=== PATIENT | male | born 1955 | race Caucasian/White ===

== ENCOUNTER → 2017-05-04 09:52 | Outpatient (CLI) | payer MEDICARE, SELFPAY ==
[2017-05-04 10:02] LABS: Microscopic, Urine URINE MICROSCOPIC (MICROSCOPIC)
[2017-05-04 10:20] LABS: Appearance,Urine Clear (Clear); Bilirubin,Urine Negative (Negative); Blood, Urine Negative (Negative); Color,Urine Yellow (Yellow); Glucose,Urine (UA) Negative (Negative); Ketones,Urine Negative (Negative); Leukocyte Esterase,Urine Negative (Negative); Nitrate,Urine Negative (Negative); Protein,Urine Negative (Negative); Specific Gravity, Urine 1.025 (1.005-1.030); Urobilinogen,Urine 0.2 EU/dl (0.2)
[2017-05-04 10:25] LABS: Bacteria,Urine Trace /lpf; Basophils # 0.1 K/mm3 (0-0.2); Basophils % 0.8 % (0.1-2.0); Eosinophils # 0.1 K/mm3 (0.0-0.4); Eosinophils % 2.3 % (0.1-12.0); Hemoglobin 14.8 g/dL (14.1-18.0); Lymphocytes # 2.1 K/mm3 (0.7-4.5); Mean Corpuscular HGB Conc 32.9 g/dL (31.8-35.4); Mean Corpuscular Hemoglobin 30.2 pg (27.0-31.2); Mean Corpuscular Volume 91.7 fl (80-94); Mean Platelet Volume 7.3 fl (7.4-10.4); Monocytes # 0.3 K/mm3 (0.1-1.0); Monocytes % 5.6 % (1.7-9.3); Neutrophils # 2.9 K/mm3 (1.8-7.8); Neutrophils % 53.2 % (37.0-80.0); Platelet Count 223 K/mm3 (142-424); Red Cell Distribution Width 13.1 % (11.5-17.5); White Blood Count 5.5 K/mm3 (4.8-10.8)
[2017-05-04 10:54] LABS: Creatinine,Urine Random 148 mg/dL (20-320)
[2017-05-04 11:17] LABS: Albumin Level 3.8 gm/dL (3.4-5.0); Anion Gap 11.5 mEq/L (5-15); Blood Urea Nitrogen 21 mg/dL (7-18); Calcium 9.3 mg/dL (8.5-10.1); Carbon Dioxide 29 mmol/L (21.0-32.0); Chloride 102 mmol/L (98-107); Creatinine,Serum 1.18 mg/dL (0.70-1.30); Estimated Glomerular Filt Rate 63 ml/min (>60); GFR (African American) 76 ML/MIN (>60); Glucose 250 mg/dL (74-106); Potassium 4.5 mmoL/L (3.5-5.1); Sodium 138 mmol/L (136-145)
[2017-05-05 11:32] LABS: Vitamin D 25 Hydroxy 31.2 ng/mL (30.0-100.0)
[2017-05-05 14:16] LABS: Total Protein,Urine Random 12.8 mg/dL (0.0-11.9)
[2017-05-06 06:59] LABS: Parathyroid Hormone Intact 27 pg/mL (15-65)
== END ==
PROVIDERS: PCP Nurse Practitioner Family; Visit Provider Internal Medicine Nephrology
DX: N18.3 Chronic kidney disease, stage 3 (moderate) (principal)
CPT/HCPCS: 36415; 80069; 81001; 82570; 82652; 83970; 84155; 85025

== ENCOUNTER → 2017-05-11 14:28 | Outpatient (POV) | payer MEDICARE, SELFPAY | PROVIDERS: Family Provider Nurse Practitioner Family; PCP Nurse Practitioner Family; Visit Provider Internal Medicine Nephrology | DX: Z00.00 Encounter for general adult medical examination without abnormal findings (principal) ==

== ENCOUNTER 2017-06-02 18:03 | Emergency (ER) | payer MEDICARE, SELFPAY ==
--- NOTE | 2017-06-02 20:19 | XR_ITS ---
XR foot LT min 3V HISTORY: ITS.REASON: PAIN AND SWELLING ORDERING PHYSICIAN: Lizzy Medina PATIENT AGE: 62 years COMPARISON: None FINDINGS: No fracture or dislocation. No lytic or blastic change. There is normal mineralization.. The joint spaces are well-preserved. No significant degenerative/arthritic changes. No erosive changes evident. Incidental note made of a small calcaneal spur are and enthesophyte at the Achilles insertion IMPRESSION: Negative, no acute finding
[2017-06-02 20:29] VITALS: BP 137/80; PULSE 74; RESP 20; TEMP 36.9; O2SAT 97; BMI 38.4
[2017-06-02 20:50] LABS: Basophils # 0.1 K/mm3 (0-0.2); Basophils % 0.9 % (0.1-2.0); Eosinophils # 0.3 K/mm3 (0.0-0.4); Eosinophils % 3.9 % (0.1-12.0); Hematocrit 42.8 % (42.0-52.0); Hemoglobin 14.7 g/dL (14.1-18.0); Lymphocytes # 3.4 K/mm3 (0.7-4.5); Lymphocytes % 50.6 K/mm3 (10-50); Mean Corpuscular HGB Conc 34.4 g/dL (31.8-35.4); Mean Corpuscular Hemoglobin 31.1 pg (27.0-31.2); Mean Corpuscular Volume 90.5 fl (80-94); Mean Platelet Volume 7.3 fl (7.4-10.4); Monocytes # 0.6 K/mm3 (0.1-1.0); Monocytes % 9.1 % (1.7-9.3); Neutrophils # 2.4 K/mm3 (1.8-7.8); Neutrophils % 35.5 % (37.0-80.0); Platelet Count 204 K/mm3 (142-424); Red Blood Count 4.73 M/mm3 (4.60-6.20); Red Cell Distribution Width 13.6 % (11.5-17.5); White Blood Count 6.8 K/mm3 (4.8-10.8)
[2017-06-02 20:53] LABS: MANUAL DIFFERENTIAL MANUAL DIFFERENTIAL (MANUAL DIFF)
[2017-06-02 20:54] LABS: Anion Gap 11.5 mEq/L (5-15); Blood Urea Nitrogen 27 mg/dL (7-18); Carbon Dioxide 28 mmol/L (21.0-32.0); Chloride 102 mmol/L (98-107); Creatinine Clearance Estimated 107 mL/min (0-300); Creatinine,Serum 1.18 mg/dL (0.70-1.30); Estimated Glomerular Filt Rate 62 ml/min (>60); GFR (African American) 75 ML/MIN (>60); Glucose 203 mg/dL (74-106); Potassium 3.5 mmoL/L (3.5-5.1); Sodium 138 mmol/L (136-145)
--- NOTE | 2017-06-02 21:23 | HMH.EDUTC ---
[facility] [place] Disposition Clinical Impression: Gout attack Qualifiers: Gout site: foot Gout etiology: unspecified cause Laterality: left Qualified Code(s): M10.9 - Gout, unspecified Disposition: Home, Self-Care Condition on Discharge: Good Instructions: DI for Gout Additional Instructions: Follow up with Dr. Samuel in the morning. You can be there at 9am. If you can't make it at that time, be sure to call and let them know you were here, I spoke to him and he plans to work you in. Referrals: Fan Samuel MD [Staff Physician] - (tomorrow morning) Time of Disposition: 21:43 Medical Decision Making Vital Signs: 06/02/17 20:29 Temperature 98.4 F Temperature Source Temporal Artery Scan Pulse Rate [Right Brachial] 74 Respiratory Rate 20 Blood Pressure [Right Arm] 137/80 Blood Pressure Mean [Right Arm] 99 Blood Pressure Source [Right Arm] Automatic Cuff Blood Pressure Position [Right Arm] Sitting 02 Sat by Pulse Oximetry 97 Oxygen Delivery Method Room Air - Lab Data Lab results reviewed: Yes: I reviewed the patient's lab results. Lab Results 06/02/17 20:25: WBC 6.8, RBC 4.73, Hgb 14.7, Hct 42.8, MCV 90.5, MCH 31.1, MCHC 34.4, RDW 13.6, Plt Count 204, MPV 7.3 L, Neut % (Auto) 35.5 L, Lymph % (Auto) 50.6 H, Sevier % (Auto) 9.1, Eos % (Auto) 3.9, Baso % (Auto) 0.9, Neut # (Auto) 2.4, Lymph # (Auto) 3.4, Sevier # (Auto) 0.6, Eos # (Auto) 0.3, Baso # (Auto) 0.1 06/02/17 20:25: Sodium 138, Potassium 3.5, Chloride 102, Carbon Dioxide 28, Anion Gap 11.5, BUN 27 H, Creatinine 1.18, Estimated Creat Clear 107, Estimated GFR 62, Est GFR ( Amer) 75, Glucose 203 H 06/02/17 20:25: Uric Acid 5.0 Result diagrams: 06/02/17 20:25 06/02/17 20:25 Orders (Tests/Meds): ED MEDICATIONS Discontinued Medications Generic Name Dose Route Start Last Admin Trade Name Cleve PRN Reason Stop Dose Admin Dexamethasone Sodium Phosphate 4 mg 06/02/17 21:34 Decadron 4mg/Ml 1ml Vial IM 06/02/17 21:35 ONCE ONE ORDERS Category Date Time Status Foot XR left minimum 3 views [XR foot LT min 3V] Stat Exams 06/02/17 20:19 Taken CBC w/Auto Diff [Complete Blood Count Auto Diff] Stat Lab 06/02/17 20:25 Results - Radiology Data #1 Image(s): Foot/Toes Image Reviewed: Yes I have reviewed radiologist's interpretation Preliminary Findings: Normal/NAD vrad - Physician Consults Physician Consulted: Dr. Samuel, PCP Time: 21:30 Reason -: Pt condition Comment/Response: Discussed HPI, PMHx, current labs, xray, and exam. Suggest decadron injection and followup in office at 9am. - Raghav Inquiry Pt receiving controlled substance: No - Reevaluation(s) Time: 21:35 Reevaluation #1: Discussed labs, xray and Dr. Samuel's suggestion with patient. Pt refuses decadron because him and shots don't get along, he doesn't want to increase bood sugar with steroid and any type of injection at all lowers blood sugar. He rather not get treatment tonight and just see him in the office. Educated about decadron, how it works and why it was chosen but still declines. Content knowing about his labs and xray. [facility] [place] HPI - General Stated complaint: Possible Gout Left Foot Pain/Burning Time Seen by Provider: 06/02/17 21:23 Mode of Arrival: Family Vehicle Source of Information: Patient Limitations: No Limitations Description of Symptoms (Recalled from Triage Doc. by RN): PT C/O LEFT FOOT SWELLING AND BURNING PAIN FROM GREAT TOE. HX GOUT. HEENT Symptoms (Recalled from RN notes): No Resp Symptoms (Recalled from RN notes): No Skin Symptoms (Recalled from RN notes): No MS Symptoms (Recalled from RN notes): Yes (LEFT FOOT PAIN AND SWELLING) Functional Status (Recalled from RN notes): NA - History of Present Illness Provider Complaint: c/o pain at base of left great toe. Started 2-3 days ago. [place] like gout then. No known injury. Hx of gout. Already taking allopurinal daily. When pain started, added colchicine 4x/day and ibuprofen 200mg ev
--- NOTE | 2017-06-02 21:34 | ED_ITS ---
[facility] [place] Disposition Clinical Impression: Gout attack Qualifiers: Gout site: foot Gout etiology: unspecified cause Laterality: left Qualified Code(s): M10.9 - Gout, unspecified Disposition: Home, Self-Care Condition on Discharge: Good Instructions: DI for Gout Additional Instructions: Follow up with Dr. Samuel in the morning. You can be there at 9am. If you can't make it at that time, be sure to call and let them know you were here, I spoke to him and he plans to work you in. Referrals: Fan Samuel MD [Staff Physician] - (tomorrow morning) Time of Disposition: 21:43 Medical Decision Making Vital Signs: 06/02/17 20:29 Temperature 98.4 F Temperature Source Temporal Artery Scan Pulse Rate [Right Brachial] 74 Respiratory Rate 20 Blood Pressure [Right Arm] 137/80 Blood Pressure Mean [Right Arm] 99 Blood Pressure Source [Right Arm] Automatic Cuff Blood Pressure Position [Right Arm] Sitting 02 Sat by Pulse Oximetry 97 Oxygen Delivery Method Room Air - Lab Data Lab results reviewed: Yes: I reviewed the patient's lab results. Lab Results 06/02/17 20:25: WBC 6.8, RBC 4.73, Hgb 14.7, Hct 42.8, MCV 90.5, MCH 31.1, MCHC 34.4, RDW 13.6, Plt Count 204, MPV 7.3 L, Neut % (Auto) 35.5 L, Lymph % (Auto) 50.6 H, Foster % (Auto) 9.1, Eos % (Auto) 3.9, Baso % (Auto) 0.9, Neut # (Auto) 2.4, Lymph # (Auto) 3.4, Foster # (Auto) 0.6, Eos # (Auto) 0.3, Baso # (Auto) 0.1 06/02/17 20:25: Sodium 138, Potassium 3.5, Chloride 102, Carbon Dioxide 28, Anion Gap 11.5, BUN 27 H, Creatinine 1.18, Estimated Creat Clear 107, Estimated GFR 62, Est GFR ( Amer) 75, Glucose 203 H 06/02/17 20:25: Uric Acid 5.0 Result diagrams: 06/02/17 20:25 06/02/17 20:25 Orders (Tests/Meds): ED MEDICATIONS Discontinued Medications Generic Name Dose Route Start Last Admin Trade Name Cleve PRN Reason Stop Dose Admin Dexamethasone Sodium Phosphate 4 mg 06/02/17 21:34 Decadron 4mg/Ml 1ml Vial IM 06/02/17 21:35 ONCE ONE ORDERS Category Date Time Status Foot XR left minimum 3 views [XR foot LT min 3V] Stat Exams 06/02/17 20:19 Taken CBC w/Auto Diff [Complete Blood Count Auto Diff] Stat Lab 06/02/17 20:25 Results - Radiology Data #1 Image(s): Foot/Toes Image Reviewed: Yes I have reviewed radiologist's interpretation Preliminary Findings: Normal/NAD vrad - Physician Consults Physician Consulted: Dr. Samuel, PCP Time: 21:30 Reason -: Pt condition Comment/Response: Discussed HPI, PMHx, current labs, xray, and exam. Suggest decadron injection and followup in office at 9am. - Raghav Inquiry Pt receiving controlled substance: No - Reevaluation(s) Time: 21:35 Reevaluation #1: Discussed labs, xray and Dr. Samuel's suggestion with patient. Pt refuses decadron because him and shots don't get along, he doesn't want to increase bood sugar with steroid and any type of injection at all lowers blood sugar. He rather not get treatment tonight and just see him in the office. Educated about decadron, how it works and why it was chosen but still declines. Content knowing about his labs and xray. [facility] [place] HPI - General Stated complaint: Possible Gout Left Foot Pain/Burning Time Seen by Provider: 06/02/17 21:23 Mode of Arrival: Family Vehicle Source of Information: Patient Limitations: No Limitations D
[2017-06-02 21:49] VITALS: BP 145/88; PULSE 89; RESP 20; TEMP 36.7; O2SAT 99
[2017-06-02 21:55] LABS: Eosinophils % 2 % (0-3); Lymphocytes % 51 % (10-50); Monocytes % 5 % (2-9); Neutrophils % 41 % (42-76); Total Cells Counted 100
[2017-06-02 21:56] LABS: Platelet Estimate Normal; RBC Morphology Normal
== END 2017-06-02 21:50 | disposition home or self-care (01) ==
PROVIDERS: Emergency Provider Nurse Practitioner Family; Family Provider Nurse Practitioner Family; PCP Nurse Practitioner Family
DX: M10.072 Idiopathic gout, left ankle and foot (principal); E11.9 Type 2 diabetes mellitus without complications; Z95.0 Presence of cardiac pacemaker; Z88.8 Allergy status to other drugs, medicaments and biological substances; F17.210 Nicotine dependence, cigarettes, uncomplicated; I10 Essential (primary) hypertension; E78.5 Hyperlipidemia, unspecified
CPT/HCPCS: G0463; 73630; 80048; 84550; 85007; 85025; 99202

== ENCOUNTER → 2017-06-22 12:37 | Outpatient (POV) | payer MEDICARE, SELFPAY ==
[2017-06-22 13:00] VITALS: BP 134/81; PULSE 63; RESP 20; O2SAT 95; BMI 35.2
--- NOTE | 2017-06-22 13:44 | HMH.PAINSOAP ---
[facility] Pain Management SOAP Note Subjective:: Patient is a pleasant 62-year-old white male who presents today for medication refills. Patient is being medically managed for chronic low back pain secondary to degenerative disc disease of lumbar spine, lumbar postlaminectomy syndrome. 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 Patient is taking tramadol 50 mg 1 p.o. 3 times daily. He is also on gabapentin 300 mg 1 p.o. 3 times daily. Patient states his pain is achy and dull. Patient has been having muscle cramps lately. Patient states he is well-hydrated. Patient denies any side effects to his medication and states that his gabapentin used to work well for him however it has not been as effective recently. he is not on any muscle relaxers. ROS General: no recent weight change, no fever, no sleep disturbances Respiratory: no cough, no shortness of air, no recurring pulmonary infections Cardiovascular/Peripheral Vascular: No chest pain, No palpitations, no edema, no shortness of breath. Gastrointestinal: no incontinence, normal bowel movements reported Genitourinary: no incontinence Musculoskeletal: Back pain, bilateral leg pain Psychiatric: normal mood/ affect Neurological: [denies weakness in extremities], [denies balance issues] Objective:: Physical Exam General: Alert and oriented x3, no acute distress, pleasant and cooperative, [on room air] Lungs: Resps E/U, Symmetrical chest expansion, Eyes: PERRL Musculoskeletal: Flexion and extension of lumbar spine somewhat guarded secondary to pain, deep tendon reflexes normal, strength in upper and lower extremities [5/5], slightly antalgic gait noted Neurological: speech clear, 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 daily. We will increase his gabapentin to 600 mg 1 p.o. 3 times daily. We will also start him on Zanaflex 4 mg 1 p.o. twice daily as needed. Patient has been instructed to take this order at time where he would not be driving. We will follow-up with this patient in 2 months and see if these medication changes are helping him. Dr. Choudhury reviewed the chart and agrees with this plan of care. Patients [facility] #[id number] reviewed and appropriate. Patient has been prescribed a controlled substance after being counseled on the medication, medication safety, and possible side effects. ALMA report has been obtained and reviewed prior to prescription and found to be appropriate. Opioid contract was reviewed and signed by the patient, and that they have agreed to all of the terms set forth by our compliance program. This note was dictated using voice recognition software may contain errors or omissions
--- NOTE | 2017-06-22 13:48 | P.CONS_ITS ---
[facility] Pain Management SOAP Note Subjective:: Patient is a pleasant 62-year-old white male who presents today for medication refills. Patient is being medically managed for chronic low back pain secondary to degenerative disc disease of lumbar spine, lumbar postlaminectomy syndrome. 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 Patient is taking tramadol 50 mg 1 p.o. 3 times daily. He is also on gabapentin 300 mg 1 p.o. 3 times daily. Patient states his pain is achy and dull. Patient has been having muscle cramps lately. Patient states he is well-hydrated. Patient denies any side effects to his medication and states that his gabapentin used to work well for him however it has not been as effective recently. he is not on any muscle relaxers. ROS General: no recent weight change, no fever, no sleep disturbances Respiratory: no cough, no shortness of air, no recurring pulmonary infections Cardiovascular/Peripheral Vascular: No chest pain, No palpitations, no edema, no shortness of breath. Gastrointestinal: no incontinence, normal bowel movements reported Genitourinary: no incontinence Musculoskeletal: Back pain, bilateral leg pain Psychiatric: normal mood/ affect Neurological: [denies weakness in extremities], [denies balance issues] Objective:: Physical Exam General: Alert and oriented x3, no acute distress, pleasant and cooperative, [ on room air] Lungs: Resps E/U, Symmetrical chest expansion, Eyes: PERRL Musculoskeletal: Flexion and extension of lumbar spine somewhat guarded secondary to pain, deep tendon reflexes normal, strength in upper and lower extremities [5/5], slightly antalgic gait noted Neurological: speech clear, 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 daily. We will increase his gabapentin to 600 mg 1 p.o. 3 times daily. We will also start him on Zanaflex 4 mg 1 p.o. twice daily as needed. Patient has been instructed to take this order at time where he would not be driving. We will follow-up with this patient in 2 months and see if these medication changes are helping him. Dr. Choudhury reviewed the chart and agrees with this plan of care. Patients [facility] # [id number] reviewed and appropriate. Patient has been prescribed a controlled substance after being counseled on the medication, medication safety, and possible side effects. ALMA report has been obtained and reviewed prior to prescription and found to be appropriate. Opioid contract was reviewed and signed by the patient, and that they have agreed to all of the terms set forth by our compliance program. This note was dictated using voice recognition software may contain errors or omissions
--- NOTE | 2017-06-22 16:53 | PC.PHONENOTE ---
called in RX for Gabapentin TID with 2 refills, Zanaflex 4mg BID with 2 refills and Tramadol 50mg QID with 2 refills to pt selected pharmacy
== END ==
PROVIDERS: Family Provider Nurse Practitioner Family; PCP Physician Assistant; Visit Provider Clinical Nurse Specialist Family Health
DX: M51.36 Other intervertebral disc degeneration, lumbar region (principal)
CPT/HCPCS: 99212

== ENCOUNTER 2017-07-19 13:55 | Emergency (ER) | payer MEDICARE, SELFPAY ==
[2017-07-19 14:15] VITALS: BP 149/86; PULSE 68; RESP 20; TEMP 37; O2SAT 97; BMI 23.0
--- NOTE | 2017-07-19 14:26 | XR_ITS ---
XR foot RT min 3V COMPARISON: Right the soft tissues are normal. Foot 11/26/2016 HISTORY: Heel pain TECHNIQUE: AP lateral and oblique views FINDINGS: The tarsal bones metatarsals and phalanges appear intact with no evidence of recent or old fracture and there is no significant arthritic change. There are spurs of the calcaneus at insertion of plantar tendon and Achilles tendon. IMPRESSION: Stable calcaneal spurs, no other significant abnormality noted.
--- NOTE | 2017-07-19 14:28 | HMH.EDUTC ---
[facility] [place] Disposition Clinical Impression: Foot pain, right Disposition: Home, Self-Care Condition on Discharge: Good Instructions: DI for Chronic Pain -- Adult Additional Instructions: Rest foot, keep foot elevated when at rest Rotate shoes and use a heel pad in shoes to ease pressure on heel Follow with family doctor in 24-48 hours if no improvement or worsening of symptoms Follow up with Dr Turk, call tomorrow for appointment Straight to ER if you began to have fever, rash, redness or streaks or any signs of infection Return if needed Referrals: Susanna Kohli PA [Primary Care Provider] - (Follow up in 24-48 hours if no improvement or worsening of symptoms) Daphnie Turk DPM [Physician] - Time of Disposition: 15:06 Medical Decision Making - Medical Records Medical records reviewed: Yes: I reviewed the patient's medical records. - Raghav Inquiry Pt receiving controlled substance: No Raghav was queried for this patient: No Vital Signs: 07/19/17 14:15 Temperature 98.6 F Temperature Source Oral Pulse Rate [Right Radial] 68 Respiratory Rate 20 Blood Pressure [Right Arm] 149/86 Blood Pressure Mean [Right Arm] 107 02 Sat by Pulse Oximetry 97 Oxygen Delivery Method Room Air - Lab Data Lab results reviewed: Yes: I reviewed the patient's lab results. Orders (Tests/Meds): ORDERS Category Date Time Status Foot XR right minimum 3 views [XR foot RT min 3V] Stat Exams 07/19/17 14:26 Taken Foot XR weight bearing right 2 views [XR foot wt Exams 07/19/17 14:22 Stop Req bearing RT 2V] Stat - Radiology Data #1 Image(s): Foot/Toes Image Reviewed: Yes I reviewed the patient's radiology image w/the ED provider Preliminary Findings: No Fracture Seen Discussed with Dr Vaughn, no acute small calcaneal spur noted - Reevaluation(s) Time: 14:59 Reevaluation #1: Discussed with Dr Vaughn Er physican and agreed Patient able to move foot back and forth with no pain, No signs of infection Normal Achilles tendon reflex, Describes pain on bottom of foot that has got worse over the last week with walking. Advised patient to stay off foot, monitor for signs of infection, and follow up with Dr Rosalee SMILEY [facility] [place] HPI - General Stated complaint: right heel pain Time Seen by Provider: 04/01/18 14:25 Mode of Arrival: Family Vehicle Source of Information: Patient Limitations: No Limitations Description of Symptoms (Recalled from Triage Doc. by RN): PT C/O RIGHT HEEL PAIN FOR ONE WEEK THAT IS CONTINUALLY GETTING WORSE. PT HAS HISTORY OF GOUT. PT DENIES INJURY. HEENT Symptoms (Recalled from RN notes): No Resp Symptoms (Recalled from RN notes): No Skin Symptoms (Recalled from RN notes): No MS Symptoms (Recalled from RN notes): Yes (RIGHT HEEL PAIN) Functional Status (Recalled from RN notes): NA - History of Present Illness Provider Complaint: Patient state that he began to have pain in the bottom of his foot and heel about a week ago State that when he bears weight on the bottom of his foot he feels pain and like somthing is poking him. State that he does not recall doing anything to hurt the foot and describes pain as sharp and achy like feeling. State that he is able to move foot back and forth without pain but pain occurs when he bears weight - Related Data Home Medications Medication Instructions Recorded Confirmed colchicine 0.6 mg capsule 0.6 mg PO DAILY cap 06/04/17 Previous Rx's Medication Instructions Recorded allopurinol 300 mg tablet 300 mg PO DAILY 90 Days #90 tab 06/04/17 aspirin 81 mg tablet,delayed 81 mg PO DAILY 90 Days #90 tab 06/04/17 release atorvastatin 10 mg tablet 10 mg PO DAILY 90 Days #90 tab 06/04/17 carvedilol 25 mg tablet 25 mg PO BID 90 Days #180 tab 06/04/17 glipizide 5 mg tablet 5 mg PO DAILY 90 Days #90 tab 06/04/17 hydralazine 100 mg tablet 100 mg PO BID 90 Days #180 tab 06/04/17 hydrochlorothiazide 25 mg tablet 25 mg PO QAM 90 Days #90 tab 06/04/17 lisinopril 4
--- NOTE | 2017-07-19 14:40 | ED_ITS ---
[facility] [place] Disposition Clinical Impression: Foot pain, right Disposition: Home, Self-Care Condition on Discharge: Good Instructions: DI for Chronic Pain -- Adult Additional Instructions: Rest foot, keep foot elevated when at rest Rotate shoes and use a heel pad in shoes to ease pressure on heel Follow with family doctor in 24-48 hours if no improvement or worsening of symptoms Follow up with Dr Turk, call tomorrow for appointment Straight to ER if you began to have fever, rash, redness or streaks or any signs of infection Return if needed Referrals: Susanna Kohli PA [Primary Care Provider] - (Follow up in 24-48 hours if no improvement or worsening of symptoms) Daphnie Turk DPM [Physician] - Time of Disposition: 15:06 Medical Decision Making - Medical Records Medical records reviewed: Yes: I reviewed the patient's medical records. - Raghav Inquiry Pt receiving controlled substance: No Raghav was queried for this patient: No Vital Signs: 07/19/17 14:15 Temperature 98.6 F Temperature Source Oral Pulse Rate [Right Radial] 68 Respiratory Rate 20 Blood Pressure [Right Arm] 149/86 Blood Pressure Mean [Right Arm] 107 02 Sat by Pulse Oximetry 97 Oxygen Delivery Method Room Air - Lab Data Lab results reviewed: Yes: I reviewed the patient's lab results. Orders (Tests/Meds): ORDERS Category Date Time Status Foot XR right minimum 3 views [XR foot RT min 3V] Stat Exams 07/19/17 14:26 Taken Foot XR weight bearing right 2 views [XR foot wt Exams 07/19/17 14:22 Stop Req bearing RT 2V] Stat - Radiology Data #1 Image(s): Foot/Toes Image Reviewed: Yes I reviewed the patient's radiology image w/the ED provider Preliminary Findings: No Fracture Seen Discussed with Dr Vaughn, no acute small calcaneal spur noted - Reevaluation(s) Time: 14:59 Reevaluation #1: Discussed with Dr Vaughn Er physican and agreed Patient able to move foot back and forth with no pain, No signs of infection Normal Achilles tendon reflex, Describes pain on bottom of foot that has got worse over the last week with walking. Advised patient to stay off foot, monitor for signs of infection, and follow up with Dr Rosalee SMILEY [facility] [place] HPI - General Stated complaint: right heel pain Time Seen by Provider: 04/01/18 14:25 Mode of Arrival: Family Vehicle Source of Information: Patient Limitations: No Limitations Description of Symptoms (Recalled from Triage Doc. by RN): PT C/O RIGHT HEEL PAIN FOR ONE WEEK THAT IS CONTINUALLY GETTING WORSE. PT HAS HISTORY OF GOUT. PT DENIES INJURY. HEENT Symptoms (Recalled from RN notes): No Resp Symptoms (Recalled from RN notes): No Skin Symptoms (Recalled from RN notes): No MS Symptoms (Recalled from RN notes): Yes (RIGHT HEEL PAIN) Functional Status (Recalled from RN notes): NA - History of Present Illness Provider Complaint: Patient state that he began to have pain in the bottom of his foot and heel about a week ago State that when he bears weight on the bottom of his foot he feels pain and like somthing is poking him. State that he does not recall doing anything to hurt the foot and describes pain as sharp and achy like feeling. State that he is able to move foot back and forth without pain but pain occurs when he bears weight - Related Data Home Medications Medication Instructions Recorded Confirmed colchicine 0.6 mg capsule 0.6 mg PO DAILY cap
[2017-07-19 15:05] VITALS: BP 140/82; PULSE 72; RESP 18; TEMP 36.9; O2SAT 98
== END 2017-07-19 15:17 | disposition home or self-care (01) ==
PROVIDERS: Emergency Provider Nurse Practitioner; Family Provider Nurse Practitioner Family; PCP Physician Assistant
DX: M79.671 Pain in right foot (principal); E11.9 Type 2 diabetes mellitus without complications; I10 Essential (primary) hypertension; Z95.0 Presence of cardiac pacemaker; F17.210 Nicotine dependence, cigarettes, uncomplicated; E78.5 Hyperlipidemia, unspecified
CPT/HCPCS: G0463; 73630; 99201

== ENCOUNTER → 2017-08-03 10:27 | Outpatient (POV) | payer MEDICARE, SELFPAY ==
[2017-08-03 10:45] VITALS: BP 135/74; PULSE 78; RESP 18; O2SAT 98; BMI 36.3
--- NOTE | 2017-08-03 11:39 | HMH.PAINSOAP ---
[facility] Pain Management SOAP Note Subjective:: Patient is a very pleasant 62-year-old white male who presents today for discussion of his pain medication. Patient has been currently medically managed with tramadol 50 mg 1 p.o. 3 times daily and gabapentin 300 milligrams 1 p.o. 3 times daily. We are treating him for chronic low back pain secondary to degenerative disc disease of the lumbar spine, lumbar postlaminectomy syndrome. 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 Patient states that his pain is achy and dull. Patient would like to be taken off the tramadol. Patient is wanting to be on no narcotics in order continue driving his truck. Patient's last fill of tramadol was back in May. Patient is not on tramadol at this time. Longer receive tramadol prescriptions from our office. ROS General: no recent weight change, no fever, no sleep disturbances Respiratory: no cough, no shortness of air, no recurring pulmonary infections Cardiovascular/Peripheral Vascular: No chest pain, No palpitations, no edema, no shortness of breath. Gastrointestinal: no incontinence, normal bowel movements reported Genitourinary: no incontinence Musculoskeletal: Back pain Psychiatric: normal mood/ affect, [denies depression], [denies anxiety] Neurological: [denies weakness in extremities], [denies balance issues] Objective:: Physical Exam General: Alert and oriented x3, no acute distress, pleasant and cooperative, [on room air] Lungs: Resps E/U, Symmetrical chest expansion, Eyes: PERRL Musculoskeletal: Flexion and extension of lumbar spine somewhat guarded secondary to pain, deep tendon reflexes normal, strength in upper and lower extremities [5/5], [abnormal gait noted] Neurological: speech clear, 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 We will continue him on his current 300 mg 1 p.o. 3 times daily. Patient denies any side effects to this medication. Will follow up with this patient in 3 months. This note was dictated using voice recognition software and may contain errors or omissions
--- NOTE | 2017-08-03 11:43 | P.CONS_ITS ---
[facility] Pain Management SOAP Note Subjective:: Patient is a very pleasant 62-year-old white male who presents today for discussion of his pain medication. Patient has been currently medically managed with tramadol 50 mg 1 p.o. 3 times daily and gabapentin 300 milligrams 1 p.o. 3 times daily. We are treating him for chronic low back pain secondary to degenerative disc disease of the lumbar spine, lumbar postlaminectomy syndrome. 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 Patient states that his pain is achy and dull. Patient would like to be taken off the tramadol. Patient is wanting to be on no narcotics in order continue driving his truck. Patient's last fill of tramadol was back in May. Patient is not on tramadol at this time. Longer receive tramadol prescriptions from our office. ROS General: no recent weight change, no fever, no sleep disturbances Respiratory: no cough, no shortness of air, no recurring pulmonary infections Cardiovascular/Peripheral Vascular: No chest pain, No palpitations, no edema, no shortness of breath. Gastrointestinal: no incontinence, normal bowel movements reported Genitourinary: no incontinence Musculoskeletal: Back pain Psychiatric: normal mood/ affect, [denies depression], [denies anxiety] Neurological: [denies weakness in extremities], [denies balance issues] Objective:: Physical Exam General: Alert and oriented x3, no acute distress, pleasant and cooperative, [ on room air] Lungs: Resps E/U, Symmetrical chest expansion, Eyes: PERRL Musculoskeletal: Flexion and extension of lumbar spine somewhat guarded secondary to pain, deep tendon reflexes normal, strength in upper and lower extremities [5/5], [abnormal gait noted] Neurological: speech clear, reference assistant equal, no gross sensory deficits Assessment:: Degenerative disc disease of the lumbar spine, lumbar radiculopathy, postlaminectomy syndrome of the lumbar spine Plan:: This office will no longer medications to this patient. 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 We will continue him on his current 300 mg 1 p.o. 3 times daily. Patient denies any side effects to this medication. Will follow up with this patient in 3 months. This note was dictated using voice recognition software and may contain errors or omissions
== END ==
PROVIDERS: Family Provider Nurse Practitioner Family; PCP Physician Assistant; Visit Provider Clinical Nurse Specialist Family Health
DX: M96.1 Postlaminectomy syndrome, not elsewhere classified (principal)
CPT/HCPCS: 99212

== ENCOUNTER → 2017-08-03 15:59 | Outpatient (REF) | payer MEDICARE, SELFPAY ==
[2017-08-03 18:59] LABS: Hemoglobin A1C 8.9 % (0.0-7.0)
== END ==
LOC: LAB 15:59
PROVIDERS: Visit Provider Physician Assistant
DX: E11.9 Type 2 diabetes mellitus without complications (principal)
CPT/HCPCS: 83036; 99212

== ENCOUNTER → 2017-08-24 14:51 | Outpatient (POV) | payer MEDICARE, SELFPAY ==
[2017-08-24 15:12] VITALS: BP 122/73; PULSE 87; RESP 18; TEMP 36.6; O2SAT 99; BMI 35.2
--- NOTE | 2017-08-24 15:15 | HMH.PAINSOAP ---
[facility] Pain Management SOAP Note Subjective:: Patient is a pleasant 62-year-old white male who presents today for medication follow-up. 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 So patient is currently on gabapentin 300 mg 1 p.o. 3 times daily. We are treating him for chronic low back pain secondary to degenerative disc disease of the lumbar spine, lumbar postlaminectomy syndrome. Patient states that he has no side effects to his gabapentin. Patient rates his pain a 6 out of 10 today. ROS General: no recent weight change, no fever, no sleep disturbances Respiratory: no cough, no shortness of air, no recurring pulmonary infections Cardiovascular/Peripheral Vascular: No chest pain, No palpitations, no edema, no shortness of breath. Gastrointestinal: no incontinence, normal bowel movements reported Genitourinary: no incontinence Musculoskeletal: Back pain, bilateral leg pain Psychiatric: normal mood/ affect, [denies depression], [denies anxiety] Neurological: [denies weakness in extremities], [denies balance issues] Objective:: Physical Exam General: Alert and oriented x3, no acute distress, pleasant and cooperative, [on room air] Lungs: Resps E/U, Symmetrical chest expansion, Eyes: PERRL Musculoskeletal: Flexion and extension of lumbar spine somewhat guarded secondary to pain, deep tendon reflexes normal, strength in upper and lower extremities [5/5], [abnormal gait noted] Neurological: speech clear, produce associate equal, no gross sensory deficits Assessment:: Degenerative disc disease of the lumbar spine, lumbar radiculopathy, postlaminectomy syndrome of the lumbar spine Plan:: We will increase the patient's gabapentin to 800 mg p.o. 3 times daily. I will see this patient back in 3 months. Patient and I did discuss neuro stimulation. Patient is good to take information home and review it. This note was dictated using voice recognition software and may contain errors or omissions
--- NOTE | 2017-08-24 15:19 | P.CONS_ITS ---
[facility] Pain Management SOAP Note Subjective:: Patient is a pleasant 62-year-old white male who presents today for medication follow-up. 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 So patient is currently on gabapentin 300 mg 1 p.o. 3 times daily. We are treating him for chronic low back pain secondary to degenerative disc disease of the lumbar spine, lumbar postlaminectomy syndrome. Patient states that he has no side effects to his gabapentin. Patient rates his pain a 6 out of 10 today. ROS General: no recent weight change, no fever, no sleep disturbances Respiratory: no cough, no shortness of air, no recurring pulmonary infections Cardiovascular/Peripheral Vascular: No chest pain, No palpitations, no edema, no shortness of breath. Gastrointestinal: no incontinence, normal bowel movements reported Genitourinary: no incontinence Musculoskeletal: Back pain, bilateral leg pain Psychiatric: normal mood/ affect, [denies depression], [denies anxiety] Neurological: [denies weakness in extremities], [denies balance issues] Objective:: Physical Exam General: Alert and oriented x3, no acute distress, pleasant and cooperative, [ on room air] Lungs: Resps E/U, Symmetrical chest expansion, Eyes: PERRL Musculoskeletal: Flexion and extension of lumbar spine somewhat guarded secondary to pain, deep tendon reflexes normal, strength in upper and lower extremities [5/5], [abnormal gait noted] Neurological: speech clear, salesperson handbags equal, no gross sensory deficits Assessment:: Degenerative disc disease of the lumbar spine, lumbar radiculopathy, postlaminectomy syndrome of the lumbar spine Plan:: We will increase the patient's gabapentin to 800 mg p.o. 3 times daily. I will see this patient back in 3 months. Patient and I did discuss neuro stimulation. Patient is good to take information home and review it. This note was dictated using voice recognition software and may contain errors or omissions
--- NOTE | 2017-08-24 16:16 | PC.PHONENOTE ---
called in Rx for Gabapentin 800mg TID with 2 refills
== END ==
PROVIDERS: Family Provider Nurse Practitioner Family; PCP Physician Assistant; Visit Provider Clinical Nurse Specialist Family Health
DX: M54.16 Radiculopathy, lumbar region (principal)
CPT/HCPCS: 99212

== ENCOUNTER 2017-09-23 20:23 | Observation (INO) ==
[2017-09-23 21:04] LABS: Basophils # 0.1 K/mm3 (0-0.2); Basophils % 0.6 % (0.1-2.0); Eosinophils # 0.2 K/mm3 (0.0-0.4); Eosinophils % 2.3 % (0.1-12.0); Hematocrit 46.3 % (42.0-52.0); Hemoglobin 14.9 g/dL (14.1-18.0); Lymphocytes # 2.7 K/mm3 (0.7-4.5); Lymphocytes % 32.2 K/mm3 (10-50); Mean Corpuscular HGB Conc 32.2 g/dL (31.8-35.4); Mean Corpuscular Hemoglobin 31.4 pg (27.0-31.2); Mean Corpuscular Volume 97.3 fl (80-94); Mean Platelet Volume 7.4 fl (7.4-10.4); Monocytes # 0.6 K/mm3 (0.1-1.0); Monocytes % 6.9 % (1.7-9.3); Neutrophils # 4.8 K/mm3 (1.8-7.8); Platelet Count 235 K/mm3 (142-424); Red Blood Count 4.75 M/mm3 (4.60-6.20); Red Cell Distribution Width 13.9 % (11.5-17.5); White Blood Count 8.3 K/mm3 (4.8-10.8)
[2017-09-23 21:18] LABS: Anion Gap 13.8 mEq/L (5-15); Blood Urea Nitrogen 23 mg/dL (7-18); Calcium 9.5 mg/dL (8.5-10.1); Carbon Dioxide 28 mmol/L (21.0-32.0); Chloride 105 mmol/L (98-107); Glucose 110 mg/dL (74-106); Potassium 3.8 mmoL/L (3.5-5.1); Sodium 143 mmol/L (136-145)
--- NOTE | 2017-09-23 22:48 | Emergency Department Note ---
ED Disposition Clinical Impression: Unstable angina pectoris, Renal insufficiency Diabetes Qualifiers: Diabetes mellitus type: type 2 Diabetes mellitus nursing home insulin use: unspecified nursing home insulin use status Diabetes mellitus complication status: with unspecified complications Qualified Code(s): E11.8 - Type 2 diabetes mellitus with unspecified complications Disposition: Admitted as Observation Condition on Discharge: Good Referrals: Susanna Kohli PA [Primary Care Provider] - - Critical Care Critical Care Time: No Attestation: On 09/23/17, the high probability of a clinically significant, sudden or life threatening deterioration of the following system(s) required my full and direct attention, intervention and personal management. The time I documented below is in addition to time spent performing reported procedures but includes the following listed in this critical care notation. Medical Decision Making - Medical Records Medical records reviewed: Yes: I reviewed the patient's medical records. - Raghav Inquiry Pt receiving controlled substance: No Vital Signs: 09/23/17 20:24 09/23/17 20:31 09/23/17 21:47 Temperature 98.9 F Temperature Source Oral Pulse Rate [Right Radial] 76 76 76 Respiratory Rate 18 18 16 Blood Pressure [Right Arm] 150/87 180/99 154/84 Blood Pressure Mean [Right Arm] 108 126 107 Blood Pressure Source [Right Arm] Automatic Cuff Automatic Cuff Automatic Cuff Blood Pressure Position [Right Arm] Sitting Sitting Sitting 02 Sat by Pulse Oximetry 96 96 95 Oxygen Delivery Method Room Air Room Air Room Air 09/23/17 22:30 Temperature Temperature Source Pulse Rate [Right Radial] 75 Respiratory Rate 18 Blood Pressure [Right Arm] 162/85 Blood Pressure Mean [Right Arm] 110 Blood Pressure Source [Right Arm] Automatic Cuff Blood Pressure Position [Right Arm] Sitting 02 Sat by Pulse Oximetry 95 Oxygen Delivery Method Room Air - Lab Data Lab results reviewed: Yes: I reviewed the patient's lab results. Lab Results 09/23/17 20:42: WBC 8.3, RBC 4.75, Hgb 14.9, Hct 46.3, MCV 97.3 H, MCH 31.4 H, MCHC 32.2, RDW 13.9, Plt Count 235, MPV 7.4, Neut % (Auto) 58.0, Lymph % (Auto) 32.2, Burt % (Auto) 6.9, Eos % (Auto) 2.3, Baso % (Auto) 0.6, Neut # (Auto) 4.8 , Lymph # (Auto) 2.7, Burt # (Auto) 0.6, Eos # (Auto) 0.2, Baso # (Auto) 0.1 09/23/17 20:42: Sodium 143, Potassium 3.8, Chloride 105, Carbon Dioxide 28, Anion Gap 13.8, BUN 23 H, Creatinine 1.20, Estimated Creat Clear 109, Estimated GFR 61, Est GFR ( Amer) 74, Glucose 110 H, Calcium 9.5, Troponin I < 0.02 Result diagrams: 09/23/17 20:42 09/23/17 20:42 Orders (Tests/Meds): ED MEDICATIONS Generic Name Dose Route Start Last Admin Trade Name Freq PRN Reason Stop Dose Admin Nitroglycerin 0.4 mg 09/23/17 20:51 09/23/17 21:25 Nitrostat 0.4mg Sl Tablet SL 10/23/17 20:50 0.4 mg Q5MINP PRN Administration Chest Pain Discontinued Medications Generic Name Dose Route Start Last Admin Trade Name Freq PRN Reason Stop Dose Admin Aspirin 243 mg 09/23/17 20:39 09/23/17 20:41 Aspirin 81mg Chewable Tablet PO 09/23/17 20:40 243 mg ONCE ONE Administration Methylprednisolone Sodium Succinate 125 mg 09/23/17 20:51 09/23/17 21:00 Solu-Medrol 125mg/2ml Vial IV 09/23/17 20:52 125 mg ONCE ONE Administration Nitroglycerin 1 gm 09/23/17 22:43 Nitroglycerin 1 Inch Oint Udp TD 09/23/17 22:44 ONCE ONE ORDERS Category Date Time Status Chest XR -- portable [XR chest portable] Stat Exams 09/23/17 20:41 Taken XR chest 2V Stat Exams 09/23/17 20:51 Taken ECG Request by /Fabio Stat Y 09/23/17 20:39 Ordered - Radiology Data #1 Image(s): Chest Image Reviewed: Yes I reviewed the patient's radiology image Preliminary Findings: Normal/NAD (cm) - ECG Data Tracing #1 I reviewed this ECG and interpreted as documented below: Normal Sinus Rhythm: Yes Ischemic changes: non-specific ST-T wave changes Chest Pain HPI - General Chief Complaint: Chest Pain Stated Complaint: pain in lungs Time Seen by Provider: 09/23/17 22:45 Mode of Arrival: Ambulatory Source of Information: Patient, Medical Record Limitations: No Limitations Description of Symptoms (Recalled from ER Triage Doc. by RN): pain with breathing and shortness of breath since last night - History of Present Illness HPI narrative: pt with intermittent ant chest pain since last pm with described as heavy with assoc sob - has pacemaker and last cath about 3 yrs ago - no stents - MD complaint: chest pain indicative of cardiac Onset (ago): day(s) Duration: intermittent, now resolved Activity at onset: during rest Pain location: left chest Severity: moderate Quality: heaviness Pain radiation: none Associated symptoms: dyspnea Risk Factors for CAD: Hypertension, Hypercholesterolemia, Family Hx of CAD, Diabetes, Smoking Treatments prior to or on arrival for Cardiac Chest Pain: none - MICHELLE Score Non-Stemi Age of patient: Less than 65 yrs Number of risk factors for CAD: Presence of 3 or more Prior coronary artery stenosis(seen in coronary angiography): Less than 50% ST-Segment deviation on ECG (more than 1 min): Absent Prior aspirin intake: ASA intake in the last 7 days Severe anginal chest pain: Two or more episodes in last 24 hours Elevated cardiac markers(CK-MB or troponin): Absent Non-Stemi Risk Score: 3 - Related Data Prior Cardiac Testing/Procedures: Cardiac Angiogram Home Medications Medication Instructions Recorded Confirmed colchicine 0.6 mg capsule 0.6 mg PO DAILY cap 06/04/17 09/23/17 Aspirin [Low Dose Aspirin EC] 81 mg PO DAILY 08/03/17 09/23/17 Atorvastatin Calcium [Atorvastatin 10 mg PO DAILY 08/03/17 09/23/17 10mg Tab] Carvedilol [Carvedilol 25mg Tab] 25 mg PO BID 08/03/17 09/23/17 Hydralazine HCl 100 mg PO BID 08/03/17 09/23/17 Lisinopril [Lisinopril 40mg Tablet] 40 mg PO DAILY 08/03/17 09/23/17 hydroCHLOROthiazide [HCTZ 25mg 25 mg PO QAM 08/03/17 09/23/17 tab] Metformin HCl [Glucophage] 1,000 mg PO BID 09/23/17 09/23/17 Pioglitazone HCl 30 mg PO DAILY 09/23/17 09/23/17 glipiZIDE [Glipizide ER] 10 mg PO DAILY 09/23/17 09/23/17 Previous Rx's Medication Instructions Recorded diclofenac 1 % topical gel 4 g TOPICAL QID #30 g 08/13/17 Allergies Allergy/AdvReac Type Severity Reaction Status Date / Time desvenlafaxine [From PRISTIQ] Allergy Mild Verified 08/13/17 14:41 [facility] History I have reviewed the patient's past medical history: Yes Medical History: Reports:: Diabetes Mellitus Type 2, Hypertension, Internal Pacemaker Denies:: Cancer, Diabetes Mellitus Type 1, MRSA Other Medical History: Reports: Other Comment: GOUT Other Surgeries: Yes: Appendectomy, Cardiac Catheterization, Pacemaker, Other Amputation: No Fractures: No Comment: heart cath, spinal arthrodesis, hemorrhoidectomy - Social History Smoking Status: Current every day smoker Tobacco Type: cigarettes # Packs/Day (cigarettes): 1 Alcohol Intake: never Alcohol Intake Frequency:: other Substance Use Type: denies use Occupational Status: employed Housing: house Household Members: none - Psychiatric History Expresses thoughts of harming self/others: None Suicide Plan Description: No Plan Family Hx:: Heart Attack Comment: PSOROSIS ROS Obtained: Yes All systems reviewed & no additional complaints - Constitutional Constitutional: Denies fever(s) - Eyes Eyes: Denies change in vision - ENT Ears, Nose, Mouth, and Throat: Denies sore throat - Cardiovascular Cardiovascular: Reports chest pain, Reports chest pain at rest, Reports dyspnea - Respiratory Respiratory: No cough - Gastrointestinal Gastrointestingal: Denies: abdominal pain - Genitourinary Male Genitourinary: Denies hematuria - Musculoskeletal Musculoskeletal: Denies joint pain, Denies joint swelling - Integumentary/Breasts Skin/Breast: Denies rash - Neurologic Neurologic: Denies seizure-like activity Physical Exam - General General appearance: in no apparent distress - Head Head exam: normocephalic - Eye Eye exam: Present: PERRL, EOMI - ENT ENT exam: Present: mucous membranes moist - Neck Neck exam: Present: trachea midline - Respiratory Respiratory exam: Present: normal lung sounds bilaterally. Absent: respiratory distress - Cardiovascular Cardiovascular exam: Present: regular rate, systolic murmur - Abdominal Exam Abdominal exam: Present: soft - Extremities Exam Extremities exam: Present: pedal edema. Absent: tenderness - Neurological Exam Neurological exam: Present: alert, oriented X3, CN II-XII intact - Psychiatric Psychiatric exam: Present: normal affect - Skin Skin exam: Absent: rash
[2017-09-24 05:52] LABS: Basophils % 0.2 % (0.1-2.0); Eosinophils % 0.3 % (0.1-12.0); Lymphocytes # 1.2 K/mm3 (0.7-4.5); Mean Corpuscular HGB Conc 30.8 g/dL (31.8-35.4); Mean Corpuscular Hemoglobin 30.4 pg (27.0-31.2); Mean Corpuscular Volume 98.8 fl (80-94); Mean Platelet Volume 7.6 fl (7.4-10.4); Monocytes # 0.1 K/mm3 (0.1-1.0); Monocytes % 1.1 % (1.7-9.3); Neutrophils # 4.4 K/mm3 (1.8-7.8); Neutrophils % 77.5 % (37.0-80.0); Platelet Count 207 K/mm3 (142-424); Red Blood Count 4.35 M/mm3 (4.60-6.20); Red Cell Distribution Width 13.8 % (11.5-17.5); White Blood Count 5.6 K/mm3 (4.8-10.8)
[2017-09-24 05:58] LABS: Hemoglobin 13.4 g/dL (14.1-18.0)
[2017-09-24 06:17] LABS: Anion Gap 14.6 mEq/L (5-15); Calcium 9.6 mg/dL (8.5-10.1); Chol/HDL Ratio 3.5 (1-3.5); Potassium 4.6 mmoL/L (3.5-5.1)
--- NOTE | 2017-09-24 07:29 | Pharmacy Consult Notes ---
[facility] Pharmacy VTE Monitoring - Patient Demographics Admission date: 09/24/17 Report Date: 09/24/17 Time: 07:28 Allergies/Adverse Reactions: Patient Allergies desvenlafaxine [From PRISTIQ] Allergy (Mild, Verified 08/13/17 14:41) Height: 1.83 m Weight: 117.934 kg Patient Problems: Current Active Problems Unstable angina pectoris (Acute) Renal insufficiency (Acute) Diabetes (Chronic) - VTE Risk Labs: VTE Related Lab Results Hgb 13.4 g/dL (14.1-18.0) L D 09/24/17 05:12 Hct 43.0 % (42.0-52.0) 09/24/17 05:12 Plt Count 207 K/mm3 (142-424) 09/24/17 05:12 BUN 28 mg/dL (7-18) H 09/24/17 05:12 Creatinine 1.33 mg/dL (0.70-1.30) H 09/24/17 05:12 Estimated Creat Clear 95 mL/min (0-300) 09/24/17 05:12 Was VTE Risk Assessment Performed: Yes VTE Score: 5 VTE Risk Level: Low Risk Clinical Trial Participant: No - Prophylaxis VTE Prophylaxis Ordered?: Yes Types of VTE Prophylaxis: TEDS Knee High Location of Applied Device: Not Applicable
--- NOTE | 2017-09-24 07:39 | Consult Report ---
History of Present Illness Consult date: 09/24/17 Requesting physician: Fan Samuel Consult reason: chest pain Chief complaint: chest pain, SOA Additional Medical History:: 1. Diabetes mellitus, treated for greater than 10 years 2. Hypertension 3. Hyperlipidemia 4. Coronary artery disease A. History of cardiac catheterization by Dr. Hall several years ago with results of [id number] coronary artery disease for which no intervention required at that time. Performed at [facility] per patient. 5. Strong family history of coronary artery disease in his father and younger brother. 6. Tobacco use of one half to one pack per week 7. History of pacemaker insertion for syncope History of present illness: 62-year-old white male with diabetes, hypertension, hyperlipidemia and tobacco use presented to the emergency department for 1 day history of recurrent chest pain and shortness of breath. Patient describes the discomfort as substernal without radiation but with associated shortness of breath. Symptoms would worsen with deep breathing but also with activity. He denies any recent exertional symptoms prior to the day before admission. In the emergency department the patient was given aspirin and 3 sublingual nitroglycerin with improvement in symptoms with each 1. Has had no further chest discomfort overnight. His troponins have returned normal. Cardiology consulted for evaluation recommendations. EKG shows sinus rhythm without evidence of acute ST segment changes. Patient relates having a cardiac catheterization several years ago with one artery with blockage that did not require intervention. He has not had any stress test since then. [facility] History Medical History: Reports:: Congestive Heart Failure, Diabetes Mellitus Type 2, Hypertension, Internal Pacemaker Denies:: Cancer, Diabetes Mellitus Type 1, MRSA Other Medical History: Reports: Arthritis, Glaucoma, Sinus Problems, Other Other Surgeries: Yes: Appendectomy, Cardiac Catheterization, Pacemaker, Other Amputation: No Fractures: No - *Social History Educational Level: Completed High School Smoking Status: Current every day smoker Tobacco Type: cigarettes # Packs/Day (cigarettes): 1 #Yrs smoked (if former smoker): 45 Alcohol Intake: never Alcohol Intake Frequency:: other Substance Use Type: denies use Occupational Status: employed Housing: house Household Members: significant other - Psychiatric History Expresses thoughts of harming self/others: None Suicide Plan Description: No Plan *Family Hx:: Heart Attack Meds Home Medications Medication Instructions Recorded Confirmed Type Aspirin [Low Dose Aspirin EC] 81 mg PO DAILY 08/03/17 09/24/17 History Atorvastatin Calcium [Atorvastatin 10 mg PO HS 08/03/17 09/24/17 History 10mg Tab] Carvedilol [Carvedilol 25mg Tab] 25 mg PO BID 08/03/17 09/24/17 History Hydralazine HCl 100 mg PO BID 08/03/17 09/24/17 History Lisinopril [Lisinopril 40mg Tablet] 40 mg PO DAILY 08/03/17 09/24/17 History hydroCHLOROthiazide [HCTZ 25mg 25 mg PO QAM 08/03/17 09/24/17 History tab] Metformin HCl [Glucophage] 1,000 mg PO BID 09/23/17 09/23/17 History Pioglitazone HCl 30 mg PO DAILY 09/23/17 09/23/17 History glipiZIDE [Glipizide ER] 10 mg PO DAILY 09/23/17 09/24/17 History Allopurinol [Allopurinol 300mg 300 mg PO DAILY 09/24/17 09/24/17 History tablet] Colchicine [Colcrys 0.6mg tablet] 0.6 mg PO QID 09/24/17 09/24/17 History Cyclobenzaprine HCl [Flexeril 10mg 10 mg PO TID 09/24/17 09/24/17 History tablet] Gabapentin [Gabapentin 800mg Tab] 800 mg PO TID 09/24/17 09/24/17 History Tizanidine HCl [Zanaflex 4mg 4 mg PO BID 09/24/17 09/24/17 History tablet] Allergies Allergy/AdvReac Type Severity Reaction Status Date / Time desvenlafaxine [From PRISTIQ] Allergy Mild Verified 08/13/17 14:41 Review of Systems - *Cardiovascular Reports chest pain, Reports shortness of breath with activity - *Respiratory Reports shortness of breath with activity - *Gastrointestinal Denies abdominal pain - *Genitourinary Denies difficulty urinating - *Musculoskeletal Comments: Right heel spur for which she sees Dr. Turk. - *Neurologic Denies seizure-like activity Exam Vital signs and Labs for Last 24 Hours: Temp Pulse Resp BP Pulse Ox 97.5 F L 56 L 16 143/58 92 L 09/24/17 04:00 09/24/17 04:00 09/24/17 04:00 09/24/17 04:00 09/24/17 04:00 Laboratory Results - last 24 hr 09/23/17 20:42: WBC 8.3, RBC 4.75, Hgb 14.9, Hct 46.3, MCV 97.3 H, MCH 31.4 H, MCHC 32.2, RDW 13.9, Plt Count 235, MPV 7.4, Neut % (Auto) 58.0, Lymph % (Auto) 32.2, [place] % (Auto) 6.9, Eos % (Auto) 2.3, Baso % (Auto) 0.6, Neut # (Auto) 4.8 , Lymph # (Auto) 2.7, [place] # (Auto) 0.6, Eos # (Auto) 0.2, Baso # (Auto) 0.1 09/23/17 20:42: Sodium 143, Potassium 3.8, Chloride 105, Carbon Dioxide 28, Anion Gap 13.8, BUN 23 H, Creatinine 1.20, Estimated Creat Clear 109, Estimated GFR 61, Est GFR ( Amer) 74, Glucose 110 H, Calcium 9.5, Troponin I < 0.02 09/23/17 23:20: Troponin I < 0.02 09/24/17 02:00: Troponin I < 0.02 09/24/17 05:12: Troponin I < 0.02 09/24/17 05:12: WBC 5.6 D, RBC 4.35 L, Hgb 13.4 L D, Hct 43.0, MCV 98.8 H, MCH 30.4, MCHC 30.8 L, RDW 13.8, Plt Count 207, MPV 7.6, Neut % (Auto) 77.5, Lymph % (Auto) 21.0, [place] % (Auto) 1.1 L, Eos % (Auto) 0.3, Baso % (Auto) 0.2, Neut # (Auto) 4.4, Lymph # (Auto) 1.2, [place] # (Auto) 0.1, Eos # (Auto) 0.0, Baso # ( Auto) 0.0 09/24/17 05:12: Sodium 141, Potassium 4.6 D, Chloride 106, Carbon Dioxide 25, Anion Gap 14.6, BUN 28 H, Creatinine 1.33 H, Estimated Creat Clear 95, Estimated GFR 54 L, Est GFR ( Amer) 66, Glucose 235 H D, Calcium 9.6, Magnesium 1.7, Triglycerides 43, Cholesterol 162, LDL Cholesterol 107, VLDL Cholesterol 9, HDL Cholesterol 46, Cholesterol/HDL Ratio 3.5 09/24/17 06:11: POC Glucose 212 H I & O for Last 24 hours: Intake & Output 09/21/17 09/22/17 09/23/17 09/24/17 11:59 11:59 11:59 11:59 Output Total 325 / 325 Balance -325 / -325 Weight 260 lb - *Routine Neck Exam Absent: JVD, carotid bruit - *Routine Respiratory Exam Present: CTA bilaterally. Absent: rhonchi, wheezes - *Routine Cardiovascular Exam Present: RRR, murmur. Absent: gallop, rubs - *Routine Abdominal Exam Absent: tenderness - *Routine Extremities Exam Absent: edema - *Routine Neurological Exam Present: alert, oriented X3, moving all extremities Assessment and Plan (1) Unstable angina pectoris Current visit: Yes Status: Acute Category: Medical Code(s): I20.0 - Unstable angina (2) Tobacco use Current visit: Yes Status: Acute Category: Social Hx Code(s): Z72.0 - Tobacco use (3) Renal insufficiency Current visit: Yes Status: Acute Category: Medical Code(s): N28.9 - Disorder of kidney and ureter, unspecified (4) Diabetes Current visit: Yes Status: Chronic Qualifiers: Diabetes mellitus type: type 2 Diabetes mellitus retirement insulin use: unspecified retirement insulin use status Diabetes mellitus complication status : with unspecified complications Qualified Code(s): E11.8 - Type 2 diabetes mellitus with unspecified complications Category: Medical Code(s): E11.9 - Type 2 diabetes mellitus without complications (5) Hyperlipidemia Current visit: No Status: Chronic Qualifiers: Hyperlipidemia type: unspecified Qualified Code(s): E78.5 - Hyperlipidemia , unspecified Category: Medical Code(s): E78.5 - Hyperlipidemia, unspecified (6) Hypertension Current visit: No Status: Chronic Qualifiers: Hypertension type: essential hypertension Qualified Code(s): I10 - Essential (primary) hypertension Category: Medical Code(s): I10 - Essential (primary) hypertension - Assessment and plan all Dx Assessment and Plan for all problems:: 1. New onset chest pain with resolution after nitroglycerin, consistent with unstable angina pectoris. Patient with multiple cardiac risk factors, therefore recommend cardiac catheterization today. MICHELLE score of 4 (ASA use, recurrent chest pain, risk factors, known CAD). Risks, benefits and procedure explained to the patient and he agrees to proceed. 2. Echocardiogram has been performed with preliminary near normal LV function.
--- NOTE | 2017-09-24 14:37 | Cardiology Report ---
PROCEDURE: 2-D M-mode and color Doppler study INDICATIONS FOR THE TEST: Chest pain X COPD Heart Murmur Tobacco SmokingX Palpitations Fatigue Syncope Edema HypertensionXDiabetes MellitusX Rheumatic Fever SOB REDDING ObesityXHyperlipidemiaX Family History HD Additional History PACEMAKER TDS OBESITY PATIENT INFORMATION HEIGHT: 72 WEIGHT:270 GENDER: Male B/P:154/84 2-D/M-MODE INTERPRETATION: 2-D MEASUREMENTS OBSERVED VALUES IN CMS Right Ventricular Dimension (RVDd) 3.4 Interventricular Septum (Thickness)(IVsd) 1.0 Left Ventricular Internal Dimensions(LVIDd) 4.8 Left Ventricular Posterior Wall (Thickness)(LVPWd) 1.0 Aortic Root 3.6 Aortic Cusp Separation 2.1 Left Atrial Dimensions (LAD) 3.3 2D 1. Left atrium is normal size, left ventricle is normal size, there is mild qualitative concentric left ventricular hypertrophy, visually estimated ejection fraction 55% with no obvious regional wall motion abnormality. 2. The right atrium and right ventricle are mildly enlarged with normal contractility, there is a pacemaker lead seen in the right atrium and right ventricle. 3. The aortic valve is minimally thickened and fibrosed. 4. The mitral and tricuspid valve are grossly normal. 5. The pulmonic valve is poorly visualized 6. No significant pericardial effusion noted. DOPPLER INTERROGATION: Doppler interrogation of the aortic, mitral and tricuspid valvular presence of mild mitral and tricuspid regurgitation, calculated right ventricular systolic pressure is 50 mmHg consistent with moderate pulmonary hypertension, diastolic parameters are inconclusive. CONCLUSION: 1. Normal left ventricular size, mild concentric left ventricular hypertrophy, visually estimated ejection fraction 55% with no obvious regional wall motion abnormality, diastolic parameters are inconclusive. 2. Mildly enlarged right atrium and right ventricle, contractility of the right ventricle is normal, there is a pacemaker lead seen in the right ventricle. 3. Mild mitral and tricuspid regurgitation, calculated right ventricular systolic pressure is 50 mmHg consistent with moderate pulmonary hypertension. 4. No significant pericardial effusion noted.
--- NOTE | 2017-09-24 17:07 | History & Physical Report ---
*Admission Date: 09/24/17 *Chief complaint: chest pain *History of present illness: 62-year-old white male with diabetes, hypertension, hyperlipidemia and tobacco use presented to the emergency department for 1 day history of recurrent chest pain and shortness of breath. Patient describes the discomfort as substernal without radiation but with associated shortness of breath. Symptoms would worsen with deep breathing but also with activity. He denies any recent exertional symptoms prior to the day before admission. In the emergency department the patient was given aspirin and 3 sublingual nitroglycerin with improvement in symptoms with each 1. Has had no further chest discomfort overnight. His troponins have returned normal. Cardiology consulted for evaluation recommendations. EKG shows sinus rhythm without evidence of acute ST segment changes. Patient relates having a cardiac catheterization several years ago with one artery with blockage that did not require intervention. He has not had any stress test since then. [facility] History I have reviewed the patient's past medical history: Yes Medical History: Reports:: Congestive Heart Failure, Diabetes Mellitus Type 2, Hypertension, Internal Pacemaker Denies:: Cancer, Diabetes Mellitus Type 1, MRSA Other Medical History: Reports: Arthritis, Glaucoma, Sinus Problems, Other Other Surgeries: Yes: Appendectomy, Cardiac Catheterization, Pacemaker, Other Amputation: No Fractures: No - *Social History Educational Level: Completed High School Smoking Status: Current every day smoker Tobacco Type: cigarettes # Packs/Day (cigarettes): 1 #Yrs smoked (if former smoker): 45 Alcohol Intake: never Alcohol Intake Frequency:: other Substance Use Type: denies use Occupational Status: employed Housing: house Household Members: significant other - Psychiatric History Expresses thoughts of harming self/others: None Suicide Plan Description: No Plan *Family Hx:: Heart Attack Review of Systems - Review of Systems Review of systems:: unable to obtain - Constitutional Denies body ache(s), Denies chills - Eyes Denies change in vision - ENT Denies change in voice - *Cardiovascular Reports chest pain, Reports chest pain at rest, Reports chest pain with activity - *Respiratory Denies chest congestion - *Gastrointestinal Denies bloating - *Genitourinary Denies urinary urgency - *Musculoskeletal Denies body aches - Integumentary/Breasts Denies change in hair - *Neurologic Denies restless legs, Denies seizure-like activity - Psychiatric Denies anxiety - Endocrine Denies flushing - Hematologic/Lymphatic Denies enlarged lymph nodes - Allergic/Immunologic Denies lip swelling Meds Home Medications Medication Instructions Recorded Confirmed Type Aspirin [Low Dose Aspirin EC] 81 mg PO DAILY 08/03/17 09/24/17 History Atorvastatin Calcium [Atorvastatin 10 mg PO HS 08/03/17 09/24/17 History 10mg Tab] Carvedilol [Carvedilol 25mg Tab] 25 mg PO BID 08/03/17 09/24/17 History Hydralazine HCl 100 mg PO BID 08/03/17 09/24/17 History Lisinopril [Lisinopril 40mg Tablet] 40 mg PO DAILY 08/03/17 09/24/17 History hydroCHLOROthiazide [HCTZ 25mg 25 mg PO QAM 08/03/17 09/24/17 History tab] Metformin HCl [Glucophage] 1,000 mg PO BID 09/23/17 09/23/17 History Pioglitazone HCl 30 mg PO DAILY 09/23/17 09/23/17 History glipiZIDE [Glipizide ER] 10 mg PO DAILY 09/23/17 09/24/17 History Allopurinol [Allopurinol 300mg 300 mg PO DAILY 09/24/17 09/24/17 History tablet] Colchicine [Colcrys 0.6mg tablet] 0.6 mg PO QID 09/24/17 09/24/17 History Cyclobenzaprine HCl [Flexeril 10mg 10 mg PO TID 09/24/17 09/24/17 History tablet] Gabapentin [Gabapentin 800mg Tab] 800 mg PO TID 09/24/17 09/24/17 History Tizanidine HCl [Zanaflex 4mg 4 mg PO BID 09/24/17 09/24/17 History tablet] Allergies Allergy/AdvReac Type Severity Reaction Status Date / Time desvenlafaxine [From PRISTIQ] Allergy Mild Verified 08/13/17 14:41 Exam Vital signs and Labs for Last 24 Hours: Temp Pulse Resp BP Pulse Ox 97.9 F 83 20 132/77 95 09/24/17 15:10 09/24/17 16:00 09/24/17 15:10 09/24/17 15:10 09/24/17 15:10 Laboratory Results - last 24 hr 09/23/17 20:42: WBC 8.3, RBC 4.75, Hgb 14.9, Hct 46.3, MCV 97.3 H, MCH 31.4 H, MCHC 32.2, RDW 13.9, Plt Count 235, MPV 7.4, Neut % (Auto) 58.0, Lymph % (Auto) 32.2, [place] % (Auto) 6.9, Eos % (Auto) 2.3, Baso % (Auto) 0.6, Neut # (Auto) 4.8 , Lymph # (Auto) 2.7, [place] # (Auto) 0.6, Eos # (Auto) 0.2, Baso # (Auto) 0.1 09/23/17 20:42: Sodium 143, Potassium 3.8, Chloride 105, Carbon Dioxide 28, Anion Gap 13.8, BUN 23 H, Creatinine 1.20, Estimated Creat Clear 109, Estimated GFR 61, Est GFR ( Amer) 74, Glucose 110 H, Calcium 9.5, Troponin I < 0.02 09/23/17 23:20: Troponin I < 0.02 09/24/17 02:00: Troponin I < 0.02 09/24/17 05:12: Troponin I < 0.02 09/24/17 05:12: WBC 5.6 D, RBC 4.35 L, Hgb 13.4 L D, Hct 43.0, MCV 98.8 H, MCH 30.4, MCHC 30.8 L, RDW 13.8, Plt Count 207, MPV 7.6, Neut % (Auto) 77.5, Lymph % (Auto) 21.0, [place] % (Auto) 1.1 L, Eos % (Auto) 0.3, Baso % (Auto) 0.2, Neut # (Auto) 4.4, Lymph # (Auto) 1.2, [place] # (Auto) 0.1, Eos # (Auto) 0.0, Baso # ( Auto) 0.0 09/24/17 05:12: Sodium 141, Potassium 4.6 D, Chloride 106, Carbon Dioxide 25, Anion Gap 14.6, BUN 28 H, Creatinine 1.33 H, Estimated Creat Clear 95, Estimated GFR 54 L, Est GFR ( Amer) 66, Glucose 235 H D, Calcium 9.6, Magnesium 1.7, Triglycerides 43, Cholesterol 162, LDL Cholesterol 107, VLDL Cholesterol 9, HDL Cholesterol 46, Cholesterol/HDL Ratio 3.5 09/24/17 06:11: POC Glucose 212 H 09/24/17 11:45: Activated Clotting Time 217 H* 09/24/17 16:17: POC Glucose 220 H I & O for Last 24 hours: Intake & Output 09/22/17 09/23/17 09/24/17 09/25/17 11:59 11:59 11:59 11:59 Output Total 325 / 325 Balance -325 / -325 Weight 260 lb - Constitutional no acute distress - *Routine HEENT Exam Head: Present: normocephalic Eye: Present: PERRL ENT: Present: mucous membranes moist - *Routine Neck Exam Present: full ROM - *Routine Respiratory Exam Present: CTA bilaterally - *Routine Cardiovascular Exam Present: RRR - *Routine Abdominal Exam Present: soft, normoactive bowel sounds - *Routine Extremities Exam Present: full ROM - *Routine Skin Exam Present: intact - *Routine Neurological Exam Present: alert, oriented X3, CN II-XII intact - Routine Psychiatric Exam Present: normal affect, normal thought process H&P: Result - Labs Labs: Short CBC 09/23/17 09/24/17 Range/Units 20:42 05:12 WBC 8.3 5.6 D (4.8-10.8) K/mm3 Hgb 14.9 13.4 L D (14.1-18.0) g/dL Hct 46.3 43.0 (42.0-52.0) % Plt Count 235 207 (142-424) K/mm3 [facility] 09/23/17 09/24/17 20:42 05:12 Sodium 143 141 Potassium 3.8 4.6 D Chloride 105 106 Carbon Dioxide 28 25 BUN 23 H 28 H Creatinine 1.20 1.33 H Glucose 110 H 235 H D Calcium 9.5 9.6 Cardiac Enzymes 09/23/17 09/23/17 09/24/17 Range/Units 20:42 23:20 02:00 Troponin I < 0.02 < 0.02 < 0.02 (0.00-0.06) ng/ml 09/24/17 Range/Units 05:12 Troponin I < 0.02 (0.00-0.06) ng/ml Assessment and Plan (1) Unstable angina pectoris Current visit: Yes Status: Acute Category: Medical Code(s): I20.0 - Unstable angina (2) Tobacco use Current visit: Yes Status: Acute Category: Social Hx Code(s): Z72.0 - Tobacco use (3) Renal insufficiency Current visit: Yes Status: Acute Category: Medical Code(s): N28.9 - Disorder of kidney and ureter, unspecified (4) Diabetes Current visit: Yes Status: Chronic Qualifiers: Diabetes mellitus type: type 2 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: unspecified senior living insulin use status Diabetes mellitus complication status : with unspecified complications Qualified Code(s): E11.8 - Type 2 diabetes mellitus with unspecified complications Category: Medical Code(s): E11.9 - Type 2 diabetes mellitus without complications (5) Hyperlipidemia Current visit: No Status: Chronic Qualifiers: Hyperlipidemia type: unspecified Qualified Code(s): E78.5 - Hyperlipidemia , unspecified Category: Medical Code(s): E78.5 - Hyperlipidemia, unspecified (6) Hypertension Current visit: No Status: Chronic Qualifiers: Hypertension type: essential hypertension Qualified Code(s): I10 - Essential (primary) hypertension Category: Medical Code(s): I10 - Essential (primary) hypertension - Assessment and plan all Dx Assessment and Plan for all problems:: rounded with gail all orders per gail
[2017-09-25 07:03] LABS: Anion Gap 14.7 mEq/L (5-15); Calcium 9.2 mg/dL (8.5-10.1); Potassium 3.7 mmoL/L (3.5-5.1)
--- NOTE | 2017-09-25 08:03 | Progress Note ---
Subjective Date: 09/25/17 Time: 08:00 Principal diagnosis: Angina Interval history: 62-year-old white male in bed in no acute distress. No chest pain overnight. He is ready to go home. Exam Vital signs and Labs for Last 24 Hours: Temp Pulse Resp BP Pulse Ox 97.6 F 60 16 138/78 94 L 09/25/17 04:00 09/25/17 06:00 09/25/17 06:00 09/25/17 06:00 09/25/17 06:00 Laboratory Results - last 24 hr 09/24/17 11:45: Activated Clotting Time 217 H* 09/24/17 16:17: POC Glucose 220 H 09/24/17 20:33: POC Glucose 290 H 09/25/17 06:13: POC Glucose 206 H 09/25/17 06:40: Sodium 144, Potassium 3.7, Chloride 106, Carbon Dioxide 27, Anion Gap 14.7, BUN 24 H, Creatinine 1.18, Estimated Creat Clear 109, Estimated GFR 62, Est GFR ( Amer) 75, Glucose 189 H, Calcium 9.2 I & O for Last 24 hours: Intake & Output 09/22/17 09/23/17 09/24/17 09/25/17 11:59 11:59 11:59 11:59 Intake Total 1720 / 1720 Output Total 325 / 325 2900 / 2900 Balance -325 / -325 -1180 / -1180 Weight 260 lb 265 lb - *Routine Respiratory Exam Present: CTA bilaterally - *Routine Cardiovascular Exam Present: RRR. Absent: murmur, gallop - *Routine Extremities Exam Comments: right wrist looks good with dressing dry and intact Progress Note: A&P (1) Unstable angina pectoris Status: Acute Current Visit: Yes (2) Tobacco use Status: Acute Current Visit: Yes (3) Renal insufficiency Status: Acute Current Visit: Yes (4) Diabetes Status: Chronic Current Visit: Yes (5) Hyperlipidemia Status: Chronic Current Visit: No (6) Hypertension Status: Chronic Current Visit: No Assessment and Plan for All Diagnoses:: Okay for discharge home from cardiology standpoint. Continue home medications with the addition of Brilinta 90 mg twice daily and Lasix 40 mg daily. Follow- up in our office in 1 week with a BMP the a.m. of the visit.
--- NOTE | 2017-09-25 09:15 | Discharge Summary ---
General - General Admission date:: 09/23/17 Discharge date: 09/25/17 HPI HPI: 62-year-old white male with diabetes, hypertension, hyperlipidemia and tobacco use presented to the emergency department for 1 day history of recurrent chest pain and shortness of breath. Patient describes the discomfort as substernal without radiation but with associated shortness of breath. Symptoms would worsen with deep breathing but also with activity. He denies any recent exertional symptoms prior to the day before admission. In the emergency department the patient was given aspirin and 3 sublingual nitroglycerin with improvement in symptoms with each 1. Has had no further chest discomfort overnight. His troponins have returned normal. Cardiology consulted for evaluation recommendations. EKG shows sinus rhythm without evidence of acute ST segment changes. Patient relates having a cardiac catheterization several years ago with one artery with blockage that did not require intervention. He has not had any stress test since then. Hospital Course Hospital Course: heart cath: ANGIOGRAPHIC RESULTS: 1. The left main artery has an ostial 10-20% stenosis 2. The left anterior descending artery has proximal 30% followed by a 70-80% stenosis at the junction of the first diagonal artery and septal nurse navigator. 30-40% stenoses occurs slightly distal to this stenosis. The mid LAD then has 40 and 50% stenoses along a tortuous bend 3. The circumflex artery is a large dominant vessel and has a mid vessel 30-40% concentric stenosis 4. The right coronary artery small nondominant normal 5. The LIND ventriculogram reveals normal 65% 6. The left ventricular end-diastolic pressure 35 mmHg IMPRESSION: 1. Severe proximal LAD disease 2. Successful stenting of the proximal LAD severe disease reduced to 0% with 1 drug-eluting stent persistent moderate disease in the mid LAD 3. Persistent moderate disease in the mid dominant circumflex artery 4. Normal ejection fraction 5. Severely elevated LVEDP PLAN: 1. Brilinta and aspirin 2. LDL less than 55 3. Cardiac rehabilitation 4. Patient would benefit from significant diuresis. I would recommend Loop diuretics combined with Aldactone 5. Avoidance of tobacco products follow up in 1 week with carmen and beatrice in am. chest x ray:wnl echo:ef 55% Objective Vital signs: Temp Pulse Resp BP Pulse Ox 97.6 F 60 16 138/78 94 L 09/25/17 04:00 09/25/17 06:00 09/25/17 06:00 09/25/17 06:00 09/25/17 06:00 no acute distress - *Routine HEENT Exam Head: Present: normocephalic Eye: Present: PERRL ENT: Present: mucous membranes moist - *Routine Neck Exam Present: supple, full ROM - *Routine Respiratory Exam Present: CTA bilaterally - *Routine Cardiovascular Exam Present: RRR - *Routine Abdominal Exam Present: soft, normoactive bowel sounds - *Routine Extremities Exam Present: full ROM Comments: dressing to rt wrist - *Routine Neurological Exam Present: alert, oriented X3 - Routine Psychiatric Exam Present: normal affect, normal thought process Results Labs on day of discharge: Labs from last 24 hours 09/25/17 09/25/17 09/24/17 06:40 06:13 20:33 Activated Clotting Time Sodium 144 Potassium 3.7 Chloride 106 Carbon Dioxide 27 Anion Gap 14.7 BUN 24 H Creatinine 1.18 Estimated Creat Clear 109 Estimated GFR 62 Est GFR ( Amer) 75 Glucose 189 H POC Glucose 206 H 290 H Calcium 9.2 09/24/17 09/24/17 16:17 11:45 Activated Clotting Time 217 H* Sodium Potassium Chloride Carbon Dioxide Anion Gap BUN Creatinine Estimated Creat Clear Estimated GFR Est GFR ( Amer) Glucose POC Glucose 220 H Calcium - Additional Comments rounded with gail all orders per gail DS: Diagnosis - Discharge Diagnosis (1) Unstable angina pectoris Status: Acute (2) Tobacco use Status: Acute (3) Renal insufficiency Status: Acute (4) Diabetes Status: Chronic (5) Hyperlipidemia Status: Chronic (6) Hypertension Status: Chronic Discharge Plan - Patient Discharge Instructions ACTIVITY: Continue current activity DIET: continue same diet - Follow up Plan Follow up with: Susanna Kohli PA [Primary Care Provider] - 10/01/17 Zaire Cox MD [Staff Physician] - 1 week Disposition: Home, Self-Longterm Medications: Home Medications Medication Instructions Recorded Confirmed Type Aspirin [Low Dose Aspirin EC] 81 mg PO DAILY 08/03/17 09/24/17 History Atorvastatin Calcium [Atorvastatin 10 mg PO HS 08/03/17 09/24/17 History 10mg Tab] Carvedilol [Carvedilol 25mg Tab] 25 mg PO BID 08/03/17 09/24/17 History Hydralazine HCl 100 mg PO BID 08/03/17 09/24/17 History Lisinopril [Lisinopril 40mg Tablet] 40 mg PO DAILY 08/03/17 09/24/17 History hydroCHLOROthiazide [HCTZ 25mg 25 mg PO QAM 08/03/17 09/24/17 History tab] Metformin HCl [Glucophage] 1,000 mg PO BID 09/23/17 09/23/17 History Pioglitazone HCl 30 mg PO DAILY 09/23/17 09/23/17 History glipiZIDE [Glipizide ER] 10 mg PO DAILY 09/23/17 09/24/17 History Allopurinol [Allopurinol 300mg 300 mg PO DAILY 09/24/17 09/24/17 History tablet] Colchicine [Colcrys 0.6mg tablet] 0.6 mg PO QID 09/24/17 09/24/17 History Cyclobenzaprine HCl [Flexeril 10mg 10 mg PO TID 09/24/17 09/24/17 History tablet] Gabapentin [Gabapentin 800mg Tab] 800 mg PO TID 09/24/17 09/24/17 History Tizanidine HCl [Zanaflex 4mg 4 mg PO BID 09/24/17 09/24/17 History tablet] Prescriptions/Medication Reconciliation: New Gabapentin [Neurontin 400mg cap] 800 mg PO TID capsule hydroCHLOROthiazide [HCTZ 25mg tab] 25 mg PO DAILY tablet Insulin Lispro [HumaLOG 100 units/mL 3mL vial (SSI)] 0 unit SQ ACHS ml Ticagrelor [Brilinta 90mg Tablet] 90 mg PO BID 30 Days #60 tab Allopurinol [Allopurinol 300mg tablet] 300 mg PO DAILY tablet Furosemide [Lasix 40mg tablet] 40 mg PO DAILY 30 Days #30 tab Continue diclofenac 1 % topical gel 4 g TOPICAL QID #30 g Aspirin [Low Dose Aspirin EC] 81 mg PO DAILY Lisinopril [Lisinopril 40mg Tablet] 40 mg PO DAILY hydroCHLOROthiazide [HCTZ 25mg tab] 25 mg PO QAM Hydralazine HCl 100 mg PO BID Atorvastatin Calcium [Atorvastatin 10mg Tab] 10 mg PO HS Metformin HCl [Glucophage] 1,000 mg PO BID glipiZIDE [Glipizide ER] 10 mg PO DAILY Tizanidine HCl [Zanaflex 4mg tablet] 4 mg PO BID Gabapentin [Gabapentin 800mg Tab] 800 mg PO TID Carvedilol [Carvedilol 25mg Tab] 25 mg PO BID Pioglitazone HCl 30 mg PO DAILY Cyclobenzaprine HCl [Flexeril 10mg tablet] 10 mg PO TID Allopurinol [Allopurinol 300mg tablet] 300 mg PO DAILY Colchicine [Colcrys 0.6mg tablet] 0.6 mg PO QID
== END 2017-09-25 10:13 | disposition home or self-care (01) ==
LOC: 2ND 20:23 → ER 20:23 → 2ND 23:09
PROVIDERS: ADMIT Emergency Medicine; ATTEND Emergency Medicine

== ENCOUNTER 2017-09-27 15:24 | Observation (INO) ==
--- NOTE | 2017-09-27 15:26 | Emergency Department Note ---
ED Disposition Clinical Impression: Chest pain Disposition: Admitted as Observation Condition on Discharge: Good - Critical Care Critical Care Time: No Attestation: On , the high probability of a clinically significant, sudden or life threatening deterioration of the following system(s) required my full and direct attention, intervention and personal management. The time I documented below is in addition to time spent performing reported procedures but includes the following listed in this critical care notation. Medical Decision Making - Raghav Inquiry Pt receiving controlled substance: No Vital Signs: 09/27/17 15:28 09/27/17 16:07 09/27/17 17:11 Temperature 98.3 F Temperature Source Oral Pulse Rate [Left Radial] 80 80 75 Respiratory Rate 14 16 18 Blood Pressure [Right Arm] 122/67 125/82 119/77 Blood Pressure Mean [Right Arm] 85 96 91 Blood Pressure Source [Right Arm] Automatic Cuff Automatic Cuff Blood Pressure Position [Right Arm] Sitting Sitting 02 Sat by Pulse Oximetry 99 98 98 Oxygen Delivery Method Room Air Room Air Room Air 09/27/17 18:00 Temperature Temperature Source Pulse Rate [Left Radial] Respiratory Rate Blood Pressure [Right Arm] Blood Pressure Mean [Right Arm] Blood Pressure Source [Right Arm] Blood Pressure Position [Right Arm] 02 Sat by Pulse Oximetry Oxygen Delivery Method Room Air - Lab Data Lab Results 09/27/17 15:25: WBC 8.5, RBC 5.23, Hgb 15.9, Hct 50.5, MCV 96.4 H, MCH 30.4, MCHC 31.5 L, RDW 13.6, Plt Count 247, MPV 7.5, Neut % (Auto) 57.3, Lymph % (Auto ) 33.5, Elbert % (Auto) 6.7, Eos % (Auto) 1.9, Baso % (Auto) 0.5, Neut # (Auto) 4.9, Lymph # (Auto) 2.9, Elbert # (Auto) 0.6, Eos # (Auto) 0.2, Baso # (Auto) 0.0 09/27/17 15:25: Sodium 141, Potassium 3.5, Chloride 101, Carbon Dioxide 32, Anion Gap 11.5, BUN 42 H D, Creatinine 1.64 H D, Estimated Creat Clear 83, Estimated GFR 43 L, Est GFR ( Amer) 52 L D, Glucose 206 H, Calcium 10.3 H D, Troponin I < 0.02 09/27/17 15:25: D-Dimer 253 Result diagrams: 09/27/17 15:25 09/27/17 15:25 Orders (Tests/Meds): ED MEDICATIONS Generic Name Dose Route Start Last Admin Trade Name Cleve PRN Reason Stop Dose Admin Allopurinol 300 mg 09/28/17 09:00 Allopurinol 300mg Tablet PO 10/28/17 08:59 DAILY [facility] Aspirin 81 mg 09/28/17 09:00 Aspirin 81mg Enteric Coated Tablet PO 10/28/17 08:59 DAILY [facility]1983 Atorvastatin Calcium 10 mg 09/27/17 21:00 Lipitor 10mg Tablet PO 10/27/17 20:59 HS [facility], [facility]1983 Carvedilol 25 mg 09/27/17 21:00 Coreg 25mg Tablet PO 10/27/17 20:59 BID [facility]1983 Colchicine 0.6 mg 09/27/17 21:00 Colcrys 0.6mg Tablet PO 10/27/17 20:59 QID [facility] Cyclobenzaprine HCl 10 mg 09/27/17 21:00 Flexeril 10mg Tablet PO 10/27/17 20:59 TID [facility]1983 Furosemide 40 mg 09/28/17 09:00 Lasix 40mg Tablet PO 10/28/17 08:59 DAILY [facility] Gabapentin 800 mg 09/27/17 21:00 Neurontin 400mg Capsule PO 10/27/17 20:59 TID [facility]1983 Hydrochlorothiazide 25 mg 09/27/17 18:02 Hctz 25mg Tablet PO 10/27/17 18:01 QAM [facility]1983 Insulin Human Lispro 0 unit 09/27/17 21:00 Humalog 100 Units/Ml 3ml Vial (Ssi) SQ 10/27/17 20:59 ACHS [facility]1983 Protocol Morphine Sulfate 2 mg 09/27/17 18:02 Morphine 2mg/Ml Syringe IV 10/27/17 18:01 Q2HP PRN Severe Pain Non-Formulary Medication 4 g 09/27/17 21:00 Diclofenac Sodium [Voltaren 100gm Topical Gel] TOPICAL 10/27/17 20:59 QID [facility] Non-Formulary Medication 100 mg 09/27/17 21:00 Hydralazine Hcl [Hydralazine Hcl] PO 10/27/17 20:59 BID [facility] Non-Formulary Medication 40 mg 09/28/17 09:00 Lisinopril [Lisinopril 40mg Tablet] PO 10/28/17 08:59 DAILY [facility] Ticagrelor 90 mg 09/27/17 21:00 Brilinta 90mg Tablet PO 10/27/17 20:59 BID JUAN CARLOS Tizanidine HCl 4 mg 09/27/17 21:00 Zanaflex 4mg Tablet PO 10/27/17 20:59 BID JUAN CARLOS Discontinued Medications Generic Name Dose Route Start Last Admin Trade Name Freq PRN Reason Stop Dose Admin Aspirin 243 mg 09/27/17 16:01 09/27/17 16:06 Aspirin 81mg Chewable Tablet PO 09/27/17 16:02 243 mg ONCE ONE Administration - ECG Data Tracing #1 EKG interpreted by Kurt Gleason MD: Rhythm: sinus Rate: 77 Hastings: normal Ectopy: none Conduction: Incomplete right bundle branch block ST Segment Changes: none T Wave Changes: none Q Waves: none No evidence of acute ischemia or injury - Physician Consults Physician Consulted: Brooke Time: 16:30 Reason -: Pt condition Comment/Response: Requested patient be admitted for cardiac catheterization tomorrow. No change in medications. Additional Consult: Elsi Samuel Time: 16:35 Reason -: Admission Comment/Response: Agrees to admit the patient to the hospital. We discussed the patient's clinical information, including history, exam, laboratory and radiology results and ED course. Per hospital procedure, I will write temporary bridge inpatient orders on the patient. Specific orders requested by the admitting physician: Serial cardiac enzymes, cardiology consult General Adult HPI - General Chief complaint: Chest Pain Stated complaint: chest pain Time Seen by Provider: 09/27/17 15:45 - History of Present Illness HPI narrative: Complains of intermittent chest pain. Had cardiac cath on 09/24/17 with a drug- eluting stent in his proximal LAD. Persistent moderate disease in his circumflex and mid LAD. States he has been having the same kind of chest discomfort that he had before his cardiac cath. It has never gone away, even after his cardiac cath. However, today it seems to be worse. He says it last a couple of minutes at a time and describes a diffuse anterior chest pain, pain in both shoulders, mild shortness of breath. Denies nausea or diaphoresis. He also has some pain behind his left knee. No swelling of the legs. Slight cough , but no hemoptysis. Mild pain with breathing. Access for his angiogram was in his right wrist. - Related Data Home Medications Medication Instructions Recorded Confirmed Aspirin [Low Dose Aspirin EC] 81 mg PO DAILY 08/03/17 09/27/17 Atorvastatin Calcium [Atorvastatin 10 mg PO HS 08/03/17 09/27/17 10mg Tab] Carvedilol [Carvedilol 25mg Tab] 25 mg PO BID 08/03/17 09/27/17 Hydralazine HCl 100 mg PO BID 08/03/17 09/27/17 Lisinopril [Lisinopril 40mg Tablet] 40 mg PO DAILY 08/03/17 09/27/17 hydroCHLOROthiazide [HCTZ 25mg 25 mg PO QAM 08/03/17 09/27/17 tab] Metformin HCl [Glucophage] 1,000 mg PO BID 09/23/17 09/27/17 Pioglitazone HCl 30 mg PO DAILY 09/23/17 09/27/17 glipiZIDE [Glipizide ER] 10 mg PO DAILY 09/23/17 09/27/17 Allopurinol [Allopurinol 300mg 300 mg PO DAILY 09/24/17 09/27/17 tablet] Colchicine [Colcrys 0.6mg tablet] 0.6 mg PO QID 09/24/17 09/27/17 Cyclobenzaprine HCl [Flexeril 10mg 10 mg PO TID 09/24/17 09/27/17 tablet] Gabapentin [Gabapentin 800mg Tab] 800 mg PO TID 09/24/17 09/27/17 Tizanidine HCl [Zanaflex 4mg 4 mg PO BID 09/24/17 09/27/17 tablet] Allopurinol [Allopurinol 300mg 300 mg PO DAILY 09/27/17 09/27/17 tablet] Furosemide [Lasix 40mg tablet] 40 mg PO DAILY 09/27/17 09/27/17 Gabapentin [Neurontin 400mg 800 mg PO TID 09/27/17 09/27/17 cap] Insulin Lispro [HumaLOG 100 0 unit SQ ACHS 09/27/17 09/27/17 units/mL 3mL vial (SSI)] Ticagrelor [Brilinta 90mg Tablet] 90 mg PO BID 09/27/17 09/27/17 hydroCHLOROthiazide [HCTZ 25mg 25 mg PO DAILY 09/27/17 09/27/17 tab] Previous Rx's Medication Instructions Recorded diclofenac 1 % topical gel 4 g TOPICAL QID #30 g 08/13/17 Allergies Allergy/AdvReac Type Severity Reaction Status Date / Time desvenlafaxine [From PRISTIQ] Allergy Mild Verified 08/13/17 14:41 [facility] History I have reviewed the patient's past medical history: Yes Medical History: Reports:: Congestive Heart Failure, Diabetes Mellitus Type 2, Hypertension, Internal Pacemaker Denies:: Cancer, Diabetes Mellitus Type 1, MRSA Other Medical History: Reports: Arthritis, Glaucoma, Sinus Problems, Other Comment: GOUT Other Surgeries: Yes: Appendectomy, Cardiac Catheterization, Pacemaker, Other Amputation: No Fractures: No Comment: heart cath, spinal arthrodesis, hemorrhoidectomy - Social History Smoking Status: Current every day smoker Tobacco Type: cigarettes # Packs/Day (cigarettes): 1 #Yrs smoked (if former smoker): 45 Alcohol Intake: never Alcohol Intake Frequency:: other Substance Use Type: denies use Occupational Status: employed Housing: house Household Members: significant other Family Hx:: Heart Attack Comment: PSOROSIS ROS Obtained: Yes All systems reviewed & no additional complaints - Constitutional Constitutional: Denies fever(s) - Cardiovascular Cardiovascular: Reports chest pain, Denies edema - Respiratory Respiratory: Yes cough, Yes non-productive cough, Yes dyspnea - Gastrointestinal Gastrointestingal: Denies: abdominal pain, nausea, vomiting - Musculoskeletal Musculoskeletal: Reports as per HPI Physical Exam - General General appearance: alert, in no apparent distress - Head Head exam: atraumatic, normocephalic, normal inspection - Eye Eye exam: Present: normal appearance, PERRL, EOMI - ENT ENT exam: Present: normal exam, normal oropharynx, mucous membranes moist, TM's normal bilaterally, normal external ear exam - Neck Neck exam: Present: normal inspection, full ROM, trachea midline. Absent: meningismus, lymphadenopathy - Chest Chest inspection: Present: normal inspection, symmetric chest wall rise. Absent : tenderness - Respiratory Respiratory exam: Present: normal lung sounds bilaterally. Absent: respiratory distress - Cardiovascular Cardiovascular exam: Present: regular rate, normal rhythm. Absent: JVD - Abdominal Exam Abdominal exam: Present: soft, normal bowel sounds. Absent: distention, tenderness, guarding - Extremities Exam Extremities exam: Present: normal inspection, full ROM, normal capillary refill. Absent: calf tenderness - Expanded Lower Extremity Exam Left Comment: Tender popliteal area. No palpable cord. Minimal calf tenderness. No edema. Neurovascular status intact distally. - Back Exam Back exam: Present: normal inspection. Absent: tenderness - Neurological Exam Neurological exam: Present: alert, oriented X3 - Psychiatric Psychiatric exam: Present: normal affect, normal mood - Skin Skin exam: Present: warm, dry, intact, normal color - Lymphatic Lymphatic Findings: no adenopathy
[2017-09-27 15:42] LABS: Basophils % 0.5 % (0.1-2.0); Eosinophils # 0.2 K/mm3 (0.0-0.4); Eosinophils % 1.9 % (0.1-12.0); Hematocrit 50.5 % (42.0-52.0); Hemoglobin 15.9 g/dL (14.1-18.0); Lymphocytes # 2.9 K/mm3 (0.7-4.5); Lymphocytes % 33.5 K/mm3 (10-50); Mean Corpuscular HGB Conc 31.5 g/dL (31.8-35.4); Mean Corpuscular Hemoglobin 30.4 pg (27.0-31.2); Mean Corpuscular Volume 96.4 fl (80-94); Mean Platelet Volume 7.5 fl (7.4-10.4); Monocytes # 0.6 K/mm3 (0.1-1.0); Monocytes % 6.7 % (1.7-9.3); Neutrophils # 4.9 K/mm3 (1.8-7.8); Neutrophils % 57.3 % (37.0-80.0); Platelet Count 247 K/mm3 (142-424); Red Blood Count 5.23 M/mm3 (4.60-6.20); Red Cell Distribution Width 13.6 % (11.5-17.5); White Blood Count 8.5 K/mm3 (4.8-10.8)
[2017-09-27 15:53] LABS: Anion Gap 11.5 mEq/L (5-15); Blood Urea Nitrogen 42 mg/dL (7-18); Carbon Dioxide 32 mmol/L (21.0-32.0); Chloride 101 mmol/L (98-107); Glucose 206 mg/dL (74-106); Potassium 3.5 mmoL/L (3.5-5.1); Sodium 141 mmol/L (136-145)
[2017-09-27 16:05] LABS: Calcium 10.3 mg/dL (8.5-10.1)
--- NOTE | 2017-09-28 07:26 | Pharmacy Consult Notes ---
[facility] Pharmacy VTE Monitoring - Patient Demographics Admission date: 09/27/17 Report Date: 09/28/17 Time: 07:26 Allergies/Adverse Reactions: Patient Allergies desvenlafaxine [From PRISTIQ] Allergy (Mild, Verified 08/13/17 14:41) Height: 1.83 m Weight: 119.918 kg Patient Problems: Current Active Problems Chest pain (Acute) - VTE Risk Labs: VTE Related Lab Results Hgb 15.9 g/dL (14.1-18.0) 09/27/17 15:25 Hct 50.5 % (42.0-52.0) 09/27/17 15:25 Plt Count 247 K/mm3 (142-424) 09/27/17 15:25 BUN 42 mg/dL (7-18) H D 09/27/17 15:25 Creatinine 1.64 mg/dL (0.70-1.30) H D 09/27/17 15:25 Estimated Creat Clear 83 mL/min (0-300) 09/27/17 15:25 VTE Score: 4 VTE Risk Level: Low Risk - Prophylaxis VTE Prophylaxis Ordered?: Yes Types of VTE Prophylaxis: TEDS Knee High, Pharmacological Location of Applied Device: Bilateral Lower Extremeties Pharmacologic Type: Other (BRILINTA ORDERED)
--- NOTE | 2017-09-28 07:47 | Consult Report ---
History of Present Illness Consult date: 09/28/17 Requesting physician: Fan Samuel Consult reason: chest pain Chief complaint: chest pain Additional Medical History:: 1. Diabetes mellitus, treated for greater than 10 years 2. Hypertension A. Echo, 09/2017, 1. Normal left ventricular size, mild concentric left ventricular hypertrophy, visually estimated ejection fraction 55% with no obvious regional wall motion abnormality, diastolic parameters are inconclusive. 2. Mildly enlarged right atrium and right ventricle, contractility of the right ventricle is normal, there is a pacemaker lead seen in the right ventricle. 3. Mild mitral and tricuspid regurgitation, calculated right ventricular systolic pressure is 50 mmHg consistent with moderate pulmonary hypertension. 4. No significant pericardial effusion noted. 3. Hyperlipidemia 4. Strong family history of coronary artery disease in his father and younger brother. 5. Tobacco use of one half to one pack per week 6. History of pacemaker insertion for syncope 7. Coronary artery disease A. History of cardiac catheterization by Dr. Hall several years ago with results of [id number] coronary artery disease for which no intervention required at that time. Performed at [facility] per patient. B. Cardiac cath, 09/25/2017, ANGIOGRAPHIC RESULTS: 1. The left main artery has an ostial 10-20% stenosis 2. 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 30-40% stenoses occurs slightly distal to this stenosis. The mid LAD then has 40 and 50% stenoses along a tortuous bend 3. The circumflex artery is a large dominant vessel and has a mid vessel 30-40% concentric stenosis 4. The right coronary artery small nondominant normal 5. The LIND ventriculogram reveals normal 65% 6. The left ventricular end-diastolic pressure 35 mmHg IMPRESSION: 1. Severe proximal LAD disease 2. Successful stenting of the proximal LAD severe disease reduced to 0% with 1 drug-eluting stent persistent moderate disease in the mid LAD 3. Persistent moderate disease in the mid dominant circumflex artery 4. Normal ejection fraction 5. Severely elevated LVEDP PLAN: 1. Brilinta and aspirin 2. LDL less than 55 3. Cardiac rehabilitation 4. Patient would benefit from significant diuresis. I would recommend Loop diuretics combined with Aldactone 5. Avoidance of tobacco products History of present illness: Complains of intermittent chest pain. Had cardiac cath on 09/24/17 with a drug- eluting stent in his proximal LAD. Persistent moderate disease in his circumflex and mid LAD. States he has been having the same kind of chest discomfort that he had before his cardiac cath. It has never gone away, even after his cardiac cath. However, today it seems to be worse. He says it last a couple of minutes at a time and describes a diffuse anterior chest pain, pain in both shoulders, mild shortness of breath. Denies nausea or diaphoresis. He also has some pain behind his left knee. No swelling of the legs. Slight cough , but no hemoptysis. Mild pain with breathing. Access for his angiogram was in his right wrist. The above per Dr. Gleason [facility] History Medical History: Reports:: Congestive Heart Failure, Diabetes Mellitus Type 2, Hypertension, Internal Pacemaker Denies:: Cancer, Diabetes Mellitus Type 1, MRSA Other Medical History: Reports: Arthritis, Glaucoma, Sinus Problems, Other Other Surgeries: Yes: Appendectomy, Cardiac Catheterization, Pacemaker, Other Amputation: No Fractures: No - *Social History Smoking Status: Current every day smoker Tobacco Type: cigarettes # Packs/Day (cigarettes): 1 #Yrs smoked (if former smoker): 45 Alcohol Intake: never Alcohol Intake Frequency:: other Substance Use Type: denies use Occupational Status: employed Housing: house Household Members: significant other - Psychiatric History Expresses thoughts of harming self/others: None Suicide Plan Description: No Plan *Family Hx:: Heart Attack Meds Home Medications Medication Instructions Recorded Confirmed Type Aspirin [Low Dose Aspirin EC] 81 mg PO DAILY 08/03/17 09/27/17 History Atorvastatin Calcium [Atorvastatin 10 mg PO HS 08/03/17 09/27/17 History 10mg Tab] Carvedilol [Carvedilol 25mg Tab] 25 mg PO BID 08/03/17 09/27/17 History Hydralazine HCl 100 mg PO BID 08/03/17 09/27/17 History Lisinopril [Lisinopril 40mg Tablet] 40 mg PO DAILY 08/03/17 09/27/17 History Metformin HCl [Glucophage] 1,000 mg PO BID 09/23/17 09/27/17 History glipiZIDE [Glipizide ER] 10 mg PO DAILY 09/23/17 09/27/17 History Colchicine [Colcrys 0.6mg tablet] 0.6 mg PO QID 09/24/17 09/27/17 History Cyclobenzaprine HCl [Flexeril 10mg 10 mg PO TID 09/24/17 09/27/17 History tablet] Gabapentin [Gabapentin 800mg Tab] 800 mg PO TID 09/24/17 09/27/17 History Tizanidine HCl [Zanaflex 4mg 4 mg PO BID 09/24/17 09/27/17 History tablet] Allopurinol [Allopurinol 300mg 300 mg PO DAILY 09/27/17 09/27/17 History tablet] Furosemide [Lasix 40mg tablet] 40 mg PO DAILY 09/27/17 09/27/17 History Insulin Lispro [HumaLOG 100 0 unit SQ ACHS 09/27/17 09/27/17 History units/mL 3mL vial (SSI)] Ticagrelor [Brilinta 90mg Tablet] 90 mg PO BID 09/27/17 09/27/17 History hydroCHLOROthiazide [HCTZ 25mg 25 mg PO DAILY 09/27/17 09/27/17 History tab] Pioglitazone HCl 30 mg PO DAILY 09/28/17 09/28/17 History Allergies Allergy/AdvReac Type Severity Reaction Status Date / Time desvenlafaxine [From [employer]] Allergy Mild Verified 08/13/17 14:41 Review of Systems - *Cardiovascular Reports chest pain, Reports shortness of breath with activity - *Respiratory Reports shortness of breath with activity - *Gastrointestinal Denies abdominal pain - *Genitourinary Denies difficulty urinating - *Musculoskeletal Reports joint pain, Denies abnormal walking Exam Vital signs and Labs for Last 24 Hours: Temp Pulse Resp BP Pulse Ox 98.0 F 68 20 93/55 93 L 09/28/17 04:02 09/28/17 04:02 09/28/17 04:02 09/28/17 04:02 09/28/17 04:02 Laboratory Results - last 24 hr 09/27/17 15:25: WBC 8.5, RBC 5.23, Hgb 15.9, Hct 50.5, MCV 96.4 H, MCH 30.4, MCHC 31.5 L, RDW 13.6, Plt Count 247, MPV 7.5, Neut % (Auto) 57.3, Lymph % (Auto ) 33.5, [place] % (Auto) 6.7, Eos % (Auto) 1.9, Baso % (Auto) 0.5, Neut # (Auto) 4.9, Lymph # (Auto) 2.9, [place] # (Auto) 0.6, Eos # (Auto) 0.2, Baso # (Auto) 0.0 09/27/17 15:25: Sodium 141, Potassium 3.5, Chloride 101, Carbon Dioxide 32, Anion Gap 11.5, BUN 42 H D, Creatinine 1.64 H D, Estimated Creat Clear 83, Estimated GFR 43 L, Est GFR ( Amer) 52 L D, Glucose 206 H, Calcium 10.3 H D, Troponin I < 0.02 09/27/17 15:25: D-Dimer 253 09/27/17 18:40: Troponin I < 0.02 09/27/17 20:55: Troponin I < 0.02 09/27/17 21:20: POC Glucose 121 H 09/28/17 00:10: Troponin I < 0.02 09/28/17 06:09: POC Glucose 219 H I & O for Last 24 hours: Intake & Output 09/25/17 09/26/17 09/27/17 09/28/17 11:59 11:59 11:59 11:59 Intake Total 240 / 240 Balance 240 / 240 Weight 264 lb 6 oz - *Routine Neck Exam Absent: JVD, carotid bruit - *Routine Respiratory Exam Present: decreased breath sounds, CTA bilaterally - *Routine Cardiovascular Exam Present: RRR. Absent: murmur, gallop, rubs - *Routine Abdominal Exam Present: soft. Absent: tenderness - *Routine Extremities Exam Absent: edema - *Routine Neurological Exam Present: alert, oriented X3, moving all extremities Assessment and Plan (1) Chest pain Current visit: Yes Status: Acute Category: Medical Code(s): R07.9 - Chest pain, unspecified (2) CAD (coronary artery disease), [place] coronary artery Current visit: Yes Status: Acute Category: Medical Code(s): I25.10 - Atherosclerotic heart disease of [place] coronary artery without angina pectoris (3) Stented coronary artery Current visit: Yes Status: Acute Category: Surgical Code(s): Z95.5 - Presence of coronary angioplasty implant and graft (4) Tobacco use Current visit: No Status: Acute Category: Social Hx Code(s): Z72.0 - Tobacco use (5) Diabetes Current visit: No Status: Chronic Qualifiers: Category: Medical Code(s): E11.9 - Type 2 diabetes mellitus without complications (6) Hyperlipidemia Current visit: No Status: Chronic Qualifiers: Category: Medical Code(s): E78.5 - Hyperlipidemia, unspecified (7) Hypertension Current visit: No Status: Chronic Qualifiers: Category: Medical Code(s): I10 - Essential (primary) hypertension - Assessment and plan all Dx Assessment and Plan for all problems:: 1. Recurrent chest pain, concern for recurrent angina pectoris versus arteritis. Cardiac troponins normal 4. EKG is sinus without acute changes. Telemetry shows intermittent paced rhythm. Due to recent coronary stenting recommend repeat left heart catheterization to rule out acute stenosis of stented coronary artery versus progression of remaining coronary disease despite patient confirming compliance with dual antiplatelet therapy. Risk, benefits and procedure explained to the patient he agrees to proceed. 2. Further recommendations to follow.
--- NOTE | 2017-09-28 08:19 | History & Physical Report ---
*Admission Date: 09/27/17 *Chief complaint: chest pain *History of present illness: this wm who has diabetes and recent card stentds presented to ed with chest pain mplains of intermittent chest pain. Had cardiac cath on 09/24/17 with a drug -eluting stent in his proximal LAD. Persistent moderate disease in his circumflex and mid LAD. States he has been having the same kind of chest discomfort that he had before his cardiac cath. It has never gone away, even after his cardiac cath. However, today it seems to be worse. He says it last a couple of minutes at a time and describes a diffuse anterior chest pain, pain in both shoulders, mild shortness of breath. Denies nausea or diaphoresis. He also has some pain behind his left knee. No swelling of the legs. Slight cough , but no hemoptysis. Mild pain with breathing. 1. Diabetes mellitus, treated for greater than 10 years 2. Hypertension A. Echo, 09/2017, 1. Normal left ventricular size, mild concentric left ventricular hypertrophy, visually estimated ejection fraction 55% with no obvious regional wall motion abnormality, diastolic parameters are inconclusive. 2. Mildly enlarged right atrium and right ventricle, contractility of the right ventricle is normal, there is a pacemaker lead seen in the right ventricle. 3. Mild mitral and tricuspid regurgitation, calculated right ventricular systolic pressure is 50 mmHg consistent with moderate pulmonary hypertension. 4. No significant pericardial effusion noted. 3. Hyperlipidemia 4. Strong family history of coronary artery disease in his father and younger brother. 5. Tobacco use of one half to one pack per week 6. History of pacemaker insertion for syncope 7. Coronary artery disease A. History of cardiac catheterization by Dr. Hall several years ago with results of [id number] coronary artery disease for which no intervention required at that time. Performed at [facility] per patient. B. Cardiac cath, 09/25/2017, ANGIOGRAPHIC RESULTS: 1. The left main artery has an ostial 10-20% stenosis 2. The left anterior descending artery has proximal 30% followed by a 70-80% stenosis at the junction of the first diagonal artery and septal lens molder. 30-40% stenoses occurs slightly distal to this stenosis. The mid LAD then has 40 and 50% stenoses along a tortuous bend 3. The circumflex artery is a large dominant vessel and has a mid vessel 30-40% concentric stenosis 4. The right coronary artery small nondominant normal 5. The LIND ventriculogram reveals normal 65% 6. The left ventricular end-diastolic pressure 35 mmHg IMPRESSION:current chest pain, concern for recurrent angina pectoris versus arteritis. Cardiac troponins normal 4. EKG is sinus without acute changes. Telemetry shows intermittent paced rhythm. Due to recent coronary stenting recommend repeat left heart catheterization to rule out acute stenosis of stented coronary artery versus progression of remaining coronary disease despite patient confirming compliance with dual antiplatelet therapy. Risk, benefits and procedure explained to the patient he agrees to proceed. 1. Severe proximal LAD disease 2. Successful stenting of the proximal LAD severe disease reduced to 0% with 1 drug-eluting stent persistent moderate disease in the mid LAD 3. Persistent moderate disease in the mid dominant circumflex artery 4. Normal ejection fraction 5. Severely elevated LVEDP [facility] History I have reviewed the patient's past medical history: Yes Medical History: Reports:: Congestive Heart Failure, Diabetes Mellitus Type 2, Hypertension, Internal Pacemaker Denies:: Cancer, Diabetes Mellitus Type 1, MRSA Other Medical History: Reports: Arthritis, Glaucoma, Sinus Problems, Other Other Surgeries: Yes: Appendectomy, Cardiac Catheterization, Pacemaker, Other Amputation: No Fractures: No - *Social History Smoking Status: Current every day smoker Tobacco Type: cigarettes # Packs/Day (cigarettes): 1 #Yrs smoked (if former smoker): 45 Alcohol Intake: never Alcohol Intake Frequency:: other Substance Use Type: denies use Occupational Status: employed Housing: house Household Members: significant other - Psychiatric History Expresses thoughts of harming self/others: None Suicide Plan Description: No Plan *Family Hx:: Heart Attack Review of Systems - Review of Systems Review of systems:: pertinent systems reviewed and negative unless documented below - Constitutional Denies fever(s) - Eyes Denies change in vision - ENT Denies sore throat - *Cardiovascular Reports chest pain, Reports chest pain at rest, Denies fast heart rate - *Respiratory Denies cough - *Gastrointestinal Denies abdominal pain - *Genitourinary Denies blood in urine - *Musculoskeletal Denies joint pain - Integumentary/Breasts Denies rash - *Neurologic Denies abnormal walking, Denies confusion, Denies seizure-like activity - Psychiatric Denies anxiety Meds Home Medications Medication Instructions Recorded Confirmed Type Aspirin [Low Dose Aspirin EC] 81 mg PO DAILY 08/03/17 09/27/17 History Atorvastatin Calcium [Atorvastatin 10 mg PO HS 08/03/17 09/27/17 History 10mg Tab] Carvedilol [Carvedilol 25mg Tab] 25 mg PO BID 08/03/17 09/27/17 History Hydralazine HCl 100 mg PO BID 08/03/17 09/27/17 History Lisinopril [Lisinopril 40mg Tablet] 40 mg PO DAILY 08/03/17 09/27/17 History Metformin HCl [Glucophage] 1,000 mg PO BID 09/23/17 09/27/17 History glipiZIDE [Glipizide ER] 10 mg PO DAILY 09/23/17 09/27/17 History Colchicine [Colcrys 0.6mg tablet] 0.6 mg PO QID 09/24/17 09/27/17 History Cyclobenzaprine HCl [Flexeril 10mg 10 mg PO TID 09/24/17 09/27/17 History tablet] Gabapentin [Gabapentin 800mg Tab] 800 mg PO TID 09/24/17 09/27/17 History Tizanidine HCl [Zanaflex 4mg 4 mg PO BID 09/24/17 09/27/17 History tablet] Allopurinol [Allopurinol 300mg 300 mg PO DAILY 09/27/17 09/27/17 History tablet] Furosemide [Lasix 40mg tablet] 40 mg PO DAILY 09/27/17 09/27/17 History Insulin Lispro [HumaLOG 100 0 unit SQ ACHS 09/27/17 09/27/17 History units/mL 3mL vial (SSI)] Ticagrelor [Brilinta 90mg Tablet] 90 mg PO BID 09/27/17 09/27/17 History hydroCHLOROthiazide [HCTZ 25mg 25 mg PO DAILY 09/27/17 09/27/17 History tab] Pioglitazone HCl 30 mg PO DAILY 09/28/17 09/28/17 History Allergies Allergy/AdvReac Type Severity Reaction Status Date / Time desvenlafaxine [From [employer]] Allergy Mild Verified 08/13/17 14:41 Exam Vital signs and Labs for Last 24 Hours: Temp Pulse Resp BP Pulse Ox 98.1 F 64 18 110/56 94 L 09/28/17 07:56 09/28/17 07:56 09/28/17 07:56 09/28/17 07:56 09/28/17 08:00 Laboratory Results - last 24 hr 09/27/17 15:25: WBC 8.5, RBC 5.23, Hgb 15.9, Hct 50.5, MCV 96.4 H, MCH 30.4, MCHC 31.5 L, RDW 13.6, Plt Count 247, MPV 7.5, Neut % (Auto) 57.3, Lymph % (Auto ) 33.5, [place] % (Auto) 6.7, Eos % (Auto) 1.9, Baso % (Auto) 0.5, Neut # (Auto) 4.9, Lymph # (Auto) 2.9, [place] # (Auto) 0.6, Eos # (Auto) 0.2, Baso # (Auto) 0.0 09/27/17 15:25: Sodium 141, Potassium 3.5, Chloride 101, Carbon Dioxide 32, Anion Gap 11.5, BUN 42 H D, Creatinine 1.64 H D, Estimated Creat Clear 83, Estimated GFR 43 L, Est GFR ( Amer) 52 L D, Glucose 206 H, Calcium 10.3 H D, Troponin I < 0.02 09/27/17 15:25: D-Dimer 253 09/27/17 18:40: Troponin I < 0.02 09/27/17 20:55: Troponin I < 0.02 09/27/17 21:20: POC Glucose 121 H 09/28/17 00:10: Troponin I < 0.02 09/28/17 06:09: POC Glucose 219 H I & O for Last 24 hours: Intake & Output 09/25/17 09/26/17 09/27/17 09/28/17 11:59 11:59 11:59 11:59 Intake Total 240 / 240 Balance 240 / 240 Weight 264 lb 6 oz - Constitutional no acute distress - *Routine HEENT Exam Head: Present: normocephalic Eye: Present: EOMI, PERRL ENT: Present: mucous membranes dry - *Routine Neck Exam Present: supple - *Routine Respiratory Exam Present: CTA bilaterally - *Routine Cardiovascular Exam Present: RRR, murmur - *Routine Abdominal Exam Present: soft - *Routine Extremities Exam Present: full ROM - *Routine Skin Exam Present: intact - *Routine Neurological Exam Present: alert, oriented X3, CN II-XII intact - Routine Psychiatric Exam Present: normal affect H&P: Result - Labs Labs: Short CBC 09/27/17 Range/Units 15:25 WBC 8.5 (4.8-10.8) K/mm3 Hgb 15.9 (14.1-18.0) g/dL Hct 50.5 (42.0-52.0) % Plt Count 247 (142-424) K/mm3 BMP 09/27/17 15:25 Sodium 141 Potassium 3.5 Chloride 101 Carbon Dioxide 32 BUN 42 H D Creatinine 1.64 H D Glucose 206 H Calcium 10.3 H D Cardiac Enzymes 09/27/17 09/27/17 09/27/17 Range/Units 15:25 18:40 20:55 Troponin I < 0.02 < 0.02 < 0.02 (0.00-0.06) ng/ml 09/28/17 Range/Units 00:10 Troponin I < 0.02 (0.00-0.06) ng/ml Assessment and Plan (1) Chest pain Current visit: Yes Status: Acute Category: Medical Code(s): R07.9 - Chest pain, unspecified (2) CAD (coronary artery disease), [place] coronary artery Current visit: Yes Status: Acute Category: Medical Code(s): I25.10 - Atherosclerotic heart disease of [place] coronary artery without angina pectoris (3) Stented coronary artery Current visit: Yes Status: Acute Category: Surgical Code(s): Z95.5 - Presence of coronary angioplasty implant and graft (4) Tobacco use Current visit: No Status: Acute Category: Social Hx Code(s): Z72.0 - Tobacco use (5) Diabetes Current visit: No Status: Chronic Qualifiers: Category: Medical Code(s): E11.9 - Type 2 diabetes mellitus without complications (6) Hyperlipidemia Current visit: No Status: Chronic Qualifiers: Category: Medical Code(s): E78.5 - Hyperlipidemia, unspecified (7) Hypertension Current visit: No Status: Chronic Qualifiers: Category: Medical Code(s): I10 - Essential (primary) hypertension
[2017-09-28 08:47] LABS: Basophils % 0.5 % (0.1-2.0); Eosinophils # 0.2 K/mm3 (0.0-0.4); Eosinophils % 3.6 % (0.1-12.0); Hematocrit 48.4 % (42.0-52.0); Hemoglobin 15.1 g/dL (14.1-18.0); Lymphocytes # 2.6 K/mm3 (0.7-4.5); Lymphocytes % 38.4 K/mm3 (10-50); Mean Corpuscular HGB Conc 31.3 g/dL (31.8-35.4); Mean Corpuscular Hemoglobin 30.5 pg (27.0-31.2); Mean Corpuscular Volume 97.6 fl (80-94); Mean Platelet Volume 8.2 fl (7.4-10.4); Monocytes # 0.5 K/mm3 (0.1-1.0); Monocytes % 7.3 % (1.7-9.3); Neutrophils # 3.4 K/mm3 (1.8-7.8); Neutrophils % 50.3 % (37.0-80.0); Platelet Count 222 K/mm3 (142-424); Red Blood Count 4.96 M/mm3 (4.60-6.20); Red Cell Distribution Width 13.7 % (11.5-17.5); White Blood Count 6.8 K/mm3 (4.8-10.8)
[2017-09-28 08:51] LABS: Anion Gap 9.1 mEq/L (5-15); Calcium 10.4 mg/dL (8.5-10.1); Potassium 4.1 mmoL/L (3.5-5.1)
[2017-09-29 07:12] LABS: Calcium 9.6 mg/dL (8.5-10.1)
--- NOTE | 2017-09-29 08:29 | Progress Note ---
Subjective Date: 09/29/17 Time: 08:26 Principal diagnosis: CAD Interval history: 62-year-old white male in bed in no acute distress. No chest pain overnight. Patient states he is ready to go home. Exam Vital signs and Labs for Last 24 Hours: Temp Pulse Resp BP Pulse Ox 98.2 F 79 18 116/76 97 09/29/17 04:00 09/29/17 08:15 09/29/17 08:15 09/29/17 08:15 09/29/17 08:15 Laboratory Results - last 24 hr 09/28/17 08:35: WBC 6.8, RBC 4.96, Hgb 15.1, Hct 48.4, MCV 97.6 H, MCH 30.5, MCHC 31.3 L, RDW 13.7, Plt Count 222, MPV 8.2, Neut % (Auto) 50.3, Lymph % (Auto ) 38.4, [place] % (Auto) 7.3, Eos % (Auto) 3.6, Baso % (Auto) 0.5, Neut # (Auto) 3.4, Lymph # (Auto) 2.6, [place] # (Auto) 0.5, Eos # (Auto) 0.2, Baso # (Auto) 0.0 09/28/17 08:35: Sodium 138, Potassium 4.1, Chloride 101, Carbon Dioxide 32, Anion Gap 9.1, BUN 55 H D, Creatinine 1.98 H D, Estimated Creat Clear 65, Estimated GFR 34 L, Est GFR ( Amer) 42 L, Glucose 209 H, Calcium 10.4 H 09/28/17 10:52: Activated Clotting Time > 400 H* 09/28/17 11:55: POC Glucose 160 H 09/28/17 16:45: POC Glucose 171 H 09/28/17 20:27: POC Glucose 146 H 09/29/17 05:45: POC Glucose 178 H 09/29/17 06:12: Sodium 140, Potassium 4.0, Chloride 103, Carbon Dioxide 29, Anion Gap 12.0, BUN 49 H, Creatinine 1.67 H, Estimated Creat Clear 77, Estimated GFR 42 L, Est GFR ( Amer) 51 L D, Glucose 185 H, Calcium 9.6 I & O for Last 24 hours: Intake & Output 06/0909/27/17 09/28/17 09/29/17 11:59 11:59 11:59 11:59 Intake Total 240 / 240 1910 / 1910 Output Total 3425 / 3425 Balance 240 / 240 -1515 / -1515 Weight 264 lb 6 oz - *Routine Respiratory Exam Present: CTA bilaterally - *Routine Cardiovascular Exam Present: RRR - *Routine Extremities Exam Comments: Right wrist with good pulse with gauze and Tegaderm dressing intact. Progress Note: A&P (1) Chest pain Status: Acute Current Visit: Yes (2) CAD (coronary artery disease), [place] coronary artery Status: Acute Current Visit: Yes (3) Stented coronary artery Status: Acute Current Visit: Yes (4) Tobacco use Status: Acute Current Visit: No (5) Diabetes Status: Chronic Current Visit: No (6) Hyperlipidemia Status: Chronic Current Visit: No (7) Hypertension Status: Chronic Current Visit: No Assessment and Plan for All Diagnoses:: Okay for discharge home from cardiology standpoint. Patient is to continue his home medications including aspirin, Brilinta, Coreg, lisinopril, Lasix and hydrochlorothiazide. He will follow-up in our office in 1 week.
--- NOTE | 2017-09-29 08:49 | Discharge Summary ---
General - General Admission date:: 09/27/17 Discharge date: 09/29/17 HPI HPI: this wm who has diabetes and recent card stentds presented to ed with chest pain mplains of intermittent chest pain. Had cardiac cath on 09/24/17 with a drug -eluting stent in his proximal LAD. Persistent moderate disease in his circumflex and mid LAD. States he has been having the same kind of chest discomfort that he had before his cardiac cath. It has never gone away, even after his cardiac cath. However, today it seems to be worse. He says it last a couple of minutes at a time and describes a diffuse anterior chest pain, pain in both shoulders, mild shortness of breath. Denies nausea or diaphoresis. He also has some pain behind his left knee. No swelling of the legs. Slight cough , but no hemoptysis. Mild pain with breathing. 1. Diabetes mellitus, treated for greater than 10 years 2. Hypertension A. Echo, 09/2017, 1. Normal left ventricular size, mild concentric left ventricular hypertrophy, visually estimated ejection fraction 55% with no obvious regional wall motion abnormality, diastolic parameters are inconclusive. 2. Mildly enlarged right atrium and right ventricle, contractility of the right ventricle is normal, there is a pacemaker lead seen in the right ventricle. 3. Mild mitral and tricuspid regurgitation, calculated right ventricular systolic pressure is 50 mmHg consistent with moderate pulmonary hypertension. 4. No significant pericardial effusion noted. 3. Hyperlipidemia 4. Strong family history of coronary artery disease in his father and younger brother. 5. Tobacco use of one half to one pack per week 6. History of pacemaker insertion for syncope 7. Coronary artery disease A. History of cardiac catheterization by Dr. Hall several years ago with results of [id number] coronary artery disease for which no intervention required at that time. Performed at [facility] per patient. B. Cardiac cath, 09/25/2017, ANGIOGRAPHIC RESULTS: 1. The left main artery has an ostial 10-20% stenosis 2. The left anterior descending artery has proximal 30% followed by a 70-80% stenosis at the junction of the first diagonal artery and septal on site wastewater systems technician. 30-40% stenoses occurs slightly distal to this stenosis. The mid LAD then has 40 and 50% stenoses along a tortuous bend 3. The circumflex artery is a large dominant vessel and has a mid vessel 30-40% concentric stenosis 4. The right coronary artery small nondominant normal 5. The LIND ventriculogram reveals normal 65% 6. The left ventricular end-diastolic pressure 35 mmHg IMPRESSION:current chest pain, concern for recurrent angina pectoris versus arteritis. Cardiac troponins normal 4. EKG is sinus without acute changes. Telemetry shows intermittent paced rhythm. Due to recent coronary stenting recommend repeat left heart catheterization to rule out acute stenosis of stented coronary artery versus progression of remaining coronary disease despite patient confirming compliance with dual antiplatelet therapy. Risk, benefits and procedure explained to the patient he agrees to proceed. 1. Severe proximal LAD disease 2. Successful stenting of the proximal LAD severe disease reduced to 0% with 1 drug-eluting stent persistent moderate disease in the mid LAD 3. Persistent moderate disease in the mid dominant circumflex artery 4. Normal ejection fraction 5. Severely elevated LVEDP Hospital Course Hospital Course: pt with card cath NGIOGRAPHIC RESULTS: Severe stenosis in the second diagonal artery along with severe stenosis in the mid LAD widely patent stent in the proximal LAD IMPRESSION: 1. Successful stenting of the second diagonal artery 90% stenosis reduced to 0% with 1 drug-eluting stent 2. Successful stenting of the mid LAD severe disease reduced to 0% with 1 drug-eluting stent PLAN: 1. Continue dual antiplatelet therapy 2. Antianginal medications 3. Avoidance of tobacco products 4. Risk factor modification 5. Cardiac rehabilitation pt doing better w/o c/o this am Objective Vital signs: Temp Pulse Resp BP Pulse Ox 98.2 F 79 18 116/76 97 09/29/17 04:00 09/29/17 08:15 09/29/17 08:15 09/29/17 08:15 09/29/17 08:15 no acute distress - *Routine HEENT Exam Head: Present: normocephalic Eye: Present: EOMI, PERRL ENT: Present: mucous membranes dry - *Routine Neck Exam Present: supple - *Routine Respiratory Exam Absent: CTA bilaterally - *Routine Cardiovascular Exam Present: RRR - *Routine Abdominal Exam Present: soft - *Routine Extremities Exam Present: full ROM - *Routine Skin Exam Present: intact - *Routine Neurological Exam Present: alert, oriented X3, CN II-XII intact - Routine Psychiatric Exam Present: normal affect Results Labs on day of discharge: Labs from last 24 hours 09/29/17 09/29/17 09/28/17 06:12 05:45 20:27 WBC RBC Hgb Hct MCV MCH MCHC RDW Plt Count MPV Neut % (Auto) Lymph % (Auto) [place] % (Auto) Eos % (Auto) Baso % (Auto) Neut # (Auto) Lymph # (Auto) [place] # (Auto) Eos # (Auto) Baso # (Auto) Activated Clotting Time Sodium 140 Potassium 4.0 Chloride 103 Carbon Dioxide 29 Anion Gap 12.0 BUN 49 H Creatinine 1.67 H Estimated Creat Clear 77 Estimated GFR 42 L Est GFR ( Amer) 51 L D Glucose 185 H POC Glucose 178 H 146 H Calcium 9.6 09/28/17 09/28/17 09/28/17 16:45 11:55 10:52 WBC RBC Hgb Hct MCV MCH MCHC RDW Plt Count MPV Neut % (Auto) Lymph % (Auto) [place] % (Auto) Eos % (Auto) Baso % (Auto) Neut # (Auto) Lymph # (Auto) [place] # (Auto) Eos # (Auto) Baso # (Auto) Activated Clotting Time > 400 H* Sodium Potassium Chloride Carbon Dioxide Anion Gap BUN Creatinine Estimated Creat Clear Estimated GFR Est GFR ( Amer) Glucose POC Glucose 171 H 160 H Calcium 09/28/17 09/28/17 08:35 08:35 WBC 6.8 RBC 4.96 Hgb 15.1 Hct 48.4 MCV 97.6 H MCH 30.5 MCHC 31.3 L RDW 13.7 Plt Count 222 MPV 8.2 Neut % (Auto) 50.3 Lymph % (Auto) 38.4 [place] % (Auto) 7.3 Eos % (Auto) 3.6 Baso % (Auto) 0.5 Neut # (Auto) 3.4 Lymph # (Auto) 2.6 Tate # (Auto) 0.5 Eos # (Auto) 0.2 Baso # (Auto) 0.0 Activated Clotting Time Sodium 138 Potassium 4.1 Chloride 101 Carbon Dioxide 32 Anion Gap 9.1 BUN 55 H D Creatinine 1.98 H D Estimated Creat Clear 65 Estimated GFR 34 L Est GFR ( Amer) 42 L Glucose 209 H POC Glucose Calcium 10.4 H DS: Diagnosis - Discharge Diagnosis (1) Chest pain Status: Acute (2) CAD (coronary artery disease), [place] coronary artery Status: Acute (3) Stented coronary artery Status: Acute (4) Tobacco use Status: Acute (5) Diabetes Status: Chronic (6) Hyperlipidemia Status: Chronic (7) Hypertension Status: Chronic Discharge Plan - Patient Discharge Instructions ACTIVITY: Continue current activity DIET: continue same diet - Follow up Plan Disposition: Home, Self-Senior Living Medications: Home Medications Medication Instructions Recorded Confirmed Type Aspirin [Low Dose Aspirin EC] 81 mg PO DAILY 08/03/17 09/27/17 History Atorvastatin Calcium [Atorvastatin 10 mg PO HS 08/03/17 09/27/17 History 10mg Tab] Carvedilol [Carvedilol 25mg Tab] 25 mg PO BID 08/03/17 09/27/17 History Hydralazine HCl 100 mg PO BID 08/03/17 09/27/17 History Lisinopril [Lisinopril 40mg Tablet] 40 mg PO DAILY 08/03/17 09/27/17 History Metformin HCl [Glucophage] 1,000 mg PO BID 09/23/17 09/27/17 History glipiZIDE [Glipizide ER] 10 mg PO DAILY 09/23/17 09/27/17 History Colchicine [Colcrys 0.6mg tablet] 0.6 mg PO QID 09/24/17 09/27/17 History Cyclobenzaprine HCl [Flexeril 10mg 10 mg PO TID 09/24/17 09/27/17 History tablet] Gabapentin [Gabapentin 800mg Tab] 800 mg PO TID 09/24/17 09/27/17 History Tizanidine HCl [Zanaflex 4mg 4 mg PO BID 09/24/17 09/27/17 History tablet] Allopurinol [Allopurinol 300mg 300 mg PO DAILY 09/27/17 09/27/17 History tablet] Furosemide [Lasix 40mg tablet] 40 mg PO DAILY 09/27/17 09/27/17 History Insulin Lispro [HumaLOG 100 0 unit SQ ACHS 09/27/17 09/27/17 History units/mL 3mL vial (SSI)] Ticagrelor [Brilinta 90mg Tablet] 90 mg PO BID 09/27/17 09/27/17 History hydroCHLOROthiazide [HCTZ 25mg 25 mg PO DAILY 09/27/17 09/27/17 History tab] Pioglitazone HCl 30 mg PO DAILY 06/11/18 06/11/18 History Prescriptions/Medication Reconciliation: New Allopurinol [Allopurinol 300mg tablet] 300 mg PO DAILY tablet Gabapentin [Neurontin 400mg cap] 800 mg PO TID capsule hydroCHLOROthiazide [HCTZ 25mg tab] 25 mg PO DAILY tablet hydroCHLOROthiazide [HCTZ 25mg tab] 25 mg PO DAILY tablet Continue diclofenac 1 % topical gel 4 g TOPICAL QID #30 g Aspirin [Low Dose Aspirin EC] 81 mg PO DAILY Lisinopril [Lisinopril 40mg Tablet] 40 mg PO DAILY Hydralazine HCl 100 mg PO BID Atorvastatin Calcium [Atorvastatin 10mg Tab] 10 mg PO HS Metformin HCl [Glucophage] 1,000 mg PO BID glipiZIDE [Glipizide ER] 10 mg PO DAILY Tizanidine HCl [Zanaflex 4mg tablet] 4 mg PO BID Gabapentin [Gabapentin 800mg Tab] 800 mg PO TID Ticagrelor [Brilinta 90mg Tablet] 90 mg PO BID Insulin Lispro [HumaLOG 100 units/mL 3mL vial (SSI)] 0 unit SQ ACHS Furosemide [Lasix 40mg tablet] 40 mg PO DAILY Allopurinol [Allopurinol 300mg tablet] 300 mg PO DAILY Pioglitazone HCl 30 mg PO DAILY Carvedilol [Carvedilol 25mg Tab] 25 mg PO BID Cyclobenzaprine HCl [Flexeril 10mg tablet] 10 mg PO TID Colchicine [Colcrys 0.6mg tablet] 0.6 mg PO QID hydroCHLOROthiazide [HCTZ 25mg tab] 25 mg PO DAILY
== END 2017-09-29 10:02 | disposition home or self-care (01) ==
LOC: 2ND 15:24 → ER 15:24 → 2ND 18:13
PROVIDERS: ADMIT Emergency Medicine; ATTEND Emergency Medicine

== ENCOUNTER 2017-10-08 01:16 | Observation (INO) ==
--- NOTE | 2017-10-08 01:38 | Emergency Department Note ---
ED Disposition Clinical Impression: Dehydration Syncope Qualifiers: Syncope type: unspecified Qualified Code(s): R55 - Syncope and collapse Hypotension Qualifiers: Hypotension type: hypotension due to hypovolemia Qualified Code(s): I95.89 - Other hypotension; E86.1 - Hypovolemia Disposition: Admitted as Observation Condition on Discharge: Fair Referrals: Fan Samuel MD [Primary Care Provider] - - Critical Care Critical Care Time: Yes (Hypotension) Attestation: On 10/08/17, the high probability of a clinically significant, sudden or life threatening deterioration of the following system(s) required my full and direct attention, intervention and personal management. The time I documented below is in addition to time spent performing reported procedures but includes the following listed in this critical care notation. Total Critical Care Time: 45 Vital system(s) involved:: Circulatory Failure, Renal Failure, Shock (Hemorrhage ) My critical care processes included: Assessment & monitoring of V/S, Initial and Re-exams, Data Review/Interpretation, Coordinating Care, Medication Orders and management, Documentation Medical Decision Making - Medical Records Medical records reviewed: Yes: I reviewed the patient's medical records. - Raghav Inquiry Pt receiving controlled substance: No (Not indicated) Raghav was queried for this patient: No Vital Signs: 10/08/17 01:17 10/08/17 01:54 Temperature 97.9 F Temperature Source Oral Pulse Rate [Right Radial] 79 78 Respiratory Rate 18 18 Blood Pressure [Right Arm] 88/57 90/42 Blood Pressure Mean [Right Arm] 67 58 Blood Pressure Source [Right Arm] Automatic Cuff Automatic Cuff Blood Pressure Position [Right Arm] Sitting Sitting 02 Sat by Pulse Oximetry 91 L 93 L Oxygen Delivery Method Room Air Room Air - Lab Data Lab Results 10/08/17 01:05: WBC 8.2, RBC 4.39 L, Hgb 13.4 L, Hct 41.8 L, MCV 95.3 H, MCH 30.6, MCHC 32.1, RDW 13.3, Plt Count 215, MPV 8.1, Neut % (Auto) 55.2, Lymph % ( Auto) 36.6, [place] % (Auto) 5.8, Eos % (Auto) 1.9, Baso % (Auto) 0.5, Neut # (Auto ) 4.5, Lymph # (Auto) 3.0, [place] # (Auto) 0.5, Eos # (Auto) 0.2, Baso # (Auto) 0.0 10/08/17 01:05: Sodium 135 L, Potassium 3.5, Chloride 99, Carbon Dioxide 26, Anion Gap 13.5, BUN 78 H, Creatinine 2.60 H, Estimated Creat Clear 49, Estimated GFR 25 L, Est GFR ( Amer) 30 L, Glucose 277 H, Calcium 8.6, Total Creatine Kinase 198, CK-MB (CK-2) 2.3, CK-MB (CK-2) Rel Index 1.2, Troponin I < 0.02 10/08/17 01:05: Total Bilirubin 0.2, Direct Bilirubin 0.1, Indirect Bilirubin 0.1, AST 15, ALT 28, Alkaline Phosphatase 85, Total Protein 7.1, Albumin 3.4 Result diagrams: 10/08/17 01:05 10/08/17 01:05 Orders (Tests/Meds): ED MEDICATIONS Generic Name Dose Route Start Last Admin Trade Name Freq PRN Reason Stop Dose Admin Sodium Chloride 1,000 mls @ 999 mls/hr 10/08/17 01:45 10/08/17 01:37 Sod Chlor 0.9% 1000ml Bag IV 10/08/17 02:45 999 mls/hr .[id number] JUAN CARLOS Administration Discontinued Medications Generic Name Dose Route Start Last Admin Trade Name Freq PRN Reason Stop Dose Admin Ketorolac Tromethamine 30 mg 10/08/17 01:56 10/08/17 01:57 Toradol 30mg/Ml Vial IV 10/08/17 01:57 30 mg ONCE ONE Administration ORDERS Category Date Time Status XR chest portable Stat Exams 10/08/17 01:35 Taken ECG Request by /Nse Stat Y 10/08/17 01:35 Ordered General Adult HPI - General Chief complaint: Dizziness Stated complaint: syncope Time Seen by Provider: 10/08/17 01:25 Mode of Arrival: EMS Limitations: No Limitations Description of Symptoms (Recalled from ER Triage Doc. by RN): Pt reports he was feeling dizzy and passed out. BP per ems was initially 70/40 and BG 268. - History of Present Illness HPI narrative: As given above. He had been feeling lightheaded lately before tonight. Onset (ago): hour(s) (1) Severity: severe Consistency: now resolved Relieving factors: other (recumbent position,i.V fluids) Exacerbating factors: none Associated symptoms: syncope, other (dizzy). negative: chest pain, diaphoresis , headaches, weakness Treatments prior to arrival: other (IV fluid) - Related Data Home Medications Medication Instructions Recorded Confirmed Aspirin [Low Dose Aspirin EC] 81 mg PO DAILY 08/03/17 10/08/17 Atorvastatin Calcium [Atorvastatin 10 mg PO HS 08/03/17 10/08/17 10mg Tab] Carvedilol [Carvedilol 25mg Tab] 25 mg PO BID 08/03/17 10/08/17 Hydralazine HCl 100 mg PO BID 08/03/17 10/08/17 Lisinopril [Lisinopril 40mg Tablet] 40 mg PO DAILY 08/03/17 10/08/17 glipiZIDE [Glipizide ER] 10 mg PO DAILY 09/23/17 10/08/17 Colchicine [Colcrys 0.6mg tablet] 0.6 mg PO QID 09/24/17 10/08/17 Gabapentin [Gabapentin 800mg Tab] 800 mg PO TID 09/24/17 10/08/17 Tizanidine HCl [Zanaflex 4mg 4 mg PO BID 09/24/17 10/08/17 tablet] Furosemide [Lasix 40mg tablet] 40 mg PO DAILY 09/27/17 10/08/17 ticagrelor 90 mg tablet 90 mg PO BID 10/01/17 10/08/17 Allopurinol [Allopurinol 300mg 300 mg PO DAILY 10/08/17 10/08/17 tablet] hydroCHLOROthiazide [HCTZ 25mg 25 mg PO DAILY 10/08/17 10/08/17 tab] Allergies Allergy/AdvReac Type Severity Reaction Status Date / Time desvenlafaxine [From PRISTIQ] Allergy Mild Verified 10/08/17 01:26 [facility] History I have reviewed the patient's past medical history: Yes Medical History: Reports:: Congestive Heart Failure, Diabetes Mellitus Type 2, Hypertension, Internal Pacemaker Denies:: Cancer, Diabetes Mellitus Type 1, MRSA Other Medical History: Reports: Arthritis, Glaucoma, Sinus Problems, Other Comment: GOUT Other Surgeries: Yes: Appendectomy, Cardiac Catheterization, Pacemaker, Other Amputation: No Fractures: No Comment: heart cath, spinal arthrodesis, hemorrhoidectomy, cardiac stent x4 - Social History Smoking Status: Former smoker Tobacco Type: cigarettes # Packs/Day (cigarettes): 1 #Yrs smoked (if former smoker): 45 Smoking End Date: Alcohol Intake: never Alcohol Intake Frequency:: other Substance Use Type: denies use Occupational Status: employed Housing: house Household Members: significant other - Psychiatric History Expresses thoughts of harming self/others: None Suicide Plan Description: No Plan Family Hx:: Heart Attack Comment: PSOROSIS ROS Obtained: Yes All systems reviewed & no additional complaints - Constitutional Constitutional: Reports system reviewed and no additional complaints, except as docu - Eyes Eyes: Reports as per HPI - ENT Ears, Nose, Mouth, and Throat: Reports as per HPI - Cardiovascular Cardiovascular: Denies chest pain, Denies diaphoresis, Denies dyspnea, Denies edema, Denies irregular heart rhythm, Reports lightheadedness, Denies palpitations, Denies pedal edema - Respiratory Respiratory: No cough, No dyspnea - Gastrointestinal Gastrointestingal: Denies: diarrhea, loose stools, nausea, vomiting - Genitourinary Male Genitourinary: Denies difficulty urinating - Neurologic Neurologic: Denies abnormal gait, Denies abnormal movements, Denies abnormal speech, Reports dizziness, Denies focal weakness, Denies numbness, Reports syncope Physical Exam - General General appearance: alert, in no apparent distress - Head Head exam: atraumatic, normocephalic, normal inspection - Eye Eye exam: Present: normal appearance, PERRL, EOMI - ENT ENT exam: Present: normal exam, normal oropharynx, mucous membranes moist, normal external ear exam - Neck Neck exam: Present: normal inspection, full ROM, trachea midline. Absent: meningismus, lymphadenopathy - Chest Chest inspection: Present: normal inspection, symmetric chest wall rise. Absent : tenderness - Respiratory Respiratory exam: Present: normal lung sounds bilaterally - Cardiovascular Cardiovascular exam: Present: regular rate, normal rhythm. Absent: JVD - Abdominal Exam Abdominal exam: Present: soft - Extremities Exam Extremities exam: Present: normal inspection, full ROM, normal capillary refill. Absent: calf tenderness - Back Exam Back exam: Present: normal inspection. Absent: tenderness - Neurological Exam Neurological exam: Present: alert, oriented X3 - Psychiatric Psychiatric exam: Present: normal affect - Skin Skin exam: Present: warm, dry, intact, normal color
[2017-10-08 01:52] LABS: Basophils % 0.5 % (0.1-2.0); Eosinophils # 0.2 K/mm3 (0.0-0.4); Eosinophils % 1.9 % (0.1-12.0); Hematocrit 41.8 % (42.0-52.0); Hemoglobin 13.4 g/dL (14.1-18.0); Lymphocytes % 36.6 K/mm3 (10-50); Mean Corpuscular HGB Conc 32.1 g/dL (31.8-35.4); Mean Corpuscular Hemoglobin 30.6 pg (27.0-31.2); Mean Corpuscular Volume 95.3 fl (80-94); Mean Platelet Volume 8.1 fl (7.4-10.4); Monocytes # 0.5 K/mm3 (0.1-1.0); Monocytes % 5.8 % (1.7-9.3); Neutrophils # 4.5 K/mm3 (1.8-7.8); Neutrophils % 55.2 % (37.0-80.0); Platelet Count 215 K/mm3 (142-424); Red Blood Count 4.39 M/mm3 (4.60-6.20); Red Cell Distribution Width 13.3 % (11.5-17.5); White Blood Count 8.2 K/mm3 (4.8-10.8)
[2017-10-08 02:12] LABS: Anion Gap 13.5 mEq/L (5-15); Blood Urea Nitrogen 78 mg/dL (7-18); Calcium 8.6 mg/dL (8.5-10.1); Carbon Dioxide 26 mmol/L (21.0-32.0); Chloride 99 mmol/L (98-107); Creatine Kinase 198 U/L (39-308); Glucose 277 mg/dL (74-106); Potassium 3.5 mmoL/L (3.5-5.1); Sodium 135 mmol/L (136-145)
[2017-10-08 02:13] LABS: Albumin Level 3.4 gm/dL (3.4-5.0); Bilirubin,Direct 0.1 mg/dL (0.0-0.2); Bilirubin,Indirect 0.1 mg/dL (0.0-0.9); Bilirubin,Total 0.2 mg/dL (0.2-1.0); Total Protein,Serum 7.1 gm/dL (6.4-8.2)
--- NOTE | 2017-10-08 07:26 | Pharmacy Consult Notes ---
[facility] Pharmacy VTE Monitoring - Patient Demographics Admission date: 10/08/17 Report Date: 10/08/17 Time: 07:26 Allergies/Adverse Reactions: Patient Allergies desvenlafaxine [From PRISTIQ] Allergy (Mild, Verified 10/08/17 01:26) Height: 1.85 m Weight: 120.4 kg Patient Problems: Current Active Problems Syncope (Acute) Hypotension (Acute) Dehydration (Acute) - VTE Risk Labs: VTE Related Lab Results Hgb 13.4 g/dL (14.1-18.0) L 10/08/17 01:05 Hct 41.8 % (42.0-52.0) L 10/08/17 01:05 Plt Count 215 K/mm3 (142-424) 10/08/17 01:05 BUN 78 mg/dL (7-18) H 10/08/17 01:05 Creatinine 2.60 mg/dL (0.70-1.30) H 10/08/17 01:05 Estimated Creat Clear 49 mL/min (0-300) 10/08/17 01:05 Was VTE Risk Assessment Performed: Yes VTE Score: 7 VTE Risk Level: Moderate Risk - Prophylaxis VTE Prophylaxis Ordered?: Yes Types of VTE Prophylaxis: TEDS Knee High Location of Applied Device: Bilateral Lower Extremeties - VTE Diagnosis Confirmed Treatment or plan recommended: Continue Current Treatment
[2017-10-08 07:29] VITALS: BP 134/87
--- NOTE | 2017-10-08 09:42 | Consult Report ---
History of Present Illness Consult date: 10/08/17 Requesting physician: Bradley Chung Consult reason: hypotension Chief complaint: Passed out Additional Medical History:: 1. Diabetes mellitus, treated for greater than 10 years 2. Hypertension A. Echo, 09/2017, 1. Normal left ventricular size, mild concentric left ventricular hypertrophy, visually estimated ejection fraction 55% with no obvious regional wall motion abnormality, diastolic parameters are inconclusive. 2. Mildly enlarged right atrium and right ventricle, contractility of the right ventricle is normal, there is a pacemaker lead seen in the right ventricle. 3. Mild mitral and tricuspid regurgitation, calculated right ventricular systolic pressure is 50 mmHg consistent with moderate pulmonary hypertension. 4. No significant pericardial effusion noted. 3. Hyperlipidemia 4. Strong family history of coronary artery disease in his father and younger brother. 5. Tobacco use of one half to one pack per week 6. History of pacemaker insertion for syncope 7. Coronary artery disease A. History of cardiac catheterization by Dr. Hall several years ago with results of [id number] coronary artery disease for which no intervention required at that time. Performed at [facility] per patient. B. Cardiac cath, 09/25/2017, LAD EVIE with one EVIE. Persistent moderate mid dominant Circumflex disease. Normal LVEF with LVEDP of 35 mm Hg. C. Repeat Cardiac cath, 09/28/2017, due to recurrent chest pains. EVIE placed to mid LAD and to diagonal arteries. Continue DAPT. History of present illness: 62 yo WM with recent coronary artery stenting to the LAD and diagonal arteries had been feeling well. Patient relates some recent lightheadedness and dizziness after taking evening medications. Last evening he woke up to go to the bathroom when he suddenly passed out. His called paramedics and patient was transported to the emergency department for evaluation. Patient's blood pressure was noted to be 70/40 mmHg. This has responded well to IV fluids. Labs revealed an elevated BUN and creatinine. Patient denies any chest pain. Troponins have returned normal. EKG is sinus without acute changes. Cardiology consulted for evaluation recommendations. [facility] History Medical History: Reports:: Arrhythmia, Congestive Heart Failure, Coronary Artery Disease, Diabetes Mellitus Type 2, Hyperlipidemia, Hypertension, Internal Pacemaker Denies:: Cancer, Diabetes Mellitus Type 1, MRSA Other Medical History: Reports: Arthritis, Glaucoma, Sinus Problems, Other Other Surgeries: Yes: Appendectomy, Cardiac Catheterization, Colonoscopy, Pacemaker, Other Amputation: No Fractures: No - *Social History Educational Level: Attended High School Smoking Status: Former smoker Tobacco Type: cigarettes # Packs/Day (cigarettes): 1 #Yrs smoked (if former smoker): 45 Smoking End Date: Alcohol Intake: never Alcohol Intake Frequency:: other Substance Use Type: denies use Occupational Status: employed Housing: house Household Members: significant other - Psychiatric History Expresses thoughts of harming self/others: None Suicide Plan Description: No Plan *Family Hx:: Asthma, Cancer, Coronary Artery Disease, Diabetes, Heart Attack, Hyperlipidemia, Hypertension, Kidney Disease, Thyroid Disorder, Tuberculosis Meds Home Medications Medication Instructions Recorded Confirmed Type Aspirin [Low Dose Aspirin EC] 81 mg PO DAILY 08/03/17 10/08/17 History Atorvastatin Calcium [Atorvastatin 10 mg PO HS 08/03/17 10/08/17 History 10mg Tab] Carvedilol [Carvedilol 25mg Tab] 25 mg PO BID 08/03/17 10/08/17 History Hydralazine HCl 100 mg PO BID 08/03/17 10/08/17 History Lisinopril [Lisinopril 40mg Tablet] 40 mg PO DAILY 08/03/17 10/08/17 History glipiZIDE [Glipizide ER] 10 mg PO DAILY 09/23/17 10/08/17 History Colchicine [Colcrys 0.6mg tablet] 0.6 mg PO QID PRN 09/24/17 10/08/17 History Gabapentin [Gabapentin 800mg Tab] 800 mg PO TID 09/24/17 10/08/17 History Tizanidine HCl [Zanaflex 4mg 4 mg PO BID 09/24/17 10/08/17 History tablet] Furosemide [Lasix 40mg tablet] 40 mg PO DAILY 09/27/17 10/08/17 History ticagrelor 90 mg tablet 90 mg PO BID 10/01/17 10/08/17 History Allopurinol [Allopurinol 300mg 300 mg PO DAILY 10/08/17 10/08/17 History tablet] hydroCHLOROthiazide [HCTZ 25mg 25 mg PO DAILY 10/08/17 10/08/17 History tab] prednisoLONE acetate [Pred Forte 1 drop EYE-RIGHT TID 10/08/17 10/08/17 History 1% opth solution 5mL] Allergies Allergy/AdvReac Type Severity Reaction Status Date / Time desvenlafaxine [From PRISTGigoptix] Allergy Mild Verified 10/08/17 01:26 Review of Systems - *Cardiovascular Denies chest pain - *Respiratory Denies shortness of breath - *Gastrointestinal Denies abdominal pain - *Genitourinary Denies difficulty urinating - *Musculoskeletal Reports joint pain, Reports back pain - *Neurologic Reports dizziness, Reports fainting, Denies abnormal walking, Denies abnormal movements, Denies abnormal speech, Denies localized weakness, Denies numbness Exam Vital signs and Labs for Last 24 Hours: Temp Pulse Resp BP Pulse Ox 98.0 F 92 H 18 134/87 96 10/08/17 07:28 10/08/17 07:28 10/08/17 07:28 10/08/17 07:28 10/08/17 07:28 Laboratory Results - last 24 hr 10/08/17 01:05: WBC 8.2, RBC 4.39 L, Hgb 13.4 L, Hct 41.8 L, MCV 95.3 H, MCH 30.6, MCHC 32.1, RDW 13.3, Plt Count 215, MPV 8.1, Neut % (Auto) 55.2, Lymph % ( Auto) 36.6, [place] % (Auto) 5.8, Eos % (Auto) 1.9, Baso % (Auto) 0.5, Neut # (Auto ) 4.5, Lymph # (Auto) 3.0, [place] # (Auto) 0.5, Eos # (Auto) 0.2, Baso # (Auto) 0.0 10/08/17 01:05: Sodium 135 L, Potassium 3.5, Chloride 99, Carbon Dioxide 26, Anion Gap 13.5, BUN 78 H, Creatinine 2.60 H, Estimated Creat Clear 49, Estimated GFR 25 L, Est GFR ( Amer) 30 L, Glucose 277 H, Calcium 8.6, Total Creatine Kinase 198, CK-MB (CK-2) 2.3, CK-MB (CK-2) Rel Index 1.2, Troponin I < 0.02 10/08/17 01:05: Total Bilirubin 0.2, Direct Bilirubin 0.1, Indirect Bilirubin 0.1, AST 15, ALT 28, Alkaline Phosphatase 85, Total Protein 7.1, Albumin 3.4 10/08/17 03:30: Troponin I < 0.02 10/08/17 03:37: POC Glucose 278 H I & O for Last 24 hours: Intake & Output 10/05/17 10/06/17 10/07/17 10/08/17 11:59 11:59 11:59 11:59 Weight 265 lb 7 oz - *Routine Neck Exam Absent: JVD, carotid bruit - *Routine Respiratory Exam Present: CTA bilaterally - *Routine Cardiovascular Exam Present: RRR, murmur. Absent: gallop, rubs - *Routine Extremities Exam Absent: edema - *Routine Neurological Exam Present: alert, oriented X3, moving all extremities Assessment and Plan (1) Dehydration Current visit: Yes Status: Acute Category: Medical Code(s): E86.0 - Dehydration (2) Hypotension Current visit: Yes Status: Acute Qualifiers: Hypotension type: hypotension due to hypovolemia Qualified Code(s): I95.89 - Other hypotension; E86.1 - Hypovolemia Category: Medical Code(s): I95.9 - Hypotension, unspecified (3) Syncope Current visit: Yes Status: Acute Qualifiers: Syncope type: unspecified Qualified Code(s): R55 - Syncope and collapse Category: Medical Code(s): R55 - Syncope and collapse (4) Renal insufficiency Current visit: No Status: Acute Category: Medical Code(s): N28.9 - Disorder of kidney and ureter, unspecified (5) CAD (coronary artery disease), [place] coronary artery Current visit: No Status: Chronic Qualifiers: [place] vs. transplanted heart: [place] heart Associated angina: without angina Qualified Code(s): I25.10 - Atherosclerotic heart disease of [place] coronary artery without angina pectoris Category: Medical Code(s): I25.10 - Atherosclerotic heart disease of [place] coronary artery without angina pectoris (6) Diabetes Current visit: No Status: Chronic Qualifiers: Category: Medical Code(s): E11.9 - Type 2 diabetes mellitus without complications (7) Hyperlipidemia Current visit: No Status: Chronic Qualifiers: Hyperlipidemia type: mixed hyperlipidemia Qualified Code(s): E78.2 - Mixed hyperlipidemia Category: Medical Code(s): E78.5 - Hyperlipidemia, unspecified (8) Stented coronary artery Current visit: No Status: Chronic Category: Surgical Code(s): Z95.5 - Presence of coronary angioplasty implant and graft - Assessment and plan all Dx Assessment and Plan for all problems:: Syncope felt secondary to dehydration, hypotension and renal insufficiency. In reviewing the patient's medications we will continue all of his home medications with the exception of holding his lisinopril, furosemide and hydrochlorothiazide. I have asked him to monitor his blood pressure at home and to get a BMP early next week. Will follow up with his primary care physician next week. He states he cannot afford the co-pay for our office. Decision regarding reinstituting diuretics and lisinopril will be made after the blood test next week. Patient is very anxious to leave to deal with personal financial issues. Okay for discharge from cardiology standpoint.
--- NOTE | 2017-10-08 10:14 | H&P/Discharge Summary ---
General - General Admission date:: 10/08/17 Discharge date: 10/08/17 *Admission Date: 10/08/17 *Chief complaint: syncope *History of present illness: 62 yo WM with recent coronary artery stenting to the LAD and diagonal arteries had been feeling well. Patient relates some recent lightheadedness and dizziness after taking evening medications. Last evening he woke up to go to the bathroom when he suddenly passed out. His called paramedics and patient was transported to the emergency department for evaluation. Patient's blood pressure was noted to be 70/40 mmHg. This has responded well to IV fluids. Labs revealed an elevated BUN and creatinine. Patient denies any chest pain. Troponins have returned normal. EKG is sinus without acute changes. Cardiology consulted for evaluation recommendations. [facility] History I have reviewed the patient's past medical history: Yes Medical History: Reports:: Arrhythmia, Congestive Heart Failure, Coronary Artery Disease, Diabetes Mellitus Type 2, Hyperlipidemia, Hypertension, Internal Pacemaker Denies:: Cancer, Diabetes Mellitus Type 1, MRSA Other Medical History: Reports: Arthritis, Glaucoma, Sinus Problems, Other Other Surgeries: Yes: Appendectomy, Cardiac Catheterization, Colonoscopy, Pacemaker, Other Amputation: No Fractures: No - *Social History Educational Level: Attended High School Smoking Status: Former smoker Tobacco Type: cigarettes # Packs/Day (cigarettes): 1 #Yrs smoked (if former smoker): 45 Smoking End Date: Alcohol Intake: never Alcohol Intake Frequency:: other Substance Use Type: denies use Occupational Status: employed Housing: house Household Members: significant other - Psychiatric History Expresses thoughts of harming self/others: None Suicide Plan Description: No Plan *Family Hx:: Asthma, Cancer, Coronary Artery Disease, Diabetes, Heart Attack, Hyperlipidemia, Hypertension, Kidney Disease, Thyroid Disorder, Tuberculosis Review of Systems - Review of Systems Review of systems:: pertinent systems reviewed and negative unless documented below - Constitutional Reports fatigue - Eyes Denies change in vision - ENT Denies sinus pain, Denies throat swelling - *Cardiovascular Reports excessive sweating, Reports fainting, Denies chest pain at rest - *Respiratory Denies chest congestion - *Genitourinary Denies urinary urgency - *Musculoskeletal Denies body aches, Denies numbness - Integumentary/Breasts Denies dry skin - *Neurologic Reports dizziness, Reports fainting, Denies abnormal walking, Denies abnormal movements, Denies abnormal speech, Denies localized weakness, Denies numbness - Psychiatric Denies anxiety, Denies depression - Endocrine Denies flushing - Hematologic/Lymphatic Denies enlarged lymph nodes - Allergic/Immunologic Denies lip swelling Exam Vital signs and Labs for Last 24 Hours: Temp Pulse Resp BP Pulse Ox 98.0 F 92 H 18 134/87 96 10/08/17 07:28 10/08/17 07:28 10/08/17 07:28 10/08/17 07:28 10/08/17 07:28 Laboratory Results - last 24 hr 10/08/17 01:05: WBC 8.2, RBC 4.39 L, Hgb 13.4 L, Hct 41.8 L, MCV 95.3 H, MCH 30.6, MCHC 32.1, RDW 13.3, Plt Count 215, MPV 8.1, Neut % (Auto) 55.2, Lymph % ( Auto) 36.6, [place] % (Auto) 5.8, Eos % (Auto) 1.9, Baso % (Auto) 0.5, Neut # (Auto ) 4.5, Lymph # (Auto) 3.0, [place] # (Auto) 0.5, Eos # (Auto) 0.2, Baso # (Auto) 0.0 10/08/17 01:05: Sodium 135 L, Potassium 3.5, Chloride 99, Carbon Dioxide 26, Anion Gap 13.5, BUN 78 H, Creatinine 2.60 H, Estimated Creat Clear 49, Estimated GFR 25 L, Est GFR ( Amer) 30 L, Glucose 277 H, Calcium 8.6, Total Creatine Kinase 198, CK-MB (CK-2) 2.3, CK-MB (CK-2) Rel Index 1.2, Troponin I < 0.02 10/08/17 01:05: Total Bilirubin 0.2, Direct Bilirubin 0.1, Indirect Bilirubin 0.1, AST 15, ALT 28, Alkaline Phosphatase 85, Total Protein 7.1, Albumin 3.4 10/08/17 03:30: Troponin I < 0.02 10/08/17 03:37: POC Glucose 278 H I & O for Last 24 hours: Intake & Output 10/05/17 10/06/17 10/07/17 10/08/17 11:59 11:59 11:59 11:59 Weight 265 lb 7 oz - Constitutional no acute distress - *Routine HEENT Exam Head: Present: normocephalic Eye: Present: PERRL ENT: Present: mucous membranes moist - *Routine Neck Exam Present: full ROM - *Routine Respiratory Exam Present: CTA bilaterally - *Routine Cardiovascular Exam Present: RRR Hospital Course Hospital Course: Syncope felt secondary to dehydration, hypotension and renal insufficiency. In reviewing the patient's medications we will continue all of his home medications with the exception of holding his lisinopril, furosemide and hydrochlorothiazide. I have asked him to monitor his blood pressure at home and to get a BMP early next week. Will follow up with his primary care physician next week. He states he cannot afford the co-pay for our office. Decision regarding reinstituting diuretics and lisinopril will be made after the blood test next week. Patient is very anxious to leave to deal with personal financial issues. Okay for discharge from cardiology standpoint. Results Labs on day of discharge: Labs from last 24 hours 10/08/17 10/08/17 10/08/17 03:37 03:30 01:05 WBC RBC Hgb Hct MCV MCH MCHC RDW Plt Count MPV Neut % (Auto) Lymph % (Auto) [place] % (Auto) Eos % (Auto) Baso % (Auto) Neut # (Auto) Lymph # (Auto) [place] # (Auto) Eos # (Auto) Baso # (Auto) Sodium Potassium Chloride Carbon Dioxide Anion Gap BUN Creatinine Estimated Creat Clear Estimated GFR Est GFR ( Amer) Glucose POC Glucose 278 H Calcium Total Bilirubin 0.2 Direct Bilirubin 0.1 Indirect Bilirubin 0.1 AST 15 ALT 28 Alkaline Phosphatase 85 Total Creatine Kinase CK-MB (CK-2) CK-MB (CK-2) Rel Index Troponin I < 0.02 Total Protein 7.1 Albumin 3.4 10/08/17 10/08/17 01:05 01:05 WBC 8.2 RBC 4.39 L Hgb 13.4 L Hct 41.8 L MCV 95.3 H MCH 30.6 MCHC 32.1 RDW 13.3 Plt Count 215 MPV 8.1 Neut % (Auto) 55.2 Lymph % (Auto) 36.6 [place] % (Auto) 5.8 Eos % (Auto) 1.9 Baso % (Auto) 0.5 Neut # (Auto) 4.5 Lymph # (Auto) 3.0 [place] # (Auto) 0.5 Eos # (Auto) 0.2 Baso # (Auto) 0.0 Sodium 135 L Potassium 3.5 Chloride 99 Carbon Dioxide 26 Anion Gap 13.5 BUN 78 H Creatinine 2.60 H Estimated Creat Clear 49 Estimated GFR 25 L Est GFR ( Amer) 30 L Glucose 277 H POC Glucose Calcium 8.6 Total Bilirubin Direct Bilirubin Indirect Bilirubin AST ALT Alkaline Phosphatase Total Creatine Kinase 198 CK-MB (CK-2) 2.3 CK-MB (CK-2) Rel Index 1.2 Troponin I < 0.02 Total Protein Albumin DS: Diagnosis - Discharge Diagnosis (1) Dehydration Status: Acute (2) Hypotension Status: Acute (3) Syncope Status: Acute (4) Renal insufficiency Status: Acute (5) CAD (coronary artery disease), [place] coronary artery Status: Chronic (6) Diabetes Status: Chronic (7) Hyperlipidemia Status: Chronic (8) Stented coronary artery Status: Chronic Discharge Medications Discharge Medications: Home Medications Medication Instructions Recorded Confirmed Type Aspirin [Low Dose Aspirin EC] 81 mg PO DAILY 08/03/17 10/08/17 History Atorvastatin Calcium [Atorvastatin 10 mg PO HS 08/03/17 10/08/17 History 10mg Tab] Carvedilol [Carvedilol 25mg Tab] 25 mg PO BID 08/03/17 10/08/17 History Hydralazine HCl 100 mg PO BID 08/03/17 10/08/17 History Lisinopril [Lisinopril 40mg Tablet] 40 mg PO DAILY 08/03/17 10/08/17 History glipiZIDE [Glipizide ER] 10 mg PO DAILY 09/23/17 10/08/17 History Colchicine [Colcrys 0.6mg tablet] 0.6 mg PO QID PRN 09/24/17 10/08/17 History Gabapentin [Gabapentin 800mg Tab] 800 mg PO TID 09/24/17 10/08/17 History Tizanidine HCl [Zanaflex 4mg 4 mg PO BID 09/24/17 10/08/17 History tablet] Furosemide [Lasix 40mg tablet] 40 mg PO DAILY 09/27/17 10/08/17 History ticagrelor 90 mg tablet 90 mg PO BID 10/01/17 10/08/17 History Allopurinol [Allopurinol 300mg 300 mg PO DAILY 10/08/17 10/08/17 History tablet] hydroCHLOROthiazide [HCTZ 25mg 25 mg PO DAILY 10/08/17 10/08/17 History tab] prednisoLONE acetate [Pred Forte 1 drop EYE-RIGHT TID 10/08/17 10/08/17 History 1% opth solution 5mL]
== END 2017-10-08 10:45 | disposition home or self-care (01) ==
LOC: ER 01:16 → 2ND 01:16
PROVIDERS: ADMIT Internal Medicine Adolescent Medicine; ATTEND Emergency Medicine
CPT/HCPCS: 36415; 71010; 71045; 80048; 80076; 82550; 82553; 82962; 84484; 85025; 93005; 96365; 96366; 96375; 99284; G0378

== ENCOUNTER → 2017-10-22 11:49 | Outpatient (CLI) | payer MEDICARE, SELFPAY ==
[2017-10-22 12:57] LABS: Alanine Aminotransferase 28 U/L (12-78); Albumin Level 3.7 gm/dL (3.4-5.0); Albumin/Globulin Ratio 1.1 (1.1-1.8); Alkaline Phosphatase 92 U/L (46-116); Anion Gap 12.3 mEq/L (5-15); Aspartate Amino Transferase 26 U/L (15-37); Bilirubin,Total 0.3 mg/dL (0.2-1.0); Blood Urea Nitrogen 25 mg/dL (7-18); Calcium 8.7 mg/dL (8.5-10.1); Carbon Dioxide 26 mmol/L (21.0-32.0); Chloride 107 mmol/L (98-107); Creatinine,Serum 1.19 mg/dL (0.70-1.30); Estimated Glomerular Filt Rate 62 ml/min (>60); GFR (African American) 75 ML/MIN (>60); Globulin 3.4 gm/dl (1.3-3.2); Glucose 114 mg/dL (74-106); Potassium 4.3 mmoL/L (3.5-5.1); Sodium 141 mmol/L (136-145); Total Protein,Serum 7.1 gm/dL (6.4-8.2)
== END ==
PROVIDERS: Visit Provider Nurse Practitioner Family
DX: R55 Syncope and collapse (principal); I95.9 Hypotension, unspecified
CPT/HCPCS: 36415; 80053

== ENCOUNTER → 2017-10-26 14:17 | Outpatient (POV) | payer MEDICARE, SELFPAY ==
[2017-10-26 14:37] VITALS: BP 184/94; PULSE 81; RESP 18; O2SAT 99; BMI 34.5
--- NOTE | 2017-10-27 09:21 | HMH.PAINSOAP ---
[facility] Pain Management SOAP Note Subjective:: Patient is a pleasant 62-year-old white male who presents today for medication follow-up. 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 We are treating him for chronic low back pain secondary to degenerative disc disease of the lumbar spine, postlaminectomy syndrome. Patient states he is having no side effects to his medication. Patient rates his pain a 7 out of 10 today. Patient also had 4 heart stents placed recently. He is currently on a blood thinner. ROS General: no recent weight change, no fever, no sleep disturbances Respiratory: no cough, no shortness of air, no recurring pulmonary infections Cardiovascular/Peripheral Vascular: No chest pain, No palpitations, no edema, no shortness of breath. Gastrointestinal: no incontinence, normal bowel movements reported Genitourinary: no incontinence Musculoskeletal: Back pain, bilateral leg pain Psychiatric: normal mood/ affect Neurological: [denies weakness in extremities], [denies balance issues] Objective:: Physical Exam General: Alert and oriented x3, no acute distress, pleasant and cooperative, [on room air] Lungs: Resps E/U, Symmetrical chest expansion, Eyes: PERRL Musculoskeletal: Flexion and extension of lumbar spine somewhat guarded secondary to pain, deep tendon reflexes normal, strength in upper and lower extremities [5/5], antalgic gait noted Neurological: speech clear, substance addiction coordinator equal, no gross sensory deficits Assessment:: Degenerative disc disease of the lumbar spine, lumbar radiculopathy, post laminectomy syndrome of the lumbar spine Plan:: We will decrease the patient's gabapentin to 300 mg 1 3 times daily we will take him off of the tizanidine. I believe the patient will be able to function without deficit on this medication. I will follow-up with the patient in 3 months and we will reassess him at that time. If the patient has any issues prior to this he has been instructed to call the office. This note was dictated using voice recognition software and may contain errors or omissions
--- NOTE | 2017-10-27 09:25 | P.CONS_ITS ---
[facility] Pain Management SOAP Note Subjective:: Patient is a pleasant 62-year-old white male who presents today for medication follow-up. 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 We are treating him for chronic low back pain secondary to degenerative disc disease of the lumbar spine, postlaminectomy syndrome. Patient states he is having no side effects to his medication. Patient rates his pain a 7 out of 10 today. Patient also had 4 heart stents placed recently. He is currently on a blood thinner. ROS General: no recent weight change, no fever, no sleep disturbances Respiratory: no cough, no shortness of air, no recurring pulmonary infections Cardiovascular/Peripheral Vascular: No chest pain, No palpitations, no edema, no shortness of breath. Gastrointestinal: no incontinence, normal bowel movements reported Genitourinary: no incontinence Musculoskeletal: Back pain, bilateral leg pain Psychiatric: normal mood/ affect Neurological: [denies weakness in extremities], [denies balance issues] Objective:: Physical Exam General: Alert and oriented x3, no acute distress, pleasant and cooperative, [ on room air] Lungs: Resps E/U, Symmetrical chest expansion, Eyes: PERRL Musculoskeletal: Flexion and extension of lumbar spine somewhat guarded secondary to pain, deep tendon reflexes normal, strength in upper and lower extremities [5/5], antalgic gait noted Neurological: speech clear, manager of quality equal, no gross sensory deficits Assessment:: Degenerative disc disease of the lumbar spine, lumbar radiculopathy, post laminectomy syndrome of the lumbar spine Plan:: We will decrease the patient's gabapentin to 300 mg 1 3 times daily we will take him off of the tizanidine. I believe the patient will be able to function without deficit on this medication. I will follow-up with the patient in 3 months and we will reassess him at that time. If the patient has any issues prior to this he has been instructed to call the office. This note was dictated using voice recognition software and may contain errors or omissions
== END ==
PROVIDERS: Family Provider Nurse Practitioner Family; PCP Emergency Medicine; Visit Provider Clinical Nurse Specialist Family Health
DX: M54.16 Radiculopathy, lumbar region (principal)
CPT/HCPCS: 99212

== ENCOUNTER 2018-04-14 16:48 | Observation (INO) ==
--- NOTE | 2018-04-14 16:59 | Emergency Department Note ---
ED Disposition Clinical Impression: TIA (transient ischemic attack), Uncontrolled hypertension Headache Qualifiers: Headache type: unspecified Headache chronicity pattern: acute headache Intractability: intractable Qualified Code(s): R51 - Headache Disposition: Still a Patient Condition on Discharge: Good - Critical Care Critical Care Time: No Attestation: On 04/14/18, the high probability of a clinically significant, sudden or life threatening deterioration of the following system(s) required my full and direct attention, intervention and personal management. The time I documented below is in addition to time spent performing reported procedures but includes the following listed in this critical care notation. Medical Decision Making - Raghav Inquiry Pt receiving controlled substance: No Vital Signs: 04/14/18 16:59 04/14/18 17:55 Temperature 98.0 F Temperature Source Oral Pulse Rate [Right Brachial] 99 H 89 Respiratory Rate 18 15 Blood Pressure [Right Arm] 213/110 H 197/110 H Blood Pressure Mean [Right Arm] 144 139 Blood Pressure Source [Right Arm] Automatic Cuff Automatic Cuff Blood Pressure Position [Right Arm] Sitting Sitting 02 Sat by Pulse Oximetry 98 Oxygen Delivery Method Room Air - Lab Data Lab Results 04/14/18 17:05: WBC 8.7, RBC 5.08, Hgb 15.7, Hct 47.0, MCV 92.5, MCH 30.8, MCHC 33.3, RDW 14.0, Plt Count 215, MPV 7.2 L, Neut % (Auto) 57.8, Lymph % (Auto) 33.6, [place] % (Auto) 5.4, Eos % (Auto) 2.5, Baso % (Auto) 0.7, Neut # (Auto) 5.0, Lymph # (Auto) 2.9, [place] # (Auto) 0.5, Eos # (Auto) 0.2, Baso # (Auto) 0.1 04/14/18 17:05: PT 9.9, INR 0.96, APTT 28.3 04/14/18 17:05: Sodium 139, Potassium 3.8, Chloride 103, Carbon Dioxide 27, Anion Gap 12.8, BUN 22 H, Creatinine 1.59 H, Estimated Creat Clear 82, Estimated GFR 44 L, Est GFR ( Amer) 53 L, Glucose 158 H, Calcium 8.8, Total Bilirubin 0.4, AST 28, ALT 37, Alkaline Phosphatase 99, Troponin I < 0.02, Total Protein 7.3, Albumin 3.8, Globulin 3.5 H, Albumin/Globulin Ratio 1.1 Result diagrams: 04/14/18 17:05 04/14/18 17:05 Orders (Tests/Meds): ED MEDICATIONS Generic Name Dose Route Start Last Admin Trade Name Freq PRN Reason Stop Dose Admin Acetaminophen 650 mg 04/14/18 18:03 Acetaminophen 325mg Tab PO 05/14/18 18:02 Q4HP PRN As Needed for Fever or Pain Allopurinol 300 mg 04/15/18 09:00 Allopurinol 300mg Tablet PO 05/15/18 08:59 DAILY [facility] Aspirin 81 mg 04/15/18 09:00 Aspirin 81mg Enteric Coated Tablet PO 05/15/18 08:59 DAILY [facility] Atorvastatin Calcium 10 mg 04/14/18 21:00 Lipitor 10mg Tablet PO 05/14/18 20:59 HS [facility] Carvedilol 25 mg 04/14/18 21:00 Coreg 25mg Tablet PO 05/14/18 20:59 BID [facility] Clopidogrel Bisulfate 75 mg 04/15/18 09:00 Plavix 75mg Tablet PO 05/15/18 08:59 DAILY [facility] Insulin Human Lispro 0 unit 04/14/18 21:00 Humalog 100 Units/Ml 3ml Vial (Ssi) SQ 05/14/18 20:59 ACHS [facility] Protocol Non-Formulary Medication 800 mg 04/14/18 21:00 Gabapentin [Gabapentin 800mg Tab] PO 05/14/18 20:59 TID JUAN CARLOS Non-Formulary Medication 100 mg 04/14/18 21:00 Hydralazine Hcl [Hydralazine Hcl] PO 05/14/18 20:59 BID [facility] Non-Formulary Medication 150 mg 04/14/18 21:00 Ranitidine Hcl [Zantac] PO 05/14/18 20:59 BID [facility] Prednisolone Acetate 0.05 ml 04/14/18 21:00 Pred Forte 1% Opth Solution 5ml OP 05/14/18 20:59 TID [facility] Sodium Chloride 10 ml 04/14/18 18:03 Saline Flush 10ml Syringe IV 05/14/18 17:04 NEEDED PRN Maintain IV Site Tizanidine HCl 4 mg 04/14/18 21:00 Zanaflex 4mg Tablet PO 05/14/18 20:59 BID JUAN CARLOS Discontinued Medications Generic Name Dose Route Start Last Admin Trade Name Cleve PRN Reason Stop Dose Admin Sodium Chloride 10 ml 04/14/18 17:05 Saline Flush 10ml Syringe IV 05/14/18 17:04 NEEDED PRN Maintain IV Site ORDERS Category Date Time Status CT head/brain wo con Stat Cat Scan 04/14/18 16:55 Taken XR chest AP Stat Exams 04/14/18 17:05 Taken - CT Data CT Scan: Head Time Received: 17:[address] Reviewed: Yes: I have viewed the radiologist's interpretation Findings Narrative: CT scan interpreted by [facility] radiologist. Faxed report received and reviewed: No acute intracranial abnormality - ECG Data Tracing #1 EKG interpreted by Kurt Gleason MD: Rhythm: sinus Rate: 83 [place]: normal Ectopy: none Conduction: Incomplete right bundle branch block ST Segment Changes: none T Wave Changes: none Q Waves: none Poor R wave progression - Physician Consults Physician Consulted: Jimmie Time: 17:37 Reason -: Admission Comment/Response: Agrees to admit the patient to the hospital. We discussed the patient's clinical information, including history, exam, laboratory and radiology results and ED course. Per hospital procedure, I will write temporary bridge inpatient orders on the patient. Specific orders requested by the admitting physician: Restart blood pressure medications General Adult HPI - General Stated complaint: Right side of face Numb,GILL Time Seen by Provider: 04/14/18 16:58 - History of Present Illness HPI narrative: States the right side of his face went numb today at about 5:45 AM and lasted for 15 minutes. Headache came on at the same time and is persisted ever since. Denies visual disturbance. No numbness or weakness of the extremities. No speech difficulty. Has not had these symptoms in the past. No history of CVA or TIA. He does have coronary artery disease with stent placement. Has a car diac pacemaker. Has diabetes and hypertension and ran out of his blood pressure and sugar medication on Thursday 4 days ago. Also out of Plavix. He did take aspirin today. States he has aching of his arms and legs for the past several days. - Related Data Home Medications Medication Instructions Recorded Confirmed Aspirin [Low Dose Aspirin EC] 81 mg PO DAILY 08/03/17 04/14/18 Atorvastatin Calcium [Atorvastatin 10 mg PO HS 08/03/17 04/14/18 10mg Tab] Colchicine [Colcrys 0.6mg tablet] 0.6 mg PO QID PRN 09/24/17 04/14/18 Gabapentin [Gabapentin 800mg Tab] 800 mg PO TID 09/24/17 04/14/18 Tizanidine HCl [Zanaflex 4mg 4 mg PO BID 09/24/17 04/14/18 tablet] prednisoLONE acetate [Pred Forte 1 drop EYE-RIGHT TID 10/08/17 04/14/18 1% opth solution 5mL] Clopidogrel Bisulfate [Plavix 75mg 75 mg PO DAILY 01/31/18 04/14/18 Tab] raNITIdine HCl [Zantac] 150 mg PO BID 04/14/18 04/14/18 Previous Rx's Medication Instructions Recorded carvedilol 25 mg tablet 25 mg PO BID #180 tab 10/11/17 hydralazine 100 mg tablet 100 mg PO BID #180 tab 10/11/17 allopurinol 300 mg tablet 300 mg PO DAILY #90 tab 11/13/17 glipizide ER 10 mg tablet, 10 mg PO DAILY #90 tab 11/16/17 extended release 24 hr Benzonatate [Benzonatate 200mg Cap] 200 mg PO HS PRN #14 cap 12/26/17 Allergies Allergy/AdvReac Type Severity Reaction Status Date / Time desvenlafaxine [From PRISTIQ] Allergy Mild Verified 10/14/17 08:30 [facility] History - Hepatitis A Screen Attestation statement:: This patient has been screened for Hepatitis A risk factors. I have reviewed the patient's past medical history: Yes Medical History: Reports:: Arrhythmia, Congestive Heart Failure, Coronary Artery Disease, Diabetes Mellitus Type 2, Hyperlipidemia, Hypertension, Internal Pacemaker Denies:: Cancer, Diabetes Mellitus Type 1, MRSA Other Medical History: Reports: Arthritis, Glaucoma, Sinus Problems, Other Comment: GOUT Other Surgeries: Yes: Appendectomy, Cardiac Catheterization, Colonoscopy, Pacemaker, Other Amputation: No Fractures: No Comment: heart cath, spinal arthrodesis, hemorrhoidectomy, cardiac stent x4 - Social History Smoking Status: Never smoker Tobacco Type: smokeless tobacco # Packs/Day (cigarettes): 1 #Yrs smoked (if former smoker): 45 Alcohol Intake: never Alcohol Intake Frequency:: other Substance Use Type: denies use Occupational Status: employed Housing: house Household Members: significant other Family Hx:: Asthma, Cancer, Coronary Artery Disease, Diabetes, Heart Attack, Hyperlipidemia, Hypertension, Kidney Disease, Thyroid Disorder, Tuberculosis Comment: PSOROSIS ROS Obtained: Yes All systems reviewed & no additional complaints - Constitutional Constitutional: Denies fever(s) - Eyes Eyes: Denies blind spots, Denies change in vision, Denies diplopia - Cardiovascular Cardiovascular: Denies chest pain - Respiratory Respiratory: No dyspnea - Gastrointestinal Gastrointestingal: Denies: abdominal pain, nausea, vomiting - Musculoskeletal Musculoskeletal: Reports as per HPI, Reports muscle aches - Neurologic Neurologic: Reports headache(s), Reports numbness, Denies weakness Physical Exam - General General appearance: alert, in no apparent distress - Head Head exam: atraumatic, normocephalic - Eye Eye exam: Present: PERRL, EOMI - ENT ENT exam: Present: mucous membranes moist - Neck Neck exam: Present: normal inspection, trachea midline. Absent: meningismus - Chest Chest inspection: Present: normal inspection, symmetric chest wall rise - Respiratory Respiratory exam: Present: normal lung sounds bilaterally. Absent: respiratory distress - Cardiovascular Cardiovascular exam: Present: regular rate, normal rhythm, normal heart sounds - Abdominal Exam Abdominal exam: Present: soft. Absent: distention, tenderness - Extremities Exam Extremities exam: Present: normal inspection, full ROM. Absent: tenderness - Neurological Exam Neurological exam: Present: alert, oriented X3, CN II-XII intact, other (Finger to nose normal). Absent: motor sensory deficit - Psychiatric Psychiatric exam: Present: normal affect, normal mood - Skin Skin exam: Present: warm, dry, intact Stroke Alert/NIH Score - LOC Stroke Alert: No Level of Consciousness: Alert LOC Questions: Answers both correctly LOC Commands: Obeys both correctly - Facial/Visual Best Gaze: Normal Visual: No visual loss Facial Palsy: Normal - Motor Motor Response, Left Arm: No drift/Amputation/Fused Motor Response, Right Arm: No drift/Amputation/Fused Motor Response, Left Leg: No drift/Amputation/Fused Motor Response, Right Leg: No drift/Amputation/Fused - Sensory/Language Limb Ataxia: Absent Sensory: Normal Best Language: No aphasia Dysarthria: Normal speech, Intubated or Barrier present - NIH Score Stroke Risk Score: 0
[2018-04-14 17:16] LABS: Basophils # 0.1 K/mm3 (0-0.2); Basophils % 0.7 % (0.1-2.0); Eosinophils # 0.2 K/mm3 (0.0-0.4); Eosinophils % 2.5 % (0.1-12.0); Hemoglobin 15.7 g/dL (14.1-18.0); Lymphocytes # 2.9 K/mm3 (0.7-4.5); Lymphocytes % 33.6 % (10-50); Mean Corpuscular HGB Conc 33.3 g/dL (31.8-35.4); Mean Corpuscular Hemoglobin 30.8 pg (27.0-31.2); Mean Corpuscular Volume 92.5 fl (80-94); Mean Platelet Volume 7.2 fl (7.4-10.4); Monocytes # 0.5 K/mm3 (0.1-1.0); Monocytes % 5.4 % (1.7-9.3); Neutrophils % 57.8 % (37.0-80.0); Platelet Count 215 K/mm3 (142-424); Red Blood Count 5.08 M/mm3 (4.60-6.20); White Blood Count 8.7 K/mm3 (4.8-10.8)
[2018-04-14 17:24] LABS: Activated Partial Thrombo Time 28.3 seconds (23.6-34.0); INR 0.96 (0.9-1.1); Prothrombin Time 9.9 seconds (9.4-11.8)
[2018-04-14 17:31] LABS: Alanine Aminotransferase 37 U/L (12-78); Albumin Level 3.8 gm/dL (3.4-5.0); Albumin/Globulin Ratio 1.1 (1.1-1.8); Alkaline Phosphatase 99 U/L (46-116); Anion Gap 12.8 mEq/L (5-15); Aspartate Amino Transferase 28 U/L (15-37); Bilirubin,Total 0.4 mg/dL (0.2-1.0); Blood Urea Nitrogen 22 mg/dL (7-18); Calcium 8.8 mg/dL (8.5-10.1); Carbon Dioxide 27 mmol/L (21.0-32.0); Chloride 103 mmol/L (98-107); Globulin 3.5 gm/dl (1.3-3.2); Glucose 158 mg/dL (74-106); Potassium 3.8 mmoL/L (3.5-5.1); Sodium 139 mmol/L (136-145); Total Protein,Serum 7.3 gm/dL (6.4-8.2)
--- NOTE | 2018-04-14 19:46 | History & Physical Report ---
*Admission Date: 04/14/18 *Chief complaint: numbness and headache *History of present illness: 62-year-old male presented to the ER with complaints of the right side of his face went numb today at about 5:45 AM and lasted for 15 minutes. Headache came on at the same time and is persisted ever since. Pt states no numbness or weakness of the extremities or no speech difficulty. Pt states no history of CVA or TIA. Pt states history of coronary artery disease with stent placement two months ago. Has a cardiac pacemaker. Pt states history of diabetes and hypertension and ran out of his blood pressure,plavix and sugar medication on Thursday 4 days ago. He did take aspirin today. Patient admitted for hy pertension. Patient denies any chest pain pressure and states his base is no longer numb. [facility] History I have reviewed the patient's past medical history: Yes Medical History: Reports:: Arrhythmia, Congestive Heart Failure, Coronary Artery Disease, Diabetes Mellitus Type 2, Hyperlipidemia, Hypertension, Internal Pacemaker Denies:: Cancer, Diabetes Mellitus Type 1, MRSA Other Medical History: Reports: Arthritis, Glaucoma, Sinus Problems, Other Other Surgeries: Yes: Appendectomy, Cardiac Catheterization, Colonoscopy, Pacemaker, Other Amputation: No Fractures: No - *Social History Educational Level: Completed High School Smoking Status: Never smoker Tobacco Type: smokeless tobacco # Packs/Day (cigarettes): 1 #Yrs smoked (if former smoker): 45 Alcohol Intake: never Alcohol Intake Frequency:: other Substance Use Type: denies use Occupational Status: employed Housing: house Household Members: significant other - Psychiatric History Expresses thoughts of harming self/others: None Suicide Plan Description: No Plan *Family Hx:: Asthma, Cancer, Coronary Artery Disease, Diabetes, Heart Attack, Hyperlipidemia, Hypertension, Kidney Disease, Thyroid Disorder, Tuberculosis Review of Systems - Review of Systems Review of systems:: pertinent systems reviewed and negative unless documented below - Constitutional Reports headache(s), Reports weakness - ENT Denies dizziness - *Cardiovascular Denies chest pain, Denies chest pain with activity, Denies leg pain with activity, Denies shortness of breath - *Respiratory Denies change in phlegm color, Denies chest congestion, Denies cough - *Gastrointestinal Denies nausea, Denies vomiting - *Genitourinary Denies urinary frequency - *Musculoskeletal Denies back pain, Denies stiffness - Integumentary/Breasts Denies rash - *Neurologic Reports headache(s), Reports numbness, Reports tingling/numbness/burning sensations, Denies abnormal movements, Denies dizziness, Denies localized weakness, Denies weakness - Psychiatric Denies anxiety - Endocrine Denies flushing - Hematologic/Lymphatic Denies enlarged lymph nodes - Allergic/Immunologic Denies lip swelling Meds Home Medications Medication Instructions Recorded Confirmed Type Aspirin [Low Dose Aspirin EC] 81 mg PO DAILY 08/03/17 04/14/18 History Atorvastatin Calcium [Atorvastatin 10 mg PO HS 08/03/17 04/14/18 History 10mg Tab] Colchicine [Colcrys 0.6mg tablet] 0.6 mg PO QID PRN 09/24/17 04/14/18 History Gabapentin [Gabapentin 800mg Tab] 800 mg PO TID 09/24/17 04/14/18 History Tizanidine HCl [Zanaflex 4mg 4 mg PO BID 09/24/17 04/14/18 History tablet] prednisoLONE acetate [Pred Forte 1 drop EYE-RIGHT TID 10/08/17 04/14/18 History 1% opth solution 5mL] carvedilol 25 mg tablet 25 mg PO BID #180 tab 10/11/17 04/14/18 Rx hydralazine 100 mg tablet 100 mg PO BID #180 tab 10/11/17 04/14/18 Rx allopurinol 300 mg tablet 300 mg PO DAILY #90 tab 11/13/17 04/14/18 Rx glipizide ER 10 mg tablet, 10 mg PO DAILY #90 tab 11/16/17 04/14/18 Rx extended release 24 hr Benzonatate [Benzonatate 200mg Cap] 200 mg PO HS PRN #14 cap 12/26/17 04/14/18 Rx Clopidogrel Bisulfate [Plavix 75mg 75 mg PO DAILY 01/31/18 04/14/18 History Tab] raNITIdine HCl [Zantac] 150 mg PO BID 04/14/18 04/14/18 History Allergies Allergy/AdvReac Type Severity Reaction Status Date / Time desvenlafaxine [From PRISTIQ] Allergy Mild Verified 10/14/17 08:30 Exam Vital signs and Labs for Last 24 Hours: Temp Pulse Resp BP Pulse Ox 98.6 F 84 18 195/100 H 97 04/14/18 19:00 04/14/18 19:00 04/14/18 19:00 04/14/18 19:00 04/14/18 19:00 Laboratory Results - last 24 hr 04/14/18 17:05: WBC 8.7, RBC 5.08, Hgb 15.7, Hct 47.0, MCV 92.5, MCH 30.8, MCHC 33.3, RDW 14.0, Plt Count 215, MPV 7.2 L, Neut % (Auto) 57.8, Lymph % (Auto) 33.6, [place] % (Auto) 5.4, Eos % (Auto) 2.5, Baso % (Auto) 0.7, Neut # (Auto) 5.0, Lymph # (Auto) 2.9, [place] # (Auto) 0.5, Eos # (Auto) 0.2, Baso # (Auto) 0.1 04/14/18 17:05: PT 9.9, INR 0.96, APTT 28.3 04/14/18 17:05: Sodium 139, Potassium 3.8, Chloride 103, Carbon Dioxide 27, Anion Gap 12.8, BUN 22 H, Creatinine 1.59 H, Estimated Creat Clear 82, Estimated GFR 44 L, Est GFR ( Amer) 53 L, Glucose 158 H, Calcium 8.8, Total Bilirubin 0.4, AST 28, ALT 37, Alkaline Phosphatase 99, Troponin I < 0.02, Total Protein 7.3, Albumin 3.8, Globulin 3.5 H, Albumin/Globulin Ratio 1.1 04/14/18 17:55: POC Glucose 129 H I & O for Last 24 hours: Intake & Output 04/12/18 04/13/18 04/14/18 04/15/18 11:59 11:59 11:59 11:59 Weight 272 lb 8 oz - *Routine HEENT Exam Head: Present: normocephalic Eye: Present: PERRL ENT: Present: mucous membranes moist - *Routine Neck Exam Present: supple. Absent: lymphadenopathy - *Routine Respiratory Exam Present: CTA bilaterally - *Routine Cardiovascular Exam Present: RRR - *Routine Abdominal Exam Present: soft, normoactive bowel sounds. Absent: tenderness - *Routine Extremities Exam Absent: cyanosis, clubbing, edema - *Routine Skin Exam Present: warm. Absent: rash - *Routine Neurological Exam Present: alert, oriented X3, CN II-XII intact, moving all extremities, normal speech - Routine Psychiatric Exam Present: normal affect
[2018-04-14 21:18] LABS: Creatine Kinase 228 U/L (39-308)
[2018-04-15 07:06] LABS: Basophils # 0.1 K/mm3 (0-0.2); Eosinophils # 0.2 K/mm3 (0.0-0.4); Eosinophils % 3.6 % (0.1-12.0); Hemoglobin 15.4 g/dL (14.1-18.0); Lymphocytes # 2.3 K/mm3 (0.7-4.5); Lymphocytes % 42.6 % (10-50); Mean Corpuscular HGB Conc 32.7 g/dL (31.8-35.4); Mean Corpuscular Hemoglobin 30.4 pg (27.0-31.2); Mean Corpuscular Volume 93.2 fl (80-94); Mean Platelet Volume 7.4 fl (7.4-10.4); Monocytes # 0.4 K/mm3 (0.1-1.0); Monocytes % 7.8 % (1.7-9.3); Neutrophils # 2.5 K/mm3 (1.8-7.8); Neutrophils % 45.1 % (37.0-80.0); Platelet Count 192 K/mm3 (142-424); Red Blood Count 5.05 M/mm3 (4.60-6.20); White Blood Count 5.5 K/mm3 (4.8-10.8)
[2018-04-15 07:18] LABS: Albumin Level 3.2 gm/dL (3.4-5.0); Albumin/Globulin Ratio 0.9 (1.1-1.8); Bilirubin,Total 0.4 mg/dL (0.2-1.0); Calcium 8.7 mg/dL (8.5-10.1); Globulin 3.5 gm/dl (1.3-3.2); Total Protein,Serum 6.7 gm/dL (6.4-8.2)
--- NOTE | 2018-04-15 08:08 | Pharmacy Consult Notes ---
[facility] Pharmacy VTE Monitoring - Patient Demographics Admission date: 04/14/18 Report Date: 04/15/18 Time: 08:08 Allergies/Adverse Reactions: Patient Allergies desvenlafaxine [From PRISTIQ] Allergy (Mild, Verified 10/14/17 08:30) Height: 1.83 m Weight: 123.604 kg Patient Problems: Current Active Problems TIA (transient ischemic attack) (Acute) Uncontrolled hypertension (Acute) Headache (Acute) - VTE Risk Labs: VTE Related Lab Results Hgb 15.4 g/dL (14.1-18.0) 04/15/18 06:36 Hct 47.0 % (42.0-52.0) 04/15/18 06:36 Plt Count 192 K/mm3 (142-424) 04/15/18 06:36 PT 9.9 seconds (9.4-11.8) 04/14/18 17:05 INR 0.96 (0.9-1.1) 04/14/18 17:05 APTT 28.3 seconds (23.6-34.0) 04/14/18 17:05 BUN 25 mg/dL (7-18) H 04/15/18 06:36 Creatinine 1.27 mg/dL (0.70-1.30) D 04/15/18 06:36 Estimated Creat Clear 104 mL/min (50-200) 04/15/18 06:36 Was VTE Risk Assessment Performed: Yes VTE Score: 6 VTE Risk Level: Moderate Risk - Prophylaxis VTE Prophylaxis Ordered?: Yes Types of VTE Prophylaxis: TEDS Knee High Location of Applied Device: Bilateral Lower Extremeties - VTE Diagnosis Confirmed Treatment or plan recommended: Continue Current Treatment
--- NOTE | 2018-04-15 08:45 | Consult Report ---
History of Present Illness Consult date: 04/15/18 Requesting physician: Fan Samuel Consult reason: hypertension Chief complaint: HTN, TIA, CAD Additional Medical History:: 1. Diabetes mellitus, treated for greater than 10 years 2. Hypertension A. Echo, 09/2017, 1. Normal left ventricular size, mild concentric left ventricular hypertrophy, visually estimated ejection fraction 55% with no obvious regional wall motion abnormality, diastolic parameters are inconclusive. 2. Mildly enlarged right atrium and right ventricle, contractility of the right ventricle is normal, there is a pacemaker lead seen in the right ventricle. 3. Mild mitral and tricuspid regurgitation, calculated right ventricular systolic pressure is 50 mmHg consistent with moderate pulmonary hypertension. 4. No significant pericardial effusion noted. 3. Hyperlipidemia 4. Strong family history of coronary artery disease in his father and younger brother. 5. Tobacco use of one half to one pack per week 6. History of pacemaker insertion for syncope 7. Coronary artery disease A. History of cardiac catheterization by Dr. Hall several years ago, [id number] coronary artery disease for which no intervention needed. [facility] in [place], [place]. B. Cardiac cath, 09/25/2017, EVIE to LAD. Persistent moderate mid dominant Circumflex, mid LAD and diagonal disease. Normal LVEF, LVEDP 35 mm Hg. C. Repeat Cardiac cath, 09/28/2017, due to recurrent chest pains. EVIE placed to mid LAD and to 2nd diagonal artery. Continue DAPT. 8. TIA with right facial symptoms, 03/[address] of head 9. Medication and follow up non-compliance due to financial issues History of present illness: 62-year-old male presented to the ER with complaints of the right side of his face went numb today at about 5:45 AM and lasted for 15 minutes. Headache came on at the same time and is persisted ever since. Pt states no numbness or weakness of the extremities or no speech difficulty. Pt states no history of CVA or TIA. Pt states history of coronary artery disease with stent placement two months ago. Has a cardiac pacemaker. Pt states history of diabetes and hypertension and ran out of his blood pressure,plavix and sugar medication on Thursday 4 days ago. He did take aspirin today. Patient admitted for hypertension. Patient denies any chest pain pressure and states his base is no longer numb The above per Dr. Samuel Pt denies any chest pain, pressure or tightness. Cardiac troponins normal X 2. EKG is sinus with incomplete RBBB and LAD without acute changes. Pt relates unable to afford medications. [facility] History Medical History: Reports:: Arrhythmia, Congestive Heart Failure, Coronary Artery Disease, Diabetes Mellitus Type 2, Hyperlipidemia, Hypertension, Internal Pacemaker Denies:: Cancer, Diabetes Mellitus Type 1, MRSA Other Medical History: Reports: Arthritis, Glaucoma, Sinus Problems, Other Other Surgeries: Yes: Appendectomy, Cardiac Catheterization, Colonoscopy, Coronary Stent, Pacemaker, Other Amputation: No Fractures: No - *Social History Educational Level: Completed High School Smoking Status: Never smoker Tobacco Type: smokeless tobacco # Packs/Day (cigarettes): 1 #Yrs smoked (if former smoker): 45 Alcohol Intake: never Alcohol Intake Frequency:: other Substance Use Type: denies use Occupational Status: employed Housing: house Household Members: significant other - Psychiatric History Expresses thoughts of harming self/others: None Suicide Plan Description: No Plan *Family Hx:: Asthma, Cancer, Coronary Artery Disease, Diabetes, Heart Attack, Hyperlipidemia, Hypertension, Kidney Disease, Thyroid Disorder, Tuberculosis Meds Home Medications Medication Instructions Recorded Confirmed Type Aspirin [Low Dose Aspirin EC] 81 mg PO DAILY 08/03/17 04/14/18 History Atorvastatin Calcium [Atorvastatin 10 mg PO HS 08/03/17 04/14/18 History 10mg Tab] Colchicine [Colcrys 0.6mg tablet] 0.6 mg PO QID PRN 09/24/17 04/14/18 History Tizanidine HCl [Zanaflex 4mg 4 mg PO BID 09/24/17 04/14/18 History tablet] prednisoLONE acetate [Pred Forte 1 drop EYE-RIGHT TID 10/08/17 04/14/18 History 1% opth solution 5mL] carvedilol 25 mg tablet 25 mg PO BID #180 tab 10/11/17 04/14/18 Rx hydralazine 100 mg tablet 100 mg PO BID #180 tab 10/11/17 04/14/18 Rx allopurinol 300 mg tablet 300 mg PO DAILY #90 tab 11/13/17 04/14/18 Rx Clopidogrel Bisulfate [Plavix 75mg 75 mg PO DAILY 01/31/18 04/14/18 History Tab] raNITIdine HCl [Zantac] 150 mg PO BID 04/14/18 04/14/18 History Gabapentin [Neurontin 800mg Tab] 800 mg PO TID 04/15/18 04/15/18 History glipiZIDE [Glipizide ER] 10 mg PO DAILY 04/15/18 04/15/18 History Allergies Allergy/AdvReac Type Severity Reaction Status Date / Time desvenlafaxine [From PRISTIQ] Allergy Mild Verified 10/14/17 08:30 Review of Systems - *Cardiovascular Denies chest pain, Denies shortness of breath - *Respiratory Denies cough, Denies shortness of breath - *Gastrointestinal Denies abdominal pain, Denies heartburn - *Genitourinary Denies difficulty urinating, Denies blood in urine - *Musculoskeletal Reports back pain - *Neurologic Reports headache(s), Reports numbness, Reports tingling/numbness/burning sensations, Denies abnormal movements, Denies dizziness, Denies localized weakness, Denies weakness Exam Vital signs and Labs for Last 24 Hours: Temp Pulse Resp BP Pulse Ox 97.9 F 72 18 175/100 H 99 04/15/18 08:00 04/15/18 08:00 04/15/18 08:00 04/15/18 08:00 04/15/18 08:00 Laboratory Results - last 24 hr 04/14/18 17:05: WBC 8.7, RBC 5.08, Hgb 15.7, Hct 47.0, MCV 92.5, MCH 30.8, MCHC 33.3, RDW 14.0, Plt Count 215, MPV 7.2 L, Neut % (Auto) 57.8, Lymph % (Auto) 33.6, Park % (Auto) 5.4, Eos % (Auto) 2.5, Baso % (Auto) 0.7, Neut # (Auto) 5.0, Lymph # (Auto) 2.9, Park # (Auto) 0.5, Eos # (Auto) 0.2, Baso # (Auto) 0.1 04/14/18 17:05: PT 9.9, INR 0.96, APTT 28.3 04/14/18 17:05: Sodium 139, Potassium 3.8, Chloride 103, Carbon Dioxide 27, Anion Gap 12.8, BUN 22 H, Creatinine 1.59 H, Estimated Creat Clear 82, Estimated GFR 44 L, Est GFR ( Amer) 53 L, Glucose 158 H, Calcium 8.8, Total Bilirubin 0.4, AST 28, ALT 37, Alkaline Phosphatase 99, Troponin I < 0.02, Total Protein 7.3, Albumin 3.8, Globulin 3.5 H, Albumin/Globulin Ratio 1.1 04/14/18 17:55: POC Glucose 129 H 04/14/18 20:14: Total Creatine Kinase 228, CK-MB (CK-2) 3.8 H, CK-MB (CK-2) Rel Index 1.7, Troponin I < 0.02 04/15/18 06:24: POC Glucose 130 H 04/15/18 06:36: WBC 5.5 D, RBC 5.05, Hgb 15.4, Hct 47.0, MCV 93.2, MCH 30.4, MCHC 32.7, RDW 14.0, Plt Count 192, MPV 7.4, Neut % (Auto) 45.1, Lymph % (Auto) 42.6, Park % (Auto) 7.8, Eos % (Auto) 3.6, Baso % (Auto) 1.0, Neut # (Auto) 2.5, Lymph # (Auto) 2.3, Park # (Auto) 0.4, Eos # (Auto) 0.2, Baso # (Auto) 0.1 04/15/18 06:36: Sodium 141, Potassium 4.0, Chloride 106, Carbon Dioxide 25, Anion Gap 14.0, BUN 25 H, Creatinine 1.27 D, Estimated Creat Clear 104, Estimated GFR 57 L, Est GFR ( Amer) 69 D, Glucose 142 H, Calcium 8.7, Total Bilirubin 0.4, AST 25, ALT 36, Alkaline Phosphatase 90, Total Protein 6.7, Albumin 3.2 L D, Globulin 3.5 H, Albumin/Globulin Ratio 0.9 L I & O for Last 24 hours: Intake & Output 04/12/18 04/13/18 04/14/18 04/15/18 11:59 11:59 11:59 11:59 Intake Total 480 / 480 Output Total 30 / 30 Balance 450 / 450 Weight 272 lb 8 oz - *Routine Neck Exam Present: supple. Absent: JVD, carotid bruit - *Routine Respiratory Exam Present: CTA bilaterally. Absent: accessory muscle use, rales, rhonchi, wheezes - *Routine Cardiovascular Exam Present: RRR. Absent: murmur, gallop, rubs - *Routine Abdominal Exam Present: soft. Absent: tenderness, distended, guarding - *Routine Extremities Exam Absent: edema, calf tenderness Assessment and Plan (1) Headache Current visit: Yes Status: Acute Qualifiers: Headache type: unspecified Headache chronicity pattern: acute headache Intractability: intractable Qualified Code(s): R51 - Headache Category: Medical Code(s): R51 - Headache (2) TIA (transient ischemic attack) Current visit: Yes Status: Acute Category: Medical Code(s): G45.9 - Transient cerebral ischemic attack, unspecified (3) Uncontrolled hypertension Current visit: Yes Status: Acute Category: Medical Code(s): I10 - Essential (primary) hypertension (4) CAD (coronary artery disease) Current visit: No Status: Acute Category: Medical Code(s): I25.10 - Atherosclerotic heart disease of tangirnaq coronary artery without angina pectoris (5) Tobacco use Current visit: No Status: Acute Category: Medical Code(s): Z72.0 - Tobacco use (6) Diabetes Current visit: No Status: Chronic Qualifiers: Category: Medical Code(s): E11.9 - Type 2 diabetes mellitus without complications (7) Hyperlipidemia Current visit: No Status: Chronic Qualifiers: Hyperlipidemia type: mixed hyperlipidemia Qualified Code(s): E78.2 - Mixed hyperlipidemia Category: Medical Code(s): E78.5 - Hyperlipidemia, unspecified (8) Stented coronary artery Current visit: No Status: Chronic Category: Surgical Code(s): Z95.5 - Presence of coronary angioplasty implant and graft - Assessment and plan all Dx Assessment and Plan for all problems:: 1. Home medications have been restarted with some improvement in BP. History of acute renal insufficiency on diuretics and TWYLA inhibitor in 09/2017 so will hold on adding TWYLA or ARB at this time. If additional BP control needed then consider isordil or norvasc. 2. Recommend renal duplex to assess for renal artery stenosis and possible renal cell carcinoma. 3. Due to TIA symptoms, likely secondary to hypertensive emergency, would recommend BP goal of 160/90 mm Hg.
--- NOTE | 2018-04-15 13:03 | Discharge Summary ---
General - General Admission date:: 04/14/18 Discharge date: 04/15/18 HPI HPI: 62-year-old male presented to the ER with complaints of the right side of his face went numb today at about 5:45 AM and lasted for 15 minutes. Headache came on at the same time and is persisted ever since. Pt states no numbness or weakness of the extremities or no speech difficulty. Pt states no history of CVA or TIA. Pt states history of coronary artery disease with stent placement two months ago. Has a cardiac pacemaker. Pt states history of diabetes and hypertension and ran out of his blood pressure,plavix and sugar medication on Thursday 4 days ago. He did take aspirin today. Patient admitted for hypertension. Patient denies any chest pain pressure and states his base is no longer numb. Hospital Course Hospital Course: meds adjusted cardiology consult - see note cardiology ok to dc and close follow up. Objective Vital signs: Temp Pulse Resp BP Pulse Ox 97.7 F 71 16 172/95 H 97 04/15/18 11:24 04/15/18 11:24 04/15/18 11:24 04/15/18 11:24 04/15/18 11:24 no acute distress - *Routine HEENT Exam Head: Present: normocephalic Eye: Present: PERRL ENT: Present: mucous membranes moist - *Routine Neck Exam Present: full ROM - *Routine Respiratory Exam Present: CTA bilaterally - *Routine Cardiovascular Exam Present: RRR - *Routine Abdominal Exam Present: soft, normoactive bowel sounds - *Routine Extremities Exam Present: full ROM, normal capillary refill - *Routine Skin Exam Present: intact - *Routine Neurological Exam Present: oriented X3, CN II-XII intact - Routine Psychiatric Exam Present: normal affect Results Labs on day of discharge: Labs from last 24 hours 04/15/18 04/15/18 04/15/18 11:38 06:36 06:36 WBC 5.5 D RBC 5.05 Hgb 15.4 Hct 47.0 MCV 93.2 MCH 30.4 MCHC 32.7 RDW 14.0 Plt Count 192 MPV 7.4 Neut % (Auto) 45.1 Lymph % (Auto) 42.6 Door % (Auto) 7.8 Eos % (Auto) 3.6 Baso % (Auto) 1.0 Neut # (Auto) 2.5 Lymph # (Auto) 2.3 Door # (Auto) 0.4 Eos # (Auto) 0.2 Baso # (Auto) 0.1 PT INR APTT Sodium 141 Potassium 4.0 Chloride 106 Carbon Dioxide 25 Anion Gap 14.0 BUN 25 H Creatinine 1.27 D Estimated Creat Clear 104 Estimated GFR 57 L Est GFR ( Amer) 69 D Glucose 142 H POC Glucose 166 H Calcium 8.7 Total Bilirubin 0.4 AST 25 ALT 36 Alkaline Phosphatase 90 Total Creatine Kinase CK-MB (CK-2) CK-MB (CK-2) Rel Index Troponin I Total Protein 6.7 Albumin 3.2 L D Globulin 3.5 H Albumin/Globulin Ratio 0.9 L 04/15/18 04/14/18 04/14/18 06:24 20:14 17:55 WBC RBC Hgb Hct MCV MCH MCHC RDW Plt Count MPV Neut % (Auto) Lymph % (Auto) Door % (Auto) Eos % (Auto) Baso % (Auto) Neut # (Auto) Lymph # (Auto) Door # (Auto) Eos # (Auto) Baso # (Auto) PT INR APTT Sodium Potassium Chloride Carbon Dioxide Anion Gap BUN Creatinine Estimated Creat Clear Estimated GFR Est GFR ( Amer) Glucose POC Glucose 130 H 129 H Calcium Total Bilirubin AST ALT Alkaline Phosphatase Total Creatine Kinase 228 CK-MB (CK-2) 3.8 H CK-MB (CK-2) Rel Index 1.7 Troponin I < 0.02 Total Protein Albumin Globulin Albumin/Globulin Ratio 04/14/18 04/14/18 04/14/18 17:05 17:05 17:05 WBC 8.7 RBC 5.08 Hgb 15.7 Hct 47.0 MCV 92.5 MCH 30.8 MCHC 33.3 RDW 14.0 Plt Count 215 MPV 7.2 L Neut % (Auto) 57.8 Lymph % (Auto) 33.6 Door % (Auto) 5.4 Eos % (Auto) 2.5 Baso % (Auto) 0.7 Neut # (Auto) 5.0 Lymph # (Auto) 2.9 Door # (Auto) 0.5 Eos # (Auto) 0.2 Baso # (Auto) 0.1 PT 9.9 INR 0.96 APTT 28.3 Sodium 139 Potassium 3.8 Chloride 103 Carbon Dioxide 27 Anion Gap 12.8 BUN 22 H Creatinine 1.59 H Estimated Creat Clear 82 Estimated GFR 44 L Est GFR ( Amer) 53 L Glucose 158 H POC Glucose Calcium 8.8 Total Bilirubin 0.4 AST 28 ALT 37 Alkaline Phosphatase 99 Total Creatine Kinase CK-MB (CK-2) CK-MB (CK-2) Rel Index Troponin I < 0.02 Total Protein 7.3 Albumin 3.8 Globulin 3.5 H Albumin/Globulin Ratio 1.1 - Additional Comments rounded with gail, all orders per gail DS: Diagnosis - Discharge Diagnosis (1) Headache Status: Acute (2) TIA (transient ischemic attack) Status: Acute (3) Uncontrolled hypertension Status: Acute (4) CAD (coronary artery disease) Status: Acute (5) Tobacco use Status: Acute (6) Diabetes Status: Chronic (7) Hyperlipidemia Status: Chronic (8) Stented coronary artery Status: Chronic Discharge Plan - Patient Discharge Instructions ACTIVITY: Continue current activity DIET: continue same diet - Follow up Plan Follow up with: Zaire Cox MD [Staff Physician] - 1 week Fan Samuel MD [Staff Physician] - 04/21/18 Disposition: Home, Self-Half-Way Medications: Home Medications Medication Instructions Recorded Confirmed Type Aspirin [Low Dose Aspirin EC] 81 mg PO DAILY 08/03/17 04/14/18 History Atorvastatin Calcium [Atorvastatin 10 mg PO HS 08/03/17 04/14/18 History 10mg Tab] Colchicine [Colcrys 0.6mg tablet] 0.6 mg PO QID PRN 09/24/17 04/14/18 History Tizanidine HCl [Zanaflex 4mg 4 mg PO BID 09/24/17 04/14/18 History tablet] prednisoLONE acetate [Pred Forte 1 drop EYE-RIGHT TID 10/08/17 04/14/18 History 1% opth solution 5mL] carvedilol 25 mg tablet 25 mg PO BID #180 tab 10/11/17 04/14/18 Rx hydralazine 100 mg tablet 100 mg PO BID #180 tab 10/11/17 04/14/18 Rx allopurinol 300 mg tablet 300 mg PO DAILY #90 tab 11/13/17 04/14/18 Rx Clopidogrel Bisulfate [Plavix 75mg 75 mg PO DAILY 01/31/18 04/14/18 History Tab] raNITIdine HCl [Zantac] 150 mg PO BID 04/14/18 04/14/18 History Amlodipine Besylate [Norvasc 5mg 5 mg PO DAILY 30 Days #30 tablet 04/15/18 Rx tablet] Gabapentin [Neurontin 800mg Tab] 800 mg PO TID 04/15/18 04/15/18 History glipiZIDE [Glipizide ER] 10 mg PO DAILY 04/15/18 04/15/18 History Prescriptions/Medication Reconciliation: New Gabapentin [Neurontin 400mg cap] 800 mg PO TID capsule Amlodipine Besylate [Norvasc 5mg tablet] 5 mg PO DAILY 30 Days #30 tablet Continue hydralazine 100 mg tablet 100 mg PO BID #180 tab carvedilol 25 mg tablet 25 mg PO BID #180 tab allopurinol 300 mg tablet 300 mg PO DAILY #90 tab Aspirin [Low Dose Aspirin EC] 81 mg PO DAILY Atorvastatin Calcium [Atorvastatin 10mg Tab] 10 mg PO HS Tizanidine HCl [Zanaflex 4mg tablet] 4 mg PO BID prednisoLONE acetate [Pred Forte 1% opth solution 5mL] 1 drop EYE-RIGHT TID glipiZIDE [Glipizide ER] 10 mg PO DAILY Gabapentin [Neurontin 800mg Tab] 800 mg PO TID Colchicine [Colcrys 0.6mg tablet] 0.6 mg PO QID PRN PRN Reason: GOUT FLARES Clopidogrel Bisulfate [Plavix 75mg Tab] 75 mg PO DAILY raNITIdine HCl [Zantac] 150 mg PO BID
== END 2018-04-15 13:53 | disposition home or self-care (01) ==
LOC: ER 16:48 → 2ND 16:48
PROVIDERS: ADMIT Emergency Medicine; ATTEND Emergency Medicine
CPT/HCPCS: 36415; 70450; 71010; 71045; 80053; 82550; 82553; 82962; 84484; 85025; 85610; 85730; 93005; 99284; G0378

== ENCOUNTER → 2018-07-15 11:43 | Outpatient (CLI) | payer OTHER, SELFPAY ==
--- NOTE | 2018-07-15 11:49 | XR_ITS ---
XR chest 2V HISTORY: ITS.REASON: Dyspnea after rib fractures ORDERING PHYSICIAN: ALEXIS Lange PATIENT AGE: 63 years COMPARISON: 06/14/2018 FINDINGS: There is a bipolar pacemaker present from left subclavian approach. There is a displaced fracture of the midshaft of the left clavicle with 14 mm inferior displacement and 0% apposition of the bony fragments with mild overlap of the bony fragments. There is no evidence of pneumothorax. There are mild fibrotic changes in the left lung base. The patient gives a history of having left-sided rib fractures and scapular fracture which is below limits of resolution on this study. Chest CT may be of further value for those findings if clinically desired. IMPRESSION: Displaced left clavicular fracture.
--- NOTE | 2018-07-15 11:49 | XR_ITS ---
XR scapula LT CLINICAL INDICATION: ITS.REASON: Left scapula pain ORDERING PHYSICIAN: ALEXIS Lange PATIENT AGE: 63 years Comparison: None FINDINGS: There is a displaced comminuted mid shaft clavicular fracture. The distal fracture fragment is displaced inferiorly x 14 mm with mild overlap of the fracture fragments. No obvious scapular fracture however, scapular fractures are difficult to visualize on plain film and there nondisplaced. CT of the chest may be of further value if clinically desired. IMPRESSION: Displaced comminuted left clavicular fracture
== END ==
PROVIDERS: PCP Physician Assistant; Visit Provider Physician Assistant
DX: R06.00 Dyspnea, unspecified (principal); M89.8X1 Other specified disorders of bone, shoulder
CPT/HCPCS: 71046; 73010

== ENCOUNTER → 2018-10-25 13:35 | Outpatient (CLI) | payer OTHER, SELFPAY ==
[2018-10-25 14:22] LABS: Basophils # 0.1 K/mm3 (0-0.2); Basophils % 1.1 % (0.1-2.0); Eosinophils # 0.1 K/mm3 (0.0-0.4); Eosinophils % 2.4 % (0.1-12.0); Hemoglobin 15.6 g/dL (14.1-18.0); Lymphocytes % 35.8 % (10-50); Mean Corpuscular HGB Conc 31.3 g/dL (31.8-35.4); Mean Corpuscular Hemoglobin 29.3 pg (27.0-31.2); Mean Corpuscular Volume 93.8 fl (80-94); Mean Platelet Volume 8.4 fl (7.4-10.4); Monocytes # 0.3 K/mm3 (0.1-1.0); Monocytes % 5.4 % (1.7-9.3); Neutrophils # 3.1 K/mm3 (1.8-7.8); Neutrophils % 55.4 % (37.0-80.0); Platelet Count 223 K/mm3 (142-424); Red Blood Count 5.33 M/mm3 (4.60-6.20); Red Cell Distribution Width 13.7 % (11.5-17.5); White Blood Count 5.6 K/mm3 (4.8-10.8)
[2018-10-25 14:43] LABS: Alanine Aminotransferase 48 U/L (12-78); Albumin Level 3.5 gm/dL (3.4-5.0); Alkaline Phosphatase 138 U/L (46-116); Anion Gap 15.3 mEq/L (5-15); Aspartate Amino Transferase 30 U/L (15-37); Bilirubin,Total 0.3 mg/dL (0.2-1.0); Blood Urea Nitrogen 17 mg/dL (7-18); Calcium 9.1 mg/dL (8.5-10.1); Carbon Dioxide 25 mmol/L (21.0-32.0); Chloride 100 mmol/L (98-107); Chol/HDL Ratio 5.9 (1-3.5); Cholesterol 224 mg/dL (140-200); Estimated Glomerular Filt Rate 67 ml/min (>60); Free T4 (Free Thyroxine) 0.96 ng/dl (0.76-1.46); GFR (African American) 82 ML/MIN (>60); Globulin 3.6 gm/dl (1.3-3.2); Glucose 336 mg/dL (74-106); HDL Cholesterol 38 mg/dL (27-67); LDL Cholesterol 110 mg/dL (0-130); Potassium 4.3 mmoL/L (3.5-5.1); Prostate Specific Ag Screen 1.4 ng/mL (0.0-4.0); Sodium 136 mmol/L (136-145); Thyroid Stimulating Hormone 0.82 uIU/ml (0.358-3.740); Total Protein,Serum 7.1 gm/dL (6.4-8.2); Triglycerides 382 mg/dL (30-200); VLDL Cholesterol 76 mg/dL (0-40)
[2018-10-25 14:47] LABS: Hemoglobin A1C 9.4 % (0.0-7.0)
== END ==
PROVIDERS: Visit Provider Physician Assistant
DX: E11.9 Type 2 diabetes mellitus without complications (principal); Z12.5 Encounter for screening for malignant neoplasm of prostate; Z79.84 Long term (current) use of oral hypoglycemic drugs
CPT/HCPCS: 80053; 80061; 83036; 84439; 84443; 85025; G0103

== ENCOUNTER → 2018-12-23 06:10 | Outpatient (CLI) | payer OTHER, SELFPAY ==
--- NOTE | 2018-12-23 06:24 | US_ITS ---
APPROVED REPORT Exam Type: Lower Extremity Segmental Pressures Pharmacology Teacher: Giana Booth RDCS Indications Claudication: Rest Pain: CAD Risk Factors CAD Hyperlipidemia Obesity Cardiac Disease Diabetes History of Smoking Pressures/Indices Right Indices Left Indices Brachial 195.00 mmHg Brachial 198.00 mmHg Low Thigh 198.00 mmHg 1.00 Low Thigh 206.00 mmHg 1.04 Calf 223.00 mmHg 1.13 Calf 223.00 mmHg 1.13 Ankle(PT) 222.00 mmHg 1.12 Ankle(PT) 199.00 mmHg 1.01 Ankle(DP) 200.00 mmHg 1.01 Ankle(DP) 203.00 mmHg 1.03 Digit 218.00 mmHg 1.10 Digit 136.00 mmHg 0.69 Findings R DONNY 1.1 L DONNY 1.0 R TBI 1.1 L TBI .7 NORMAL WAVEFORMS AND PULSES Conclusion NORMAL Electronically signed by : Priyank Real MD 12/23/2018 13:21:27
--- NOTE | 2018-12-23 06:24 | CA_ITS ---
APPROVED REPORT EXAM: Comprehensive 2D, Doppler, and color-flow Echocardiogram Risk Management Professional: Giana Booth RDCS Ht: 5 ft 9 in Wt: 265lbs BSA: 2.33 BP: 177/95 mmHg Indications: Shortness of Breath, CAD, Pre-Op PP 2D Dimensions LVOT 1.90 cm (M/F) 1.5-2.5 M-Mode Dimensions RVDd 2.60 cm (0.9-2.6) LA Diam 3.50 cm (1.9-4.0) LVDd 6.00 cm (3.5-5.7) Ao Diam 3.40 cm (2.0-3.7) LVDs 4.30 cm (3.5-5.7) AV Cusp 1.70 cm (1.5-2.6) IVSd 0.70 cm (0.6-1.1) PWd 0.90 cm (0.6-1.1) EF (Teich) 53.80% FS 28.30% EDV (Teich) 180.00 mL ESV (Teich) 83.10 mL LV Diastology E/A Ratio 0.7 MED E' 5.26 (< 7 cm/sec) E'/MED E' Ratio 11.60 (>14) LAT E' 8.77 (<10 cm/sec) E/LAT E' Ratio 7.00 (>14) Mitral Valve MV E Max Parrish. 61.20 (40-130 cm/s) MV A Velocity 86.90 (40-130 cm/s) E/A Ratio 0.70 Tricuspid Valve TR P. Velocity 240.00 cm/s RAP Estimate 10.00 mmHg RVSP 33.00 mmHg Left Ventricle Left atrium is mildly enlarged, left ventricle is normal size, mild concentric left ventricular hypertrophy, visually estimated ejection fraction 55% with no regional wall motion abnormality. Grade 1 diastolic dysfunction seen without tissue Doppler evidence of raise left atrial pressure. Right Ventricle Right atrium and right ventricular normal size and contractility, there is a pacemaker leads in right ventricle. Aortic Valve Aortic valve is minimally thickened and fibrosed, there is no aortic stenosis aortic insufficiency. Mitral Valve Mitral valve is grossly normal, there is no mitral stenosis, there is mild mitral regurgitation. Tricuspid Valve Tricuspid valve is grossly normal, there is mild tricuspid regurgitation Pulmonic Valve Pulmonic valve is poorly visualized. Great Vessels Aortic root is normal size. Pericardium No significant pericardial effusion noted. Conclusion 1. Mildly low left atrium, normal left ventricular size, mild concentric left ventricular hypertrophy, visually estimated ejection fraction 55% with no regional wall motion abnormality. Grade 1 diastolic dysfunction seen without tissue Doppler evidence of raise left atrial pressure. 2. Mild mitral and tricuspid regurgitation 3. No significant pericardial effusion noted. Electronically signed by : Karsten Johnson, 12/24/2018 17:05:06
--- NOTE | 2018-12-23 06:24 | CA_ITS ---
APPROVED REPORT Exam: Pharmacologic Technologist: Clifford Montenegro, Ht: 6 ft 0 in Wt: 260 lbs BSA: 2.38 m2 HR: 67 bpm BP: 163/90 mmHg Indications: Shortness of Air, Fatigue Medical History Medications: Lisinopril,,,,, Asa,,,,, Metformin,,,,, Gabapentin,,,,, Carvedilol,,,,, CloPIdogrel,,,,, Glipiride,,,,, Hydracazide,,,,, Stress Test Details Test: LEXISCAN HR Resting HR: 70 bpm Max Heart Rate (APMHR): 156 bpm Max HR Achieved: 101 bpm Target HR (85% APMHR): 132 bpm % of APMHR: 64 Recovery HR: 91 bpm BP Resting BP: 163/90 mmHg Max BP: 163/90 mmHg Recovery BP: 147.0/80.0 mmHg ECG Resting ECG: NSR Clinical Exercise duration: 04:00 min Highest Stage Achieved: Exercise capacity: 1.0 METs Stress ECG Conclusion Symptoms: SOA, mild stomach discomfort, malaise, No CP Arrhythmias/Ectopy: William ST-T Changes: No significant changes Unremarkable Lexiscan stress Myoview images reported seperately Test Summary . . . . Stop exercise at 04:00 . . . . . Electronically signed by : Karsten Johnson, 12/24/2018 09:19:28
--- NOTE | 2018-12-23 06:24 | NM_ITS ---
APPROVED REPORT Exam: Nuclear Stress Test Indication: surgery clearance, sob,fatigue Patient Location: Outpatient Stress Tech: Mary Mclean OR Tech:Nita Mcgregor RICOGeovanna RT(R)(N) Ht: 6 ft 0 in Wt: 260 lbs BSA: 2.38 m2 HR: 67 bpm BP: 160/90 mmHg Procedure: Patient received a 0.4 mg of intravenous Lexiscan, resting heart rate 67 bpm, resting blood pressure 160/90 mmHg, with Lexiscan maximum heart rate achived was 98 bpm which is Less than 85 % of the maximum predicted heart rate and blood pressure was 154/80 mmHg. With Lexiscan, patient denied any complaint of chest pain. Electrocardiogram Resting electrocardiogram showed sinus rhythm, with Lexiscan there is less than 1.[address] segment depression noted from the baseline EKG. The EKG portion of the Lexiscan Myoview is nondiagnostic. Cardiac Stress and Resting SPECT Images: Cardiac Stress and Resting SPECT images were obtained using technetium 99m Myoview 31 mCi stress and 10 mCi at rest. Gated SPECT with analysis of segmental wall motion and calculation of ejection fraction also done. Cardiac stress and resting SPECT images show a fixed defect involving the inferior wall, it has normal contractility gated SPECT is likely secondary to soft tissue attenuation, no reversible ischemia seen. Computer derived ejection fraction is over 65% with no regional wall motion abnormality, right ventricle is normal size and contractility. Conclusion: 1. The EKG portion of the Lexiscan Myoview is nondiagnostic. 2. No scintigraphic evidence of reversible ischemia seen, computer derived ejection fraction is over 65% with no regional wall motion abnormality, right ventricle is normal size and contractility. 3. Normal Lexiscan Myoview study. Electronically signed by : Karsten Johnson, 12/23/2018 15:54:17
--- NOTE | 2018-12-23 08:50 | HMH.ITSHM ---
Current Home Medications as stated by this patient Jeevan Mejia or claims representative. [] asa glipizide lisinopril gabapentin clopidogrel metformin cardvedilol hydracazide
== END ==
PROVIDERS: PCP Emergency Medicine; Visit Provider Urology
DX: R06.02 Shortness of breath (principal); Z01.818 Encounter for other preprocedural examination; I10 Essential (primary) hypertension; I25.10 Atherosclerotic heart disease of native coronary artery without angina pectoris; G47.33 Obstructive sleep apnea (adult) (pediatric); Z95.0 Presence of cardiac pacemaker
CPT/HCPCS: 78452; 93017; 93306; 93923; 95806; A9502; J2785

== ENCOUNTER → 2019-01-03 09:24 | Outpatient (POV) | payer OTHER, SELFPAY ==
[2019-01-03 10:32] VITALS: BP 126/84; PULSE 75; RESP 18; O2SAT 98; BMI 38.7
--- NOTE | 2019-01-03 10:54 | HMH.PAINSOAP ---
[facility] Pain Management SOAP Note Subjective:: She is a pleasant 63-year-old white male who we have to see for low back pain. Since his last visit however he has had a traumatic injury involving a truck at work. Patient is here today to discuss left shoulder pain. Patient has had some imaging of his back and potentially may need surgery in the future. But today we are discussing his left shoulder pain. He has decreased range of motion. I do not see any updated MRI or CT on his records. Patient has a pacemaker he is unable to have an MRI will order CT of the left shoulder. Patient is unable to tolerate injection therapy. Patient is tried and failed oral steroids. He rates his pain today a 7 out of 10. ROS General: no recent weight change, no fever, no sleep disturbances Respiratory: no cough, no shortness of air, no recurring pulmonary infections Cardiovascular/Peripheral Vascular: No chest pain, No palpitations, no edema, no shortness of breath. Gastrointestinal: no incontinence, normal bowel movements reported Genitourinary: no incontinence Musculoskeletal: Left shoulder pain Psychiatric: normal mood/ affect Neurological: [denies weakness in extremities], [denies balance issues] Objective:: Physical Exam General: Alert and oriented x3, no acute distress, pleasant and cooperative, [on room air] Lungs: Resps E/U, Symmetrical chest expansion, Eyes: PERRL Musculoskeletal: Range of motion left shoulder guarded secondary to pain, deep tendon reflexes normal, strength in upper and lower extremities [5/5], antalgic gait noted Neurological: speech clear, 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 I will follow-up with the patient in 2 weeks reassess his symptoms at that time he is been instructed to call the office if he has any issues prior to his next appointment. Dr. Choudhury has reviewed this note and agrees with this plan of care. This note was dictated using voice recognition software and may contain errors or omissions [facility] History I have reviewed the patient's past medical history: Yes Medical History: Reports:: Arrhythmia, Congestive Heart Failure, Coronary Artery Disease, Hyperlipidemia, Hypertension, Internal Pacemaker Denies:: Cancer, Diabetes Mellitus Type 1, Diabetes Mellitus Type 2, MRSA *Have you ever received a pneumonia vaccine?: Yes *Have you received a flu vaccine this season?: Yes Other Medical History: Reports: Arthritis, Glaucoma, Sinus Problems, Other Other Surgeries: Yes: Appendectomy, Cardiac Catheterization, Colonoscopy, Coronary Stent, Pacemaker, Other (back surgery) Amputation: No Fractures: Yes - *Social History Smoking Status: Never smoker Tobacco Type: smokeless tobacco # Packs/Day (cigarettes): 1 #Yrs smoked (if former smoker): 45 Alcohol Intake: never Alcohol Intake Frequency:: other Substance Use Type: denies use *Occupational Status:: other Housing: house Household Members: significant other *Travel in the last 8 weeks: None Family Hx:: Asthma, Cancer, Coronary Artery Disease, Diabetes, Heart Attack, Hyperlipidemia, Hypertension, Kidney Disease, Thyroid Disorder, Tuberculosis
--- NOTE | 2019-01-03 10:58 | P.CONS_ITS ---
[facility] Pain Management SOAP Note Subjective:: She is a pleasant 63-year-old white male who we have to see for low back pain. Since his last visit however he has had a traumatic injury involving a truck at work. Patient is here today to discuss left shoulder pain. Patient has had some imaging of his back and potentially may need surgery in the future. But today we are discussing his left shoulder pain. He has decreased range of motion. I do not see any updated MRI or CT on his records. Patient has a pacemaker he is unable to have an MRI will order CT of the left shoulder. Patient is unable to tolerate injection therapy. Patient is tried and failed oral steroids. He rates his pain today a 7 out of 10. ROS General: no recent weight change, no fever, no sleep disturbances Respiratory: no cough, no shortness of air, no recurring pulmonary infections Cardiovascular/Peripheral Vascular: No chest pain, No palpitations, no edema, no shortness of breath. Gastrointestinal: no incontinence, normal bowel movements reported Genitourinary: no incontinence Musculoskeletal: Left shoulder pain Psychiatric: normal mood/ affect Neurological: [denies weakness in extremities], [denies balance issues] Objective:: Physical Exam General: Alert and oriented x3, no acute distress, pleasant and cooperative, [on room air] Lungs: Resps E/U, Symmetrical chest expansion, Eyes: PERRL Musculoskeletal: Range of motion left shoulder guarded secondary to pain, deep tendon reflexes normal, strength in upper and lower extremities [5/5], antalgic gait noted Neurological: speech clear, 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 I will follow-up with the patient in 2 weeks reassess his symptoms at that time he is been instructed to call the office if he has any issues prior to his next appointment. Dr. Choudhury has reviewed this note and agrees with this plan of care. This note was dictated using voice recognition software and may contain errors or omissions [facility] History I have reviewed the patient's past medical history: Yes Medical History: Reports:: Arrhythmia, Congestive Heart Failure, Coronary Artery Disease, Hyperlipidemia, Hypertension, Internal Pacemaker Denies:: Cancer, Diabetes Mellitus Type 1, Diabetes Mellitus Type 2, MRSA *Have you ever received a pneumonia vaccine?: Yes *Have you received a flu vaccine this season?: Yes Other Medical History: Reports: Arthritis, Glaucoma, Sinus Problems, Other Other Surgeries: Yes: Appendectomy, Cardiac Catheterization, Colonoscopy, Coronary Stent, Pacemaker, Other (back surgery) Amputation: No Fractures: Yes - *Social History Smoking Status: Never smoker Tobacco Type: smokeless tobacco # Packs/Day (cigarettes): 1 #Yrs smoked (if former smoker): 45 Alcohol Intake: never Alcohol Intake Frequency:: other Substance Use Type: denies use *Occupational Status:: other Housing: house Household Members: significant other *Travel in the last 8 weeks: None Family Hx:: Asthma, Cancer, Coronary Artery Disease, Diabetes, Heart Attack, Hyperlipidemia, Hypertension, Kidney Disease, Thyroid Disorder, Tuberculosis
== END ==
PROVIDERS: PCP Clinical Nurse Specialist Family Health; Visit Provider Clinical Nurse Specialist Family Health
DX: M25.512 Pain in left shoulder (principal)
CPT/HCPCS: 99202

== ENCOUNTER → 2019-01-12 14:09 | Outpatient (CLI) | payer OTHER, SELFPAY ==
--- NOTE | 2019-01-12 14:11 | CT_ITS ---
PROCEDURE: CT SHOULDER LT WO CON CLINICAL HISTORY: LT SHOULDER PAIN Left shoulder pain following injury, rotator cuff injury. COMPARISON: No exams were available for comparison TECHNIQUE: Axial images obtained with sagittal and coronal reformats. All CT scans at the facility use one or more dose reduction, viz: automated exposure control, ma/kV adjustment per patient size (including targeted exams where dose is matched to indication, i.e. head), or iterative reconstruction technique. FINDINGS: Artifact is present from a pacemaker pack in the left subclavian region. There is an old healed midshaft clavicular fracture with prominent callus formation and mild inferior displacement of the distal fracture fragment with good alignment. There are mild osteoarthritic changes of the acromioclavicular joint. There are mild hypertrophic changes along the inferior aspect of the acromion with mild subacromial stenosis. Mild osteoarthritic changes are present at the glenohumeral joint. Small sclerotic focus is present involving the humeral head consistent with a bone island. There is a defect within the anterior medial aspect of the humeral head which could be related to an old fracture from posterior dislocation. A subarticular cyst is also a consideration. No fracture is evident of the glenoid. IMPRESSION: 1. No acute fracture 2. Old midshaft clavicular fracture 3. Osteoarthritic change of the acromioclavicular joint with subacromial stenosis with osteoarthritic change of the glenohumeral joint 4. Small defect within the anterior medial aspect of the head which could represent an old reverse Hill-Sachs fracture or a subarticular cyst. 5. Rotator cuff is not adequately evaluated on CT. Patient however does have a pacemaker and MRI cannot be performed. Consider CT arthrogram for further evaluation if clinically warranted Dictated by: Priyank Real MD 01/13/2019 06:37 Electronically signed by Priyank Real MD in [place] 01/13/2019 06:37
== END ==
PROVIDERS: PCP Emergency Medicine; Visit Provider Clinical Nurse Specialist Family Health
DX: M25.512 Pain in left shoulder (principal)
CPT/HCPCS: 73200

== ENCOUNTER → 2019-01-17 14:55 | Outpatient (POV) | payer OTHER, SELFPAY ==
[2019-01-17 15:04] VITALS: BP 180/93; PULSE 71; RESP 18; O2SAT 98; BMI 38.8
--- NOTE | 2019-01-18 08:21 | P.CONS_ITS ---
[facility] Pain Management SOAP Note Subjective:: Patient is a 63-year-old white male who presents today for follow-up after CT scan of the left shoulder. Patient and I discussed pathology. Patient is uninterested in injective therapy stating that his heart stops when he has any kind of injection including any IV stick. Patient has completed physical therapy. Patient has not tried prescription anti-inflammatories. We discussed doing this. He did try compounding cream however it was not beneficial he rates his pain a 7 out of 10 today. ROS General: no recent weight change, no fever, no sleep disturbances Respiratory: no cough, no shortness of air, no recurring pulmonary infections Cardiovascular/Peripheral Vascular: No chest pain, No palpitations, no edema, no shortness of breath. Gastrointestinal: no incontinence, normal bowel movements reported Genitourinary: no incontinence Musculoskeletal: Left shoulder pain Psychiatric: normal mood/ affect Neurological: [denies weakness in extremities], [denies balance issues] Objective:: Physical Exam General: Alert and oriented x3, no acute distress, pleasant and cooperative, [on room air] Lungs: Resps E/U, Symmetrical chest expansion, Eyes: PERRL Musculoskeletal: Range of motion left shoulder somewhat guarded secondary to pain, deep tendon reflexes normal, strength in upper and lower extremities [5/5], antalgic gait noted Neurological: speech clear, thermodynamicist 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 twice daily we will follow- up with him in 3 weeks reassess his symptoms at that time if this is not i mproved we have reached the limit of what we can do in our office due to his inability to have injections. Dr. Choudhury has reviewed this note and agrees with this plan of care. This note was dictated using voice recognition software and may contain errors or omissions [facility] History I have reviewed the patient's past medical history: Yes Medical History: Reports:: Arrhythmia, Congestive Heart Failure, Coronary Artery Disease, Hyperlipidemia, Hypertension, Internal Pacemaker Denies:: Cancer, Diabetes Mellitus Type 1, Diabetes Mellitus Type 2, MRSA *Have you ever received a pneumonia vaccine?: Yes *Have you received a flu vaccine this season?: Yes Other Medical History: Reports: Arthritis, Glaucoma, Sinus Problems, Other Other Surgeries: Yes: Appendectomy, Cardiac Catheterization, Colonoscopy, Coronary Stent, Pacemaker, Other (back surgery) Amputation: No Fractures: Yes - *Social History Smoking Status: Never smoker Tobacco Type: smokeless tobacco # Packs/Day (cigarettes): 1 #Yrs smoked (if former smoker): 45 Alcohol Intake: never Alcohol Intake Frequency:: other Substance Use Type: denies use *Occupational Status:: other Housing: house Household Members: significant other *Travel in the last 8 weeks: None Family Hx:: Asthma, Cancer, Coronary Artery Disease, Diabetes, Heart Attack, Hyperlipidemia, Hypertension, Kidney Disease, Thyroid Disorder, Tuberculosis
== END ==
PROVIDERS: PCP Emergency Medicine; Visit Provider Clinical Nurse Specialist Family Health
DX: M25.512 Pain in left shoulder (principal)
CPT/HCPCS: 99212

== ENCOUNTER → 2019-02-10 08:40 | Outpatient (POV) | payer OTHER, SELFPAY ==
[2019-02-10 08:42] VITALS: BP 185/98; PULSE 77; RESP 18; O2SAT 98; BMI 39.5
--- NOTE | 2019-02-10 09:04 | HMH.PAINSOAP ---
[facility] Pain Management SOAP Note Subjective:: Patient is a pleasant 63-year-old white male who presents today for follow-up. Patient is being treated for left shoulder pain, low back pain, and left leg pain. Patient had a work injury and developed severe pain following his injury. He is accompanied by his retail service representative today. Patient says that his left shoulder is painful with movement better he says that he was told at [facility] that he does have a torn rotator cuff repair . Patient also says that he has pain in his lower back with radiation into his left leg causing severe burning, feeling that his leg is on fire . Patient has tried compounding cream for his pain. He states he did not get any relief. Patient also refuses injective therapy. He says that he passes out, or his heart stops when he receives injections or with IV sticks. Patient is also not interested in oral diclofenac. He says that he was told by his apartment maintenance manager that he should not take oral anti-inflammatories. Patient would like to consider topical anti-inflammatories. He rates his pain a 6 out of 10 today. 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 Review of Systems General: No recent weight changes, no fever, no sleep disturbances Respiratory: No cough, no shortness of air, no recurring pulmonary infections Cardiovascular/peripheral vascular: No chest pain, no palpitations, no edema, no shortness of breath Gastrointestinal: No new onset incontinence, normal bowel movements reported Genitourinary: No new onset incontinence Musculoskeletal: Back pain, left shoulder pain, left leg pain Psychiatric: Normal mood/affect Neurological: [Denies weakness in extremities], [denies balance issues] Objective:: Physical exam General: Alert and oriented x3, no acute distress, pleasant and cooperative, [on room air] Lungs: Respirations even and unlabored, symmetrical chest expansion Eyes: PERRL Musculoskeletal: Flexion and extension of lumbar spine somewhat guarded secondary to pain, deep tendon reflexes normal, strength in upper and lower extremities [5/5], slightly antalgic gait noted Neurological: Speech clear, 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 Patient also discussed possible spinal cord stimulator placement. I did give the patient educational information regarding this. 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 He was given educational information on both. We will see the patient back in 2 weeks to reassess his symptoms. Patient will review the information and we will discuss the plan of care at his next visit. He has been instructed to contact the clinic if he has any concerns before his next appointment. Dr. Choudhury has reviewed this note and agrees with this plan of care. This note was dictated using voice recognition software and make contain errors or omissions. [facility] History I have reviewed the patient's past medical history: Yes Medical History: Reports:: Arrhythmia, Congestive Heart Failure, Coronary Artery Disease, Diabetes Mellitus Type 2, Hyperlipidemia, Hypertension, Internal Pacemaker Denies:: Cancer, Diabetes Mellitus Type 1, MRSA *Have you ever received a pneumonia vaccine?: No *Have you received a flu vaccine this season?: No Other Medical History: Reports: Arthritis, Glaucoma, Sinus Problems, Other Other Surgeries: Yes: Appendectomy, Cardiac Catheterization, Colonoscopy, Coronary Stent, Pacemaker, Other (back surgery) Amputation: No Fractures: Yes - *Social History Smoking Status: Former smoker Tobacco Type: cigarettes # Packs/Day (cigarettes): 1 #Yrs smoked (if former smoker): 45 Alcohol Intake: never Alcohol
--- NOTE | 2019-02-10 09:08 | P.CONS_ITS ---
[facility] Pain Management SOAP Note Subjective:: Patient is a pleasant 63-year-old white male who presents today for follow-up. Patient is being treated for left shoulder pain, low back pain, and left leg pain. Patient had a work injury and developed severe pain following his injury. He is accompanied by his special education administrator today. Patient says that his left shoulder is painful with movement better he says that he was told at [facility] that he does have a torn rotator cuff repair . Patient also says that he has pain in his lower back with radiation into his left leg causing severe burning, feeling that his leg is on fire . Patient has tried compounding cream for his pain. He states he did not get any relief. Patient also refuses injective therapy. He says that he passes out, or his heart stops when he receives injections or with IV sticks. Patient is also not interested in oral diclofenac. He says that he was told by his pr manager that he should not take oral anti-inflammatories. Patient would like to consider topical anti- inflammatories. He rates his pain a 6 out of 10 today. 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 Review of Systems General: No recent weight changes, no fever, no sleep disturbances Respiratory: No cough, no shortness of air, no recurring pulmonary infections Cardiovascular/peripheral vascular: No chest pain, no palpitations, no edema, no shortness of breath Gastrointestinal: No new onset incontinence, normal bowel movements reported Genitourinary: No new onset incontinence Musculoskeletal: Back pain, left shoulder pain, left leg pain Psychiatric: Normal mood/affect Neurological: [Denies weakness in extremities], [denies balance issues] Objective:: Physical exam General: Alert and oriented x3, no acute distress, pleasant and cooperative, [on room air] Lungs: Respirations even and unlabored, symmetrical chest expansion Eyes: PERRL Musculoskeletal: Flexion and extension of lumbar spine somewhat guarded secondary to pain, deep tendon reflexes normal, strength in upper and lower extremities [5/5], slightly antalgic gait noted Neurological: Speech clear, loan operations specialist equal, no gross sensory deficit Assessment:: Left shoulder pain, low back pain, left leg pain Plan:: The patient will discuss diclofenac 1% gel 4 g with his pr manager to see if he can get approval to take an anti-inflammatory. Patient also discussed possible spinal cord stimulator placement. I did give the patient educational information regarding this. 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 He was given educational information on both. We will see the patient back in 2 weeks to reassess his symptoms. Patient will review the information and we will discuss the plan of care at his next visit. He has been instructed to contact the clinic if he has any concerns before his next appointment. Dr. Choudhury has reviewed this note and agrees with this plan of care. This note was dictated using voice recognition software and make contain errors or omissions. [facility] History I have reviewed the patient's past medical history: Yes Medical History: Reports:: Arrhythmia, Congestive Heart Failure, Coronary Artery Disease, Diabetes Mellitus Type 2, Hyperlipidemia, Hypertension, Internal Pacemaker Denies:: Cancer, Diabetes Mellitus Type 1, MRSA *Have you ever received a pneumonia vaccine?: No *Have you received a flu vaccine this season?: No Other Medical History: Reports: Arthritis, Glaucoma, Sinus Problems, Other Other Surgeries:
== END ==
PROVIDERS: PCP Emergency Medicine; Visit Provider Clinical Nurse Specialist Family Health
DX: M25.512 Pain in left shoulder (principal); M54.5 Low back pain; M79.605 Pain in left leg
CPT/HCPCS: 99212

== ENCOUNTER → 2019-03-01 09:03 | Outpatient (POV) | payer OTHER, SELFPAY ==
[2019-03-01 09:11] VITALS: BP 130/81; PULSE 77; RESP 18; O2SAT 98; BMI 35.5
--- NOTE | 2019-03-01 10:04 | HMH.PAINSOAP ---
[facility] Pain Management SOAP Note Subjective:: Patient is a pleasant 63-year-old white male who presents today with a myriad of issues including his low back pain, left shoulder pain and left leg pain. At last visit patient was given information in regards to both intrathecal therapy and neuro stimulation. I discussed this with the patient. Patient refuses injections and IV sticks due to his heart stopping I am concerned that any therapies would cause the same issue. Patient I discussed this. Patient states he is on gabapentin is not working for him. I encouraged him to decrease the gabapentin and wean off of it if it is not beneficial. Patient may find that it is beneficial once he starts weaning and can return to his full dose. Patient I discussed using a tricyclic antidepressant to help with pain control. He rates his pain a 7 out of 10 which is his baseline. He is unable to move his arm and has issues with lifting. ROS General: no recent weight change, no fever, no sleep disturbances Respiratory: no cough, no shortness of air, no recurring pulmonary infections Cardiovascular/Peripheral Vascular: No chest pain, No palpitations, no edema, no shortness of breath. Gastrointestinal: no new onset incontinence, normal bowel movements reported Genitourinary: no new onset incontinence Musculoskeletal: Shoulder pain, back pain, left leg pain Psychiatric: normal mood/ affect Neurological: [denies new onset weakness in extremities], [denies new onset balance issues] Objective:: Physical Exam General: Alert and oriented x3, no acute distress, pleasant and cooperative, [on room air] Lungs: Resps E/U, Symmetrical chest expansion, Eyes: PERRL Musculoskeletal: Flexion and extension of lumbar spine somewhat guarded secondary to pain, deep tendon reflexes normal, strength in upper and lower extremities [5/5], [abnormal gait noted] increased range of motion left arm secondary to pain Neurological: speech clear, recruitment specialist equal, no gross sensory deficits Assessment:: Left shoulder pain, low back pain, left leg pain Plan:: I am concerned that we can exhaust our treatment options for this patient due to the inability to have interventional therapies. Patient will be started on amitriptyline 25 mg nightly. I will follow-up with the patient in 3 weeks reassess his symptoms at that time if he has any issues with the medication he is to call our office. Dr. Choudhury has reviewed this note and agrees with this plan of care. This note was dictated using voice recognition software and may contain errors or omissions [facility] History I have reviewed the patient's past medical history: Yes Medical History: Reports:: Arrhythmia, Congestive Heart Failure, Coronary Artery Disease, Diabetes Mellitus Type 2, Hyperlipidemia, Hypertension, Internal Pacemaker Denies:: Cancer, Diabetes Mellitus Type 1, MRSA *Have you ever received a pneumonia vaccine?: Yes *Have you received a flu vaccine this season?: Yes Other Medical History: Reports: Arthritis, Glaucoma, Sinus Problems, Other Other Surgeries: Yes: Appendectomy, Cardiac Catheterization, Colonoscopy, Coronary Stent, Pacemaker, Other (back surgery) Amputation: No Fractures: Yes - *Social History Smoking Status: Former smoker Tobacco Type: cigarettes # Packs/Day (cigarettes): 1 #Yrs smoked (if former smoker): 45 Alcohol Intake: never Alcohol Intake Frequency:: other Substance Use Type: denies use *Occupational Status:: other Housing: house Household Members: significant other *Travel in the last 8 weeks: None Family Hx:: Asthma, Cancer, Coronary Artery Disease, Diabetes, Heart Attack, Hyperlipidemia, Hypertension, Kidney Disease, Thyroid Disorder, Tuberculosis
== END ==
PROVIDERS: PCP Emergency Medicine; Visit Provider Clinical Nurse Specialist Family Health
DX: M25.512 Pain in left shoulder (principal); M54.5 Low back pain; M79.605 Pain in left leg
CPT/HCPCS: 99212

== ENCOUNTER → 2019-03-22 08:27 | Outpatient (POV) | payer OTHER, SELFPAY ==
[2019-03-22 08:58] VITALS: BP 115/68; PULSE 84; RESP 18; O2SAT 98; BMI 36.3
--- NOTE | 2019-03-22 13:27 | HMH.PAINSOAP ---
[facility] Pain Management SOAP Note Subjective:: Patient is a pleasant 63-year-old white male who presents today for follow-up. He is accompanied by a business office representative associated with his employer. Patient is here for complaints of left shoulder pain, left lower back pain along with left leg pain. Patient has undergone multiple conservative therapies which include physical therapy for greater than 6 weeks, along with injective therapies. Patient says he is unable to continue with injective therapies due to his heart stopping . Patient says he is also had gabapentin, along with Lyrica. He says he got little to no relief with these. Patient says he is also not interested in any type of implantable devices at this time. He says he has discussed spinal cord stimulation with Jb Gr APRN in the past, however, did not look over the information. He rates his pain an 8 out of 10 today. Does continue with anti-inflammatories and a home stretching program. Review of Systems General: No recent weight changes, no fever, no sleep disturbances Respiratory: No cough, no shortness of air, no recurring pulmonary infections Cardiovascular/peripheral vascular: No chest pain, no palpitations, no edema, no shortness of breath Gastrointestinal: No new onset incontinence, normal bowel movements reported Genitourinary: No new onset incontinence Musculoskeletal: Left shoulder pain, low back pain, left leg pain Psychiatric: Normal mood/affect Neurological: [Denies weakness in extremities], [denies balance issues] Objective:: Physical exam General: Alert and oriented x3, no acute distress, pleasant and cooperative, on room air Lungs: Respirations even and unlabored, symmetrical chest expansion Eyes: PERRL Musculoskeletal: Flexion and extension of lumbar spine somewhat guarded secondary to pain, deep tendon reflexes normal, strength in upper and lower extremities [5/5], [abnormal gait noted] Neurological: Speech clear, national sales representative equal, no gross sensory deficit Assessment:: Left shoulder pain, low back pain, left leg pain Plan:: At this point, we have exhausted all measures with the patient. He does not feel he is able to have therapy. After further discussion with the patient he is interested in implantable devices. He was given information regarding spinal cord stimulation. He will follow-up with us in 1 month to discuss the plan of care. He has been instructed to contact the clinic if he has any concerns before his next appointment. Dr. Bux has reviewed this note and agrees with this plan of care. This note was dictated using voice recognition software and make contain errors or omissions. [facility] History I have reviewed the patient's past medical history: Yes Medical History: Reports:: Arrhythmia, Congestive Heart Failure, Coronary Artery Disease, Diabetes Mellitus Type 2, Hyperlipidemia, Hypertension, Internal Pacemaker Denies:: Cancer, Diabetes Mellitus Type 1, MRSA *Have you ever received a pneumonia vaccine?: Yes *Have you received a flu vaccine this season?: Yes Other Medical History: Reports: Arthritis, Glaucoma, Sinus Problems, Other Other Surgeries: Yes: Appendectomy, Cardiac Catheterization, Colonoscopy, Coronary Stent, Pacemaker, Other (back surgery) Amputation: No Fractures: Yes - *Social History Smoking Status: Never smoker Tobacco Type: smokeless tobacco # Packs/Day (cigarettes): 0 #Yrs smoked (if former smoker): 45 Alcohol Intake: never Alcohol Intake Frequency:: other Substance Use Type: denies use *Occupational Status:: other Housing: house Household Members: significant other *Travel in the last 8 weeks: None Family Hx:: Asthma, Cancer, Coronary Artery Disease, Diabetes, Heart Attack, Hyperlipidemia, Hypertension, Kidney Disease, Thyroid Disorder, Tuberculosis
--- NOTE | 2019-03-22 13:40 | P.CONS_ITS ---
[facility] Pain Management SOAP Note Subjective:: Patient is a pleasant 63-year-old white male who presents today for follow-up. 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 Patient is here for complaints of left shoulder pain, left lower back pain along with left leg pain. Patient has undergone multiple conservative therapies which include physical therapy for greater than 6 weeks, along with injective therapies. Patient says he is unable to continue with injective therapies due to his heart stopping . Patient says he is also had gabapentin, along with Lyrica. He says he got little to no relief with these. Patient says he is also not interested in any type of implantable devices at this time. He says he has discussed spinal cord stimulation with Jb Gr APRN in the past, however, did not look over the information. He rates his pain an 8 out of 10 today. Does continue with anti-inflammatories and a home stretching program. Review of Systems General: No recent weight changes, no fever, no sleep disturbances Respiratory: No cough, no shortness of air, no recurring pulmonary infections Cardiovascular/peripheral vascular: No chest pain, no palpitations, no edema, no shortness of breath Gastrointestinal: No new onset incontinence, normal bowel movements reported Genitourinary: No new onset incontinence Musculoskeletal: Left shoulder pain, low back pain, left leg pain Psychiatric: Normal mood/affect Neurological: [Denies weakness in extremities], [denies balance issues] Objective:: Physical exam General: Alert and oriented x3, no acute distress, pleasant and cooperative, on room air Lungs: Respirations even and unlabored, symmetrical chest expansion Eyes: PERRL Musculoskeletal: Flexion and extension of lumbar spine somewhat guarded secondary to pain, deep tendon reflexes normal, strength in upper and lower extremities [5/5], [abnormal gait noted] Neurological: Speech clear, vice president for instruction equal, no gross sensory deficit Assessment:: Left shoulder pain, low back pain, left leg pain Plan:: At this point, we have exhausted all measures with the patient. He does not feel he is able to have therapy. After further discussion with the patient he is interested in implantable devices. He was given information regarding spinal cord stimulation. He will follow-up with us in 1 month to discuss the plan of care. He has been instructed to contact the clinic if he has any concerns before his next appointment. Dr. Bux has reviewed this note and agrees with this plan of care. This note was dictated using voice recognition software and make contain errors or omissions. [facility] History I have reviewed the patient's past medical history: Yes Medical History: Reports:: Arrhythmia, Congestive Heart Failure, Coronary Artery Disease, Diabetes Mellitus Type 2, Hyperlipidemia, Hypertension, Internal Pacemaker Denies:: Cancer, Diabetes Mellitus Type 1, MRSA *Have you ever received a pneumonia vaccine?: Yes *Have you received a flu vaccine this season?: Yes Other Medical History: Reports: Arthritis, Glaucoma, Sinus Problems, Other Other Surgeries: Yes: Appendectomy, Cardiac Catheterization, Colonoscopy, Coronary Stent, Pacemaker, Other (back surgery) Amputation: No Fractures: Yes - *Social History Smoking Status: Never smoker Tobacco Type: smokeless tobacco # Packs/Day (cigarettes): 0 #Yrs smoked (if former smoker): 45 Alcohol Intake: never Alcohol Intake Frequency:: other Substance Use Type: denies use *Occupational Status:: other Housing: house Household Members: significant other *T
--- NOTE | 2019-03-31 09:38 | PC.NURSE ---
amitryptilline 25mg daily called into [facility] per provider order with a ninety day supply with no refills
== END ==
PROVIDERS: PCP Emergency Medicine; Visit Provider Clinical Nurse Specialist Family Health
DX: M25.512 Pain in left shoulder (principal); M54.5 Low back pain; M79.605 Pain in left leg
CPT/HCPCS: 99212

== ENCOUNTER → 2019-05-10 10:49 | Outpatient (POV) | payer OTHER, SELFPAY ==
[2019-05-10 11:12] VITALS: BP 168/95; PULSE 67; RESP 18; O2SAT 99; BMI 36.3
--- NOTE | 2019-05-10 11:31 | HMH.PAINSOAP ---
[facility] Pain Management SOAP Note Subjective:: Patient is a 63-year-old white male who presents today for follow-up after psychological evaluation. Patient is interested in implantable devices for his pain management. Patient is unable to have injections due to his heart stopping . Patient is tried gabapentin and Lyrica with no relief. He is unable to take oral narcotics. He has some anti-inflammatories. Patient states that he has back pain along with left shoulder pain. Patient cannot decide which pain is worse. Patient and I had a long discussion about covering pain with an implantable device and I stressed the fact that we would probably be unable to cover every area of pain that he has. I asked the patient if it was still worth it to him to move forward and he stated yes. He rates his pain an 8 out of 10 mostly in his mid back and left shoulder. Patient asked about a pain pump however I discussed with him again it would not cover all have his pain areas. ROS General: no recent weight change, no fever, no sleep disturbances Respiratory: no cough, no shortness of air, no recurring pulmonary infections Cardiovascular/Peripheral Vascular: No chest pain, No palpitations, no edema, no shortness of breath. Gastrointestinal: no new onset incontinence, normal bowel movements reported Genitourinary: no new onset incontinence Musculoskeletal: Left shoulder pain, back pain Psychiatric: normal mood/ affect, [denies depression], [denies anxiety] Neurological: [denies new onset weakness in extremities], [denies new onset balance issues] Objective:: Physical Exam General: Alert and oriented x3, no acute distress, pleasant and cooperative, [on room air] Lungs: Resps E/U, Symmetrical chest expansion, Eyes: PERRL Musculoskeletal: Flexion and extension of thoracic spine somewhat guarded secondary to pain, deep tendon reflexes normal, strength in upper and lower extremities [5/5], antalgic gait noted, limited range of motion left shoulder Neurological: speech clear, operations support specialist equal, no gross sensory deficits Assessment:: 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 Patient has autonomic changes including swelling and color changes to the left upper extremity. We will plan on a Aveksa trial to cover these left shoulder pain. Patient is on Plavix we will get permission from Dr. Cox to come off of this prior to his next appointment. Dr. Choudhury has reviewed this note and agrees with this plan of care. This note was dictated using voice recognition software and may contain errors or omissions [facility] History I have reviewed the patient's past medical history: Yes Medical History: Reports:: Arrhythmia, Congestive Heart Failure, Coronary Artery Disease, Diabetes Mellitus Type 2, Hyperlipidemia, Hypertension, Internal Pacemaker Denies:: Cancer, Diabetes Mellitus Type 1, MRSA *Have you ever received a pneumonia vaccine?: Yes *Have you received a flu vaccine this season?: Yes Other Medical History: Reports: Arthritis, Glaucoma, Sinus Problems, Other Other Surgeries: Yes: Appendectomy, Cardiac Catheterization, Colonoscopy, Coronary Stent, Pacemaker, Other (back surgery) Amputation: No Fractures: Yes - *Social History Smoking Status: Never smoker Tobacco Type: smokeless tobacco # Packs/Day (cigarettes): 0 #Yrs smoked (if former smoker): 45 Alcohol Intake: never Alcohol Intake Frequency:: other Substance Use Type: denies use *Occupational Status:: other Housing: house Household Members: significant other *Travel in the last 8 weeks: None Family Hx:: Asthma, Cancer, Coronary Artery Disease, Diabetes, Heart Attack, Hyperlipidemia, Hypertension, Kidney Disease, Thyroid Disorder, Tuberculosis
--- NOTE | 2019-05-19 13:33 | PC.NURSE ---
APPROVAL OBTAINED FOR PT TO D/C BLOOD THINNER PRIOR TO STIM TRIAL AND AFTER FOR A TOTAL OF 8-10 DAYS .
== END ==
PROVIDERS: PCP Emergency Medicine; Visit Provider Clinical Nurse Specialist Family Health
DX: M51.34 Other intervertebral disc degeneration, thoracic region (principal); M51.36 Other intervertebral disc degeneration, lumbar region; M25.512 Pain in left shoulder
CPT/HCPCS: 99212

== ENCOUNTER → 2019-05-25 09:23 | Outpatient (CLI) | payer OTHER, MEDICARE, SELFPAY ==
[2019-05-25 09:38] LABS: Basophils % 0.5 % (0.1-2.0); Eosinophils # 0.2 K/mm3 (0.0-0.4); Eosinophils % 2.1 % (0.1-12.0); Hemoglobin 15.1 g/dL (14.1-18.0); Lymphocytes # 2.4 K/mm3 (0.7-4.5); Lymphocytes % 33.4 % (10-50); Mean Corpuscular HGB Conc 33.5 g/dL (31.8-35.4); Mean Corpuscular Hemoglobin 30.4 pg (27.0-31.2); Mean Corpuscular Volume 90.6 fl (80-94); Mean Platelet Volume 7.3 fl (7.4-10.4); Monocytes # 0.3 K/mm3 (0.1-1.0); Monocytes % 4.5 % (1.7-9.3); Neutrophils # 4.2 K/mm3 (1.8-7.8); Neutrophils % 59.5 % (37.0-80.0); Platelet Count 357 K/mm3 (142-424); Red Blood Count 4.96 M/mm3 (4.60-6.20); Red Cell Distribution Width 13.2 % (11.5-17.5); White Blood Count 7.1 K/mm3 (4.8-10.8)
[2019-05-25 10:51] LABS: Blood Urea Nitrogen 17 mg/dL (7-18); Calcium 9.3 mg/dL (8.5-10.1); Carbon Dioxide 27 mmol/L (21.0-32.0); Chloride 99 mmol/L (98-107); Creatinine,Serum 1.34 mg/dL (0.70-1.30); Estimated Glomerular Filt Rate 53 ml/min (>60); GFR (African American) 65 ML/MIN (>60); Glucose 258 mg/dL (74-106); Sodium 135 mmol/L (136-145)
== END ==
PROVIDERS: Visit Provider Clinical Nurse Specialist Family Health
DX: Z01.818 Encounter for other preprocedural examination (principal)
CPT/HCPCS: 36415; 80048; 85025

== ENCOUNTER → 2019-05-31 11:08 | Outpatient (POV) | payer OTHER, SELFPAY ==
[2019-05-31 11:32] VITALS: BP 137/73; PULSE 61; RESP 18; O2SAT 98; BMI 35.5
--- NOTE | 2019-05-31 11:37 | HMH.PMPROC ---
- Procedure Date: 05/31/19 Time: 11:37 Anesthesiologist:: Gabrielle Gr APRN Complications:: None Pre-procedure Diagnosis:: Degenerative disc disease cervical spine with cervical radiculopathy Post-procedure Diagnosis:: Degenerative disc disease cervical spinal cervical radiculopathy symptoms Indications for Procedure:: Patient is a 63-year-old white male who presents today for neurostimulator lead removal. States he got no relief from his neurostimulator trial. patient is unable to have injections due to his heart stopping . Patient is tried gabapentin and Lyrica with no relief. He is unable to take oral narcotics. He has some anti-inflammatories. Patient states that he has back pain along with left shoulder pain. Patient cannot decide which pain is worse. Patient and I had a long discussion about covering pain with an implantable device and I stressed the fact that we would probably be unable to cover every area of pain that he has. He rates his pain an 8 out of 10 mostly in his mid back and left shoulder. Patient asked about a pain pump however I discussed with him again it would not cover all have his pain areas. Patient is concerned with his work status. We will give him a light duty recommendation until he sees primary care I do believe he would potentially needs to be seen by a different orthopedic surgeon for his shoulder. At this point we have limited options to move forward with. Physical Exam General: Alert and oriented x3, no acute distress, pleasant and cooperative, [on room air] Lungs: Resps E/U, Symmetrical chest expansion, Eyes: PERRL Musculoskeletal: Flexion and extension of cervical spine somewhat guarded secondary to pain, deep tendon reflexes normal, strength in upper and lower extremities [5/5], antalgic gait noted Neurological: speech clear, director community center equal, no gross sensory deficits Procedure Details:: After informed consent was obtained the risk and benefits of the procedure were explained to the patient. Patient's vital signs were monitored with noninvasive blood pressure cuff and pulse oximeter. Patient's tape was removed on her back. The area in which her epidural leads entered was examined to ensure no redness or draining. Patient leads were then removed in sterile fashion. Patient then had Band-Aids placed over the puncture sites. Patient tolerated the procedure well. Plan and Disposition:: We will write a light duty notification for the patient until he is seen by primary care physician he may benefit from an additional orthopedic surgery consult. I will follow-up with him on an as-needed basis. Dr. Choudhury has reviewed this note and agrees with this plan of care. This note was dictated using voice recognition software and may contain errors or omissions
== END ==
PROVIDERS: PCP Emergency Medicine; Visit Provider Clinical Nurse Specialist Family Health
DX: M50.10 Cervical disc disorder with radiculopathy, unspecified cervical region (principal)
CPT/HCPCS: 99212

== ENCOUNTER → 2019-07-01 09:17 | Outpatient (CLI) | payer OTHER, MEDICARE, SELFPAY ==
--- NOTE | 2019-07-01 09:25 | XR_ITS ---
PROCEDURE: XR SHOULDER LT MIN 2V CLINICAL INDICATION: shoulder pain COMPARISON: [facility] [id number] from 09/09/2015 [facility] [id number] from 09/18/2015 FINDINGS: There is an old left midshaft clavicular fracture with inferior displacement of the distal fracture fragment by 1 cm with overlying callus formation. No acute fracture or dislocation is evident. There are mild osteoarthritic changes of the acromioclavicular joint. There is mild subacromial stenosis. Bipolar pacemaker is present. IMPRESSION: Old left clavicular fracture with minimal osteoarthritic change of the AC joint with mild subacromial stenosis Dictated by: Priyank Real MD 07/01/2019 10:03 Electronically signed by Priyank Real MD in [place] 07/01/2019 10:03
== END ==
PROVIDERS: PCP Emergency Medicine; Visit Provider Orthopaedic Surgery
DX: M25.511 Pain in right shoulder (principal)
CPT/HCPCS: 73030

== ENCOUNTER → 2019-08-16 09:52 | Outpatient (CLI) | payer MEDICARE, SELFPAY ==
[2019-08-17 08:16] LABS: Covid-19 Nasal PCR Sendout Lex NOT DETECTED
--- NOTE | 2019-08-17 08:25 | PC.NURSE ---
pt notified of negative COVID 19 results.
== END ==
PROVIDERS: Visit Provider Radiology Diagnostic Radiology
DX: Z03.818 Encounter for observation for suspected exposure to other biological agents ruled out
CPT/HCPCS: U0003

== ENCOUNTER → 2019-08-18 12:19 | Outpatient (CLI) | payer OTHER, SELFPAY ==
--- NOTE | 2019-08-18 12:20 | IR_ITS ---
PROCEDURE: IR ARTHROGRAM SHOULDER LT CLINICAL INDICATION: ct arthrogram left shoulder, evaluate rotator cuff COMPARISON: No exams were available for comparison FINDINGS: Fluoroscopy time: 1 minutes and 28 seconds Technique: Following obtaining informed consent and time-out procedure, under aseptic conditions and local anesthesia 1 percent buffered lidocaine, 22 gauge needle was inserted into the shoulder joint capsule via the anterior approach. Contrast did not appear to extravasated into the soft tissue but was localized along the humeral head. Small amount contrast did enter into the glenohumeral joint space. Abnormal localization of contrast is present in the subacromial region consistent with a torn rotator cuff. The unusual localization of contrast along the humeral head is felt to be within a bursa. A more medial approach could not be performed due to the overlying pacemaker. Patient was then taken to CT for CT arthrogram was performed. Please see that report for further description. IMPRESSION: 1. Findings compatible with rotator cuff tear. 2. Bursal collection along the humeral head. Dictated by: Priyank Real MD 08/23/2019 10:14 Electronically signed by Priyank Real MD in [place] 08/23/2019 10:14
--- NOTE | 2019-08-18 13:38 | CT_ITS ---
PROCEDURE: CT SHOULDER LT WO/W CON CLINICAL HISTORY: ct arthrogram evaluate rotator cuff Terrible that you can travel faster might screws as well however the remaining thank you the COMPARISON: IR ARTHROGRAM SHOULDER LT from 08/18/2019 TECHNIQUE: Axial images obtained with sagittal and coronal reformats. All CT scans at the facility use one or more dose reduction, viz: automated exposure control, ma/kV adjustment per patient size (including targeted exams where dose is matched to indication, i.e. head), or iterative reconstruction technique. FINDINGS: IMPRESSION: Dictated by: Piryank Real MD 08/18/2019 14:11 Electronically signed by Priyank Real MD in [place] 08/23/2019 10:16
== END ==
PROVIDERS: PCP Emergency Medicine; Visit Provider Orthopaedic Surgery
DX: M67.912 Unspecified disorder of synovium and tendon, left shoulder (principal)
CPT/HCPCS: 73040; 73201; Q9967

== ENCOUNTER 2019-09-02 23:36 | Emergency (ER) | payer MEDICARE, SELFPAY ==
--- NOTE | 2019-09-02 23:24 | ECG_ITS ---
APPROVED REPORT Exam: Resting ECG HR:92 bpm ECG Measurements Heart Rate 92 AXES GA 180 P 63 QRSd 108 QRS 62 QT 378 T 53 QTc 467 <Conclusion> Normal sinus rhythm Normal ECG Electronically signed by : Bradley Chung, 09/03/2019 06:16:57
[2019-09-02 23:37] VITALS: BP 179/94; PULSE 91; RESP 16; TEMP 36.7; O2SAT 99; BMI 35.5
[2019-09-02 23:52] LABS: Basophils # 0.1 K/mm3 (0-0.2); Basophils % 0.6 % (0.1-2.0); Eosinophils # 0.2 K/mm3 (0.0-0.4); Eosinophils % 1.6 % (0.1-12.0); Hematocrit 46.3 % (42.0-52.0); Hemoglobin 15.5 g/dL (14.1-18.0); Lymphocytes # 3.2 K/mm3 (0.7-4.5); Lymphocytes % 34.2 % (10-50); Mean Corpuscular HGB Conc 33.5 g/dL (31.8-35.4); Mean Corpuscular Hemoglobin 30.2 pg (27.0-31.2); Mean Corpuscular Volume 90.2 fl (80-94); Mean Platelet Volume 7.5 fl (7.4-10.4); Monocytes # 0.5 K/mm3 (0.1-1.0); Monocytes % 5.3 % (1.7-9.3); Neutrophils # 5.4 K/mm3 (1.8-7.8); Neutrophils % 58.1 % (37.0-80.0); Platelet Count 267 K/mm3 (142-424); Red Blood Count 5.13 M/mm3 (4.60-6.20); Red Cell Distribution Width 14.2 % (11.5-17.5); White Blood Count 9.3 K/mm3 (4.8-10.8)
[2019-09-03 00:02] VITALS: BP 150/93; PULSE 89; RESP 18; O2SAT 97
[2019-09-03 00:03] LABS: Anion Gap 13.9 mEq/L (5-15); Blood Urea Nitrogen 22 mg/dl (9-20); Calcium 9.6 mg/dl (8.4-10.2); Carbon Dioxide 26 mmol/L (22.0-30.0); Chloride 99 mmol/L (98-107); Creatinine Clearance Estimated 113 mL/min (50-200); Estimated Glomerular Filt Rate 67 ml/min (>60); GFR (African American) 81 ML/MIN (>60); Glucose 257 mg/dl (74-100); Potassium 3.9 mmoL/L (3.5-5.1); Sodium 135 mmol/L (136-145)
--- NOTE | 2019-09-03 00:07 | XR_ITS ---
PROCEDURE: XR CHEST 2V Patient Age:64Y CLINICAL HISTORY: chest pain chest pain history of pacemaker and cardiac stents. Hypertension. Smoker. COMPARISON: [facility] CT CHEST W/O CONTRAST from 06/13/2014 CXR2V XR chest 2V from 06/14/2018 CXR2V XR chest 2V from 07/15/2018 XR CHEST 2V from 12/21/2018 FINDINGS: Today's PA and lateral CXR reveal no discrete change since previous chest film June and May 2018 CXR. Upper normal markings right infrahilar region again noted extending towards right lower lobe these appear similar to previous study with no convincing acute infiltrate current plain film CXR. The heart is normal size. There is normal pulmonary vascularity. Minimal linear scarring and atelectasis towards left base stable. Joana and mediastinal structures appears satisfactory. Pacemaker overlying the left chest appears unchanged with atrial and ventricular leads appearing intact. Chest wall is unremarkable. No pleural effusion, no pneumothorax. Ribs and T-spine appear stable, intact but IMPRESSION: Nothing definitely acute. . Stable chest since May 2018. Minor chronic changes, and pacemaker again noted. Dictated by: Twan Verdugo MD 09/03/2019 10:01 Electronically signed by Twan Verdugo MD in [place] 09/03/2019 10:01
--- NOTE | 2019-09-03 00:07 | HMH.EDCP ---
ED Disposition Clinical Impression: Hypertensive emergency Chest pain Qualifiers: Chest pain type: precordial pain Qualified Code(s): R07.2 - Precordial pain Disposition: Home, Self-Care Condition on Discharge: Good Instructions: DI for Chest Pain Additional Instructions: return if needed and see card thursday Referrals: Provider,Referral, [Primary Care Provider] - - Critical Care Critical Care Time: No Attestation: On 09/02/19, the high probability of a clinically significant, sudden or life threatening deterioration of the following system(s) required my full and direct attention, intervention and personal management. The time I documented below is in addition to time spent performing reported procedures but includes the following listed in this critical care notation. Medical Decision Making - Medical Records Medical records reviewed: Yes: I reviewed the patient's medical records. - Raghav Inquiry Pt receiving controlled substance: No Vital Signs: 09/02/19 23:37 09/03/19 00:02 09/03/19 01:07 Temperature 98.1 F Temperature Source Oral Pulse Rate [Left Radial] 91 H 89 80 Respiratory Rate 16 18 18 Blood Pressure [Right Arm] 179/94 H 150/93 H 137/78 Blood Pressure Mean [Right Arm] 122 112 97 Blood Pressure Source [Right Arm] Automatic Cuff Blood Pressure Position [Right Arm] Sitting 02 Sat by Pulse Oximetry 99 97 96 Oxygen Delivery Method Room Air Room Air Room Air 09/03/19 01:34 Temperature Temperature Source Pulse Rate [Left Radial] 81 Respiratory Rate 18 Blood Pressure [Right Arm] 144/60 H Blood Pressure Mean [Right Arm] 88 Blood Pressure Source [Right Arm] Blood Pressure Position [Right Arm] 02 Sat by Pulse Oximetry 97 Oxygen Delivery Method Room Air - Lab Data Lab results reviewed: Yes: I reviewed the patient's lab results. Lab Results 09/02/19 23:30: Troponin I < 0.01 09/02/19 23:30: WBC 9.3, RBC 5.13, Hgb 15.5, Hct 46.3, MCV 90.2, MCH 30.2, MCHC 33.5, RDW 14.2, Plt Count 267, MPV 7.5, Neut % (Auto) 58.1, Lymph % (Auto) 34.2, Benson % (Auto) 5.3, Eos % (Auto) 1.6, Baso % (Auto) 0.6, Neut # (Auto) 5.4, Lymph # (Auto) 3.2, Benson # (Auto) 0.5, Eos # (Auto) 0.2, Baso # (Auto) 0.1 09/02/19 23:30: Sodium 135 L, Potassium 3.9, Chloride 99, Carbon Dioxide 26, Anion Gap 13.9, BUN 22 H, Creatinine 1.10, Estimated Creat Clear 113, Estimated GFR 67, Est GFR ( Amer) 81, Glucose 257 H, Calcium 9.6 Result diagrams: 09/02/19 23:30 09/02/19 23:30 Orders (Tests/Meds): ED MEDICATIONS Generic Name Dose Route Start Last Admin Trade Name Freq PRN Reason Stop Dose Admin Sodium Chloride 1,000 mls @ 999 mls/hr 09/02/19 23:45 09/03/19 00:08 Sod Chlor 0.9% 1000ml Bag IV 09/03/19 00:45 999 mls/hr .Q1H1M JUAN CARLOS Administration Discontinued Medications Generic Name Dose Route Start Last Admin Trade Name Freq PRN Reason Stop Dose Admin Aspirin 243 mg 09/02/19 23:46 09/03/19 00:08 Aspirin 81mg Chewable Tablet PO 09/02/19 23:47 243 mg ONCE ONE Administration Nitroglycerin 0.4 mg 09/02/19 23:46 09/03/19 00:08 Nitrostat 0.4mg Sl Tablet SL 09/02/19 23:47 0.4 mg ONCE ONE Administration ORDERS Category Date Time Status XR chest 2V Stat Exams 09/02/19 23:45 Ordered XR chest 2V Stat Exams 09/03/19 00:07 Taken Troponin I Q3H Lab 09/03/19 03:00 Ordered Troponin I Q3H Lab 09/03/19 06:00 Ordered - Radiology Data #1 Image(s): Chest Image Reviewed: Yes I reviewed the patient's radiology image Preliminary Findings: Normal/NAD - ECG Data Tracing #1 Normal Sinus Rhythm: Yes Ischemic changes: non-specific ST-T wave changes - Reevaluation(s) Time: 01:51 Reevaluation #1: doing better Medical Decision Narrative: doing better and does not wish to stay fro second troponin Chest Pain HPI - General Chief Complaint: Chest Pain Stated Complaint: chest pain Time Seen by Provider: 09/03/19 00:00 [facility]
[2019-09-03 00:16] LABS: Troponin I < 0.01 ng/ml (0.00-0.034)
[2019-09-03 01:07] VITALS: BP 137/78; PULSE 80; RESP 18; O2SAT 96
[2019-09-03 01:34] VITALS: BP 144/60; PULSE 81; RESP 18; O2SAT 97
[2019-09-03 01:49] VITALS: BP 144/60; PULSE 87; RESP 18; TEMP 36.8; O2SAT 97
== END 2019-09-03 02:00 | disposition home or self-care (01) ==
PROVIDERS: Emergency Provider Emergency Medicine
DX: I16.1 Hypertensive emergency (principal); R07.2 Precordial pain; I25.10 Atherosclerotic heart disease of native coronary artery without angina pectoris; E11.9 Type 2 diabetes mellitus without complications; E78.5 Hyperlipidemia, unspecified; F17.290 Nicotine dependence, other tobacco product, uncomplicated; Z95.0 Presence of cardiac pacemaker; Z79.899 Other long term (current) drug therapy
CPT/HCPCS: 71046; 80048; 84484; 85025; 93005; 96365; 99284

== ENCOUNTER → 2019-09-21 09:31 | Outpatient (CLI) | payer MEDICARE, SELFPAY ==
[2019-09-21 10:23] LABS: Basophils % 0.5 % (0.1-2.0); Eosinophils # 0.1 K/mm3 (0.0-0.4); Eosinophils % 1.8 % (0.1-12.0); Hematocrit 44.1 % (42.0-52.0); Lymphocytes # 2.4 K/mm3 (0.7-4.5); Mean Corpuscular HGB Conc 33.9 g/dL (31.8-35.4); Mean Corpuscular Hemoglobin 31.7 pg (27.0-31.2); Mean Corpuscular Volume 93.3 fl (80-94); Mean Platelet Volume 7.3 fl (7.4-10.4); Monocytes # 0.4 K/mm3 (0.1-1.0); Monocytes % 5.3 % (1.7-9.3); Neutrophils # 3.9 K/mm3 (1.8-7.8); Neutrophils % 57.3 % (37.0-80.0); Platelet Count 245 K/mm3 (142-424); Red Blood Count 4.72 M/mm3 (4.60-6.20); Red Cell Distribution Width 13.6 % (11.5-17.5); White Blood Count 6.7 K/mm3 (4.8-10.8)
[2019-09-21 10:27] LABS: Alanine Aminotransferase 31 U/L (12-78); Albumin Level 4.5 g/dl (3.5-5.0); Albumin/Globulin Ratio 1.5 (1.1-1.8); Alkaline Phosphatase 113 U/L (38-126); Anion Gap 11.4 mEq/L (5-15); Aspartate Amino Transferase 29 U/L (17-59); Bilirubin,Total 0.5 mg/dl (0.2-1.3); Blood Urea Nitrogen 16 mg/dl (9-20); Carbon Dioxide 28 mmol/L (22.0-30.0); Chloride 100 mmol/L (98-107); Chol/HDL Ratio 2.5 (1-3.5); Cholesterol 129 mg/dl (140-200); Estimated Glomerular Filt Rate 75 ml/min (>60); GFR (African American) 91 ML/MIN (>60); Glucose 292 mg/dl (74-100); HDL Cholesterol 51 mg/dl (40-60); Potassium 4.4 mmoL/L (3.5-5.1); Sodium 135 mmol/L (136-145); Total Protein,Serum 7.5 g/dl (6.3-8.2); Triglycerides 237 mg/dl (30-150); VLDL Cholesterol 47 mg/dL (0-40)
[2019-09-21 10:38] LABS: Direct LDL Cholesterol 58.79 mg/dL (100-129)
[2019-09-21 10:43] LABS: T4 (Thyroxine) 8.3 ug/dl (5.53-11.0)
[2019-09-21 10:56] LABS: Hemoglobin A1C 8.5 % (4.0-6.0)
[2019-09-21 10:57] LABS: Thyroid Stimulating Hormone 0.87 uIU/mL (0.465-4.68)
[2019-09-22 10:48] LABS: Vitamin D 25 Hydroxy 23.6 ng/mL (30.0-100.0)
== END ==
PROVIDERS: Visit Provider Physician Assistant
DX: E11.40 Type 2 diabetes mellitus with diabetic neuropathy, unspecified (principal); E78.5 Hyperlipidemia, unspecified; F32.9 Major depressive disorder, single episode, unspecified; N28.9 Disorder of kidney and ureter, unspecified; R07.9 Chest pain, unspecified; E55.9 Vitamin D deficiency, unspecified; Z79.84 Long term (current) use of oral hypoglycemic drugs
CPT/HCPCS: 36415; 80053; 80061; 82043; 82652; 83036; 84436; 84443; 85025

== ENCOUNTER → 2019-09-27 11:40 | Outpatient (CLI) | payer MEDICARE, SELFPAY ==
--- NOTE | 2019-09-27 | CA_ITS ---
APPROVED REPORT Exam: Pharmacologic Technologist: Erica Ortega Ht: 6 ft 0 in Wt: 258 lbs BSA: 2.37 m2 HR: 70 bpm BP: 163/93 mmHg Indications: Chest pain Medical History Medications: Amlodipine,,,,, Lisinopril,,,,, Clonidine,,,,, Hydralazine,,,,, Isosorbide,,,,, Aspirin,,,,, Metformin,,,,, Gabapentin,,,,, Vitamin D3,,,,, Atorvastatin,,,,, Carvedilol,,,,, Glipizide,,,,, Stress Test Details Test: LEXISCAN HR Resting HR: 73 bpm Max Heart Rate (APMHR): 155 bpm Max HR Achieved: 93 bpm Target HR (85% APMHR): 131 bpm % of APMHR: 60 Recovery HR: 76 bpm BP Resting BP: 163/93 mmHg Max BP: 165/85 mmHg Recovery BP: 165.0/85.0 mmHg ECG Clinical Exercise duration: 04:01 min Highest Stage Achieved: Stress ECG Conclusion Resting ECG: Normal sinus rhythm, incomplete right bundle branch block. Symptoms: Mild shortness of air, nausea and malaise. No chest pain. Arrhythmias/Ectopy: None ST-T Changes: No significant changes. Conclusion: Unremarkable Lexiscan stress. Myoview images reported separately. Test Summary RECOVERY 03:00 . . 76 . 156/ 90 . . REST 03:15 . . 73 . 163/ 93 . . Stage 1 . . . . . . . Myoview Injected Stage 1 01:00 . . 82 . . . . Stage 2 01:00 . . 90 . 155/ 92 . . Stage 3 01:00 . . 86 . 157/ 88 . . Stage 4 01:00 . . 82 . 164/ 87 . . Stage 4 01:01 . . 82 . 164/ 87 . Stop exercise at 04:01 RECOVERY 01:00 . . 80 . 156/ 90 . . RECOVERY 02:00 . . 80 . 156/ 90 . . RECOVERY 03:00 . . 76 . 156/ 90 . . RECOVERY 03:17 . . 77 . 165/ 85 . . Electronically signed by : Karsten Johnson, 09/27/2019 21:59:07
--- NOTE | 2019-09-27 11:41 | NM_ITS ---
APPROVED REPORT Exam: Nuclear Stress Test Indication: Chest pain, SOB, CAD, Pacemaker, HTN, DM, Tobacco use, Family history Patient Location: Outpatient Stress Tech: Erica Ortega MA Tech:Danni Fletcher, ARRT, RT (R)(N) Ht: 6 ft 0 in Wt: 258 lbs HR: 70 bpm BP: 163/93 mmHg BSA: 2.37 m2 History: Chest pain, SOB, CAD, Pacemaker, HTN, DM, Tobacco use, Family history Procedure: Patient received a 0.4 mg of intravenous Lexiscan, resting heart rate 70 bpm, resting blood pressure 163/93 mmHg, with Lexiscan maximum heart rate achived was 91 bpm which is Less than 85 % of the maximum predicted heart rate and blood pressure was 155/92 mmHg. With Lexiscan, patient denied any complaint of chest pain. Electrocardiogram Resting electrocardiogram showed sinus rhythm right ventricular conduction delay. Cardiac Stress and Resting SPECT Images: Cardiac Stress and Resting SPECT images were obtained using technetium 99m Myoview 32.3 mCi stress and 10.19 mCi at rest. Gated SPECT for analysis of segmental wall motion and calculation of ejection fraction also done. Cardiac stress and resting SPECT images show mild fixed defect in the inferior wall which is likely secondary to soft tissue attenuation, no reversible ischemia seen, computer derived ejection fraction is over 65% with no regional wall motion abnormality, right ventricle is normal size and contractility. Conclusion: 1. The EKG portion of the Lexiscan Myoview is nondiagnostic. 2. No scintigraphic evidence of reversible ischemia seen, computer derived ejection fraction is over 65% with no regional wall motion abnormality, right ventricle is normal size and contractility. 3. Likely normal Lexiscan Myoview study. Electronically signed by : Karsten Johnson, 09/27/2019 22:04:42
--- NOTE | 2019-09-27 13:16 | HMH.ITSHM ---
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 []METFORMIN CARVEDILOL GABAPENTIN TRAMADOL HYDRAZINE ISOSORBIDE GLIPIZIDE LISINOPRIL ATORVASTATIN CLOPIDOGREL AMLODIPINE ASA
== END ==
PROVIDERS: PCP Physician Assistant; Visit Provider Urology
DX: E11.69 Type 2 diabetes mellitus with other specified complication (principal); E78.2 Mixed hyperlipidemia; G47.33 Obstructive sleep apnea (adult) (pediatric); I10 Essential (primary) hypertension; I25.118 Atherosclerotic heart disease of native coronary artery with other forms of angina pectoris; R07.2 Precordial pain; Z95.0 Presence of cardiac pacemaker; Z95.5 Presence of coronary angioplasty implant and graft
CPT/HCPCS: 78452; 93017; A9502; J2785

== ENCOUNTER 2019-11-07 07:49 | Day surgery (SDC) | payer MEDICARE, SELFPAY ==
[2019-11-07] VITALS (11 sets, daily range): BP systolic 95–136; BP diastolic 49–79; PULSE 64–74; RESP 16–18; TEMP 36.3; O2SAT 90–99; BMI 35.1
--- NOTE | 2019-11-07 | IR_ITS ---
APPROVED REPORT Patient Location: Outpatient [facility] Keeper: KATHY Hilliard RT (R) PROCEDURES Left heart catheterization Left ventriculogram Selective coronary angiogram INDICATION Known coronary artery disease, Recurrent angina pectoris Informed consent was obtained prior to the procedure. COMPLICATIONS none Estimated Blood Loss: less than 10 mls TECHNIQUE One percent lidocaine used to anesthetize the right anterior aspect of the wrist. The right radial artery was accessed via the Seldinger technique. A 6 [place] sheath was placed in the right radial artery. 2.5 mg of verapamil, 800 mcg of nitroglycerin, 1mg Lidocaine and 5000 U Heparin were given through the arterial sheath. The trap catheter was also used to perform left heart catheterization, left ventriculogram and selective coronary angiogram. At the end of the procedure the sheath was removed good hemostasis was achieved using Traclet band, patient was transferred to the postop holding area in stable condition. ANGIOGRAPHIC RESULTS The left main artery Normal The left anterior descending artery Has stents in the proximal portion which are widely patent free of in-stent restenosis. The mid segment also has widely patent stents with minimal 20 to 30% in-stent restenosis. Large first diagonal artery bifurcates off a proximal LAD stent which has an ostial 30% [id number] stenosis The circumflex artery Is a large dominant vessel with mild luminal irregularities The right coronary artery Small nondominant The LIND ventriculogram reveals Preserved at 60% The left ventricular end-diastolic pressure 10 mmHg IMPRESSION Widely patent stents in the LAD diagonal artery as described above accompanied by slow MIHCELLE II flow consistent with endothelial dysfunction Preserved ejection fraction Normal left ventricular end-diastolic pressure PLAN 1. Treat endothelial dysfunction Electronically signed by : Zaire Cox, 11/07/2019 10:15:35
[2019-11-07 08:39] LABS: Basophils # 0.1 K/mm3 (0-0.2); Basophils % 0.6 % (0.1-2.0); Chloride 100 mmol/L (98-107); Eosinophils # 0.2 K/mm3 (0.0-0.4); Eosinophils % 2.7 % (0.1-12.0); Hemoglobin 14.9 g/dL (14.1-18.0); Lymphocytes # 3.2 K/mm3 (0.7-4.5); Lymphocytes % 44.6 % (10-50); Mean Corpuscular HGB Conc 34.6 g/dL (31.8-35.4); Mean Corpuscular Hemoglobin 31.9 pg (27.0-31.2); Mean Corpuscular Volume 92.1 fl (80-94); Mean Platelet Volume 7.5 fl (7.4-10.4); Monocytes # 0.4 K/mm3 (0.1-1.0); Monocytes % 4.8 % (1.7-9.3); Neutrophils # 3.4 K/mm3 (1.8-7.8); Neutrophils % 47.2 % (37.0-80.0); Platelet Count 246 K/mm3 (142-424); Potassium 4.1 mmoL/L (3.5-5.1); Red Blood Count 4.67 M/mm3 (4.60-6.20); Red Cell Distribution Width 13.6 % (11.5-17.5); Sodium 135 mmol/L (136-145); White Blood Count 7.2 K/mm3 (4.8-10.8)
[2019-11-07 08:42] LABS: Anion Gap 13.1 mEq/L (5-15); Blood Urea Nitrogen 23 mg/dl (9-20); Calcium 9.7 mg/dl (8.4-10.2); Carbon Dioxide 26 mmol/L (22.0-30.0); Creatinine Clearance Estimated 122 mL/min (50-200); Estimated Glomerular Filt Rate 75 ml/min (>60); GFR (African American) 91 ML/MIN (>60); Glucose 365 mg/dl (74-100)
== END 2019-11-07 13:11 | disposition home or self-care (01) ==
LOC: CATHLAB 07:51
PROVIDERS: PCP Physician Assistant; Visit Provider Internal Medicine
DX: I25.118 Atherosclerotic heart disease of native coronary artery with other forms of angina pectoris (principal); I10 Essential (primary) hypertension; Z79.82 Long term (current) use of aspirin; Z79.899 Other long term (current) drug therapy; Z95.5 Presence of coronary angioplasty implant and graft; Z95.0 Presence of cardiac pacemaker
CPT/HCPCS: 80048; 85025; 93458; 99152; C1725; C1760; C1769; J1644; Q9967

== ENCOUNTER → 2020-05-03 14:22 | Outpatient (CLI) | payer MEDICARE, SELFPAY ==
[2020-05-03 16:08] LABS: Basophils # 0.1 K/mm3 (0-0.2); Basophils % 0.9 % (0.1-2.0); Eosinophils # 0.2 K/mm3 (0.0-0.4); Eosinophils % 2.7 % (0.1-12.0); Hematocrit 47.4 % (42.0-52.0); Hemoglobin 15.8 g/dL (14.1-18.0); Lymphocytes # 2.4 K/mm3 (0.7-4.5); Lymphocytes % 40.4 % (10-50); Mean Corpuscular HGB Conc 33.3 g/dL (31.8-35.4); Mean Corpuscular Hemoglobin 31.2 pg (27.0-31.2); Mean Corpuscular Volume 93.8 fl (80-94); Mean Platelet Volume 9.4 fl (7.4-10.4); Monocytes # 0.4 K/mm3 (0.1-1.0); Monocytes % 6.9 % (1.7-9.3); Neutrophils # 2.9 K/mm3 (1.8-7.8); Neutrophils % 48.9 % (37.0-80.0); Platelet Count 259 K/mm3 (142-424); Red Blood Count 5.05 M/mm3 (4.60-6.20); Red Cell Distribution Width 14.1 % (11.5-17.5); White Blood Count 5.9 K/mm3 (4.8-10.8)
[2020-05-03 16:14] LABS: Alanine Aminotransferase 25 U/L (12-78); Albumin/Globulin Ratio 1.2 (1.1-1.8); Alkaline Phosphatase 122 U/L (38-126); Anion Gap 14.5 mEq/L (5-15); Aspartate Amino Transferase 31 U/L (17-59); Bilirubin,Total 0.5 mg/dl (0.2-1.3); Blood Urea Nitrogen 27 mg/dl (9-20); Calcium 9.9 mg/dl (8.4-10.2); Carbon Dioxide 27 mmol/L (22.0-30.0); Chloride 98 mmol/L (98-107); Chol/HDL Ratio 5.5 (1-3.5); Cholesterol 182 mg/dl (140-200); Estimated Glomerular Filt Rate 67 ml/min (>60); GFR (African American) 81 ML/MIN (>60); Globulin 3.3 g/dL (1.3-3.2); Glucose 330 mg/dl (74-100); HDL Cholesterol 33 mg/dl (40-60); Potassium 4.5 mmoL/L (3.5-5.1); Sodium 135 mmol/L (136-145); Total Protein,Serum 7.3 g/dl (6.3-8.2)
[2020-05-03 16:24] LABS: Triglycerides 708 mg/dl (30-150)
[2020-05-03 16:25] LABS: Direct LDL Cholesterol 38.07 mg/dL (100-129)
[2020-05-03 16:34] LABS: 25-OH Vitamin D, Total < 12.8 ng/mL (30-100); Free T4 (Free Thyroxine) 1.28 ng/dl (0.78-2.19)
[2020-05-03 16:46] LABS: Prostate Specific Ag Screen 1.3 ng/ml (0.0-4.0); Thyroid Stimulating Hormone 2.04 uIU/mL (0.465-4.68)
== END ==
PROVIDERS: Visit Provider Physician Assistant
DX: E78.5 Hyperlipidemia, unspecified (principal); G47.00 Insomnia, unspecified; I10 Essential (primary) hypertension; Z86.79 Personal history of other diseases of the circulatory system; R07.9 Chest pain, unspecified; E11.40 Type 2 diabetes mellitus with diabetic neuropathy, unspecified; Z12.5 Encounter for screening for malignant neoplasm of prostate; E55.9 Vitamin D deficiency, unspecified; Z79.84 Long term (current) use of oral hypoglycemic drugs
CPT/HCPCS: 80053; 80061; 82043; 82306; 83036; 84439; 84443; 85025; G0103

== ENCOUNTER → 2020-06-22 09:19 | Outpatient (CLI) | payer MEDICARE, SELFPAY ==
[2020-06-22 09:22] LABS: Microscopic, Urine URINE MICROSCOPIC (MICROSCOPIC)
[2020-06-22 09:50] LABS: Appearance,Urine CLEAR (Clear); Basophils % 0.6 % (0.1-2.0); Bilirubin,Urine Negative (Negative); Blood, Urine Negative (Negative); Color,Urine YELLOW (Yellow); Eosinophils # 0.2 K/mm3 (0.0-0.4); Eosinophils % 2.5 % (0.1-12.0); Glucose,Urine (UA) 2+ (Negative); Hematocrit 43.8 % (42.0-52.0); Hemoglobin 14.4 g/dL (14.1-18.0); Ketones,Urine Negative (Negative); Leukocyte Esterase,Urine Negative (Negative); Lymphocytes # 2.3 K/mm3 (0.7-4.5); Lymphocytes % 31.4 % (10-50); Mean Corpuscular HGB Conc 32.8 g/dL (31.8-35.4); Mean Corpuscular Hemoglobin 30.5 pg (27.0-31.2); Mean Platelet Volume 7.5 fl (7.4-10.4); Monocytes # 0.4 K/mm3 (0.1-1.0); Monocytes % 5.1 % (1.7-9.3); Neutrophils # 4.5 K/mm3 (1.8-7.8); Neutrophils % 60.5 % (37.0-80.0); Nitrate,Urine Negative (Negative); Platelet Count 266 K/mm3 (142-424); Protein,Urine 1+ (Negative); Red Blood Count 4.71 M/mm3 (4.60-6.20); Specific Gravity, Urine 1.025 (1.005-1.030); Urobilinogen,Urine 0.2 EU/dl (0.2); White Blood Count 7.4 K/mm3 (4.8-10.8)
[2020-06-22 10:09] LABS: Creatinine,Urine Random 110 mg/dL (Not Estab.)
[2020-06-22 10:11] LABS: RBC,Urine Occasional #/hpf (0-3)
[2020-06-22 11:41] LABS: Albumin Level 4.4 g/dl (3.5-5.0); Anion Gap 14.6 mEq/L (5-15); Blood Urea Nitrogen 19 mg/dl (9-20); Calcium 10.4 mg/dl (8.4-10.2); Carbon Dioxide 27 mmol/L (22.0-30.0); Chloride 102 mmol/L (98-107); Estimated Glomerular Filt Rate 84 ml/min (>60); GFR (African American) 102 ML/MIN (>60); Glucose 273 mg/dl (74-100); Potassium 4.6 mmoL/L (3.5-5.1); Sodium 139 mmol/L (136-145)
[2020-06-22 11:52] LABS: Intact Parathyroid Hormone 46.4 pg/mL (7.5-53.5)
[2020-06-22 11:58] LABS: 25-OH Vitamin D, Total 27.7 ng/mL (30-100)
== END ==
PROVIDERS: Visit Provider Internal Medicine Nephrology
DX: R80.9 Proteinuria, unspecified (principal); E55.9 Vitamin D deficiency, unspecified
CPT/HCPCS: 36415; 80069; 81001; 82306; 82570; 83970; 84155; 85025

== ENCOUNTER → 2020-06-25 15:07 | Outpatient (POV) | payer MEDICARE, SELFPAY | PROVIDERS: Visit Provider Internal Medicine Nephrology | DX: Z00.00 Encounter for general adult medical examination without abnormal findings (principal) ==

== ENCOUNTER 2020-07-08 14:27 | Emergency (ER) | payer MEDICARE, SELFPAY ==
[2020-07-08 14:35] VITALS: BP 141/88; PULSE 87; RESP 17; TEMP 36.8; O2SAT 97; BMI 36.3
--- NOTE | 2020-07-08 14:57 | HMH.EDUTC ---
[facility] Disposition Clinical Impression: Penile abrasion Qualifiers: Encounter type: initial encounter Qualified Code(s): S30.812A - Abrasion of penis, initial encounter Disposition: Home, Self-Care Condition on Discharge: Good Instructions: DI for Abrasion, Bacitracin Topical Additional Instructions: Clean area well and pat dry and apply Topical antibiotic three times daily Watch area for signs of infection such as redness, drainage swelling or worsening of pain Follow up with your Family Doctor if no improvement Return if needed Straight to ER if any life threatening symptoms Prescriptions: Bacitracin [Bacitracin Oint 0.9GM UDP] 1 applicatio TOPICAL TID 10 Days #30 packet Transmission Status: Pending to [facility] #[id number] Referrals: Susanna Kohli PA [Primary Care Provider] - As needed Time of Disposition: 15:02 Medical Decision Making - Raghav Inquiry Pt receiving controlled substance: No Raghav was queried for this patient: No Vital Signs: 07/08/20 14:35 Temperature 98.2 F Temperature Source Oral Pulse Rate [Right Brachial] 87 Respiratory Rate 17 Blood Pressure [Right Arm] 141/88 H Blood Pressure Mean [Right Arm] 105 Blood Pressure Source [Right Arm] Automatic Cuff Blood Pressure Position [Right Arm] Sitting 02 Sat by Pulse Oximetry 97 Oxygen Delivery Method Room Air [facility] HPI - General Stated complaint: male problem Time Seen by Provider: 07/08/20 14:57 Mode of Arrival: Ambulatory Source of Information: Patient Limitations: No Limitations Description of Symptoms (Recalled from Triage Doc. by RN): PATIENT STATES HE GOT HIS PENIS CAUGHT IN A ZIPPER X 1 WEEK AGO, BELIEVES IT IS INFECTED HEENT Symptoms (Recalled from RN notes): No Resp Symptoms (Recalled from RN notes): No Skin Symptoms (Recalled from RN notes): No MS Symptoms (Recalled from RN notes): No Functional Status (Recalled from RN notes): WNL - History of Present Illness Provider Complaint: Patient states that about a week ago he accidently zipped his penis up in his zipper and caused abrasion on each side of his penis States that he has been watching and thought it was getting better but today it felt sore and he thinks it may be infected Denies difficulty urinating - Related Data Home Medications Medication Instructions Recorded Confirmed Aspirin [Low Dose Aspirin EC] 81 mg PO DAILY 08/03/17 06/28/20 amlodipine 10 mg tablet 10 mg PO DAILY 06/28/20 06/28/20 duloxetine 60 mg capsule,delayed 60 mg PO DAILY 06/28/20 06/28/20 release hydralazine 100 mg tablet 100 mg PO BID 06/28/20 06/28/20 Previous Rx's Medication Instructions Recorded atorvastatin 40 mg tablet 40 mg PO DAILY #30 tab 03/19/20 gabapentin 800 mg tablet 800 mg PO TID #90 tab 04/30/20 ergocalciferol (vitamin D2) 1,250 1,250 mcg PO WEEKLY #5 cap 05/04/20 mcg (50,000 unit) capsule isosorbide mononitrate 120 mg 120 mg PO DAILY #30 tab 05/09/20 tablet,extended release 24 hr blood-glucose meter,continuous See Rx Instructions .ROUTE 05/29/20 .MEDSUPPLY #1 each blood-glucose transmitter See Rx Instructions .ROUTE 05/29/20 .MEDSUPPLY #1 each blood sugar diagnostic See Rx Instructions .ROUTE 05/31/20 .MEDSUPPLY #100 each blood-glucose meter See Rx Instructions .ROUTE 05/31/20 .MEDSUPPLY #1 each lancets 30 gauge and blood glucose See Rx Instructions .ROUTE 05/31/20 strips combo pack .MEDSUPPLY #200 each repaglinide 1 mg tablet 1 mg PO TID #90 tab 06/06/20 quetiapine 25 mg tablet 25 mg PO HS #30 tab 06/08/20 carvedilol 25 mg tablet 25 mg PO BID #180 tab 06/20/20 clopidogrel 75 mg tablet See Rx Instructions .ROUTE 06/20/20 .COMPLEX #90 tab empagliflozin 10 mg tablet 10 mg PO DAILY #30 tab 06/20/20 metformin 1,000 mg tablet 1,000 mg PO BID #180 tab 06/20/20 doxycycline hyclate 100 mg tablet 100 mg PO BID #20 tab 06/26/20 hydrocodone 5 mg-acetaminophen 325 1 tab PO BID PRN #60 tab 06/26/20 mg tablet prednisone 20 mg tablet 20 mg PO BID #10 tab
[2020-07-08 15:08] VITALS: BP 141/88; PULSE 87; RESP 17; TEMP 36.8; O2SAT 97
== END 2020-07-08 15:09 | disposition home or self-care (01) ==
PROVIDERS: Emergency Provider Nurse Practitioner; PCP Physician Assistant
DX: S30.812A Abrasion of penis, initial encounter (principal); W22.8XXA Striking against or struck by other objects, initial encounter; Y92.019 Unspecified place in single-family (private) house as the place of occurrence of the external cause; I50.9 Heart failure, unspecified; J44.9 Chronic obstructive pulmonary disease, unspecified; I25.10 Atherosclerotic heart disease of native coronary artery without angina pectoris; E11.9 Type 2 diabetes mellitus without complications; E78.5 Hyperlipidemia, unspecified; I10 Essential (primary) hypertension; Z87.891 Personal history of nicotine dependence; Z95.0 Presence of cardiac pacemaker; Z79.899 Other long term (current) drug therapy
CPT/HCPCS: G0463; 99202

== ENCOUNTER → 2020-07-09 11:48 | Outpatient (CLI) | payer MEDICARE, SELFPAY ==
[2020-07-09 12:51] LABS: Coronavirus 19 IgG Antibody Positive (Negative); Coronavirus 19 IgM Antibody Negative (Negative)
== END ==
PROVIDERS: Visit Provider Ophthalmology
DX: Z01.818 Encounter for other preprocedural examination (principal); Z20.822 Contact with and (suspected) exposure to COVID-19; H25.11 Age-related nuclear cataract, right eye
CPT/HCPCS: 36415; 86328

== ENCOUNTER 2020-07-10 06:08 | Day surgery (SDC) | payer MEDICARE, SELFPAY ==
[2020-07-03 09:42] VITALS: BMI 34.8
[2020-07-10 06:21] VITALS: BP 152/77; PULSE 84; RESP 18; TEMP 36.3; O2SAT 96
[2020-07-10 06:35] LABS: POC Glucose,Bedside 304 (70-110)
[2020-07-10 07:59] VITALS: BP 132/81; PULSE 77; RESP 18; O2SAT 94
[2020-07-10 08:04] VITALS: BP 133/74; PULSE 74; RESP 18; O2SAT 95
[2020-07-10 08:09] VITALS: BP 130/77; PULSE 74; RESP 20; O2SAT 95
[2020-07-10 08:14] VITALS: BP 133/76; PULSE 73; RESP 20; O2SAT 96
[2020-07-10 08:16] VITALS: BP 141/80; PULSE 75; RESP 16; TEMP 36.5; O2SAT 94
== END 2020-07-10 08:29 | disposition home or self-care (01) ==
LOC: OR 06:09
PROVIDERS: PCP Physician Assistant; Visit Provider Ophthalmology
DX: H25.813 Combined forms of age-related cataract, bilateral (principal); H02.831 Dermatochalasis of right upper eyelid; E11.9 Type 2 diabetes mellitus without complications; Z88.8 Allergy status to other drugs, medicaments and biological substances; M19.90 Unspecified osteoarthritis, unspecified site; I10 Essential (primary) hypertension; E78.5 Hyperlipidemia, unspecified; J44.9 Chronic obstructive pulmonary disease, unspecified; F32.9 Major depressive disorder, single episode, unspecified; Z79.899 Other long term (current) drug therapy; Z79.84 Long term (current) use of oral hypoglycemic drugs; Z95.0 Presence of cardiac pacemaker
CPT/HCPCS: 66984; 82962; V2632

== ENCOUNTER 2020-07-15 15:17 | Observation (INO) | payer MEDICARE, SELFPAY ==
[2020-07-15] VITALS (11 sets, daily range): BP systolic 115–150; BP diastolic 75–93; PULSE 70–90; RESP 14–21; TEMP 36.4–36.5; O2SAT 94–98; BMI 36.3; BMI 34.9
--- NOTE | 2020-07-15 15:20 | ECG_ITS ---
APPROVED REPORT Exam: Resting ECG HR:76 bpm ECG Measurements Heart Rate 76 AXES WY 186 P 46 QRSd 96 QRS 40 QT 406 T 34 QTc 456 Conclusion Normal sinus rhythm Cannot rule out Anterior infarct, age undetermined Abnormal ECG Electronically signed by : Bradley Chung, 07/15/2020 19:39:23
--- NOTE | 2020-07-15 15:26 | HMH.EDGENADL ---
ED Disposition Clinical Impression: Chest pain Qualifiers: Chest pain type: unspecified Qualified Code(s): R07.9 - Chest pain, unspecified Disposition: Admitted as Observation Condition on Discharge: Good - Critical Care Critical Care Time: No Attestation: On , the high probability of a clinically significant, sudden or life threatening deterioration of the following system(s) required my full and direct attention, intervention and personal management. The time I documented below is in addition to time spent performing reported procedures but includes the following listed in this critical care notation. Medical Decision Making - Medical Records Medical records reviewed: Yes: I reviewed the patient's medical records. MR Comment: Recent cardiology visit 05/09/2020 at which time stress test and echocardiogram recommended. Reviewed most recent cardiac cath result, see below. - Raghav Inquiry Pt receiving controlled substance: No Vital Signs: 07/15/20 15:39 07/15/20 16:02 07/15/20 17:00 Temperature 97.7 F Temperature Source Oral Pulse Rate 75 72 Pulse Rate [Left Brachial] 78 Respiratory Rate 21 18 19 Blood Pressure 121/78 139/92 H Blood Pressure [Right Arm] 121/78 Blood Pressure Mean 90 Blood Pressure Mean [Right Arm] 92 Blood Pressure Source Automatic Cuff 02 Sat by Pulse Oximetry 94 L 94 L 96 Oxygen Delivery Method Room Air - Lab Data Lab Results 07/15/20 15:35: WBC 6.0, RBC 4.94, Hgb 15.0, Hct 45.1, MCV 91.1, MCH 30.3, MCHC 33.2, RDW 13.8, Plt Count 246, MPV 7.5, Neut % (Auto) 58.4, Lymph % (Auto) 32.4, Craig % (Auto) 5.6, Eos % (Auto) 3.1, Baso % (Auto) 0.5, Neut # (Auto) 3.5, Lymph # (Auto) 2.0, Craig # (Auto) 0.3, Eos # (Auto) 0.2, Baso # (Auto) 0.0 07/15/20 15:35: Sodium 138, Potassium 4.5, Chloride 105, Carbon Dioxide 24, Anion Gap 13.5, BUN 22 H, Creatinine 1.00, Estimated GFR 75, Est GFR ( Amer) 90, Glucose 378 H, Calcium 10.0, Total Bilirubin 0.6, AST 39, ALT 37, Alkaline Phosphatase 100, Troponin I < 0.01, Total Protein 8.0, Albumin 4.7, Globulin 3.3 H, Albumin/Globulin Ratio 1.4 07/15/20 15:35: NT-Pro-B Natriuret Pep 42.3 07/15/20 15:53: D-Dimer 0.74 H Result diagrams: 07/15/20 15:35 07/15/20 15:35 Orders (Tests/Meds): ED MEDICATIONS Discontinued Medications Generic Name Dose Route Start Last Admin Trade Name Locq PRN Reason Stop Dose Admin Aspirin 243 mg 07/15/20 15:49 07/15/20 15:50 Aspirin 81mg Chewable Tablet PO 07/15/20 15:50 243 mg ONCE ONE Administration Iopamidol 70 ml 07/15/20 16:57 07/15/20 16:58 Iopamidol-370 (76%);100ml Bottle IV 07/15/20 16:58 70 ml ONCE ONE Administration Sodium Chloride 40 ml 07/15/20 16:57 07/15/20 16:58 0.9% Sodium Chloride 20ml Vial IV 07/15/20 16:58 40 ml ONCE ONE Administration Sodium Chloride 10 ml 07/15/20 16:57 07/15/20 16:58 Sodium Chloride 0.9% 10ml Syr (Rad Only) IV 07/15/20 16:58 10 ml ONCE ONE Administration Sodium Chloride 500 ml 07/15/20 17:35 07/15/20 17:37 Sodium Chloride 0.9% 1000ml Bag IV 07/15/20 17:36 500 ml BOLUS ONE Administration ORDERS Category Date Time Status CTA Chest [CT angio chest] Stat Cat Scan 07/15/20 16:13 Taken XR chest portable Stat Exams 07/15/20 15:40 Taken Troponin I Q3H Lab 07/15/20 18:45 Ordered Troponin I Q3H Lab 07/15/20 21:45 Ordered - Radiology Data #1 Image(s): Chest Image Reviewed: Yes I reviewed the patient's radiology image Poor inspiration. No acute process. - CT Data CT Scan: Chest (CTA) Time Received: 17:25 ([facility] fax) ED CT Reviewed: Yes: I have viewed the radiologist's interpretation Findings Narrative: No acute findings. Vascular calcifications particularly in the coronary arteries. - ECG Data Tracing #1 EKG interpreted by Kurt Gleason MD: Rhythm: sinus Rate: 76 [place]: normal Ectopy: none Conduction: Incomplete right bundle branch block ST Segment Changes: none
--- NOTE | 2020-07-15 15:40 | XR_ITS ---
PROCEDURE: XR CHEST PORTABLE CLINICAL HISTORY: cp shortness of breath COMPARISON: CT [facility] CT CHEST W/O CONTRAST from 06/13/2014 CR CXR2V XR chest 2V from 07/15/2018 CR XR CHEST 2V from 12/21/2018 CR XR CHEST 2V from 09/03/2019 shortness of breath FINDINGS: The cardiomediastinal silhouette and pulmonary vascularity are within normal limits. The left-sided cardiac cardiac pacemaker is noted with dual chamber electrodes both in good position. The lungs are clear without infiltrates, suspicious nodules, or pleural effusions. There is minimal atelectasis at the left costophrenic angle. No acute bony abnormalities. IMPRESSION: Probable left basilar atelectasis, no other significant abnormality seen Dictated by: Dr. Emmanuel Lopez MD 07/15/2020 18:40 Dr. Emmanuel Lopez MD in [place] 07/15/2020 18:40
[2020-07-15 16:01] LABS: Basophils % 0.5 % (0.1-2.0); Chloride 105 mmol/L (98-107); Eosinophils # 0.2 K/mm3 (0.0-0.4); Eosinophils % 3.1 % (0.1-12.0); Hematocrit 45.1 % (42.0-52.0); Lymphocytes % 32.4 % (10-50); Mean Corpuscular HGB Conc 33.2 g/dL (31.8-35.4); Mean Corpuscular Hemoglobin 30.3 pg (27.0-31.2); Mean Corpuscular Volume 91.1 fl (80-94); Mean Platelet Volume 7.5 fl (7.4-10.4); Monocytes # 0.3 K/mm3 (0.1-1.0); Monocytes % 5.6 % (1.7-9.3); Neutrophils # 3.5 K/mm3 (1.8-7.8); Neutrophils % 58.4 % (37.0-80.0); Platelet Count 246 K/mm3 (142-424); Potassium 4.5 mmoL/L (3.5-5.1); Red Blood Count 4.94 M/mm3 (4.60-6.20); Red Cell Distribution Width 13.8 % (11.5-17.5); Sodium 138 mmol/L (136-145)
[2020-07-15 16:04] LABS: Alanine Aminotransferase 37 U/L (12-78); Albumin Level 4.7 g/dl (3.5-5.0); Albumin/Globulin Ratio 1.4 (1.1-1.8); Alkaline Phosphatase 100 U/L (38-126); Anion Gap 13.5 mEq/L (5-15); Aspartate Amino Transferase 39 U/L (17-59); Bilirubin,Total 0.6 mg/dl (0.2-1.3); Blood Urea Nitrogen 22 mg/dl (9-20); Carbon Dioxide 24 mmol/L (22.0-30.0); Estimated Glomerular Filt Rate 75 ml/min (>60); GFR (African American) 90 ML/MIN (>60); Globulin 3.3 g/dL (1.3-3.2); Glucose 378 mg/dl (74-100)
[2020-07-15 16:09] LABS: D-Dimer 0.74 ug/mL (0.0-0.5)
--- NOTE | 2020-07-15 16:13 | CT_ITS ---
PROCEDURE: CT ANGIO CHEST CLINCIAL INDICATION: soa, elev d-dimer COMPARISON: No exams were available for comparison TECHNIQUE: IV Contrast: 70ML Isovue 370 Axial images obtained with sagittal and coronal reformats. All CT scans at the facility use one or more dose reduction, viz: automated exposure control, ma/kV adjustment per patient size (including targeted exams where dose is matched to indication, i.e. head), or iterative reconstruction technique. FINDINGS: HEART AND MEDIASTINAL STRUCTURES: There is excellent vascular opacification. Cardiac size is normal, there are prominent coronary artery calcifications. No evidence of aortic dissection. There are no pulmonary emboli identified. LUNGS AND PLEURAL SPACES: The lung dowling are well expanded and appear clear of infiltrate though there are some very minimal scattered areas of ground-glass opacity. There is no pleural fluid. There is prominent calcification of the tracheal cartilages. For several normal size nodes in the right paratracheal region both dwight and subcarinal locations. BONY STRUCTURES: There are mild degenerate changes midthoracic spine. UPPER ABDOMEN: Unremarkable. ADDITIONAL FINDINGS: No other significant abnormalities. IMPRESSION: Negative for pulmonary emboli and no other significant abnormality is noted Dictated by: Dr. Emmanuel Lopez MD 07/15/2020 18:53 Dr. Emmanuel Lopez MD in [facility] 07/15/2020 18:53
[2020-07-15 16:15] LABS: NT Pro Brain Natriuretic Pep. 42.3 pg/mL (0-125)
[2020-07-15 16:18] LABS: Troponin I < 0.01 ng/ml (0.00-0.034)
--- NOTE | 2020-07-15 17:34 | PC.NURSE ---
Dr. Gleason on the phone with Lore Crocker APRN at this time. Also called drawing supervisor for bed assignment.
[2020-07-15 17:45] LABS: Adenovirus,PCR Not Detected (NotDetected); Bordetella Pertussis Not Detected (NotDetected); Chlamydophila Pneumoniae, PCR Not Detected (NotDetected); Coronavirus 19, PCR Not Detected (NotDetected); Coronavirus 229E Not Detected (NotDetected); Coronavirus NL63 Not Detected (NotDetected); Coronavirus OC43 Not Detected (NotDetected); Coronovirus HKU1,PCR Not Detected (NotDetected); Human Metapneumovirus Not Detected (NotDetected); Influenza A, PCR Not Detected (NotDetected); Influenza AH1, 2009 Not Detected (NotDetected); Influenza AH1, PCR Not Detected (NotDetected); Influenza AH3,PCR Not Detected (NotDetected); Influenza B, PCR Not Detected (NotDetected); Mycoplasma Pneumoniae, PCR Not Detected (NotDetected); Parainfluenza 1, PCR Not Detected (NotDetected); Parainfluenza 2, PCR Not Detected (NotDetected); Parainfluenza 3, PCR Not Detected (NotDetected); Parainfluenza 4, PCR Not Detected (NotDetected); Respiratory Syncytial Virus Not Detected (NotDetected); Rhinovirus/Enterovirus Not Detected (NotDetected)
--- NOTE | 2020-07-15 18:28 | PC.NURSE ---
requested diabetic tray from dietary
[2020-07-15 19:02] LABS: Troponin I < 0.01 ng/ml (0.00-0.034)
--- NOTE | 2020-07-15 19:29 | HMH.HP ---
*Admission Date: 07/16/20 *Chief complaint: chesst pain *History of present illness: 65-year-old male presented to the emergency department for increasing shortness of breath over the last 2 weeks worse with lying down and chest pain that comes and goes. Patient was recently seen by cardiology in April for complaint of chest pain which has been intermittent over the last couple years despite having normal stress test and cardiac catheterization x2 last year without need for intervention. Patient admitted for cardiology work up and monitoring of vitals and labs. [facility] History I have reviewed the patient's past medical history: Yes Medical History: Reports:: Arrhythmia, Congestive Heart Failure, Chronic Obstructive Pulmonary Disease (COPD), Coronary Artery Disease, Depression, Diabetes Mellitus Type 2, Hyperlipidemia, Hypertension, Internal Pacemaker, Transient Ischemic Attacks (TIA) Denies:: Cancer, Diabetes Mellitus Type 1, MRSA, Seizures *Have you ever received a pneumonia vaccine?: No *Have you received a flu vaccine this season?: No Other Medical History: Reports: Arthritis, Glaucoma, Sinus Problems, Other. Denies: Blood Transfusion Reaction Other Surgeries: Yes: Appendectomy, Cardiac Catheterization, Colonoscopy, Coronary Stent, Pacemaker, Other (back surgery) Amputation: No Fractures: Yes - *Social History Last grade of school completed: High school graduate Smoking Status: Former smoker Tobacco Type: cigarettes, smokeless tobacco # Packs/Day (cigarettes): 2 #Yrs smoked (if former smoker): 45 Smoking End Date: 04/20/2019 Alcohol Intake: current Alcohol Intake Frequency:: holidays/special occasions only Substance Use Type: denies use *Occupational Status:: retired Housing: apartment Household Members: none *Travel in the last 8 weeks: None - Psychiatric History Pschychiatric History:: Reports:: Depression Family Hx:: Cancer, Coronary Artery Disease, Hypertension Review of Systems - Review of Systems Review of systems:: pertinent systems reviewed and negative unless documented below - Constitutional Denies body ache(s), Denies fatigue - Eyes Denies change in vision - ENT Denies bleeding gums, Denies neck pain - *Cardiovascular Reports chest pain, Reports shortness of breath, Reports shortness of breath with activity - *Respiratory Reports shortness of breath, Reports shortness of breath with activity - *Gastrointestinal Denies nausea, Denies vomiting - *Genitourinary Denies difficulty urinating - *Musculoskeletal Denies joint pain - Integumentary/Breasts Denies rash - *Neurologic Denies dizziness - Psychiatric Denies lack of enjoyment - Endocrine Denies excessive sweating - Hematologic/Lymphatic Denies enlarged lymph nodes - Allergic/Immunologic Denies itchy eyes Meds Home Medications Medication Instructions Recorded Confirmed Type atorvastatin 40 mg tablet 40 mg PO DAILY #30 tab 03/19/20 07/15/20 Rx carvedilol 25 mg tablet 25 mg PO BID #180 tab 06/20/20 07/15/20 Rx metformin 1,000 mg tablet 1,000 mg PO BID #180 tab 06/20/20 07/15/20 Rx hydrocodone 5 mg-acetaminophen 325 1 tab PO BID PRN #60 tab 06/26/20 07/15/20 Rx mg tablet amlodipine 10 mg tablet 10 mg PO DAILY 06/28/20 07/15/20 History hydralazine 100 mg tablet 100 mg PO BID 06/28/20 07/15/20 History glipizide 10 mg tablet, extended 10 mg PO DAILY #90 tab 07/02/20 07/15/20 Rx release 24 hr Clopidogrel Bisulfate [Plavix] 75 mg PO DAILY 07/10/20 07/15/20 History Doxycycline Hyclate [Vibra-Tab 100 mg PO BID 07/10/20 07/10/20 History 100mg tablet] Empagliflozin [Jardiance] 10 mg PO DAILY 07/10/20 07/15/20 History Gabapentin 800 mg PO TID 07/10/20 07/15/20 History Isosorbide Mononitrate [Isosorbide 120 mg PO DAILY 07/10/20 07/15/20 History Mononitrate ER] Repaglinide 1 mg PO TID 07/10/20 07/15/20 History Ticagrelor [Brilinta 90mg 90 mg PO BID 07/10/20 07/10/20 History Tablet] Umeclidinium Brm/Vilanterol Tr 1
--- NOTE | 2020-07-15 19:46 | PC.NURSE ---
PT ARRIVED TO FLOOR VIA W/C FROM ED W/STAFF AT 194
[2020-07-15 22:19] LABS: Troponin I < 0.01 ng/ml (0.00-0.034)
[2020-07-16] VITALS: BP 130/76; PULSE 70; PULSE 74; RESP 16; TEMP 36.6; O2SAT 93
--- NOTE | 2020-07-16 | CA_ITS ---
APPROVED REPORT Exam: Pharmacologic Technologist: Erica Ortega Ht: 6 ft 0 in Wt: 257 lbs BSA: 2.37 m2 HR: 65 bpm BP: 133/74 mmHg Indications: Shortness of Air, chest pain Medical History Medications: Amlodipine,,,,, Hydralazine,,,,, Isosorbide,,,,, Metformin,,,,, Gabapentin,,,,, Atorvastatin,,,,, Carvedilol,,,,, Glipizide,,,,, Ticagrelor,,,,, CloPIdogrel,,,,, KETOROLAC,,,,, JaRDiance,,,,, Stress Test Details Test: LEXISCAN HR Resting HR: 67 bpm Max Heart Rate (APMHR): 154.873710 bpm Max HR Achieved: 94 bpm Target HR (85% APMHR): 130.593558 bpm % of APMHR: 61.04 Recovery HR: 84 bpm BP Resting BP: 133.0/74.0 mmHg Max BP: 133.0/74.0 mmHg Recovery BP: 120.0/75.0 mmHg ECG Resting ECG: Normal sinus rhythm Clinical Reason for Termination: Completed Protocol Exercise duration: 04:00 min Highest Stage Achieved: Exercise capacity: 1.0 METs Stress ECG Conclusion Symptoms: None Arrhythmias/Ectopy: Intermittent pacing with capture. ST-T Changes: < 1.[address] segment changes. Conclusion: Non-diagnostic lexiscan stress test. Patient received the infusion per protocol without chest pain, ST segment changes or arrhythmias. Intermittent pacing with capture noted. See the nuclear report for further information. Electronically signed by : Karsten Johnson, 07/16/2020 16:16:02
[2020-07-16 04:00] VITALS: BP 129/65; PULSE 60; PULSE 67; RESP 17; TEMP 36.8; O2SAT 94
--- NOTE | 2020-07-16 04:02 | PC.NURSE ---
No c/o cp, n/v/d, or dizziness. C/o some soa as well as leg cramps upon admission; tx with norco; effectiveness reported. NSR per quality assurance monitor body.
--- NOTE | 2020-07-16 07:00 | CA_ITS ---
APPROVED REPORT EXAM: Comprehensive 2D, Doppler, and color-flow Echocardiogram Mold Designer: ANEL Monaco, RVS Ht: 6 ft 0 in Wt: 268lbs BSA: 2.41 HR: 69 bpm BP: 121/78 mmHg Indications: CP,SOA, CAD-STENTS, PACER, TIA 2D Dimensions IVSd 0.97 cm LVEF (Visual) 58.60 % PWd 0.84 cm LA Volume 26.30 mL LVDd 5.40 cm LA Volume Index 10.90 mL/m2 (M/F) 16-34 LVDs 3.71 cm LVOT 2.03 cm (M/F) 1.5-2.5 M-Mode Dimensions RVDd 3.22 cm (0.9-2.6) LA Diam 4.04 cm (1.9-4.0) LVDd 5.31 cm (3.5-5.7) Ao Diam 3.51 cm (2.0-3.7) LVDs 3.91 cm (3.5-5.7) IVSd 0.99 cm (0.6-1.1) PWd 0.76 cm (0.6-1.1) EF (Teich) 51.20% EPSs 1.09 cm FS 26.40% EDV (Teich) 135.90 mL TAPSE 1.84 (<1.7) ESV (Teich) 66.30 mL LV Diastology E Decel Time 233.00 (160-240 msec) E/A Ratio 0.84 MED E' 8.00 (< 7 cm/sec) MED A' 10.20 cm/s E'/MED E' Ratio 11.60 (>14) LAT E' 9.40 (<10 cm/sec) LAT A' 11.00 cm/s E/LAT E' Ratio 9.87 (>14) Pulm Vein s 38.00 cm/sec Pulm Vein d 20.00 cm/sec Ar-A Duration 113.00 msec Aortic Valve LVOT Max 92.00 (70-110 cm/s) LVOT VTI 18.75 cm AoV Peak Parrish. 138.00 (50-130 cm/s) AO Peak GR. 7.70 mmHg AO Mean GR. 3.80 (<5 mmHg) AO VTI 28.69 (18-25 cm) ÁNGEL (VTI) 2.12 (2.5-4.5 cm2) Mitral Valve MV A Velocity 110.00 (40-130 cm/s) E/A Ratio 0.84 MV Decel. Time 233.00 (160-240 ms) Pulmonary Valve PV Peak Velocity 84.00 (50-150 cm/s) Tricuspid Valve TR P. Velocity 244.00 cm/s RAP Estimate 10.00 mmHg RVSP 33.80 mmHg Left Ventricle Left atrium is mildly enlarged, left ventricle is normal size, mild concentric left ventricular hypertrophy, visually estimated ejection fraction 50% with no regional wall motion abnormality, grade 1 diastolic dysfunction seen without tissue Doppler evidence of raise left atrial pressure. Right Ventricle Right atrium and right ventricle are normal size and contractility, there is pacemaker lead seen in the right atrium and right ventricle. Aortic Valve Aortic valve is minimally thickened and fibrosed, there is no aortic stenosis or aortic insufficiency. Mitral Valve Mitral valve is grossly normal, there is trace mitral regurgitation. Tricuspid Valve Tricuspid grossly normal, there is trace tricuspid regurgitation, tricuspid regurgitation jet velocity is inadequate for calculation of the right ventricular systolic pressure. Pulmonic Valve Pulmonic valve is poorly visualized. Great Vessels Aortic root is normal size. Pericardium No significant pericardial effusion noted. Conclusion 1. Mildly enlarged left atrium, normal left ventricular size, mild concentric left ventricular hypertrophy, visually estimated ejection fraction 55% with no regional wall motion abnormality, grade 1 diastolic dysfunction seen without tissue Doppler evidence of raise left atrial pressure. 2. Trace mitral and tricuspid regurgitation. 3. No significant pericardial effusion noted. Electronically signed by : Karsten Johnson, 07/16/2020 19:46:01
--- NOTE | 2020-07-16 07:24 | P.CONPHA_ITS ---
[facility] Pharmacy VTE Monitoring - Patient Demographics Admission date: 07/15/20 Report Date: 07/16/20 Time: 07:25 Allergies/Adverse Reactions: Patient Allergies desvenlafaxine [From PRISTIQ] Allergy (Mild, Verified 07/15/20 21:21) Height: 1.83 m Weight: 116.687 kg Patient Problems: Current Active Problems Chest pain (Acute) - VTE Risk Labs: VTE Related Lab Results Hgb 15.0 g/dL (14.1-18.0) 07/15/20 15:35 Hct 45.1 % (42.0-52.0) 07/15/20 15:35 Plt Count 246 K/mm3 (142-424) 07/15/20 15:35 BUN 22 mg/dl (9-20) H 07/15/20 15:35 Creatinine 1.00 mg/dl (0.66-1.25) 07/15/20 15:35 VTE Score: 5 VTE Risk Level: Low Risk - Prophylaxis VTE Prophylaxis Ordered?: Yes Types of VTE Prophylaxis: TEDS Knee High Location of Applied Device: Bilateral Lower Extremeties
--- NOTE | 2020-07-16 07:26 | HMH.CNCARD ---
History of Present Illness Consult date: 07/16/20 Requesting physician: Fan Samuel Consult reason: shortness of breath Chief complaint: SOA Additional Medical History:: 1. Diabetes mellitus, treated for greater than 10 years 2. Hypertension A. Echo, 12/2018, 1. Mildly low left atrium, normal left ventricular size, mild concentric left ventricular hypertrophy, visually estimated ejection fraction 55% with no regional wall motion abnormality. Grade 1 diastolic dysfunction seen without tissue Doppler evidence of raise left atrial pressure. 2. Mild mitral and tricuspid regurgitation 3. No significant pericardial effusion noted 3. Hyperlipidemia 4. Strong family history of coronary artery disease in his father and younger brother. 5. Tobacco use of one half to one pack per week, reportedly discontinued 04/2019 A. COPD 6. History of pacemaker insertion for syncope 7. Coronary artery disease A. History of cardiac catheterization by Dr. Hall several years ago, [id number] CAD for which no intervention needed. [facility] in [place], [place]. B. Cardiac cath, 09/25/2017, EVIE to LAD. Persistent moderate mid dominant Circumflex, mid LAD and diagonal disease. Normal LVEF, LVEDP 35 mm Hg. C. Repeat Cardiac cath, 09/28/2017, due to recurrent chest pains. EVIE placed to mid LAD and to 2nd diagonal artery. Continue [facility], 04/2019 and 10/2019, ANGIOGRAPHIC RESULTS The left main artery Normal The left anterior descending artery Has stents in the proximal portion which are widely patent free of in-stent restenosis. The mid segment also has widely patent stents with minimal 20 to 30% in-stent restenosis. Large first diagonal artery bifurcates off a proximal LAD stent which has an ostial 30% [id number] stenosis The circumflex artery Is a large dominant vessel with mild luminal irregularities The right coronary artery Small nondominant The LIND ventriculogram reveals Preserved at 60% The left ventricular end-diastolic pressure 10 mmHg IMPRESSION Widely patent stents in the LAD diagonal artery as described above accompanied by slow MICHELLE II flow consistent with endothelial dysfunction Preserved ejection fraction Normal left ventricular end-diastolic pressure PLAN 1. Treat endothelial dysfunction 8. TIA with right facial symptoms, 03/[address] of head 9. Medication and follow up non-compliance due to financial issues History of present illness: 65-year-old white male with history as noted above presented to the emergency department for increasing shortness of breath over the last 2 weeks worse with lying down. Patient was recently seen in the office in April for complaint of chest pain which has been intermittent over the last couple years despite having normal stress test and cardiac catheterization x2 last year without need for intervention. Patient is known to have diastolic dysfunction with recommendation for medical therapy. He denies missing any doses of his medication or increasing his salt intake. He was admitted through the ER for shortness of breath with elevated D-dimer but CTA of the chest showing no evidence of pulmonary embolus. Cardiac enzymes have been normal x3. Echocardiogram is in process at this moment. Plan will be to proceed with stress testing for further evaluation. [facility] History Medical History: Reports:: Arrhythmia, Congestive Heart Failure, Chronic Obstructive Pulmonary Disease (COPD), Coronary Artery Disease, Depression, Diabetes Mellitus Type 2, Hyperlipidemia, Hypertension, Internal Pacemaker, Transient Ischemic Attacks (TIA) Denies:: Cancer, Diabetes Mellitus Type 1, MRSA, Seizures *Have you ever received a pneumonia vaccine?: No *Have you received a flu vaccine this season?: No Other Medical History: Reports: Arthritis, Glaucoma, Sinus Problems, Other. Denies: Blood Transfusion Reaction Lateralit
--- NOTE | 2020-07-16 07:42 | NM_ITS ---
APPROVED REPORT Exam: Nuclear Stress Test Indication: CAD, HTN, D.M., HYPERLIPIDEMIA, FM HX, C.P., SOB Patient Location: Outpatient Stress Tech: Erica Ortega [place] Tech:Danni Fletcher, ARRT, RT (R)(N) Ht: 6 ft 0 in Wt: 258 lbs HR: 65 bpm BP: 133/74 mmHg BSA: 2.37 m2 History: CAD, HTN, D.M., HYPERLIPIDEMIA, FM HX, C.P., SOB Procedure: Patient received a 0.4 mg of intravenous Lexiscan, resting heart rate 65 bpm, resting blood pressure 133/74 mmHg, with Lexiscan maximum heart rate achived was 91 bpm which is Less than 85 % of the maximum predicted heart rate and blood pressure was 130/68 mmHg. With Lexiscan, patient denied any complaint of chest pain. Electrocardiogram Resting electrocardiogram showed sinus rhythm, with Lexiscan there is less than 1.[address] segment depression noted from the baseline EKG. The EKG portion of the Lexiscan is nondiagnostic. Cardiac Stress and Resting SPECT Images: Cardiac Stress and Resting SPECT images were obtained using technetium 99m Myoview 31.5 mCi stress and 10.02 mCi at rest. Gated SPECT for analysis of segmental wall motion and calculation of the ejection fraction also done, prone images were also obtained. Cardiac stress and resting SPECT images show uniform myocardial activity without segmental perfusion abnormality, computer derived ejection fraction is 53% with no regional wall motion abnormality, right ventricle is normal size and contractility. Conclusion: 1. The EKG portion of the Lexiscan is nondiagnostic. 2. No scintigraphic evidence of reversible ischemia seen, computer derived ejection fraction is 53% with no regional wall motion abnormality, right ventricle is normal size and contractility. 3. Normal Lexiscan Myoview study. Electronically signed by : Karsten Johnson, 07/16/2020 16:31:45
[2020-07-16 08:00] VITALS: BP 132/67; PULSE 66; PULSE 70; RESP 18; TEMP 36.4; O2SAT 98
--- NOTE | 2020-07-16 10:27 | HMH.PHAINT ---
MEDICATION RECONCILIATION COMPLETED USING EXTERNAL FILL HISTORY AND HOME PHARMACY
[2020-07-16 11:41] VITALS: BMI 34.9
[2020-07-16 12:00] VITALS: BP 114/74; PULSE 60; PULSE 67; RESP 22; TEMP 37; O2SAT 95
[2020-07-16 16:00] VITALS: BP 128/69; PULSE 76; PULSE 80; RESP 16; TEMP 36.8; O2SAT 94
--- NOTE | 2020-07-16 16:25 | PC.NURSE ---
Pt has been A&Ox4 this shift. Lung sounds CTA. Active bowel sounds in all 4 quads. No c/o SOB or chest pain this shift. Pt has refused fingersticks and insulin doses this shift d/t fear of needles. Blood sugar levels received from pt's own continuous glucose monitor device. No other acute changes or complaints at this time.
--- NOTE | 2020-07-16 16:32 | HMH.DCSUM ---
General - General Admission date:: 07/15/20 Discharge date: 07/16/20 HPI HPI: 65-year-old male presented to the emergency department for increasing shortness of breath over the last 2 weeks worse with lying down and chest pain that comes and goes. Patient was recently seen by cardiology in April for complaint of chest pain which has been intermittent over the last couple years despite having normal stress test and cardiac catheterization x2 last year without need for intervention. Patient admitted for cardiology work up and monitoring of vitals and labs. Hospital Course Hospital Course: Laboratory Tests 07/15/20 07/15/20 07/15/20 15:35 15:35 15:35 WBC 6.0 RBC 4.94 Hgb 15.0 Hct 45.1 MCV 91.1 MCH 30.3 MCHC 33.2 RDW 13.8 Plt Count 246 MPV 7.5 Neut % (Auto) 58.4 Lymph % (Auto) 32.4 [place] % (Auto) 5.6 Eos % (Auto) 3.1 Baso % (Auto) 0.5 Neut # (Auto) 3.5 Lymph # (Auto) 2.0 [place] # (Auto) 0.3 Eos # (Auto) 0.2 Baso # (Auto) 0.0 D-Dimer Sodium 138 Potassium 4.5 Chloride 105 Carbon Dioxide 24 Anion Gap 13.5 BUN 22 H Creatinine 1.00 Estimated GFR 75 Est GFR ( Amer) 90 Glucose 378 H Calcium 10.0 Total Bilirubin 0.6 AST 39 ALT 37 Alkaline Phosphatase 100 Troponin I < 0.01 NT-Pro-B Natriuret Pep 42.3 Total Protein 8.0 Albumin 4.7 Globulin 3.3 H Albumin/Globulin Ratio 1.4 Chlamy pneumoniae PCR Adenovirus (PCR) B. pertussis DNA (PCR) Coronavirus OC43 (PCR) Coronavirus HKU1 (PCR) Coronavirus 229E (PCR) SARS-CoV-2 (PCR) Coronavirus NL63 (PCR) Human Metapneumovir PCR Influenza A (H1) PCR Influ A (H1N1/09) PCR Influenza A (H3) PCR Influenza Type A (PCR) Influenza Type B (PCR) M. pneumoniae (PCR) Parainfluenza 1 (PCR) Parainfluenza 2 (PCR) Parainfluenza 3 (PCR) Parainfluenza 4 (PCR) RSV (PCR) Entero/Rhino (PCR) 07/15/20 07/15/20 07/15/20 15:53 17:03 18:25 WBC RBC Hgb Hct MCV MCH MCHC RDW Plt Count MPV Neut % (Auto) Lymph % (Auto) [place] % (Auto) Eos % (Auto) Baso % (Auto) Neut # (Auto) Lymph # (Auto) [place] # (Auto) Eos # (Auto) Baso # (Auto) D-Dimer 0.74 H Sodium Potassium Chloride Carbon Dioxide Anion Gap BUN Creatinine Estimated GFR Est GFR ( Amer) Glucose Calcium Total Bilirubin AST ALT Alkaline Phosphatase Troponin I < 0.01 NT-Pro-B Natriuret Pep Total Protein Albumin Globulin Albumin/Globulin Ratio Chlamy pneumoniae PCR Not detected Adenovirus (PCR) Not detected B. pertussis DNA (PCR) Not detected Coronavirus OC43 (PCR) Not detected Coronavirus HKU1 (PCR) Not detected Coronavirus 229E (PCR) Not detected SARS-CoV-2 (PCR) Not detected Coronavirus NL63 (PCR) Not detected Human Metapneumovir PCR Not detected Influenza A (H1) PCR Not detected Influ A (H1N1/09) PCR Not detected Influenza A (H3) PCR Not detected Influenza Type A (PCR) Not detected Influenza Type B (PCR) Not detected M. pneumoniae (PCR) Not detected Parainfluenza 1 (PCR) Not detected Parainfluenza 2 (PCR) Not detected Parainfluenza 3 (PCR) Not detected Parainfluenza 4 (PCR) Not detected RSV (PCR) Not detected Entero/Rhino (PCR) Not detected 07/15/20 21:40 WBC RBC Hgb Hct MCV MCH MCHC RDW Plt Count MPV Neut % (Auto) Lymph % (Auto) [place] % (Auto) Eos % (Auto) Baso % (Auto) Neut # (Auto) Lymph # (Auto) [place] # (Auto) Eos # (Auto) Baso # (Auto) D-Dimer Sodium Potassium Chloride Carbon Dioxide Anion Gap BUN Creatinine Estimated GFR Est GFR ( Amer) Glucose Calcium Total Bilirubin AST ALT Alkaline Phosphatase Troponin I < 0.01 NT-Pro-B Natriuret
== END 2020-07-16 16:50 | disposition home or self-care (01) ==
LOC: ER 17:36 → 2ND 17:39
PROVIDERS: Admitting Provider Emergency Medicine; Emergency Provider Emergency Medicine; PCP Physician Assistant; Visit Provider Emergency Medicine
DX: R07.9 Chest pain, unspecified (principal); J44.9 Chronic obstructive pulmonary disease, unspecified; I11.0 Hypertensive heart disease with heart failure; I50.30 Unspecified diastolic (congestive) heart failure; Z95.5 Presence of coronary angioplasty implant and graft; Z88.8 Allergy status to other drugs, medicaments and biological substances; Z79.84 Long term (current) use of oral hypoglycemic drugs; E11.9 Type 2 diabetes mellitus without complications; Z79.899 Other long term (current) drug therapy; Z95.0 Presence of cardiac pacemaker
CPT/HCPCS: 71045; 71275; 78452; 80053; 83880; 84484; 85025; 85378; 87581; 87633; 87798; 93005; 93017; 93306; 96365; 99283; A9502; G0378; J2785; Q9967

== ENCOUNTER → 2020-08-09 14:05 | Outpatient (CLI) | payer MEDICARE, SELFPAY ==
--- NOTE | 2020-08-09 14:14 | XR_ITS ---
PROCEDURE: XR CHEST 2V CLINICAL HISTORY: Cough COMPARISON: CR XR CHEST 2V from 12/21/2018 CR XR CHEST 2V from 09/03/[address] ANGIO CHEST from 07/15/2020 CR XR CHEST PORTABLE from 07/15/2020 FINDINGS: Normal heart size. Bipolar pacemaker is present from left subclavian approach. There is some mild scarring in the left lower lobe. No acute bony abnormalities. IMPRESSION: No acute findings. Dictated by: Priyank Real MD 08/09/2020 14:38 Priyank Real MD in [place] 08/09/2020 14:38
== END ==
PROVIDERS: PCP Physician Assistant; Visit Provider Physician Assistant
DX: R05 Cough (principal)
CPT/HCPCS: 71046

== ENCOUNTER → 2020-08-10 11:08 | Outpatient (CLI) | payer MEDICARE, SELFPAY | PROVIDERS: Visit Provider Physician Assistant | DX: R05 Cough (principal) | CPT/HCPCS: 87070; 87205 ==

== ENCOUNTER → 2020-09-12 07:50 | Outpatient (CLI) | payer MEDICARE, SELFPAY | PROVIDERS: PCP Physician Assistant; Visit Provider Physician Assistant | DX: R06.02 Shortness of breath (principal) | CPT/HCPCS: 94060; 94726; 94729 ==

== ENCOUNTER → 2020-10-11 13:45 | Outpatient (CLI) | payer MEDICARE, SELFPAY | PROVIDERS: Visit Provider Physician Assistant | DX: N28.9 Disorder of kidney and ureter, unspecified (principal) | CPT/HCPCS: 87086 ==

== ENCOUNTER → 2020-10-15 06:32 | Outpatient (CLI) | payer MEDICARE, SELFPAY ==
--- NOTE | 2020-10-15 06:33 | CT_ITS ---
PROCEDURE INFORMATION: Exam: CT Abdomen And Pelvis Without Contrast Exam date and time: 10/15/2020 6:33 AM Age: 65 years old Clinical indication: Abdominal pain; Flank; Right; Additional info: Right flank pain, h/o stones TECHNIQUE: Imaging protocol: Computed tomography of the abdomen and pelvis without contrast. Radiation optimization: All CT scans at this facility use at least one of these dose optimization techniques: automated exposure control; mA and/or kV adjustment per patient size (includes targeted exams where dose is matched to clinical indication); or iterative reconstruction. COMPARISON: ABDPELW CT abdomen pelvis w con 01/31/2018 6:36 PM FINDINGS: Lungs: Minor bibasal dependent atelectasis. Liver: Normal. No mass. Gallbladder and bile ducts: Normal. No calcified stones. No ductal dilation. Pancreas: Normal. No ductal dilation. Spleen: Punctate calcified splenic granuloma. Adrenal glands: Normal. No mass. Kidneys and ureters: Punctate non-obstructing left renal calculus. Stomach and bowel: Few colonic diverticula. Appendix: No evidence of appendicitis. Intraperitoneal space: Unremarkable. No free air. No significant fluid collection. Vasculature: Atheromatous vascular calcification. Lymph nodes: Unremarkable. No enlarged lymph nodes. Urinary bladder: Unremarkable as visualized. Reproductive: Punctate prostatic calcification. Bones/joints: Prior L4-S1 fusion. Mild mid and lower lumbar spondylosis. Soft tissues: Unremarkable. IMPRESSION: 1. No evidence of obstruction. Punctate nonobstructing left renal calculus. 2. Minor bibasal dependent atelectasis. 3. Other nonacute findings above.
== END ==
LOC: RAD 06:33
PROVIDERS: PCP Physician Assistant; Visit Provider Physician Assistant
DX: R10.9 Unspecified abdominal pain (principal)
CPT/HCPCS: 74176

== ENCOUNTER → 2020-12-12 10:45 | Outpatient (CLI) | payer MEDICARE, SELFPAY ==
--- NOTE | 2020-12-12 10:46 | CA_ITS ---
APPROVED REPORT EXAM: Comprehensive 2D, Doppler, and color-flow Echocardiogram Respiratory Clinician: Alexandra Pearl RVT Ht: 6 ft 0 in Wt: 250lbs BSA: 2.34 BP: 124/86 mmHg Indications: soa,chf,cad,pacer,tia,copd,smoker,obesity,edema,htn,hld 2D Dimensions LVOT 2.22 cm (M/F) 1.5-2.5 LA Volume 18.80 mL LA Volume Index 8.03 mL/m2 (M/F) 16-34 M-Mode Dimensions RVDd 3.70 cm (0.9-2.6) LA Diam 3.79 cm (1.9-4.0) LVDd 4.31 cm (3.5-5.7) Ao Diam 3.39 cm (2.0-3.7) LVDs 2.74 cm (3.5-5.7) IVSd 0.36 cm (0.6-1.1) PWd 0.89 cm (0.6-1.1) EF (Teich) 66.50% FS 36.40% EDV (Teich) 83.50 mL TAPSE 2.22 (<1.7) ESV (Teich) 28.00 mL LV Diastology E Decel Time 150.00 (160-240 msec) E/A Ratio 0.7 MED E' 4.30 (< 7 cm/sec) E'/MED E' Ratio 14.05 (>14) LAT E' 6.50 (<10 cm/sec) E/LAT E' Ratio 9.29 (>14) Aortic Valve AO Peak GR. 5.10 mmHg Mitral Valve MV E Max Parrish. 60.00 (40-130 cm/s) MV A Velocity 91.00 (40-130 cm/s) E/A Ratio 0.66 MV Decel. Time 150.00 (160-240 ms) MV PHT 44.00 ms Pulmonary Valve PV Peak Velocity 104.00 (50-150 cm/s) Tricuspid Valve TR P. Velocity 232.00 cm/s RAP Estimate 10.00 mmHg RVSP 31.50 mmHg Left Ventricle Left atrium is mildly enlarged, left ventricle is normal size, mild concentric left ventricular hypertrophy, visually estimated ejection fraction 55% with no regional wall motion abnormality, diastolic parameters are inconclusive. Right Ventricle Right atrium and right ventricle mildly enlarged with normal contractility. Aortic Valve Aortic valve is minimally thickened and fibrosed, there is no aortic stenosis or aortic insufficiency. Mitral Valve Mitral valve grossly normal, there is trace mitral regurgitation. Tricuspid Valve Tricuspid valve is grossly normal, there is trace tricuspid regurgitation, tricuspid regurgitation jet velocity is inadequate for calculation of the right ventricular systolic pressure. Pulmonic Valve Pulmonic valve is poorly visualized. Great Vessels Aortic root is normal size. No significant pericardial effusion noted. Conclusion 1. Mild biatrial enlargement, normal left ventricular size, mild concentric left ventricular hypertrophy, visually estimated ejection fraction 55% with no regional wall motion abnormality, diastolic parameters are inconclusive. 2. Mildly enlarged right ventricle with normal contractility. Pacemaker lead seen in right ventricle. 3. Trace mitral and tricuspid regurgitation. 4. No significant pericardial effusion noted. Electronically signed by : Karsten Johnson MD 12/13/2020 15:46:25
== END ==
LOC: RT 10:46
PROVIDERS: PCP Physician Assistant; Visit Provider Physician Assistant
DX: E78.5 Hyperlipidemia, unspecified (principal); I10 Essential (primary) hypertension; R06.00 Dyspnea, unspecified; Z95.0 Presence of cardiac pacemaker; Z95.5 Presence of coronary angioplasty implant and graft; I20.8 Other forms of angina pectoris
CPT/HCPCS: 93306

== ENCOUNTER 2021-02-02 14:14 | Emergency (ER) | payer MEDICARE, SELFPAY ==
[2021-02-02 14:20] VITALS: BP 144/81; PULSE 84; RESP 17; TEMP 36.6; O2SAT 98; BMI 36.3
--- NOTE | 2021-02-02 14:46 | HMH.EDUTC ---
[facility] Disposition Clinical Impression: Contact dermatitis Qualifiers: Contact dermatitis type: allergic Contact dermatitis trigger: unspecified trigger Qualified Code(s): L23.9 - Allergic contact dermatitis, unspecified cause Disposition: Home, Self-Care Condition on Discharge: Good Instructions: DI for Contact Dermatitis Prescriptions: Triamcinolone Acetonide 1 gm TP BID 5 Days #15 gm Prescription Printed Referrals: Susanna Kohli PA [Primary Care Provider] - Time of Disposition: 14:56 Medical Decision Making - Raghav Inquiry Pt receiving controlled substance: No Vital Signs: 02/02/21 14:20 Temperature 97.8 F Temperature Source Oral Pulse Rate [Right Brachial] 84 Respiratory Rate 17 Blood Pressure [Right Arm] 144/81 H Blood Pressure Mean [Right Arm] 102 Blood Pressure Source [Right Arm] Automatic Cuff Blood Pressure Position [Right Arm] Sitting 02 Sat by Pulse Oximetry 98 Oxygen Delivery Method Room Air [facility] HPI - General Chief complaint: Urgent Treatment Center Stated complaint: rash on both arms Time Seen by Provider: 02/02/21 14:46 Mode of Arrival: Ambulatory Source of Information: Patient Limitations: No Limitations Description of Symptoms (Recalled from Triage Doc. by RN): PATIENT C/O RASH TO BILATERAL ARMS X 1 WEEK HEENT Symptoms (Recalled from RN notes): No Resp Symptoms (Recalled from RN notes): No Skin Symptoms (Recalled from RN notes): Yes MS Symptoms (Recalled from RN notes): No Functional Status (Recalled from RN notes): WNL - History of Present Illness Provider Complaint: 65 yr old male presents for rash to dane forearms. pt states rash itches - Related Data Home Medications Medication Instructions Recorded Confirmed aspirin 81 mg tablet,delayed 81 mg PO DAILY 12/05/20 01/01/21 release Previous Rx's Medication Instructions Recorded albuterol sulfate 90 mcg/actuation 2 puff INHALATION Q6H PRN #8.5 g 08/22/20 aerosol inhaler amlodipine 10 mg tablet 10 mg PO DAILY #30 tab 08/22/20 atorvastatin 40 mg tablet 40 mg PO DAILY #30 tab 08/22/20 carvedilol 25 mg tablet 25 mg PO BID #180 tab 08/22/20 clopidogrel 75 mg tablet 75 mg PO DAILY #30 tab 08/22/20 fluticasone fur. 100 mcg-umeclid 1 inh INHALATION DAILY #28 each 05/05/21 62.5 mcg-vilant 25 mcg inhalat.powder glipizide 10 mg tablet, extended 10 mg PO DAILY #30 tab 08/22/20 release 24 hr metformin 1,000 mg tablet 1,000 mg PO BID #60 tab 08/22/20 repaglinide 1 mg tablet 1 mg PO TID #90 tab 08/22/20 blood-glucose transmitter See Rx Instructions .ROUTE 10/01/20 .MEDSUPPLY #1 each tamsulosin 0.4 mg capsule 0.4 mg PO DAILY #30 cap 10/11/20 blood-glucose sensor See Rx Instructions .ROUTE 10/24/20 .MEDSUPPLY #3 each furosemide 20 mg tablet 20 mg PO QDAY #10 tab 12/05/20 gabapentin 800 mg tablet 800 mg PO TID #90 tab 01/01/21 hydrocodone 5 mg-acetaminophen 325 1 tab PO Q8H PRN #90 tab 01/01/21 mg tablet hydralazine 100 mg tablet 100 mg PO BID #60 tab 01/09/21 isosorbide mononitrate 120 mg 120 mg PO DAILY #30 tab 01/09/21 tablet,extended release 24 hr Triamcinolone Acetonide 1 gm TP BID 5 Days #15 gm 02/02/21 Allergies Allergy/AdvReac Type Severity Reaction Status Date / Time desvenlafaxine [From PRISTIQ] Allergy Mild Verified 01/01/21 09:02 - Worker's Comp Is this a Worker's Comp case?: No [facility] History - Hepatitis A Screen Drug use history?: No High risk sexual behaviors?: No History of sexually transmitted infection?: No Currently employed?: No Childcare worker?: No Do you have indoor plumbing?: Yes Do you have electricity?: Yes Attestation statement:: This patient has been screened for Hepatitis A risk factors. I have reviewed the patient's past medical history: Yes Medical History: Reports:: Arrhythmia, Congestive Heart Failure, Chronic Obstructive Pulmonary Disease (COPD), Coronary Artery Disease, Depression, Diabetes Mellitus Type 2, Hyperlipidemia, Hypertension, Internal Pacemak
[2021-02-02 14:53] VITALS: BP 144/81; PULSE 84; RESP 17; TEMP 36.6; O2SAT 98
== END 2021-02-02 15:01 | disposition home or self-care (01) ==
PROVIDERS: Emergency Provider Nurse Practitioner Family; PCP Physician Assistant
DX: L23.9 Allergic contact dermatitis, unspecified cause (principal); I25.10 Atherosclerotic heart disease of native coronary artery without angina pectoris; F33.1 Major depressive disorder, recurrent, moderate; E11.9 Type 2 diabetes mellitus without complications; E78.5 Hyperlipidemia, unspecified; I10 Essential (primary) hypertension; Z95.0 Presence of cardiac pacemaker; Z79.899 Other long term (current) drug therapy
CPT/HCPCS: G0463; 99202

== ENCOUNTER 2021-02-28 22:40 | Emergency (ER) | payer MEDICARE, SELFPAY ==
[2021-02-28 22:42] VITALS: BP 149/115; PULSE 106; RESP 18; TEMP 36.8; O2SAT 94; BMI 35.1
--- NOTE | 2021-02-28 22:52 | CT_ITS ---
PROCEDURE INFORMATION: Exam: CT Left Lower Extremity Without Contrast, Knee Exam date and time: 02/28/2021 10:52 PM Age: 65 years old Clinical indication: Injury or trauma; Fall; Blunt trauma; Patient HX: Fell into hole, left knee pain TECHNIQUE: Imaging protocol: CT of the Left lower extremity without contrast was performed. Exam focused on the knee. Radiation optimization: All CT scans at this facility use at least one of these dose optimization techniques: automated exposure control; mA and/or kV adjustment per patient size (includes targeted exams where dose is matched to clinical indication); or iterative reconstruction. COMPARISON: US ARTERIAL LOWER EXT REST 12/23/2018 9:22 AM FINDINGS: Bones/joints: No acute fracture. No dislocation. Mild tricompartmental osteoarthrosis. Chondromalacia of the lateral patellar facet. Soft tissues: There is anterior subcutaneous edema, greatest in the prepatellar and infrapatellar region. This could represent contusion. There is no organized hematoma. Small Johnson's cyst measuring 1.4 x 1.0 x 1.5 cm. IMPRESSION: 1. No acute fracture. 2. Anterior subcutaneous edema may represent contusion.
--- NOTE | 2021-02-28 22:52 | CT_ITS ---
PROCEDURE INFORMATION: Exam: CT Right Lower Extremity Without Contrast, Ankle Exam date and time: 02/28/2021 10:52 PM Age: 65 years old Clinical indication: Injury or trauma; Fall; Blunt trauma; Patient HX: Stepped in hole, right ankle pain TECHNIQUE: Imaging protocol: CT of the Right lower extremity without contrast was performed. Exam focused on the ankle. Radiation optimization: All CT scans at this facility use at least one of these dose optimization techniques: automated exposure control; mA and/or kV adjustment per patient size (includes targeted exams where dose is matched to clinical indication); or iterative reconstruction. COMPARISON: US ARTERIAL LOWER EXT REST 12/23/2018 9:22 AM FINDINGS: Bones/joints: No acute fracture. No dislocation. Small chronic/corticated ossific body near the distal tips of the mediolateral malleoli. Small linear corticated/chronic ossific body near the medial talar head, possibly an unusual appearing os navicular or sequela of remote trauma. Moderate to large calcaneal enthesophytes. Chronic 3 mm mineralized body in the anterior tibiotalar joint. Mild tibiotalar joint osteoarthrosis. No significant tibiotalar joint effusion. Soft tissues: Circumferential soft tissue swelling of the lower leg, ankle, and hindfoot (greatest laterally). There is a thin, crescentic hematoma overlying the lateral malleolus, which measures approximately 4.4 x 0.5 x 7.5 cm. IMPRESSION: 1. No acute fracture. 2. Circumferential soft tissue swelling, with a thin, crescent-shaped hematoma overlying the lateral malleolus measuring 4.4 x 0.5 x 7.5 cm.
--- NOTE | 2021-02-28 23:07 | HMH.EDFALL ---
ED Disposition Clinical Impression: Right ankle sprain Qualifiers: Encounter type: initial encounter Involved ligament of ankle: unspecified ligament Qualified Code(s): S93.401A - Sprain of unspecified ligament of right ankle, initial encounter Sprain of left knee Qualifiers: Encounter type: initial encounter Involved ligament of knee: unspecified ligament Qualified Code(s): S83.92XA - Sprain of unspecified site of left knee, initial encounter Disposition: Home, Self-Care Condition on Discharge: Good Instructions: DI for Ankle Sprain, DI for Knee Sprain Additional Instructions: call pcp for follow up Referrals: Susanna Kohli PA [Primary Care Provider] - - Critical Care Critical Care Time: No Attestation: On 02/28/21, the high probability of a clinically significant, sudden or life threatening deterioration of the following system(s) required my full and direct attention, intervention and personal management. The time I documented below is in addition to time spent performing reported procedures but includes the following listed in this critical care notation. Medical Decision Making - Medical Records Medical records reviewed: Yes: I reviewed the patient's medical records. - Raghav Inquiry Pt receiving controlled substance: No Vital Signs: 02/28/21 22:42 Temperature 98.3 F Temperature Source Oral Pulse Rate [Apical] 106 H Respiratory Rate 18 Blood Pressure [Right Arm] 149/115 H Blood Pressure Mean [Right Arm] 126 Blood Pressure Source [Right Arm] Automatic Cuff Blood Pressure Position [Right Arm] Sitting 02 Sat by Pulse Oximetry 94 L Oxygen Delivery Method Room Air - CT Data CT Scan: Other (rt ankle and lt knee ) Time Received: 00:[address] Reviewed: Yes: I have viewed the radiologist's interpretation Preliminary Findings: No Fracture Seen Medical Decision Narrative: no fx seen Fall HPI - General Chief Complaint: Fall Stated Complaint: ao 02/28@1999 INJURED R ANKLE/KNEE Time Seen by Provider: 02/28/21 23:00 Mode of Arrival: Ambulatory Source of Information: Patient, Medical Record Limitations: No Limitations Description of Symptoms (Recalled from ER Triage Doc. by RN): Patient states that 1.5 hours ago he stepped into a hole and curled his right ankle resulting in a fall. States that when he fell he hit his head and swisted his left knee. - History of Present Illness HPI Narrative: pt with acute injury to rt ankle and lt knee as stepped in hole complaint: fall Onset (ago): hour(s) Fall from: walking Fall witnessed: no Place fall occurred: street Loss of consciousness: none Prolonged down time: no Context: tripped/slipped Location of injury - extremities: Left: knee, Right: ankle Severity: moderate Associated symptoms (after fall): denies - Related Data Home Medications Medication Instructions Recorded Confirmed aspirin 81 mg tablet,delayed 81 mg PO DAILY 12/05/20 01/01/21 release Previous Rx's Medication Instructions Recorded albuterol sulfate 90 mcg/actuation 2 puff INHALATION Q6H PRN #8.5 g 08/22/20 aerosol inhaler atorvastatin 40 mg tablet 40 mg PO DAILY #30 tab 08/22/20 carvedilol 25 mg tablet 25 mg PO BID #180 tab 08/22/20 clopidogrel 75 mg tablet 75 mg PO DAILY #30 tab 08/22/20 fluticasone fur. 100 mcg-umeclid 1 inh INHALATION DAILY #28 each 08/22/20 62.5 mcg-vilant 25 mcg inhalat.powder glipizide 10 mg tablet, extended 10 mg PO DAILY #30 tab 08/22/20 release 24 hr metformin 1,000 mg tablet 1,000 mg PO BID #60 tab 08/22/20 repaglinide 1 mg tablet 1 mg PO TID #90 tab 08/22/20 blood-glucose transmitter See Rx Instructions .ROUTE 10/01/20 .MEDSUPPLY #1 each tamsulosin 0.4 mg capsule 0.4 mg PO DAILY #30 cap 10/11/20 blood-glucose sensor See Rx Instructions .ROUTE 10/24/20 .MEDSUPPLY #3 each furosemide 20 mg tablet 20 mg PO QDAY #10 tab 12/05/20 gabapentin 800 mg tablet 800 mg PO TID #90 tab 01/01/21 hydrocodone 5 mg-acetaminophen 325 1
[2021-03-01 00:31] VITALS: BP 140/93; PULSE 92; RESP 16; TEMP 36.7; O2SAT 95
== END 2021-03-01 00:32 | disposition home or self-care (01) ==
PROVIDERS: Emergency Provider Emergency Medicine; PCP Physician Assistant
DX: S93.401A Sprain of unspecified ligament of right ankle, initial encounter (principal); S83.92XA Sprain of unspecified site of left knee, initial encounter; W17.2XXA Fall into hole, initial encounter; Y92.89 Other specified places as the place of occurrence of the external cause; J44.9 Chronic obstructive pulmonary disease, unspecified; I25.10 Atherosclerotic heart disease of native coronary artery without angina pectoris; I10 Essential (primary) hypertension; E78.5 Hyperlipidemia, unspecified; Z95.0 Presence of cardiac pacemaker; Z79.899 Other long term (current) drug therapy
CPT/HCPCS: 73700; 99282

== ENCOUNTER → 2021-03-18 18:03 | Outpatient (CLI) | payer MEDICARE, SELFPAY ==
[2021-03-18 19:58] LABS: Amphetamine/Metha Screen,Urine Negative ng/ml (<1000); Barbiturates Screen,Urine Negative ng/ml (<200)
[2021-03-18 19:59] LABS: Benzodiazepines Screen,Urine Negative ng/ml (<200)
[2021-03-18 20:00] LABS: Cannabinoid Screen,Urine Negative ng/ml (<50)
[2021-03-18 20:01] LABS: Cocaine Screen,Urine Negative ng/ml (<300); Methadone Screen,Urine Negative ng/ml (<300)
[2021-03-18 20:02] LABS: Opiate Screen,Urine Negative ng/ml (<300)
[2021-03-18 20:03] LABS: Phencyclidine Screen,Urine Negative ng/ml (<25)
== END ==
PROVIDERS: Visit Provider Physician Assistant
DX: M25.512 Pain in left shoulder (principal)
CPT/HCPCS: 80305

== ENCOUNTER 2021-05-03 14:30 | Emergency (ER) | payer MEDICARE, SELFPAY ==
[2021-05-03 15:31] VITALS: BP 135/90; PULSE 104; RESP 18; TEMP 36.4; O2SAT 95; BMI 36.3
--- NOTE | 2021-05-03 17:10 | HMH.EDUTC ---
[facility] [place] Clinical Impression: Bronchitis, Viral syndrome Pharyngitis Qualifiers: Pharyngitis/tonsillitis etiology: unspecified etiology Qualified Code(s): J02.9 - Acute pharyngitis, unspecified Disposition: Home, Self-Care Condition on Discharge: Good Instructions: Preventing the Spread of Coronavirus Discharge Instructions, DI for COVID-19 (Suspected or Confirmed ), DI for Pharyngitis/Tonsillopharyngitis -- Adult, DI for Acute Bronchitis Additional Instructions: Drink plenty of fluids. Take tylenol or ibuprofen for pain or fever. Take the medications as directed. Follow up with your regular doctor. GO TO THE ER FOR ANY WORSENING SYMPTOMS Quarantine until you know the results of your covid-19 test. If it is positive, the health department should call you and give you further instructions about your length of Quarantine and other things. Notify your school or workplace of your results and follow their instructions regarding return to work/school. Prescriptions: Benzonatate [Benzonatate 100mg cap] 100 mg PO TIDP PRN #30 cap PRN Reason: Cough Transmission Status: Pending to [facility] Azithromycin [Z-Juan F 250mg Tab*] 250 mg PO UD DOSE PK #6 tab Transmission Status: Pending to [facility] Referrals: Susanna Kohli PA [Primary Care Provider] - Time of Disposition: 17:29 Medical Decision Making - Medical Records Medical records reviewed: No: I reviewed the patient's medical records. - Raghav Inquiry Pt receiving controlled substance: No - Lab Data Lab results reviewed: Yes: I reviewed the patient's lab results. Orders (Tests/Meds): ORDERS Category Date Time Status Covid-19 Nasal PCR ([facility]) Routine Lab 05/03/21 16:34 Received [facility] [place] HPI - General Stated complaint: sore throat, congestion, right ear pain Time Seen by Provider: 05/03/21 17:10 - History of Present Illness Provider Complaint: He states that he has had a sore throat, poor appetite and a cough for the past 4 days. He has been fully vaccinated against covid-19. He denies shortness of breath. He is a diabetic. - Related Data Home Medications Medication Instructions Recorded Confirmed aspirin 81 mg tablet,delayed 81 mg PO DAILY 12/05/20 03/18/21 release Previous Rx's Medication Instructions Recorded albuterol sulfate 90 mcg/actuation 2 puff INHALATION Q6H PRN #8.5 g 08/22/20 aerosol inhaler atorvastatin 40 mg tablet 40 mg PO DAILY #30 tab 08/22/20 carvedilol 25 mg tablet 25 mg PO BID #180 tab 08/22/20 fluticasone fur. 100 mcg-umeclid 1 inh INHALATION DAILY #28 each 08/22/20 62.5 mcg-vilant 25 mcg inhalat.powder repaglinide 1 mg tablet 1 mg PO TID #90 tab 08/22/20 blood-glucose transmitter See Rx Instructions .ROUTE 10/01/20 .MEDSUPPLY #1 each tamsulosin 0.4 mg capsule 0.4 mg PO DAILY #30 cap 10/11/20 blood-glucose sensor See Rx Instructions .ROUTE 10/24/20 .MEDSUPPLY #3 each furosemide 20 mg tablet 20 mg PO QDAY #10 tab 12/05/20 hydralazine 100 mg tablet 100 mg PO BID #60 tab 01/09/21 isosorbide mononitrate 120 mg 120 mg PO DAILY #30 tab 01/09/21 tablet,extended release 24 hr Triamcinolone Acetonide 1 gm TP BID 5 Days #15 gm 02/02/21 amlodipine 10 mg tablet See Rx Instructions .ROUTE 02/08/21 .COMPLEX #30 tab gabapentin 800 mg tablet 800 mg PO TID #90 tab 03/18/21 hydrocodone 5 mg-acetaminophen 325 1 tab PO Q8H PRN #90 tab 03/18/21 mg tablet clopidogrel 75 mg tablet 75 mg PO DAILY #30 tab 03/19/21 glipizide 10 mg tablet, extended 10 mg PO DAILY #30 tab 03/19/21 release 24 hr metformin 1,000 mg tablet 1,000 mg PO BID #60 tab 03/19/21 Azithromycin [Z-Juan F 250mg Tab*] 250 mg PO UD DOSE PK #6 tab 05/03/21 Benzonatate [Benzonatate 100mg 100 mg PO TIDP PRN #30 cap 05/03/21 cap] Allergies Allergy/AdvReac Type Severity Reaction Status Date / Time desvenlafaxine [From [employer]] Allergy Mild Verified 03/18/21 15:25 H History - Hepatitis
[2021-05-03 17:37] VITALS: BP 135/90; PULSE 104; RESP 18; TEMP 36.4
[2021-05-03 20:09] LABS: UTC Strep Screen (Rapid) Negative (Negative)
== END 2021-05-03 17:39 | disposition home or self-care (01) ==
PROVIDERS: Emergency Provider Nurse Practitioner Family; PCP Physician Assistant
DX: J20.9 Acute bronchitis, unspecified (principal); J02.9 Acute pharyngitis, unspecified; J44.9 Chronic obstructive pulmonary disease, unspecified; I25.10 Atherosclerotic heart disease of native coronary artery without angina pectoris; E11.9 Type 2 diabetes mellitus without complications; E78.5 Hyperlipidemia, unspecified; I10 Essential (primary) hypertension; Z20.822 Contact with and (suspected) exposure to COVID-19; Z79.899 Other long term (current) drug therapy
CPT/HCPCS: G0463; 87880; 99203; C9803; U0003; U0005

== ENCOUNTER 2021-07-07 23:25 | Observation (INO) | payer MEDICARE, SELFPAY ==
[2021-07-07 23:26] VITALS: BP 152/96; PULSE 98; RESP 18; TEMP 36.7; O2SAT 98; BMI 34.9
--- NOTE | 2021-07-07 23:26 | PC.NURSE ---
FSBS 259 on arrival
[2021-07-07 23:31] VITALS: BP 149/93; PULSE 98; RESP 14; O2SAT 94
--- NOTE | 2021-07-07 23:31 | XR_ITS ---
PROCEDURE INFORMATION: Exam: XR Chest Exam date and time: 07/07/2021 11:30 PM Age: 66 years old Clinical indication: Angina; Prior surgery; Surgery date: 6+ months; Surgery type: Stents and pacemaker TECHNIQUE: Imaging protocol: XR of the chest. Views: 2 views. COMPARISON: CR XR CHEST 2V 08/09/2020 2:15 PM FINDINGS: Tubes, catheters and devices: Left subclavian pacemaker leads overlie the right atrium and right ventricle. Lungs: Unremarkable. No consolidation. Pleural spaces: Unremarkable. No pleural effusion. No pneumothorax. Heart/Mediastinum: Unremarkable. No cardiomegaly. Bones/joints: Unremarkable. IMPRESSION: No acute cardiopulmonary findings.
--- NOTE | 2021-07-07 23:32 | ECG_ITS ---
APPROVED REPORT Exam: Resting ECG HR:96 bpm ECG Measurements Heart Rate 96 AXES WI 178 P 59 QRSd 113 QRS 62 QT 355 T 42 QTc 409 Conclusion SINUS RHYTHM Left atrial abnormality with incomplete right bundle branch block and poor R wave progression, unchanged from prior ABNORMAL ECG UNCONFIRMED REPORT Electronically signed by : Bradley Chung MD 07/09/2021 16:46:10
--- NOTE | 2021-07-07 23:33 | CT_ITS ---
PROCEDURE INFORMATION: Exam: CT Head Without Contrast Exam date and time: 07/07/2021 11:44 PM Age: 66 years old Clinical indication: Pain; Headache not specified TECHNIQUE: Imaging protocol: Computed tomography of the head without contrast. Radiation optimization: All CT scans at this facility use at least one of these dose optimization techniques: automated exposure control; mA and/or kV adjustment per patient size (includes targeted exams where dose is matched to clinical indication); or iterative reconstruction. COMPARISON: CT HEAD/BRAIN WO CON 01/25/2019 7:09 PM FINDINGS: Brain: Normal. No hemorrhage. Unremarkable white matter. No mass effect. Cerebral ventricles: No ventriculomegaly. Paranasal sinuses: Visualized sinuses are unremarkable. No fluid levels. Mastoid air cells: Visualized mastoid air cells are well aerated. Bones/joints: Unremarkable. No acute fracture. Soft tissues: Unremarkable. IMPRESSION: No acute intracranial abnormality.
[2021-07-07 23:52] LABS: Basophils # 0.1 K/mm3 (0-0.2); Basophils % 1.4 % (0.1-2.0); Eosinophils # 0.1 K/mm3 (0.0-0.4); Eosinophils % 1.3 % (0.1-12.0); Lymphocytes # 2.9 K/mm3 (0.7-4.5); Lymphocytes % 37.8 % (10-50); Mean Corpuscular HGB Conc 32.7 g/dL (31.8-35.4); Mean Corpuscular Hemoglobin 30.9 pg (27.0-31.2); Mean Corpuscular Volume 94.7 fl (80-94); Mean Platelet Volume 7.9 fl (7.4-10.4); Monocytes # 0.5 K/mm3 (0.1-1.0); Neutrophils # 4.1 K/mm3 (1.8-7.8); Neutrophils % 53.6 % (37.0-80.0); Platelet Count 246 K/mm3 (142-424); Red Blood Count 5.18 M/mm3 (4.60-6.20); Red Cell Distribution Width 14.3 % (11.5-17.5); White Blood Count 7.7 K/mm3 (4.8-10.8)
[2021-07-07 23:53] LABS: Alanine Aminotransferase 43 U/L (12-78); Albumin Level 4.3 g/dl (3.5-5.0); Albumin/Globulin Ratio 1.4 (1.1-1.8); Alkaline Phosphatase 76 U/L (38-126); Amylase 91 U/L (30-110); Aspartate Amino Transferase 42 U/L (17-59); Bilirubin,Total 0.6 mg/dl (0.2-1.3); Blood Urea Nitrogen 25 mg/dl (9-20); Calcium 9.6 mg/dl (8.4-10.2); Carbon Dioxide 23 mmol/L (22.0-30.0); Chloride 102 mmol/L (98-107); Creatinine Clearance Estimated 108 mL/min (50-200); Estimated Glomerular Filt Rate 67 ml/min (>60); GFR (African American) 81 ML/MIN (>60); Glucose 270 mg/dl (74-100); Lipase 140 U/L (23-300); Sodium 135 mmol/L (136-145); Total Protein,Serum 7.3 g/dl (6.3-8.2)
[2021-07-07 23:59] LABS: C-Reactive Protein 8.4 mg/L (0-4)
[2021-07-08] VITALS (9 sets, daily range): BP systolic 132–166; BP diastolic 77–104; PULSE 65–94; RESP 14–18; TEMP 36.6–37.1; O2SAT 93–98; BMI 34.9; BMI 33.0
--- NOTE | 2021-07-08 | CA_ITS ---
APPROVED REPORT Exam: Pharmacologic Technologist: Carmen Madsen, Ht: 6 ft 0 in Wt: 242 lbs BSA: 2.31 m2 HR: 69 bpm BP: 136/84 mmHg Medical History Medications: Amlodipine,,,,, Aspirin,,,,, Metformin,,,,, Gabapentin,,,,, Carvedilol,,,,, PERCOCET,,,,, Lipitor,,,,, CloPIdogrel,,,,, TAMULOSIN,,,,, Repaglinide,,,,, Furosemide,,,,, Isosorbide Mononirate,,,,, Stress Test Details Test: LEXISCAN HR Resting HR: 72 bpm Max Heart Rate (APMHR): 153.338549 bpm Max HR Achieved: 90 bpm Target HR (85% APMHR): 130.288521 bpm % of APMHR: 58.82 Recovery HR: 83 bpm BP Resting BP: 136/84 mmHg Max BP: 136/84 mmHg Recovery BP: 121.0/77.0 mmHg ECG Resting ECG: NSR Clinical Reason for Termination: Completed Protocol Exercise duration: 04:01 min Highest Stage Achieved: Exercise capacity: 1.0 METs Stress ECG Conclusion Symptoms: None Arrhythmias/Ectopy: None ST-T Changes: <1.5mm ST Segment changes Conclusion: Non-Diagnostic Test Summary REST . . . . . . . Resting REST 04:42 . . 72 . 136/ 84 . . Stage 1 01:00 . . 81 . . . . Stage 2 01:00 . . 90 . 119/ 68 . . Stage 3 01:00 . . 86 . 122/ 77 . . Stage 4 01:00 . . 83 . 132/ 84 . . Stage 4 01:01 . . 83 . 132/ 84 . Stop exercise at 04:01 RECOVERY 01:00 . . 83 . . . . RECOVERY 02:00 . . 82 . 121/ 77 . . RECOVERY 02:01 . . 82 . 121/ 77 . . Electronically signed by : Karsten Johnson MD 07/08/2021 15:57:06
[2021-07-08 00:11] LABS: Troponin I < 0.01 ng/ml (0.00-0.034)
[2021-07-08 00:13] LABS: Procalcitonin 0.109 ng/mL (0.0-2.0)
[2021-07-08 00:17] LABS: Erythrocyte Sedimentation Rate 19 mm/hr (0-20)
--- NOTE | 2021-07-08 00:52 | HMH.EDCP ---
ED Disposition Clinical Impression: Unstable angina pectoris, Cardiac pacemaker in situ, Obesity (BMI 30-39.9) Diabetes Qualifiers: Diabetes mellitus type: type 2 Diabetes mellitus care home insulin use: unspecified care home insulin use status Diabetes mellitus complication status: with other specified complication Qualified Code(s): E11.69 - Type 2 diabetes mellitus with other specified complication Disposition: Admitted as Observation Condition on Discharge: Good Referrals: Susanna Kohli PA [Primary Care Provider] - - Critical Care Critical Care Time: No Attestation: On 07/07/21, the high probability of a clinically significant, sudden or life threatening deterioration of the following system(s) required my full and direct attention, intervention and personal management. The time I documented below is in addition to time spent performing reported procedures but includes the following listed in this critical care notation. Medical Decision Making - Medical Records Medical records reviewed: Yes: I reviewed the patient's medical records. - Raghav Inquiry Pt receiving controlled substance: No Vital Signs: 07/07/21 23:26 07/07/21 23:31 07/08/21 00:00 Temperature 98.1 F Temperature Source Oral Pulse Rate 98 H 94 H Pulse Rate [Apical] 98 H Respiratory Rate 18 14 14 Blood Pressure 149/93 H Blood Pressure [Right Arm] 152/96 H Blood Pressure Mean 111 Blood Pressure Mean [Right Arm] 114 Blood Pressure Source [Right Arm] Manual Cuff/ Auscultation Blood Pressure Position [Right Arm] Sitting 02 Sat by Pulse Oximetry 98 94 L 94 L Oxygen Delivery Method Room Air 07/08/21 00:30 Temperature Temperature Source Pulse Rate 92 H Pulse Rate [Apical] Respiratory Rate 14 Blood Pressure Blood Pressure [Right Arm] Blood Pressure Mean Blood Pressure Mean [Right Arm] Blood Pressure Source [Right Arm] Blood Pressure Position [Right Arm] 02 Sat by Pulse Oximetry 94 L Oxygen Delivery Method - Lab Data Lab results reviewed: Yes: I reviewed the patient's lab results. Lab Results 07/07/21 23:30: WBC 7.7, RBC 5.18, Hgb 16.0, Hct 49.0, MCV 94.7 H, MCH 30.9, MCHC 32.7, RDW 14.3, Plt Count 246, MPV 7.9, Neut % (Auto) 53.6, Lymph % (Auto) 37.8, [place] % (Auto) 6.0, Eos % (Auto) 1.3, Baso % (Auto) 1.4, Neut # (Auto) 4.1, Lymph # (Auto) 2.9, [place] # (Auto) 0.5, Eos # (Auto) 0.1, Baso # (Auto) 0.1, ESR 19 07/07/21 23:30: Sodium 135 L, Potassium 4.0, Chloride 102, Carbon Dioxide 23, Anion Gap 14.0, BUN 25 H, Creatinine 1.10, Estimated Creat Clear 108, Estimated GFR 67, Est GFR ( Amer) 81, Glucose 270 H, Calcium 9.6, Total Bilirubin 0.6, AST 42, ALT 43, Alkaline Phosphatase 76, Troponin I < 0.01, C-Reactive Protein 8.4 H, Total Protein 7.3, Albumin 4.3, Globulin 3.0, Albumin/Globulin Ratio 1.4, Amylase 91, Lipase 140, Procalcitonin 0.109 Result diagrams: 07/07/21 23:30 07/07/21 23:30 Orders (Tests/Meds): ED MEDICATIONS Generic Name Dose Route Start Last Admin Trade Name Freq PRN Reason Stop Dose Admin Lactated Ringer's 1,000 mls @ 999 mls/hr 07/07/21 23:45 07/07/21 23:38 Lactated Ringer's 1000 Ml Bag IV 07/08/21 00:45 999 mls/hr .Q1H1M JUAN CARLOS Administration Discontinued Medications Generic Name Dose Route Start Last Admin Trade Name Freq PRN Reason Stop Dose Admin Aspirin 324 mg 07/07/21 23:32 07/07/21 23:37 Aspirin 81mg Chewable Tablet PO 07/07/21 23:33 324 mg ONCE ONE Administration Ketorolac Tromethamine 30 mg 07/08/21 00:55 07/08/21 00:56 Ketorolac 30mg/Ml Vial IV 07/08/21 00:56 30 mg ONCE ONE Administration Nitroglycerin 0.4 mg 07/07/21 23:32 07/07/21 23:38 Nitroglycerin 0.4mg Sl Tablet SL 07/07/21 23:33 0.4 mg ONCE ONE Administration Nitroglycerin 1 gm 07/08/21 00:51 07/08/21 00:53 Nitroglycerin 1 Gm Ointment TD 07/08/21 00:52 1 gm ONCE ONE Administration ORDERS Category Date Time Status Rapid PCR Covi
[2021-07-08 01:10] LABS: Coronavirus 19, PCR Not Detected (NotDetected); Influenza A, PCR Not Detected (NotDetected); Influenza B, PCR Not Detected (NotDetected)
--- NOTE | 2021-07-08 01:10 | PC.NURSE ---
House notified for bed assignment.
--- NOTE | 2021-07-08 02:03 | PC.NURSE ---
patient up to floor via wheelchair @ this time.
[2021-07-08 03:29] LABS: Troponin I < 0.01 ng/ml (0.00-0.034)
[2021-07-08 05:42] LABS: Basophils # 0.1 K/mm3 (0-0.2); Basophils % 1.6 % (0.1-2.0); Eosinophils # 0.1 K/mm3 (0.0-0.4); Eosinophils % 2.5 % (0.1-12.0); Hematocrit 42.4 % (42.0-52.0); Hemoglobin 13.7 g/dL (14.1-18.0); Lymphocytes # 2.5 K/mm3 (0.7-4.5); Lymphocytes % 44.5 % (10-50); Mean Corpuscular HGB Conc 32.4 g/dL (31.8-35.4); Mean Corpuscular Hemoglobin 30.9 pg (27.0-31.2); Mean Corpuscular Volume 95.5 fl (80-94); Mean Platelet Volume 7.9 fl (7.4-10.4); Monocytes # 0.4 K/mm3 (0.1-1.0); Neutrophils # 2.5 K/mm3 (1.8-7.8); Neutrophils % 44.3 % (37.0-80.0); Platelet Count 202 K/mm3 (142-424); Red Blood Count 4.44 M/mm3 (4.60-6.20); Red Cell Distribution Width 14.4 % (11.5-17.5); White Blood Count 5.7 K/mm3 (4.8-10.8)
[2021-07-08 05:50] LABS: Anion Gap 10.1 mEq/L (5-15); Blood Urea Nitrogen 31 mg/dl (9-20); Calcium 9.2 mg/dl (8.4-10.2); Carbon Dioxide 27 mmol/L (22.0-30.0); Chloride 103 mmol/L (98-107); Chol/HDL Ratio 4.9 (1-3.5); Cholesterol 151 mg/dl (140-200); Creatinine Clearance Estimated 108 mL/min (50-200); Estimated Glomerular Filt Rate 67 ml/min (>60); GFR (African American) 81 ML/MIN (>60); HDL Cholesterol 31 mg/dl (40-60); Magnesium 1.7 mg/dl (1.6-2.3); Potassium 4.1 mmoL/L (3.5-5.1); Sodium 136 mmol/L (136-145); Triglycerides 380 mg/dl (30-150); VLDL Cholesterol 76 mg/dL (0-40)
[2021-07-08 06:01] LABS: Direct LDL Cholesterol 57.26 mg/dL (100-129)
[2021-07-08 06:03] LABS: Troponin I < 0.01 ng/ml (0.00-0.034)
[2021-07-08 06:04] LABS: Glucose 203 mg/dl (74-100)
--- NOTE | 2021-07-08 06:06 | PC.NURSE ---
0530 Patient refusing to be stuck by lab r/t fear of needles. Patient allowed RN to draw lab from Peripheral IV.
--- NOTE | 2021-07-08 07:24 | P.CONPHA_ITS ---
[facility] VTE Monitoring - Patient Demographics Admission date: 07/08/21 Report Date: 07/08/21 Time: 07:24 Allergies/Adverse Reactions: Patient Allergies desvenlafaxine [From [employer]] Allergy (Mild, Verified 05/28/21 16:06) Height: 1.83 m Weight: 110.495 kg Patient Problems: Current Active Problems Unstable angina pectoris (Acute) Obesity (BMI 30-39.9) (Acute) Cardiac pacemaker in situ (Chronic) Diabetes (Chronic) - VTE Risk Labs: VTE Related Lab Results Hgb 13.7 g/dL (14.1-18.0) L D 07/08/21 05:30 Hct 42.4 % (42.0-52.0) 07/08/21 05:30 Plt Count 202 K/mm3 (142-424) 07/08/21 05:30 BUN 31 mg/dl (9-20) H 07/08/21 05:30 Creatinine 1.10 mg/dl (0.66-1.25) 07/08/21 05:30 Estimated Creat Clear 108 mL/min (50-200) 07/08/21 05:30 - Prophylaxis VTE Prophylaxis Ordered?: Yes Types of VTE Prophylaxis: TEDS Knee High Location of Applied Device: Bilateral Lower Extremeties
--- NOTE | 2021-07-08 07:48 | NM_ITS ---
APPROVED REPORT Exam: Nuclear Stress Test Indication: Chest pain, SOB, CAD, Pacemaker, HTN, DM, High cholesterol, Family history Patient Location: Inpatient Stress Tech: Carmen Cullen [place] Tech:Danni Fletcher, ARRT, RT (R)(N) Ht: 6 ft 0 in Wt: 258 lbs HR: 72 bpm BP: 136/84 mmHg BSA: 2.37 m2 History: Chest pain, SOB, CAD, Pacemaker, HTN, DM, High cholesterol, Family history Procedure: Patient received a 0.4 mg of intravenous Lexiscan, resting heart rate 72 bpm, resting blood pressure 136/84 mmHg, with Lexiscan maximum heart rate achived was 90 bpm which is Less than 85 % of the maximum predicted heart rate and blood pressure was 136/84 mmHg. With Lexiscan, patient denied any complaint of chest pain. Electrocardiogram Resting electrocardiogram shows sinus rhythm, with Lexiscan there is less than 1.[address] segment depression noted from the baseline EKG. The EKG portion of the Lexiscan is nondiagnostic Cardiac Stress and Resting SPECT Images: Cardiac Stress and Resting SPECT images were obtained using technetium 99m Myoview 31.2 mCi stress and 10.95 mCi at rest. Gated SPECT analysis of segmental wall motion and calculation of the ejection fraction also done. Prone images were also obtained. Cardiac stress and resting SPECT images show uniform myocardial activity without segmental perfusion abnormality, computer derived ejection fraction is 59% with no regional wall motion abnormality, right ventricle is normal size and contractility. Conclusion: 1. The EKG portion of the Lexiscan is nondiagnostic. 2. No scintigraphic evidence of reversible ischemia seen, compared right ejection fraction 59% with no regional wall motion abnormality, right ventricle is normal size and contractility. 3. Likely normal Lexiscan Myoview study. Electronically signed by : Karsten Johnson MD 07/08/2021 16:00:51
--- NOTE | 2021-07-08 07:49 | HMH.CNCARD ---
History of Present Illness Consult date: 07/08/21 Requesting physician: Fan Samuel Consult reason: chest pain Chief complaint: chest pain Additional Medical History:: 1. Diabetes mellitus, treated for greater than 10 years 2. Hypertension A. Echo, 11/2020, 1. Mild biatrial enlargement, normal left ventricular size, mild concentric left ventricular hypertrophy, visually estimated ejection fraction 55% with no regional wall motion abnormality, diastolic parameters are inconclusive. 2. Mildly enlarged right ventricle with normal contractility. Pacemaker lead seen in right ventricle. 3. Trace mitral and tricuspid regurgitation. 4. No significant pericardial effusion noted. 3. Hyperlipidemia 4. Strong family history of coronary artery disease in his father and younger brother. 5. Tobacco use of one half to one pack per week, reportedly discontinued 04/2019 A. COPD 6. History of pacemaker insertion for syncope 7. Coronary artery disease A. History of cardiac catheterization by Dr. Hall several years ago, [id number] CAD for which no intervention needed. [facility] in [place], [place]. B. Cardiac cath, 09/25/2017, EVIE to LAD. Persistent moderate mid dominant Circumflex, mid LAD and diagonal disease. Normal LVEF, LVEDP 35 mm Hg. C. Repeat Cardiac cath, 09/28/2017, due to recurrent chest pains. EVIE placed to mid LAD and to 2nd diagonal artery. Continue DAPT. D. [facility], 04/2019 and 10/2019, ANGIOGRAPHIC RESULTS The left main artery Normal The left anterior descending artery Has stents in the proximal portion which are widely patent free of in-stent restenosis. The mid segment also has widely patent stents with minimal 20 to 30% in-stent restenosis. Large first diagonal artery bifurcates off a proximal LAD stent which has an ostial 30% [id number] stenosis The circumflex artery Is a large dominant vessel with mild luminal irregularities The right coronary artery Small nondominant The LIND ventriculogram reveals Preserved at 60% The left ventricular end-diastolic pressure 10 mmHg IMPRESSION Widely patent stents in the LAD diagonal artery as described above accompanied by slow MICHELLE II flow consistent with endothelial dysfunction Preserved ejection fraction Normal left ventricular end-diastolic pressure PLAN 1. Treat endothelial dysfunction E. Darshan myoview, 06/2020, No ischemia. EF 53%. 8. TIA with right facial symptoms, 03/[address] of head 9. Medication and follow up non-compliance due to financial issues History of present illness: 66-year-old white male with known history of coronary artery disease and medication noncompliance presented to the emergency department yesterday for onset of substernal chest discomfort with radiation to the right arm lasting only a minute or 2 at a time. He relates some exertional component but also states it may occur at rest as well. Denies any GI complaints no recent fever, chills vomiting or diarrhea. He maintains he has been compliant with his medication. Patient was admitted for evaluation through the ER. Nitroglycerin paste was placed in his chest. He denies any chest pain overnight. Troponins have returned normal x3. EKG is sinus rhythm with incomplete right bundle and poor R wave progression anteriorly. No acute ST segment changes noted. Patient is known to have had a normal Recochemiscan Myoview 1 year ago. His last cardiac catheterization was in 2019x2 both showing widely patent LAD and diagonal stents. Cardiology consulted for evaluation recommendations. [facility] History Medical History: Reports:: Arrhythmia, Congestive Heart Failure, Chronic Obstructive Pulmonary Disease (COPD), Coronary Artery Disease, Depression, Diabetes Mellitus Type 2, Heart Murmur, Hyperlipidemia, Hypertension, Internal Pacemaker, Transient Ischemic Attacks (TIA) Denies:: Cancer, Diabetes Mellitus Type 1, MRSA
--- NOTE | 2021-07-08 08:00 | CA_ITS ---
APPROVED REPORT EXAM: Comprehensive 2D, Doppler, and color-flow Echocardiogram Instructional Support Specialist: Giana Booth RDCS Ht: 6 ft 0 in Wt: 260lbs BSA: 2.38 BP: 146/89 mmHg Indications: CP,REDDING,SOA,OBESITY,DM 2D Dimensions LVOT 1.86 cm (M/F) 1.5-2.5 M-Mode Dimensions RVDd 2.54 cm (0.9-2.6) LA Diam 3.55 cm (1.9-4.0) LVDd 4.72 cm (3.5-5.7) Ao Diam 3.16 cm (2.0-3.7) LVDs 3.36 cm (3.5-5.7) IVSd 0.75 cm (0.6-1.1) PWd 0.89 cm (0.6-1.1) EF (Teich) 55.40% FS 28.80% EDV (Teich) 103.40 mL ESV (Teich) 46.10 mL LV Diastology E Decel Time 193.00 (160-240 msec) E/A Ratio 0.7 MED E' 4.20 (< 7 cm/sec) E'/MED E' Ratio 12.83 (>14) LAT E' 4.30 (<10 cm/sec) E/LAT E' Ratio 12.53 (>14) Mitral Valve MV E Max Parrish. 54.00 (40-130 cm/s) MV A Velocity 79.00 (40-130 cm/s) E/A Ratio 0.68 MV Decel. Time 193.00 (160-240 ms) MV PHT 57.00 ms Left Ventricle Left atrium is mildly enlarged, left ventricle is normal size, mild concentric left ventricular hypertrophy, visually estimated ejection fraction 55% with no regional wall motion abnormality, grade 1 diastolic dysfunction seen without tissue Doppler evidence of raise left atrial pressure. Right Ventricle Right atrium and right ventricle are mildly enlarged with normal contractility. Aortic Valve Aortic valve is minimally thickened and fibrosed, there is no aortic stenosis or aortic insufficiency. Mitral Valve Mitral valve grossly normal, there is trace mitral regurgitation. Tricuspid Valve Tricuspid grossly normal, there is trace tricuspid regurgitation, tricuspid regurgitation jet velocity is inadequate for calculation of the right ventricular systolic pressure. Pulmonic Valve Pulmonic valve is poorly visualized. Great Vessels Aortic root is normal size. Inferior vena cava is poorly visualized. Pericardium No significant pericardial effusion noted. Conclusion 1. Mild biatrial enlargement, normal left ventricular size, mild concentric left ventricular hypertrophy, visually estimated ejection fraction 55% with no regional wall motion abnormality, grade 1 diastolic dysfunction seen without tissue Doppler evidence of raise left atrial pressure. 2. Mildly enlarged right ventricle with normal contractility. 3. Trace mitral and tricuspid regurgitation. 4. No significant pericardial effusion noted. 5. Inferior vena cava is poorly visualized. Electronically signed by : Karsten Johnson MD 07/08/2021 15:51:39
--- NOTE | 2021-07-08 09:38 | HMH.PHACONS ---
- Pharmacy Consult Date: 07/08/21 Time: 09:38 Referring provider: DR BEACH Reason for Consult:: VANCOMYCIN DOSING CONSULT Allergies and ADEs:: Allergies Allergy/AdvReac Type Severity Reaction Status Date / Time desvenlafaxine [From PRISTIQ] Allergy Mild Verified 05/28/21 16:06 Home Medications:: Home Medications Medication Instructions Recorded Confirmed Type carvedilol 25 mg tablet 25 mg PO BID #180 tab 08/22/20 07/08/21 Rx aspirin 81 mg tablet,delayed 81 mg PO DAILY 12/05/20 07/08/21 History release clopidogrel 75 mg tablet 75 mg PO DAILY #30 tab 03/19/21 07/08/21 Rx metformin 1,000 mg tablet 1,000 mg PO BID #60 tab 03/19/21 07/08/21 Rx gabapentin 800 mg tablet 800 mg PO TID #90 tab 05/28/21 07/08/21 Rx hydrocodone 5 mg-acetaminophen 325 1 tab PO Q8H PRN #90 tab 05/28/21 07/08/21 Rx mg tablet Amlodipine Besylate [Amlodipine See Rx Instructions .ROUTE .COMPLEX 07/08/21 07/08/21 History 10mg Tab] Atorvastatin Calcium [Lipitor 40mg See Rx Instructions .ROUTE .COMPLEX 07/08/21 07/08/21 History Tab] Furosemide [Furosemide 20mg Tab*] 20 mg PO QDAY 07/08/21 07/08/21 History Isosorbide Mononitrate [Isosorbide See Rx Instructions .ROUTE .COMPLEX 07/08/21 07/08/21 History Mononitrate ER] Repaglinide See Rx Instructions .ROUTE .COMPLEX 07/08/21 07/08/21 History Tamsulosin HCl 0.4 mg PO DAILY 07/08/21 07/08/21 History Height: 1.83 m Weight: 110.495 kg Laboratory Results:: Laboratory Results - last 24 hr 07/07/21 23:30: WBC 7.7, RBC 5.18, Hgb 16.0, Hct 49.0, MCV 94.7 H, MCH 30.9, MCHC 32.7, RDW 14.3, Plt Count 246, MPV 7.9, Neut % (Auto) 53.6, Lymph % (Auto) 37.8, [place] % (Auto) 6.0, Eos % (Auto) 1.3, Baso % (Auto) 1.4, Neut # (Auto) 4.1, Lymph # (Auto) 2.9, [place] # (Auto) 0.5, Eos # (Auto) 0.1, Baso # (Auto) 0.1, ESR 19 07/07/21 23:30: Sodium 135 L, Potassium 4.0, Chloride 102, Carbon Dioxide 23, Anion Gap 14.0, BUN 25 H, Creatinine 1.10, Estimated Creat Clear 108, Estimated GFR 67, Est GFR ( Amer) 81, Glucose 270 H, Calcium 9.6, Total Bilirubin 0.6, AST 42, ALT 43, Alkaline Phosphatase 76, Troponin I < 0.01, C-Reactive Protein 8.4 H, Total Protein 7.3, Albumin 4.3, Globulin 3.0, Albumin/Globulin Ratio 1.4, Amylase 91, Lipase 140, Procalcitonin 0.109 07/08/21 01:03: SARS-CoV-2 (PCR) Not detected, Influenza A Untype (PCR) Not detected, Influenza Type B (PCR) Not detected 07/08/21 02:50: Troponin I < 0.01 07/08/21 05:30: Sodium 136, Potassium 4.1, Chloride 103, Carbon Dioxide 27, Anion Gap 10.1, BUN 31 H, Creatinine 1.10, Estimated Creat Clear 108, Estimated GFR 67, Est GFR ( Amer) 81, Glucose 203 H D, Calcium 9.2, Magnesium 1.7, Troponin I < 0.01, Triglycerides 380 H, Cholesterol 151, LDL Cholesterol Direct 57.26 L, VLDL Cholesterol 76 H, HDL Cholesterol 31 L, Cholesterol/HDL Ratio 4.9 H 07/08/21 05:30: WBC 5.7 D, RBC 4.44 L, Hgb 13.7 L D, Hct 42.4, MCV 95.5 H, MCH 30.9, MCHC 32.4, RDW 14.4, Plt Count 202, MPV 7.9, Neut % (Auto) 44.3, Lymph % (Auto) 44.5, [place] % (Auto) 7.0, Eos % (Auto) 2.5, Baso % (Auto) 1.6, Neut # (Auto) 2.5, Lymph # (Auto) 2.5, [place] # (Auto) 0.4, Eos # (Auto) 0.1, Baso # (Auto) 0.1 Medical History: Reports:: Arrhythmia, Congestive Heart Failure, Chronic Obstructive Pulmonary Disease (COPD), Coronary Artery Disease, Depression, Diabetes Mellitus Type 2, Heart Murmur, Hyperlipidemia, Hypertension, Internal Pacemaker, Transient Ischemic Attacks (TIA) Denies:: Cancer, Diabetes Mellitus Type 1, MRSA, Seizures Assessment and Plan (1) Chest pain Status: Acute Qualifiers: Chest pain type: unspecified Qualified Code(s): R07.9 - Chest pain, unspecified Category: Medical Code(s): R07.9 - Chest pain, unspecified (2) Obesity (BMI 30-39.9) Status: Acute Category: Medical Code(s): E66.9 - Obesity, unspecified (3) Cardiac pacemaker in situ Status: Chronic Category: Medical Code(s): Z95.0 - Presence of cardiac pacemaker (4) Diabetes Status: Chronic Qualifi
--- NOTE | 2021-07-08 10:06 | PC.NURSE ---
0945- Pt leaving floor via w/c with staff for a stress test.
--- NOTE | 2021-07-08 11:26 | HMH.PHAINT ---
MEDICATION RECONCILIATION COMPLETED ON PATIENT USING EXTERNAL FILL HISTORY FROM PHARMACY AND LSIT FROM PCP OFFICE. -CIPRIANO ROMEOD
--- NOTE | 2021-07-08 12:15 | PC.NURSE ---
Pt returned back to room from stress test.
--- NOTE | 2021-07-08 16:37 | HMH.HPDC ---
General - General Admission date:: 07/08/21 Discharge date: 07/08/21 *Admission Date: 07/08/21 *Chief complaint: chest pain *History of present illness: 66-year-old white male with known history of coronary artery disease and medication noncompliance presented to the emergency department yesterday for onset of substernal chest discomfort with radiation to the right arm lasting only a minute or 2 at a time. He relates some exertional component but also states it may occur at rest as well. Denies any GI complaints no recent fever, chills vomiting or diarrhea. He maintains he has been compliant with his medication. Patient was admitted for evaluation through the ER. Nitroglycerin paste was placed in his chest. He denies any chest pain overnight. Troponins have returned normal x3. EKG is sinus rhythm with incomplete right bundle and poor R wave progression anteriorly. No acute ST segment changes noted. Patient is known to have had a normal Lexiscan Myoview 1 year ago. His last cardiac catheterization was in 2019x2 both showing widely patent LAD and diagonal stents. Cardiology consulted for evaluation recommendations.- per cardiology [facility] History I have reviewed the patient's past medical history: Yes Medical History: Reports:: Arrhythmia, Congestive Heart Failure, Chronic Obstructive Pulmonary Disease (COPD), Coronary Artery Disease, Depression, Diabetes Mellitus Type 2, Heart Murmur, Hyperlipidemia, Hypertension, Internal Pacemaker, Transient Ischemic Attacks (TIA) Denies:: Cancer, Diabetes Mellitus Type 1, MRSA, Seizures *Have you ever received a pneumonia vaccine?: No *Have you received a flu vaccine this season?: No Other Medical History: Reports: Arthritis, Glaucoma, Sinus Problems, Other. Denies: Blood Transfusion Reaction Laterality Cases: Left: Other Other Surgeries: Yes: Appendectomy, Cardiac Catheterization, Colonoscopy, Coronary Stent, Pacemaker, Other (back surgery) Amputation: No Fractures: Yes - *Social History Smoking Status: Former smoker Tobacco Type: cigarettes # Packs/Day (cigarettes): 0 #Yrs smoked (if former smoker): 45 Alcohol Intake: never Alcohol Intake Frequency:: holidays/special occasions only Substance Use Type: denies use *Occupational Status:: employed Housing: house Household Members: children *Travel in the last 8 weeks: None - Psychiatric History Pschychiatric History:: Reports:: Depression Family Hx:: Unable to obtain Review of Systems - Review of Systems Review of systems:: pertinent systems reviewed and negative unless documented below - Constitutional Denies body ache(s) - Eyes Denies change in vision - ENT Denies bleeding gums - *Cardiovascular Reports chest pain, Reports chest pain at rest, Reports chest pain with activity - *Respiratory Denies change in phlegm color - *Gastrointestinal Denies belching - *Musculoskeletal Denies abnormal walking - Integumentary/Breasts Denies dry skin - *Neurologic Reports headache(s), Denies localized weakness, Denies seizure-like activity - Psychiatric Denies abnormal sleep pattern - Endocrine Denies excessive sweating - Hematologic/Lymphatic Denies easy bruising - Allergic/Immunologic Denies itchy eyes Exam Vital signs and Labs for Last 24 Hours: Temp Pulse Resp BP Pulse Ox 98.7 F 65 17 132/91 H 93 L 07/08/21 15:16 07/08/21 15:16 07/08/21 15:16 07/08/21 15:16 07/08/21 15:16 Laboratory Results - last 24 hr 07/07/21 23:30: WBC 7.7, RBC 5.18, Hgb 16.0, Hct 49.0, MCV 94.7 H, MCH 30.9, MCHC 32.7, RDW 14.3, Plt Count 246, MPV 7.9, Neut % (Auto) 53.6, Lymph % (Auto) 37.8, [place] % (Auto) 6.0, Eos % (Auto) 1.3, Baso % (Auto) 1.4, Neut # (Auto) 4.1, Lymph # (Auto) 2.9, [place] # (Auto) 0.5, Eos # (Auto) 0.1, Baso # (Auto) 0.1, ESR 19 07/07/21 23:30: Sodium 135 L, Potassium 4.0, Chloride 102, Carbon Dioxide 23, Anion Gap 14.0, BUN 25 H, Creatinine 1.10, Estimated Creat Clear 108, Estimated GFR 67, Est GFR (A
== END 2021-07-08 17:30 | disposition home or self-care (01) ==
LOC: ER 07-08 00:33 → 2ND 07-08 01:14
PROVIDERS: Admitting Provider Emergency Medicine; Emergency Provider Emergency Medicine; PCP Physician Assistant; Visit Provider Emergency Medicine
DX: R07.9 Chest pain, unspecified (principal); Z20.822 Contact with and (suspected) exposure to COVID-19; I25.110 Atherosclerotic heart disease of native coronary artery with unstable angina pectoris; Z95.0 Presence of cardiac pacemaker; Z87.891 Personal history of nicotine dependence; Z82.49 Family history of ischemic heart disease and other diseases of the circulatory system; G45.8 Other transient cerebral ischemic attacks and related syndromes; E11.9 Type 2 diabetes mellitus without complications; I11.0 Hypertensive heart disease with heart failure; I50.9 Heart failure, unspecified; J44.9 Chronic obstructive pulmonary disease, unspecified; Z95.5 Presence of coronary angioplasty implant and graft; Z79.899 Other long term (current) drug therapy
CPT/HCPCS: G0378; 70450; 71046; 78452; 80048; 80053; 80061; 82150; 83690; 83735; 84145; 84484; 85025; 85651; 86140; 93005; 93017; 93306; 96365; 96372; 99285; A9502; C9803; J2785; U0003; U0005

== ENCOUNTER → 2021-07-17 16:00 | Outpatient (CLI) | payer MEDICARE, SELFPAY ==
[2021-07-17 18:16] LABS: Basophils # 0.1 K/mm3 (0-0.2); Basophils % 1.1 % (0.1-2.0); Eosinophils # 0.1 K/mm3 (0.0-0.4); Eosinophils % 1.3 % (0.1-12.0); Hematocrit 49.2 % (42.0-52.0); Hemoglobin 16.5 g/dL (14.1-18.0); Lymphocytes # 2.4 K/mm3 (0.7-4.5); Mean Corpuscular HGB Conc 33.5 g/dL (31.8-35.4); Mean Corpuscular Hemoglobin 31.9 pg (27.0-31.2); Mean Corpuscular Volume 95.2 fl (80-94); Mean Platelet Volume 8.9 fl (7.4-10.4); Monocytes # 0.4 K/mm3 (0.1-1.0); Monocytes % 5.5 % (1.7-9.3); Neutrophils # 4.9 K/mm3 (1.8-7.8); Neutrophils % 62.1 % (37.0-80.0); Platelet Count 282 K/mm3 (142-424); Red Blood Count 5.17 M/mm3 (4.60-6.20); Red Cell Distribution Width 14.3 % (11.5-17.5); White Blood Count 7.9 K/mm3 (4.8-10.8)
[2021-07-17 18:19] LABS: Alanine Aminotransferase 41 U/L (12-78); Albumin Level 4.2 g/dl (3.5-5.0); Albumin/Globulin Ratio 1.6 (1.1-1.8); Alkaline Phosphatase 95 U/L (38-126); Anion Gap 16.3 mEq/L (5-15); Aspartate Amino Transferase 40 U/L (17-59); Bilirubin,Total 0.7 mg/dl (0.2-1.3); Blood Urea Nitrogen 22 mg/dl (9-20); Calcium 9.7 mg/dl (8.4-10.2); Carbon Dioxide 20 mmol/L (22.0-30.0); Chloride 106 mmol/L (98-107); Chol/HDL Ratio 4.1 (1-3.5); Cholesterol 170 mg/dl (140-200); Estimated Glomerular Filt Rate 67 ml/min (>60); GFR (African American) 81 ML/MIN (>60); Globulin 2.7 g/dL (1.3-3.2); Glucose 233 mg/dl (74-100); HDL Cholesterol 41 mg/dl (40-60); Potassium 4.3 mmoL/L (3.5-5.1); Sodium 138 mmol/L (136-145); Total Protein,Serum 6.9 g/dl (6.3-8.2); Triglycerides 366 mg/dl (30-150); VLDL Cholesterol 73 mg/dL (0-40)
[2021-07-17 18:30] LABS: Direct LDL Cholesterol 65.39 mg/dL (100-129)
[2021-07-17 18:36] LABS: 25-OH Vitamin D, Total 19.5 ng/mL (30-100)
[2021-07-17 18:50] LABS: Prostate Specific Ag Screen 1.5 ng/ml (0.0-4.0)
== END ==
PROVIDERS: Visit Provider Physician Assistant
DX: R53.83 Other fatigue (principal); Z78.9 Other specified health status; I20.0 Unstable angina; E11.9 Type 2 diabetes mellitus without complications; Z12.5 Encounter for screening for malignant neoplasm of prostate; Z79.84 Long term (current) use of oral hypoglycemic drugs; E55.9 Vitamin D deficiency, unspecified
CPT/HCPCS: 80053; 80061; 82043; 82306; 83036; 84443; 85025; G0103

== ENCOUNTER 2021-08-11 17:00 | Emergency (ER) | payer MEDICARE, SELFPAY ==
[2021-08-11 17:40] VITALS: BP 139/83; PULSE 97; RESP 18; TEMP 37.2; O2SAT 100; BMI 36.6
--- NOTE | 2021-08-11 17:48 | HMH.EDUTC ---
[facility] [place] Clinical Impression: Ulcer of toe of right foot Qualifiers: Non-pressure ulcer stage: limited to breakdown of skin Qualified Code(s): L97.511 - Non-pressure chronic ulcer of other part of right foot limited to breakdown of skin Diabetes Qualifiers: Diabetes mellitus type: type 2 Diabetes mellitus terminal manager insulin use: without terminal manager use Diabetes mellitus complication status: without complication Qualified Code(s): E11.9 - Type 2 diabetes mellitus without complications Disposition: Home, Self-Care Condition on Discharge: Good Instructions: Diabetic Foot Ulcer, DI for Diabetic Foot Ulcer Additional Instructions: Keep the wound clean and dry. Watch the for signs of infection, such as redness, swelling, drainage, fever. etc. Take tylenol or ibuprofen for pain. Follow up with your regular doctor in 2 days for a wound recheck. Follow up with podiatry (Dr. Turk). Since you are a diabetic this wound has to be monitored closely. Any diabetic needs to see a beauty sales consultant regularly, especially with a wound on the foot) GO TO THE ER FOR ANY WORSENING SYMPTOMS OR CONCERNS. Prescriptions: Sulfamethoxazole/Trimethoprim [Bactrim DS tablet] 1 each PO BID 10 Days #20 tab Transmission Status: Received by [facility] Mupirocin [Bactroban 2% Ointment 22gm tube] 1 applicatio TP TID 7 Days #1 gm Transmission Status: Received by [facility] cephALEXin [cephALEXin 500mg capsule] 500 mg PO Q6H 10 Days #40 cap Transmission Status: Received by [facility] Referrals: Susanna Kohli PA [Primary Care Provider] - Daphnie Turk DPM [Staff Physician] - Forms: Work/School Release Time of Disposition: 18:32 Medical Decision Making - Medical Records Medical records reviewed: No: I reviewed the patient's medical records. - Raghav Inquiry Pt receiving controlled substance: No Vital Signs: 08/11/21 17:40 08/11/21 19:19 Temperature 99.0 F 99.0 F Temperature Source Oral Pulse Rate 97 H Pulse Rate [Left] 97 H Respiratory Rate 18 18 Blood Pressure 139/83 Blood Pressure [Right Arm] 139/83 Blood Pressure Mean [Right Arm] 101 02 Sat by Pulse Oximetry 100 Orders (Tests/Meds): ED MEDICATIONS Discontinued Medications Generic Name Dose Route Start Last Admin Trade Name Freq PRN Reason Stop Dose Admin Cephalexin HCl 500 mg 08/11/21 18:21 08/11/21 18:36 Cephalexin 500mg Capsule PO 08/11/21 18:22 500 mg ONCE ONE Administration Trimethoprim/Sulfamethoxazole 1 each 08/11/21 18:21 08/11/21 18:35 Sulfa/Trimethoprim 1 Tablet PO 08/11/21 18:22 1 each ONCE ONE Administration ORDERS Category Date Time Status Wound Culture and Gram Stain Stat Micro 08/11/21 18:39 Results [facility] [facility] [place] - General Stated complaint: sore spot on toe, diabetic Time Seen by Provider: 08/11/21 17:48 Mode of Arrival: Ambulatory Source of Information: Patient Description of Symptoms (Recalled from Triage Doc. by RN): pt states that he had a blister form on his left great toe from wearing steel toed boots. on he busted blister at home. since then it has become swollen and hot to touch. pt states that he has soaked foot in epsom salt, hydrogen peroxide, and used iodine. nothing has helped HEENT Symptoms (Recalled from RN notes): No Resp Symptoms (Recalled from RN notes): No Skin Symptoms (Recalled from RN notes): No MS Symptoms (Recalled from RN notes): Yes Functional Status (Recalled from RN notes): wnl - History of Present Illness Provider Complaint: He states that he wore steel toed boots 3 days ago and they rubbed a blister on his left great toe. He is a diabetic. The area began to have redness around it today. He denies any open wound or drainage. - Related Data Home Medications Medication Instructions Recorded Confirmed aspirin 81 mg tablet,delayed 81 mg PO DAILY 12/05/20 08/06/21 release Amlodipine Besylate [Amlodipine 10 mg PO ISABEL
[2021-08-11 19:19] VITALS: BP 139/83; PULSE 97; RESP 18; TEMP 37.2
== END 2021-08-11 19:20 | disposition home or self-care (01) ==
PROVIDERS: Emergency Provider Nurse Practitioner Family; PCP Physician Assistant
DX: L97.511 Non-pressure chronic ulcer of other part of right foot limited to breakdown of skin (principal); E11.9 Type 2 diabetes mellitus without complications; I25.10 Atherosclerotic heart disease of native coronary artery without angina pectoris; J44.9 Chronic obstructive pulmonary disease, unspecified; E78.5 Hyperlipidemia, unspecified; Z87.891 Personal history of nicotine dependence; Z79.899 Other long term (current) drug therapy
CPT/HCPCS: 87070; 87077; 87186; 87205; 99213; G0463

== ENCOUNTER → 2021-08-20 13:24 | Outpatient (CLI) | payer MEDICARE, SELFPAY ==
--- NOTE | 2021-08-20 13:25 | CT_ITS ---
FINAL REPORT CLINICAL HISTORY: right inguinal hernia COMPARISON: CT abdomen and pelvis dated October 15, 2020 FINDINGS: Technique: Axial images through the pelvis were performed by computed tomography without contrast. Sagittal and coronal reconstruction images were performed. This study was performed with techniques to keep radiation doses as low as reasonably achievable (ALARA). Individualized dose reduction techniques using automated exposure control or adjustment of mA and/or kV according to the patient's size were employed. CT PELVIS WITHOUT CONTRAST Pelvis: The appendix is normal. The urinary bladder is unremarkable. There is no free fluid or adenopathy. There are small bilateral inguinal hernias containing fat. There are several sigmoid diverticula. There is fusion of L4 through S1. IMPRESSION: Small bilateral inguinal hernias containing fat only. Reviewed, Interpreted and Dictated by Joseph Gonzalez III, MD Transcribed by Kathy Calloway Authenticated by Joseph Gonzalez III, MD on 08/20/2021 02:59:34 PM [facility]
== END ==
LOC: RAD 13:25
PROVIDERS: PCP Physician Assistant; Visit Provider Physician Assistant
DX: K40.90 Unilateral inguinal hernia, without obstruction or gangrene, not specified as recurrent (principal)
CPT/HCPCS: 72192

== ENCOUNTER 2021-10-13 09:18 | Emergency (ER) | payer MEDICARE, SELFPAY ==
[2021-10-13 09:25] VITALS: BP 132/88; PULSE 86; RESP 21; TEMP 36.7; O2SAT 97; BMI 33.7
--- NOTE | 2021-10-13 09:48 | HMH.EDUTC ---
[facility] [place] Clinical Impression: Viral syndrome Disposition: Home, Self-Care Condition on Discharge: Good Instructions: Sore Throat, DI for Cough -- Adult, DI for COVID-19 (Suspected or Confirmed ), Preventing the Spread of Coronavirus Discharge Instructions Additional Instructions: *Monitor Temp, Over the counter Motrin or Tylenol as directed/as needed Tylenol every 4 hours and Motrin every 6 hours (as long as your family doctor has told you that you can take it) for fever or pain. and straight to ER if unable to lower temp less than 101.0 after medication given *Warm salt water gargles may help to soothe the throat *Throat Lozenges *Warm fluids like tea with honey may help to soothe the throat *Sleep elevated *Humidifier/Vaporizer Over the counter Delsym or Robitussin may help with cough If you are positive you may want to contact your Family Doctor to discuss Paxlovid to see if it is right for you Follow up IMMEDIATELY for new or worsening symptoms or no Noticeable improvement over the next 48-72 hours. 911 for difficulty breathing or swallowing You were tested for today for COVID19 your test result should be back in the next 24-48 hours, you may check your results on the [facility] My Health Portal they may be available later this evening Make sure to take your Vitamins Vit. C Vit D and Zinc if you can take them Referrals: Susanna Kohli PA [Primary Care Provider] - As needed Forms: Work/School Release Time of Disposition: 09:53 Medical Decision Making - Raghav Inquiry Pt receiving controlled substance: No Raghav was queried for this patient: No Vital Signs: 10/13/21 09:25 10/13/21 09:52 Temperature 98.1 F 98.1 F Temperature Source Oral Pulse Rate 86 Pulse Rate [Right Brachial] 86 Respiratory Rate 21 21 Blood Pressure 132/88 Blood Pressure [Right Arm] 132/88 Blood Pressure Mean [Right Arm] 102 Blood Pressure Source [Right Arm] Automatic Cuff Blood Pressure Position [Right Arm] Sitting 02 Sat by Pulse Oximetry 97 Oxygen Delivery Method Room Air Orders (Tests/Meds): ORDERS Category Date Time Status Covid-19 Nasal PCR ([facility]) Routine Lab 10/13/21 09:22 Received [facility] [place] HPI - General Stated complaint: headache,weakness,covid exposure Time Seen by Provider: 10/13/21 09:49 Mode of Arrival: Ambulatory Source of Information: Patient Limitations: No Limitations Description of Symptoms (Recalled from Triage Doc. by RN): PATIENT C/O HEADACHE, FEVER, CHILLS, COUGH, AND LUNG PAIN. RECENTLY EXPOSE TO COVID HEENT Symptoms (Recalled from RN notes): Yes Resp Symptoms (Recalled from RN notes): No Skin Symptoms (Recalled from RN notes): No MS Symptoms (Recalled from RN notes): No Functional Status (Recalled from RN notes): WNL - History of Present Illness Provider Complaint: Patient states that he was recently around a family member that was positive for COVID states that he started having body aches, chills, fever, cough and pain in his lungs at times when he takes a deep breath Denies productive cough States that he had to get tested for COVID before he can go to work due to exposure - Related Data Home Medications Medication Instructions Recorded Confirmed aspirin 81 mg tablet,delayed 81 mg PO DAILY 12/05/20 10/01/21 release Amlodipine Besylate [Amlodipine 10 mg PO DAILY 07/08/21 10/01/21 10mg Tab] Atorvastatin Calcium [Lipitor 40mg 40 mg PO DAILY 07/08/21 10/01/21 Tab] Furosemide [Furosemide 20mg Tab*] 20 mg PO DAILY 07/08/21 10/01/21 Isosorbide Mononitrate [Isosorbide 120 mg PO DAILY 07/08/21 10/01/21 Mononitrate ER] Repaglinide 1 mg PO TID 07/08/21 10/01/21 Tamsulosin HCl 0.4 mg PO DAILY 07/08/21 10/01/21 hydralazine 100 mg tablet 100 mg PO tab 07/17/21 10/01/21 Previous Rx's Medication Instructions Recorded carvedilol 25 mg tablet 25 mg PO BID #180 tab 08/22/20 clopidogrel 75 mg tablet 75 mg PO DAILY #30 tab 03/19/21 metformin 1,000 mg tablet 1,000 mg
[2021-10-13 09:52] VITALS: BP 132/88; PULSE 86; RESP 21; TEMP 36.7; O2SAT 97
== END 2021-10-13 09:57 | disposition home or self-care (01) ==
PROVIDERS: Emergency Provider Nurse Practitioner; PCP Physician Assistant
DX: U07.1 COVID-19 (principal); R51.9 Headache, unspecified; R53.1 Weakness; Z88.8 Allergy status to other drugs, medicaments and biological substances
CPT/HCPCS: 99282; C9803; U0003; U0005

== ENCOUNTER 2021-10-22 12:19 | Emergency (ER) | payer MEDICARE, SELFPAY ==
[2021-10-22 12:50] VITALS: BP 131/86; PULSE 78; RESP 19; TEMP 36.6; O2SAT 98; BMI 35.6
--- NOTE | 2021-10-22 13:10 | HMH.EDUTC ---
[facility] [place] Clinical Impression: Encounter for laboratory testing for COVID-19 virus Disposition: Home, Self-Care Condition on Discharge: Good Instructions: DI for COVID-19 (Suspected or Confirmed ), Preventing the Spread of Coronavirus Discharge Instructions Additional Instructions: *Monitor Temp, Over the counter Motrin or Tylenol as directed/as needed Tylenol every 4 hours and Motrin every 6 hours (as long as your family doctor has told you that you can take it) for fever or pain. and straight to ER if unable to lower temp less than 101.0 after medication given Follow up IMMEDIATELY for new or worsening symptoms or no Noticeable improvement over the next 48-72 hours. 911 for difficulty breathing or swallowing You were tested for today for COVID19 your test result should be back in the next 24-48 hours, you may check your results on the [facility] My Health Portal Make sure to take your Vitamins Vit. C Vit D and Zinc if you can take them Referrals: Susanna Kohli PA [Primary Care Provider] - As needed Forms: Work/School Release Medical Decision Making - Raghav Inquiry Pt receiving controlled substance: No Raghav was queried for this patient: No Vital Signs: 10/22/21 12:50 Temperature 97.9 F Temperature Source Oral Pulse Rate [Right Brachial] 78 Respiratory Rate 19 Blood Pressure [Right Arm] 131/86 Blood Pressure Mean [Right Arm] 101 Blood Pressure Source [Right Arm] Automatic Cuff Blood Pressure Position [Right Arm] Sitting 02 Sat by Pulse Oximetry 98 Oxygen Delivery Method Room Air Orders (Tests/Meds): ORDERS Category Date Time Status Covid-19 Nasal PCR ([facility]) Routine Lab 10/22/21 12:55 Received [facility] [place] HPI - General Stated complaint: covid test Time Seen by Provider: 10/22/21 13:11 Mode of Arrival: Ambulatory Source of Information: Patient Limitations: No Limitations Description of Symptoms (Recalled from Triage Doc. by RN): PATIENT NEEDING COVID TEST TO RETURN TO WORK HEENT Symptoms (Recalled from RN notes): No Resp Symptoms (Recalled from RN notes): No Skin Symptoms (Recalled from RN notes): No MS Symptoms (Recalled from RN notes): No Functional Status (Recalled from RN notes): WNL - History of Present Illness Provider Complaint: Patient states that his work is wanting a negative COVID test before he can return to work States that tomorrow is his 10th day since having COVID so he came in to get tested - Related Data Home Medications Medication Instructions Recorded Confirmed aspirin 81 mg tablet,delayed 81 mg PO DAILY 12/05/20 10/01/21 release Amlodipine Besylate [Amlodipine 10 mg PO DAILY 07/08/21 10/01/21 10mg Tab] Atorvastatin Calcium [Lipitor 40mg 40 mg PO DAILY 07/08/21 10/01/21 Tab] Furosemide [Furosemide 20mg Tab*] 20 mg PO DAILY 07/08/21 10/01/21 Isosorbide Mononitrate [Isosorbide 120 mg PO DAILY 07/08/21 10/01/21 Mononitrate ER] Repaglinide 1 mg PO TID 07/08/21 10/01/21 Tamsulosin HCl 0.4 mg PO DAILY 07/08/21 10/01/21 hydralazine 100 mg tablet 100 mg PO tab 07/17/21 10/01/21 Previous Rx's Medication Instructions Recorded carvedilol 25 mg tablet 25 mg PO BID #180 tab 08/22/20 clopidogrel 75 mg tablet 75 mg PO DAILY #30 tab 03/19/21 metformin 1,000 mg tablet 1,000 mg PO BID #60 tab 03/19/21 ropinirole 1 mg tablet 1 mg PO HS #30 tab 07/17/21 cholecalciferol (vitamin D3) 25 25 mcg PO DAILY #90 cap 07/18/21 mcg (1,000 unit) capsule ergocalciferol (vitamin D2) 1,250 1,250 mcg PO WEEKLY #14 cap 07/18/21 mcg (50,000 unit) capsule gabapentin 800 mg tablet 800 mg PO TID #90 tab 08/02/21 amitriptyline 25 mg tablet 25 mg PO HS #30 tab 08/06/21 nitroglycerin 0.3 mg sublingual 0.3 mg SUBLINGUAL Q5M PRN #25 tab 08/06/21 tablet Mupirocin [Bactroban 2% Ointment 1 applicatio TP TID 7 Days #1 gm 08/11/21 22gm tube] hydrocodone 5 mg-acetaminophen 325 1 tab PO Q8H PRN #90 tab 10/14/21 mg tablet Allergies Allergy/AdvReac Type Severity R
[2021-10-22 13:15] VITALS: BP 131/86; PULSE 78; RESP 19; TEMP 36.6; O2SAT 98
== END 2021-10-22 13:18 | disposition home or self-care (01) ==
PROVIDERS: Emergency Provider Nurse Practitioner; PCP Physician Assistant
DX: Z20.822 Contact with and (suspected) exposure to COVID-19 (principal)
CPT/HCPCS: 99212; C9803; G0463; U0003; U0005

== ENCOUNTER 2021-12-17 21:05 | Emergency (ER) | payer MEDICARE, SELFPAY ==
[2021-12-17 21:22] VITALS: BP 193/102; PULSE 92; RESP 18; TEMP 36.6; O2SAT 95; BMI 31.8
--- NOTE | 2021-12-17 21:41 | CT_ITS ---
PROCEDURE INFORMATION: Exam: CT Head Without Contrast Exam date and time: 12/17/2021 10:04 PM Age: 66 years old Clinical indication: Pain; Headache not specified; Additional info: Severe headache TECHNIQUE: Imaging protocol: Computed tomography of the head without contrast. Radiation optimization: All CT scans at this facility use at least one of these dose optimization techniques: automated exposure control; mA and/or kV adjustment per patient size (includes targeted exams where dose is matched to clinical indication); or iterative reconstruction. COMPARISON: CT HEAD/BRAIN WO CON 07/07/2021 11:44 PM FINDINGS: Brain: Normal. No hemorrhage. Unremarkable white matter. No mass effect. Cerebral ventricles: No ventriculomegaly. Paranasal sinuses: Visualized sinuses are unremarkable. No fluid levels. Mastoid air cells: Visualized mastoid air cells are well aerated. Orbital cavities: Prior cataract surgery on the right. Bones/joints: Unremarkable. No acute fracture. Soft tissues: Unremarkable. IMPRESSION: No evidence of acute intracranial hemorrhage, mass effect, or edema.
[2021-12-17 21:50] LABS: Basophils # 0.1 K/mm3 (0-0.2); Basophils % 1.2 % (0.1-2.0); Eosinophils # 0.2 K/mm3 (0.0-0.4); Eosinophils % 2.6 % (0.1-12.0); Hematocrit 46.6 % (42.0-52.0); Hemoglobin 15.6 g/dL (14.1-18.0); Lymphocytes # 2.7 K/mm3 (0.7-4.5); Lymphocytes % 44.3 % (10-50); Mean Corpuscular HGB Conc 33.4 g/dL (31.8-35.4); Mean Corpuscular Hemoglobin 32.2 pg (27.0-31.2); Mean Corpuscular Volume 96.4 fl (80-94); Mean Platelet Volume 8.1 fl (7.4-10.4); Monocytes # 0.4 K/mm3 (0.1-1.0); Monocytes % 6.3 % (1.7-9.3); Neutrophils # 2.8 K/mm3 (1.8-7.8); Neutrophils % 45.6 % (37.0-80.0); Platelet Count 260 K/mm3 (142-424); Red Blood Count 4.83 M/mm3 (4.60-6.20); Red Cell Distribution Width 13.7 % (11.5-17.5); White Blood Count 6.1 K/mm3 (4.8-10.8)
[2021-12-17 21:55] LABS: Alanine Aminotransferase 27 U/L (12-78); Albumin/Globulin Ratio 1.1 (1.1-1.8); Alkaline Phosphatase 125 U/L (38-126); Aspartate Amino Transferase 35 U/L (17-59); Bilirubin,Total 0.4 mg/dl (0.2-1.3); Blood Urea Nitrogen 24 mg/dl (9-20); Calcium 9.8 mg/dl (8.4-10.2); Carbon Dioxide 27 mmol/L (22.0-30.0); Chloride 103 mmol/L (98-107); Creatinine Clearance Estimated 90 mL/min (50-200); Estimated Glomerular Filt Rate 60 ml/min (>60); GFR (African American) 73 ML/MIN (>60); Globulin 3.5 g/dL (1.3-3.2); Glucose 293 mg/dl (74-100); Sodium 135 mmol/L (136-145); Total Protein,Serum 7.5 g/dl (6.3-8.2)
--- NOTE | 2021-12-17 21:57 | HMH.EDHA ---
Discharge Plan Disposition Chief Complaint: Headache Prescriptions Prescriptions: No Action hydralazine 100 mg tablet 100 mg PO DAILY aspirin [Adult Low Dose Aspirin] 81 mg tablet,delayed release (DR/EC) 81 mg PO DAILY nitroglycerin 0.3 mg tablet, sublingual 0.3 mg SUBLINGUAL Q5M PRN (Reason: chest pain) Qty: 25 0RF Rx Instructions: do not exceed 3 doses per episode carvedilol 25 mg tablet 25 mg PO BID Qty: 180 0RF clopidogrel 75 mg tablet 75 mg PO DAILY Qty: 30 5RF metformin 1,000 mg tablet 1,000 mg PO BID Qty: 60 3RF gabapentin 800 mg tablet 800 mg PO TID Qty: 90 1RF hydrocodone-acetaminophen 5-325 mg tablet 1 tab PO Q8H PRN (Reason: pain) Qty: 90 0RF atorvastatin 40 MG tablet 40 mg PO DAILY isosorbide mononitrate 120 MG tablet extended release 24 hr 120 mg PO DAILY amlodipine 10 MG tablet 10 mg PO DAILY Rx Instructions: TAKE ONE TABLET BY MOUTH EVERY DAY FOR blood pressure furosemide 20 MG tablet 20 mg PO DAILY amitriptyline 25 mg tablet 25 mg PO HS Referrals Follow up/Referrals: Susanna Kohli PA [Primary Care Provider] - See instructions Clinical Impressions Clinical Impression: Headache Instructions Patient Instructions: DI for Headache Discharge ED Provider: Fan Samuel Headache HPI General Chief Complaint: Headache Stated Complaint: GILL AND POSS high BP Time Seen by Provider: 12/17/21 21:57 Mode of Arrival: Ambulatory Source of Information: Patient, Spouse and Medical Record Limitations: No Limitations Description of Symptoms (Recalled from ER Triage Doc. by RN): Pt states that he has had a severe headache since 299, state that it woke him up. Pt states that the headache is in the front of his head primarily but is also generalized all over his head. States that he has been taking tylenol every 4 hours but it has yet to help. Also c/o htn, states is was 190/100 at home at 6 pm after taking his night time bp medicine at 4pm History of Present Illness HPI Narrative: pt with diffuse gill which started this am and has been present - no fever and no rash - no trauma - had elevated bp at home - compliant with meds - no focal neuro sx Complaint: headache Onset (ago): hour(s) Onset description: sudden Location: diffuse Severity: moderate Quality: aching and different than previous headaches Relieving factors: NSAIDs Context: occurred at rest Associated symptoms: none Treatments prior to arrival: acetaminophen and ibuprofen Related Data Home Medications Medication Instructions Recorded Confirmed aspirin 81 mg tablet,delayed 81 mg PO DAILY heart health 12/05/20 12/17/21 release (Adult Low Dose Aspirin) amlodipine 10 mg tablet 10 mg PO DAILY Hypertension 07/08/21 12/17/21 atorvastatin 40 mg tablet 40 mg PO DAILY Cholesterol 07/08/21 12/17/21 furosemide 20 mg tablet 20 mg PO DAILY Fluid 07/08/21 12/17/21 isosorbide mononitrate 120 mg 120 mg PO DAILY ANGINA 07/08/21 12/17/21 tablet,extended release 24 hr hydralazine 100 mg tablet 100 mg PO DAILY htn 07/17/21 12/17/21 amitriptyline 25 mg tablet 25 mg PO HS nerve pain 12/17/21 12/17/21 Previous Rx's Medication Instructions Recorded carvedilol 25 mg tablet 25 mg PO BID Hypertension #180 tabs 08/22/20 clopidogrel 75 mg tablet 75 mg PO DAILY Blood thinner #30 03/19/21 tabs metformin 1,000 mg tablet 1,000 mg PO BID Diabetes #60 tabs 03/19/21 gabapentin 800 mg tablet 800 mg PO TID Pain #90 tabs 08/02/21 nitroglycerin 0.3 mg sublingual 0.3 mg sublingual Q5M PRN chest 08/06/21 tablet pain #25 tabs hydrocodone 5 mg-acetaminophen 325 1 tab PO Q8H PRN pain #90 tabs 10/14/21 mg tablet Allergies Allergy/AdvReac Type Severity Reaction Status Date / Time desvenlafaxine [From [facility]] Allergy Mild Verified 10/01/21 09:21 [facility] History Hepatitis A Screen Attestation statement:: This patient has been screened for Hepatitis A risk factors.
[2021-12-17 22:00] LABS: C-Reactive Protein 12.4 mg/L (0-4)
[2021-12-17 22:14] LABS: Procalcitonin 0.087 ng/mL (0.0-2.0)
[2021-12-17 22:35] LABS: Erythrocyte Sedimentation Rate 39 mm/hr (0-20)
[2021-12-17 22:48] LABS: Microscopic, Urine URINE MICROSCOPIC (MICROSCOPIC)
[2021-12-17 22:58] LABS: Appearance,Urine CLEAR (Clear); Bilirubin,Urine Negative (Negative); Blood, Urine Negative (Negative); Color,Urine YELLOW (Yellow); Glucose,Urine (UA) 3+ (Negative); Ketones,Urine Negative (Negative); Leukocyte Esterase,Urine Negative (Negative); Nitrate,Urine Negative (Negative); PH,Urine 6.5 (5.0-8.5); Protein,Urine 1+ (Negative); Urobilinogen,Urine 0.2 EU/dl (0.2)
[2021-12-17 23:00] LABS: Troponin I < 0.01 ng/ml (0.00-0.034)
[2021-12-17 23:14] LABS: WBC,Urine Occasional #/hpf (0-3)
[2021-12-17 23:24] VITALS: BP 177/104; PULSE 76; RESP 16; TEMP 36.9; O2SAT 97
== END 2021-12-17 23:27 | disposition home or self-care (01) ==
LOC: ER 21:16
PROVIDERS: Emergency Provider Emergency Medicine; PCP Physician Assistant
DX: R51.9 Headache, unspecified (principal); Z79.82 Long term (current) use of aspirin; Z79.899 Other long term (current) drug therapy; Z88.8 Allergy status to other drugs, medicaments and biological substances; I25.10 Atherosclerotic heart disease of native coronary artery without angina pectoris; G89.4 Chronic pain syndrome; E11.9 Type 2 diabetes mellitus without complications; E78.5 Hyperlipidemia, unspecified; I10 Essential (primary) hypertension; G25.81 Restless legs syndrome; F32.A Depression, unspecified; M10.9 Gout, unspecified
CPT/HCPCS: 70450; 80053; 81001; 84145; 84484; 85025; 85651; 86140; 96365; 96367; 96375; 99284

== ENCOUNTER 2021-12-26 15:29 | Emergency (ER) | payer MEDICARE, SELFPAY ==
[2021-12-26 15:32] VITALS: BP 160/83; PULSE 92; RESP 16; TEMP 37.1; O2SAT 98; BMI 31.8
--- NOTE | 2021-12-26 15:38 | ECG_ITS ---
APPROVED REPORT Exam: Resting ECG HR:82 bpm ECG Measurements Heart Rate 82 AXES PA 168 P 66 QRSd 105 QRS 75 QT 390 T 47 QTc 428 Conclusion SINUS RHYTHM INCOMPLETE RIGHT BUNDLE BRANCH BLOCK [90+ ms QRS DURATION, TERMINAL R IN V1/V2, 40+ ms S IN I/aVL/V4/V5/V6] BORDERLINE ECG UNCONFIRMED REPORT Electronically signed by : Bradley Chung MD 12/29/2021 15:29:25
--- NOTE | 2021-12-26 15:54 | XR_ITS ---
FINAL REPORT CLINICAL HISTORY: chest pain COMPARISON: 07/07/2021 FINDINGS: A single portable view of the chest was obtained. A left subclavian pacemaker is present. The heart size and pulmonary vascularity are within normal limits. The mediastinum is within normal limits. No acute pulmonary abnormality is identified. There is a chronic left clavicle fracture. IMPRESSION: No active cardiopulmonary disease. Reviewed, Interpreted and Dictated by Joseph Gonzalez III, MD Transcribed by Kathy Calloway Authenticated and [facility]
--- NOTE | 2021-12-26 16:06 | PC.NURSE ---
RADIOLOGY AT BEDSIDE
--- NOTE | 2021-12-26 16:06 | PC.NURSE ---
RADIOLOGY COMPLTE IN PT ROOM
[2021-12-26 16:13] LABS: Basophils # 0.1 K/mm3 (0-0.2); Basophils % 1.5 % (0.1-2.0); Eosinophils # 0.1 K/mm3 (0.0-0.4); Eosinophils % 1.2 % (0.1-12.0); Hematocrit 45.7 % (42.0-52.0); Hemoglobin 15.6 g/dL (14.1-18.0); Lymphocytes # 3.3 K/mm3 (0.7-4.5); Lymphocytes % 46.7 % (10-50); Mean Corpuscular HGB Conc 34.1 g/dL (31.8-35.4); Mean Corpuscular Hemoglobin 32.4 pg (27.0-31.2); Mean Corpuscular Volume 94.9 fl (80-94); Mean Platelet Volume 7.6 fl (7.4-10.4); Monocytes # 0.4 K/mm3 (0.1-1.0); Monocytes % 5.2 % (1.7-9.3); Neutrophils # 3.2 K/mm3 (1.8-7.8); Neutrophils % 45.4 % (37.0-80.0); Platelet Count 258 K/mm3 (142-424); Red Blood Count 4.82 M/mm3 (4.60-6.20); Red Cell Distribution Width 13.7 % (11.5-17.5); White Blood Count 7.1 K/mm3 (4.8-10.8)
--- NOTE | 2021-12-26 16:19 | HMH.EDGENADL ---
Discharge Plan Disposition Patient Disposition: Home, Self-Care Condition: Good Chief Complaint: Chest Pain Prescriptions Prescriptions: No Action metformin 1,000 mg tablet 1,000 mg PO BID Qty: 60 3RF glipizide 10 mg tablet extended release 24hr 10 mg PO DAILY atorvastatin 40 mg tablet 40 mg PO DAILY Qty: 90 0RF amlodipine 10 mg tablet 10 mg PO DAILY Qty: 90 0RF Rx Instructions: TAKE ONE TABLET BY MOUTH EVERY DAY FOR blood pressure hydralazine 100 mg tablet 100 mg PO DAILY Qty: 90 0RF isosorbide mononitrate 120 mg tablet extended release 24 hr 120 mg PO DAILY Qty: 90 0RF lisinopril 20 mg tablet 20 mg PO DAILY Qty: 90 0RF gabapentin 800 mg tablet 800 mg PO TID Qty: 90 0RF aspirin [Adult Low Dose Aspirin] 81 mg tablet,delayed release (DR/EC) 81 mg PO DAILY nitroglycerin 0.3 mg tablet, sublingual 0.3 mg SUBLINGUAL Q5M PRN (Reason: chest pain) Qty: 25 0RF Rx Instructions: do not exceed 3 doses per episode carvedilol 25 mg tablet 25 mg PO BID Qty: 180 0RF clopidogrel 75 mg tablet 75 mg PO DAILY Qty: 30 5RF hydrocodone-acetaminophen 5-325 mg tablet 1 tab PO Q8H PRN (Reason: pain) Qty: 90 0RF furosemide 20 MG tablet 20 mg PO DAILY amitriptyline 25 mg tablet 25 mg PO HS Referrals Follow up/Referrals: Susanna Kohli PA [Primary Care Provider] - See instructions Zaire Cox MD [Staff Physician] - See instructions Activity Restrictions/Add. Instructions Additional Instructions/Restrictions: See Dr. Cox in his office tomorrow morning at 10:30 AM. Return to the emergency department if any recurrent, worsening, or prolonged chest pain. Return if any new symptoms such as shortness of breath, faintness. Clinical Impressions Clinical Impression: Atypical chest pain Discharge ED Provider: Kurt Gleason Adult [facility] General Chief complaint: Chest Pain Stated complaint: sent by karan Sutherland shoulder and arm pain Time Seen by Provider: 12/26/21 16:30 Mode of Arrival: Ambulatory Source of Information: Patient Limitations: No Limitations Description of Symptoms (Recalled from ER Triage Doc. by RN): to ed per pvt car pt sent by pcp for eval due to intermittent sharp rt side chest pain radiating to rt arm starting yesterday. states pain last approx 3-5 mins then just feels sore . pt denies sob, nausea, vomiting, diaphoresis, pain lower legs. pt also states he has had an unintentional weight loss of 30lbs over the last month History of Present Illness HPI narrative: Patient is sent to the emergency department and by Susanna Kohli, his PCP. He was there for follow-up of his blood pressure but also complained to them that he was having some chest pain. States that he has had 2 episodes of right-sided chest pain going into his right arm. The first episode was last night and lasted 3 to 5 minutes. The second episode was today in the doctor's office and lasted a couple of minutes. Slight shortness of breath, but no nausea, vomiting, diaphoresis. Currently having no pain at all. He has a history of coronary artery disease with stent placement and sees Dr. Cox. States that he had a stress test done this year that was normal as far as he knows. PCP called Dr. Cox's office and they advised to send the patient to the emergency department for evaluation. Related Data Home Medications Medication Instructions Recorded Confirmed aspirin 81 mg tablet,delayed 81 mg PO DAILY heart health 12/05/20 12/26/21 release (Adult Low Dose Aspirin) furosemide 20 mg tablet 20 mg PO DAILY Fluid 07/08/21 12/26/21 amitriptyline 25 mg tablet 25 mg PO HS nerve pain 12/17/21 12/26/21 glipizide 10 mg tablet, extended 10 mg PO DAILY 12/19/21 12/26/21 release 24 hr Previous Rx's Medication Instructions Recorded carvedilol 25 mg tablet 25 mg PO BID Hypertension #180 tabs 08/22/20 clopidogrel 75 mg tablet 75 mg PO
[2021-12-26 16:20] LABS: Anion Gap 14.9 mEq/L (5-15); Blood Urea Nitrogen 23 mg/dl (9-20); Calcium 9.6 mg/dl (8.4-10.2); Carbon Dioxide 25 mmol/L (22.0-30.0); Chloride 105 mmol/L (98-107); Creatinine Clearance Estimated 98 mL/min (50-200); Estimated Glomerular Filt Rate 67 ml/min (>60); GFR (African American) 81 ML/MIN (>60); Glucose 171 mg/dl (74-100); Potassium 3.9 mmoL/L (3.5-5.1); Sodium 141 mmol/L (136-145)
[2021-12-26 16:30] VITALS: BP 125/71; PULSE 81; RESP 16; O2SAT 96
[2021-12-26 16:41] LABS: Troponin I < 0.01 ng/ml (0.00-0.034)
[2021-12-26 17:00] VITALS: BP 124/76; PULSE 80; RESP 16; O2SAT 96
[2021-12-26 17:30] VITALS: BP 111/80; PULSE 77; RESP 16; O2SAT 96
[2021-12-26 18:06] VITALS: BP 138/88; PULSE 78; RESP 16; TEMP 36.6; O2SAT 98
== END 2021-12-26 18:07 | disposition home or self-care (01) ==
PROVIDERS: Emergency Provider Emergency Medicine; PCP Physician Assistant
DX: R07.89 Other chest pain (principal); Z79.82 Long term (current) use of aspirin; Z79.899 Other long term (current) drug therapy; Z88.8 Allergy status to other drugs, medicaments and biological substances; I25.10 Atherosclerotic heart disease of native coronary artery without angina pectoris; F32.A Depression, unspecified; E11.9 Type 2 diabetes mellitus without complications; M10.9 Gout, unspecified; E78.5 Hyperlipidemia, unspecified; I10 Essential (primary) hypertension; G47.00 Insomnia, unspecified; G25.81 Restless legs syndrome
CPT/HCPCS: 71045; 80048; 84484; 85025; 93005; 99284

== ENCOUNTER 2022-01-09 17:40 | Emergency (ER) | payer MEDICARE, SELFPAY ==
--- NOTE | 2022-01-09 17:44 | XR_ITS ---
PROCEDURE INFORMATION: Exam: XR Left Foot Exam date and time: 01/09/2022 5:48 PM Age: 66 years old Clinical indication: Injury or trauma; Other: Dropped fence post onto left foot; Blunt trauma; Additional info: Drop post on foot TECHNIQUE: Imaging protocol: Radiologic exam of the Left foot. Views: 3 or more views. COMPARISON: CR [id number] XR foot LT min 3V 06/02/2017 8:22 PM FINDINGS: Bones/joints: Calcaneus enthesophytes. No acute fracture or dislocation. Soft tissues: Dorsal soft tissue edema. IMPRESSION: No acute fracture or dislocation.
[2022-01-09 18:50] VITALS: BP 131/74; PULSE 77; RESP 19; TEMP 37.1; O2SAT 98; BMI 32.0
--- NOTE | 2022-01-09 19:19 | EXP.UTC ---
Discharge Plan Disposition Patient Disposition: Home, Self-Care Condition: Good Prescriptions Prescriptions: No Action metformin 1,000 mg tablet 1,000 mg PO BID Qty: 60 3RF glipizide 10 mg tablet extended release 24hr 10 mg PO DAILY atorvastatin 40 mg tablet 40 mg PO DAILY Qty: 90 0RF amlodipine 10 mg tablet 10 mg PO DAILY Qty: 90 0RF Rx Instructions: TAKE ONE TABLET BY MOUTH EVERY DAY FOR blood pressure hydralazine 100 mg tablet 100 mg PO DAILY Qty: 90 0RF isosorbide mononitrate 120 mg tablet extended release 24 hr 120 mg PO DAILY Qty: 90 0RF lisinopril 20 mg tablet 20 mg PO DAILY Qty: 90 0RF gabapentin 800 mg tablet 800 mg PO TID Qty: 90 0RF aspirin [Adult Low Dose Aspirin] 81 mg tablet,delayed release (DR/EC) 81 mg PO DAILY nitroglycerin 0.3 mg tablet, sublingual 0.3 mg SUBLINGUAL Q5M PRN (Reason: chest pain) Qty: 25 0RF Rx Instructions: do not exceed 3 doses per episode carvedilol 25 mg tablet 25 mg PO BID Qty: 180 0RF clopidogrel 75 mg tablet 75 mg PO DAILY Qty: 30 5RF hydrocodone-acetaminophen 5-325 mg tablet 1 tab PO Q8H PRN (Reason: pain) Qty: 90 0RF furosemide 20 MG tablet 20 mg PO DAILY amitriptyline 25 mg tablet 25 mg PO HS Referrals Follow up/Referrals: Susanna Kohli PA [Primary Care Provider] - See instructions Activity Restrictions/Add. Instructions Additional Instructions/Restrictions: *weight bearing as tolerated *RICE, Rest the extremity, Ice 15-20 minutes 3-4 times daily, Compress- wear the socrates wrap as discussed as much as possible to help reduce swelling and pain, Elevate the extremity when at rest *Socrates wrap and post op shoe is for support and help control swelling, use it except in the shower. Be sure that is not to tight but not to loose either *Elevate when resting? *Ibuprofen 600-800mg every 6-8 hours as needed for pain an inflammation. If need something more can take Tylenol in between doses of Ibuprofen to help Immediately follow up with your family doctor for new or worsening of symptoms, or no noticeable improvement over the next 3-5 days Clinical Impressions Clinical Impression: Contusion of foot Instructions Patient Instructions: Contusion, DI for Contusion, How To Perform RICE (Rest, Ice, Compress, Elevate) Discharge ED Provider: Latonya Mancini [facility] [place] HPI General Stated complaint: AO 01/09 @1500 post fell on L foot Mode of Arrival: Ambulatory Source of Information: Patient Limitations: No Limitations Time Seen by Provider: 01/09/22 19:19 Description of Symptoms (Recalled from Triage Doc. by RN): PATIENT C/O INJURY TO LEFT FOOT AFTER DROPPING A POST ON IT TODAY HEENT Symptoms (Recalled from RN notes): No Resp Symptoms (Recalled from RN notes): No Skin Symptoms (Recalled from RN notes): No MS Symptoms (Recalled from RN notes): Yes Functional Status (Recalled from RN notes): WNL History of Present Illness Provider Complaint: Patient states that he dropped a treated post on the top of his left foot yesterday at work State that he has been having swelling and bruising ever since States that today when he was still having pain he came in to get it checked out Related Data Home Medications Medication Instructions Recorded Confirmed aspirin 81 mg tablet,delayed 81 mg PO DAILY heart health 12/05/20 12/26/21 release (Adult Low Dose Aspirin) furosemide 20 mg tablet 20 mg PO DAILY Fluid 07/08/21 12/26/21 amitriptyline 25 mg tablet 25 mg PO HS nerve pain 12/17/21 12/26/21 glipizide 10 mg tablet, extended 10 mg PO DAILY 12/19/21 12/26/21 release 24 hr Previous Rx's Medication Instructions Recorded carvedilol 25 mg tablet 25 mg PO BID Hypertension #180 tabs 08/22/20 clopidogrel 75 mg tablet 75 mg PO DAILY Blood thinner #30 03/19/21 tabs nitroglycerin 0.3 mg sublingual 0.3 mg sublingual Q5M PRN chest 08/06/21 tablet pain #25 tabs amlodipine 10 mg tablet 10 mg
[2022-01-09 19:31] VITALS: BP 131/74; PULSE 77; RESP 19; TEMP 37.1; O2SAT 98
== END 2022-01-09 19:34 | disposition home or self-care (01) ==
PROVIDERS: Emergency Provider Nurse Practitioner; PCP Physician Assistant
DX: S90.32XA Contusion of left foot, initial encounter (principal); W22.8XXA Striking against or struck by other objects, initial encounter
CPT/HCPCS: 73630; 99212; G0463

== ENCOUNTER → 2022-03-26 14:00 | Outpatient (CLI) | payer MEDICARE, SELFPAY ==
[2022-03-26 18:47] LABS: Methadone Screen,Urine Negative ng/ml (<300)
[2022-03-26 18:48] LABS: Amphetamine/Metha Screen,Urine Negative ng/ml (<1000)
[2022-03-26 18:49] LABS: Barbiturates Screen,Urine Negative ng/ml (<200); Benzodiazepines Screen,Urine Negative ng/ml (<200)
[2022-03-26 18:50] LABS: Cannabinoid Screen,Urine Negative ng/ml (<50); Cocaine Screen,Urine Negative ng/ml (<300)
[2022-03-26 18:51] LABS: Opiate Screen,Urine Positive ng/ml (<300)
[2022-03-26 18:52] LABS: Phencyclidine Screen,Urine Negative ng/ml (<25)
[2022-03-27 09:15] LABS: Chloride 103 mmol/L (98-107); Potassium 4.7 mmoL/L (3.5-5.1); Sodium 140 mmol/L (136-145)
[2022-03-27 09:18] LABS: Alanine Aminotransferase 24 U/L (12-78); Albumin Level 4.5 g/dl (3.5-5.0); Albumin/Globulin Ratio 1.4 (1.1-1.8); Alkaline Phosphatase 103 U/L (38-126); Anion Gap 14.7 mEq/L (5-15); Aspartate Amino Transferase 41 U/L (17-59); Bilirubin,Total 0.5 mg/dl (0.2-1.3); Blood Urea Nitrogen 18 mg/dl (9-20); Calcium 10.2 mg/dl (8.4-10.2); Carbon Dioxide 27 mmol/L (22.0-30.0); Cholesterol 225 mg/dl (140-200); Estimated Glomerular Filt Rate 67 ml/min (>60); GFR (African American) 81 ML/MIN (>60); Globulin 3.2 g/dL (1.3-3.2); Glucose 109 mg/dl (74-100); Total Protein,Serum 7.7 g/dl (6.3-8.2); Triglycerides 304 mg/dl (30-150); VLDL Cholesterol 61 mg/dL (0-40)
[2022-03-27 09:19] LABS: Chol/HDL Ratio 5.5 (1-3.5); HDL Cholesterol 41 mg/dl (40-60)
[2022-03-27 09:26] LABS: Basophils # 0.1 K/mm3 (0-0.2); Basophils % 1.2 % (0.1-2.0); Eosinophils # 0.2 K/mm3 (0.0-0.4); Eosinophils % 2.5 % (0.1-12.0); Hemoglobin 16.6 g/dL (14.1-18.0); Lymphocytes # 2.3 K/mm3 (0.7-4.5); Lymphocytes % 35.1 % (10-50); Mean Corpuscular HGB Conc 33.2 g/dL (31.8-35.4); Mean Corpuscular Hemoglobin 31.2 pg (27.0-31.2); Mean Corpuscular Volume 93.8 fl (80-94); Mean Platelet Volume 9.2 fl (7.4-10.4); Monocytes # 0.4 K/mm3 (0.1-1.0); Monocytes % 5.4 % (1.7-9.3); Neutrophils # 3.6 K/mm3 (1.8-7.8); Neutrophils % 55.8 % (37.0-80.0); Platelet Count 245 K/mm3 (142-424); Red Blood Count 5.33 M/mm3 (4.60-6.20); Red Cell Distribution Width 13.2 % (11.5-17.5); White Blood Count 6.4 K/mm3 (4.8-10.8)
[2022-03-27 09:30] LABS: Direct LDL Cholesterol 102.72 mg/dL (100-129)
[2022-03-27 09:35] LABS: 25-OH Vitamin D, Total 17.7 ng/mL (30-100)
[2022-03-27 09:49] LABS: Thyroid Stimulating Hormone 0.85 uIU/mL (0.465-4.68)
== END ==
PROVIDERS: PCP Physician Assistant; Visit Provider Physician Assistant
DX: G89.4 Chronic pain syndrome (principal); E11.9 Type 2 diabetes mellitus without complications; E55.9 Vitamin D deficiency, unspecified; Z79.84 Long term (current) use of oral hypoglycemic drugs
CPT/HCPCS: 80053; 80061; 80305; 82306; 83036; 84443; 85025

== ENCOUNTER 2022-04-14 16:29 | Emergency (ER) | payer MEDICARE, SELFPAY ==
--- NOTE | 2022-04-14 17:33 | EXP.UTC ---
Discharge Plan Disposition Patient Disposition: Home, Self-Care Condition: Good Prescriptions Prescriptions: New cyclobenzaprine 10 mg Tablet 10 mg PO BID PRN (Reason: Muscle Spasm) Qty: 20 0RF methylprednisolone 4 mg Tablets,Dose Pack 4 mg PO DIRECTED Qty: 21 0RF No Action aspirin [Adult Low Dose Aspirin] 81 mg tablet,delayed release (DR/EC) 81 mg PO DAILY nitroglycerin 0.3 mg tablet, sublingual 0.3 mg SUBLINGUAL Q5M PRN (Reason: chest pain) Qty: 25 0RF Rx Instructions: do not exceed 3 doses per episode gabapentin 800 mg tablet 800 mg PO TID Qty: 90 2RF amlodipine 10 mg tablet 10 mg PO DAILY Qty: 90 0RF Rx Instructions: TAKE ONE TABLET BY MOUTH EVERY DAY FOR blood pressure atorvastatin 40 mg tablet 40 mg PO DAILY Qty: 90 0RF carvedilol 25 mg tablet 25 mg PO BID Qty: 180 0RF clopidogrel 75 mg tablet 75 mg PO DAILY Qty: 90 1RF glipizide 10 mg tablet extended release 24hr See Rx Instructions .ROUTE .COMPLEX Qty: 90 1RF Dose Instruction: TAKE ONE TABLET BY MOUTH EVERY DAY FOR diabetes Rx Instructions: TAKE ONE TABLET BY MOUTH EVERY DAY FOR diabetes hydralazine 100 mg tablet 100 mg PO DAILY Qty: 90 0RF isosorbide mononitrate 120 mg tablet extended release 24 hr 120 mg PO DAILY Qty: 90 0RF lisinopril 20 mg tablet 20 mg PO DAILY Qty: 90 0RF metformin 1,000 mg tablet 1,000 mg PO BID Qty: 180 3RF hydrocodone-acetaminophen 5-325 mg tablet 1 tab PO Q8H PRN (Reason: pain) Qty: 90 0RF ergocalciferol (vitamin D2) 1,250 mcg (50,000 unit) capsule 1,250 mcg PO WEEKLY Qty: 14 3RF cholecalciferol (vitamin D3) 25 mcg (1,000 unit) capsule 25 mcg PO DAILY Qty: 30 2RF furosemide 20 MG tablet 20 mg PO DAILY amitriptyline 25 mg tablet 25 mg PO HS Referrals Follow up/Referrals: Susanna Kohli PA [Primary Care Provider] - See instructions Activity Restrictions/Add. Instructions Additional Instructions/Restrictions: Go home and rest. It would be best if you rested tomorrow too. No heavy lifting. No twisting. Take the oral medications as directed. The muscle relaxer (cyclobenzaprine--Flexeril) will make you drowsy, so don't drive or operate heavy machinery after taking it. Follow up with your regular doctor. GO TO THE ER FOR ANY WORSENING SYMPTOMS OR CONCERN, ESPECIALLY BOWEL OR BLADDER ISSUES, SADDLE AREA NUMBNESS, FEVER, ETC Clinical Impressions Clinical Impression: Low back pain Stand Alone Forms Stand Alone Forms: Work/School Release Instructions Patient Instructions: Low Back Pain, DI for Low Back Pain, Cyclobenzaprine [place] [facility] [place] General Stated complaint: ao 04/13 fall, back pain Time Seen by Provider: 04/14/22 18:01 History of Present Illness Provider Complaint: He states that he slipped and jerked his lower back yesterday. He did not completely fall. When he slipped, somehow this caused him to jerk his lower back. He has had right sided lower back pain that radiates down his right leg since then. He has a history of have a lumbar fusion in the past. He denies any other injury. He denies any bowel or bladder issues. Related Data Home Medications Medication Instructions Recorded Confirmed aspirin 81 mg tablet,delayed 81 mg PO DAILY heart health 12/05/20 03/26/22 release (Adult Low Dose Aspirin) furosemide 20 mg tablet 20 mg PO DAILY Fluid 07/08/21 03/26/22 amitriptyline 25 mg tablet 25 mg PO HS nerve pain 12/17/21 03/26/22 Previous Rx's Medication Instructions Recorded nitroglycerin 0.3 mg sublingual 0.3 mg sublingual Q5M PRN chest 08/06/21 tablet pain #25 tabs amlodipine 10 mg tablet 10 mg PO DAILY Hypertension #90 03/26/22 tabs atorvastatin 40 mg tablet 40 mg PO DAILY Cholesterol #90 tabs 03/26/22 carvedilol 25 mg tablet 25 mg PO BID Hypertension #180 tabs 03/26/22 clopidogrel 75 mg tablet 75 mg PO DAILY
--- NOTE | 2022-04-14 17:35 | XR_ITS ---
PROCEDURE INFORMATION: Exam: XR Thoracic Spine Exam date and time: 04/14/2022 6:05 PM Age: 66 years old Clinical indication: Injury or trauma; Fall; Blunt trauma (contusions or hematomas) TECHNIQUE: Imaging protocol: Radiologic exam of the thoracic spine. Views: 3 views. COMPARISON: CR XR LUMBAR SPINE 2-3V 04/14/2022 6:04 PM FINDINGS: Bones/joints: Mild anterior wedging of some of the upper thoracic vertebral bodies could not be confirmed as to have been present on prior examinations. In light of the patient's history of recent trauma, follow-up MRI or bone scan would be recommended for more complete characterization. Mild diffuse degenerative spondylosis and facet arthropathy. Mild rotoscoliosis. Pedicles appear intact. Left subclavian pacemaker with distal wires overlying right atrium and right ventricle. Included lungs appear clear. Soft tissues: Unremarkable. Heart/Mediastinum: Mediastinum is unremarkable. IMPRESSION: 1. Mild anterior wedging of some of the upper thoracic vertebral bodies could not be confirmed as to have been present on prior examinations. In light of the patient's history of recent trauma, follow-up MRI or bone scan would be recommended to exclude fracture. 2. Mild diffuse disc disease and facet arthropathy. 3. Mild rotoscoliosis.
--- NOTE | 2022-04-14 17:35 | XR_ITS ---
PROCEDURE INFORMATION: Exam: XR Lumbosacral Spine Exam date and time: 04/14/2022 6:04 PM Age: 66 years old Clinical indication: Injury or trauma; Fall; Blunt trauma (contusions or hematomas) TECHNIQUE: Imaging protocol: Radiologic exam of the lumbosacral spine. Views: 2 or 3 views. COMPARISON: CT PELVIS WO CON 08/20/2021 1:35 PM FINDINGS: Tubes, catheters and devices: As demonstrated on a prior CT of August 20, 2021, there is evidence of corpectomy with vertical elevation device at L5-S1. Bilateral pedicle screws and vertical fixation rods at L4 and S1. Bones/joints: Diffuse degenerative spondylosis and facet arthropathy. Osteophytosis and eburnation of the sacroiliac and femoroacetabular articulating surfaces. Mild rotoscoliosis. Soft tissues: Unremarkable. Vasculature: Calcifications within the aorta and its branches. IMPRESSION: 1. As demonstrated on a prior CT of August 20, 2021, there is evidence of corpectomy with vertical elevation device at L5-S1. Bilateral pedicle screws and vertical fixation rods at also present at L4 and S1. 2. Diffuse degenerative disc disease and facet arthropathy. 3. 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 4. Atherosclerosis within the aorta and its branches. 5. Mild rotoscoliosis.
[2022-04-14 18:11] VITALS: BP 188/95; PULSE 80; RESP 18; TEMP 37.1; O2SAT 96; BMI 32.4
[2022-04-14 18:51] VITALS: BP 188/95; PULSE 80; RESP 18; TEMP 37.1
== END 2022-04-14 18:52 | disposition home or self-care (01) ==
PROVIDERS: Emergency Provider Nurse Practitioner Family; PCP Physician Assistant
DX: M54.50 Low back pain, unspecified (principal); W01.0XXA Fall on same level from slipping, tripping and stumbling without subsequent striking against object, initial encounter
CPT/HCPCS: 72072; 72100; 99213; G0463

== ENCOUNTER 2022-05-01 09:57 | Day surgery (SDC) | payer MEDICARE, SELFPAY ==
--- NOTE | 2022-05-01 07:04 | IR_ITS ---
APPROVED REPORT Patient Location: Outpatient Manager Wealth Management: KATHY Frank RT (R) PROCEDURES 1. Pocket Revision 2. Removal of old Pacemaker 3. Capping of chronic right atrial lead. 4. Capping of chronic right ventricular lead. 5. Insertion of permanent right atrial lead. 6. Insertion of permanent right ventricular lead. 7. Implant of Permanent Pacemaker INDICATION End of battery life. Diminshed signal from the right atrial lead. Damage to the right ventricular lead. Informed consent was obtained prior to the procedure. COMPLICATIONS None Estimated Blood Loss: Less than 10 ML TECHNIQUE 1% lidocaine with epinephrine used to anesthetize the left anterior aspect of the chest. Scalpel was used to make the initial cutaneous incision and then used to dissect down to the existing pacemaker generator. The generator was removed from the existing pocket. Digital manipulation was required along with intermittent usage of scalpel in order to revise the pocket. The leads were removed from the old generator. The chronic right ventricular and right atrial leads were capped. The patient was then placed in Trendelenburg position and the subclavian vein was accessed twice via the Selinger technique, there are two wires in the vein. A 6 Prydeinig sheath was placed under fluoroscopic guidance into the subclavian vein over one of the wires while keeping the other wire in place within the subclavian vein. The dilator was removed from the sheath. Using fluoroscopic guidance, the ventricular lead was placed into the right ventricular apex, screwed and secured into place. Electronic interrogation proved acceptable thresholds and voltage within the lead. Using 3-0 silk, the ventricular lead was then secured into place. Lead was secured to the facia using the 3-0 silk. Following this, the sheath was pealed away. An additional 6 Prydeinig fresh sheath and dilator was placed over the existing wire. Using fluoroscopic guidance, the atrial lead was the placed into the right atrial appendage and screwed and secured in place. Electrical interrogation demonstrated acceptable thresholds and voltage number. The atrial lead was then secured into place using 3-0 silk. The new generator was screwed to the leads and secured into place. Antibiotics were used to flush the pocket and the pacemaker was secured using 3-0 silk into the newly revised pocket. Monocryl was used to close the subcutaneous tissue and then aydin were placed on the cutaneous area in order to approximate the incision. Patient was transferred to the postop holding area in stable condition. INTERROGATION Generator Model number: L311: Meli PALOMO DR Is-1 Generator Serial number: [id number] Atrial lead model number: 7840 Atrial lead serial number: [id number] P-wave: 5.0 mV Impedence: 687 ohms Threshold: 0.9v@0.4ms Right Ventricular lead model number: 7842 Right Ventricular lead serial number: [id number] R-wave: 14.0 mv Impedence: 850 ohms Threshold: 0.7v@0.4ms Pacing Parameters: Mode: DDDR Base/Max Track:60 ppm / 130 ppm No diaphragmatic stimulation at 10 volts. IMPRESSION 1. Successful Pocket Revision 2. Successful Removal of old Pacemaker 3. Successful Capping of chronic right atrial lead. 4. Successful Capping of chronic right ventricular lead. 5. Successful Insertion of permanent right atrial lead. 6. Successful Insertion of permanent right ventricular lead. 7. Successful Implant of Permanent Pacemaker PLAN 1. Post Op Wound Care Electronically signed by : Zaire Cox MD 05/06/2022 13:25:06
[2022-05-01 10:04] VITALS: BMI 32.1
[2022-05-01 10:26] LABS: Basophils # 0.1 K/mm3 (0-0.2); Basophils % 1.3 % (0.1-2.0); Eosinophils # 0.2 K/mm3 (0.0-0.4); Eosinophils % 2.4 % (0.1-12.0); Hematocrit 50.1 % (42.0-52.0); Lymphocytes % 23.1 % (10-50); Mean Corpuscular HGB Conc 31.9 g/dL (31.8-35.4); Mean Corpuscular Volume 97.1 fl (80-94); Mean Platelet Volume 7.8 fl (7.4-10.4); Monocytes # 0.4 K/mm3 (0.1-1.0); Monocytes % 4.8 % (1.7-9.3); Neutrophils # 5.8 K/mm3 (1.8-7.8); Neutrophils % 68.4 % (37.0-80.0); Platelet Count 265 K/mm3 (142-424); Red Blood Count 5.16 M/mm3 (4.60-6.20); Red Cell Distribution Width 13.8 % (11.5-17.5); White Blood Count 8.5 K/mm3 (4.8-10.8)
[2022-05-01 10:50] VITALS: BP 185/100; PULSE 75; PULSE 76; RESP 19; O2SAT 95
--- NOTE | 2022-05-01 13:25 | XR_ITS ---
FINAL REPORT CLINICAL HISTORY: post pacemaker placement COMPARISON: December 26, 2021 FINDINGS: A single portable view of the chest was obtained. A left subclavian pacemaker is present. The heart size and pulmonary vascularity are within normal limits. The mediastinum is within normal limits. No acute pulmonary abnormality is identified. The bony thorax is intact. IMPRESSION: Left subclavian pacemaker is present. No pneumothorax. No active cardiopulmonary disease. Reviewed, Interpreted and Dictated by Joseph Gonzalez III, MD Transcribed by Kathy Calloway Authenticated and [facility]
[2022-05-01 13:31] VITALS: BP 186/94; PULSE 78; RESP 18; O2SAT 96
[2022-05-01 13:45] VITALS: BP 136/91; PULSE 70; RESP 19; O2SAT 100
[2022-05-01 14:00] VITALS: BP 163/100; PULSE 75; RESP 19; O2SAT 96
[2022-05-01 14:15] VITALS: BP 152/92; PULSE 72; RESP 19; O2SAT 96
[2022-05-01 14:30] VITALS: BP 168/96; PULSE 68; RESP 19; O2SAT 96
== END 2022-05-01 15:03 | disposition home or self-care (01) ==
PROVIDERS: PCP Physician Assistant; Visit Provider Internal Medicine
DX: Z45.02 Encounter for adjustment and management of automatic implantable cardiac defibrillator (principal); I25.118 Atherosclerotic heart disease of native coronary artery with other forms of angina pectoris; J44.9 Chronic obstructive pulmonary disease, unspecified; I10 Essential (primary) hypertension; Z79.84 Long term (current) use of oral hypoglycemic drugs; Z79.899 Other long term (current) drug therapy; Z95.5 Presence of coronary angioplasty implant and graft; I49.9 Cardiac arrhythmia, unspecified
CPT/HCPCS: 33208; 33233; 36415; 71045; 85025; 99152; 99153; C1785; C1898

== ENCOUNTER → 2022-07-03 07:07 | Outpatient (CLI) | payer MEDICARE, SELFPAY ==
--- NOTE | 2022-07-03 07:08 | NM_ITS ---
APPROVED REPORT Exam: Nuclear Stress Test Indication: chest pain..soa..fatigue Patient Location: Outpatient Stress Tech: Carmen Cullen [place] Tech:KATHY Velasquez RT(R)(N) Ht: 6 ft 0 in Wt: 229 lbs HR: 62 bpm BP: 120/75 mmHg BSA: 2.26 m2 TID: 1.18 History: chest pain..soa..fatigue Procedure: Patient received 0.4 mg of intravenous Lexiscan, resting heart rate 62 bpm, resting blood pressure 120/75 mmHg, with Lexiscan maximum heart rate achieved was 72 bpm which is Less than 85 % of the maximum predicted heart rate and blood pressure was 120/75 mmHg. With Lexiscan, patient denied any complaint of chest pain. Electrocardiogram Resting electrocardiogram shows sinus rhythm, with Lexiscan less than 1.[address] segment depression noted from the baseline EKG, there is transient left bundle branch block seen. The EKG portion of the Lexiscan is nondiagnostic. Cardiac Stress and Resting SPECT Images: Cardiac Stress and Resting SPECT images were obtained using technetium 99m Myoview 32.9 mCi stress and 10.52 mCi at rest. Gated SPECT analysis of segmental wall motion and calculation of the ejection fraction also done. Prone images were also obtained. Cardiac stress prone images show uniform myocardial activity without segmental perfusion abnormality, computer derived ejection fraction is 50% with no regional wall motion abnormality, right ventricle is mildly enlarged with normal contractility. Conclusion: 1. The EKG portion of the Lexiscan is nondiagnostic. 2. No scintigraphic evidence of reversible ischemia seen, computer derived ejection fraction 50% with no regional wall motion abnormality, right ventricle is mildly enlarged with normal contractility. 3. Normal Lexiscan Myoview study. Electronically signed by : Karsten Johnson MD 07/04/2022 11:05:57
--- NOTE | 2022-07-03 08:09 | US_ITS ---
FINAL REPORT CLINICAL HISTORY: claudication COMPARISON: None FINDINGS: ANKLE-BRACHIAL PRESSURE INDICES Pressure indices are as follows: RIGHT LOWER EXTREMITY: Ankle-brachial pressure index: 1.2 Comments: Normal LEFT LOWER EXTREMITY: Ankle-brachial pressure index: 1.2 Comments: Normal IMPRESSION: No evidence of significant obstructive peripheral vascular disease of the lower extremities Reviewed, Interpreted and Dictated by Joseph Gonzalez III, MD Transcribed by Windy Liang Authenticated and [facility]
--- NOTE | 2022-07-03 08:09 | CA_ITS ---
FINAL REPORT TECHNIQUE: Grayscale, color Doppler and duplex Doppler ultrasound of the kidneys, aorta and renal arteries was performed. Multiple velocities were measured. CLINICAL HISTORY: HTN COMPARISON: None FINDINGS: Aorta velocity: 78 cm/sec Right kidney: 12 cm. No evidence of hydronephrosis or mass. Right intrarenal RI: 0.60 Right renal artery velocity: 158 cm/sec. Right RAR (Renal artery-Aortic Ratio): 2.0 Left Kidney: 12.3 cm. No evidence of hydronephrosis or mass. Left intrarenal RI: 0.64 Left renal artery velocity: 197 cm/sec. Left RAR (Renal Artery-Aortic Ratio): 2.5 IMPRESSION: No evidence of significant renal artery stenosis. CT angiogram or postcontrast MR angiogram would be more sensitive for evaluation of possible renal artery stenosis. Reviewed, Interpreted and Dictated by Joseph Gonzalez III, MD Transcribed by Windy Liang Authenticated and [facility]
--- NOTE | 2022-07-03 10:00 | CA_ITS ---
APPROVED REPORT Exam: Pharmacologic Technologist: Carmen Madsen, Ht: 6 ft 0 in Wt: 231 lbs BSA: 2.27 m2 HR: 61 bpm BP: 120/75 mmHg Medical History Medications: Amlodipine,,,,, Lisinopril,,,,, Hydralazine,,,,, Aspirin,,,,, Metformin,,,,, Gabapentin,,,,, Atorvastatin,,,,, Carvedilol,,,,, PERCOCET,,,,, CloPIdogrel,,,,, AmiTRIPTYLINE,,,,, Cyclobenzaprine,,,,, Stress Test Details Test: LEXISCAN Reason for pharmacologic stress test: physical limitation. HR Resting HR: 62 bpm Max Heart Rate (APMHR): 152.583222 bpm Max HR Achieved: 72 bpm Target HR (85% APMHR): 129.286514 bpm % of APMHR: 47.37 Recovery HR: 60 bpm BP Resting BP: 120.0/75.0 mmHg Max BP: 120.0/75.0 mmHg Recovery BP: 103.0/52.0 mmHg ECG Resting ECG: NSR, 1*AVB, rightward axis, ST-T abns in leads III & aVF Clinical Exercise duration: 04:18 min Highest Stage Achieved: Stress ECG Conclusion Symptoms: Mild SOA, fleeting CP, GILL. Light-headed. Arrhythmias/Ectopy: Intermittent periods of ventricular pacing. ST-T Changes: No significant changes. Conclusion: Non-diagnostic Lexiscan stress. Myoview images reported separately. Test Summary REST . . . . . . . Resting REST 03:03 . . 62 . 120/ 75 . . Stage 1 01:00 . . 70 . . . . Stage 2 01:00 . . 60 . . . . Stage 3 01:00 . . 60 . 87/ 41 . . Stage 4 01:00 . . 60 . 97/ 60 . . Stage 4 01:18 . . 69 . 107/ 67 . Stop exercise at 04:18 RECOVERY 01:00 . . 60 . . . . RECOVERY 02:00 . . 60 . 104/ 61 . . RECOVERY 03:00 . . 60 . 77/ 47 . . RECOVERY 04:00 . . 60 . 85/ 52 . . RECOVERY 05:00 . . 60 . 93/ 57 . . RECOVERY 06:00 . . 61 . 93/ 57 . . RECOVERY 07:00 . . 63 . 97/ 55 . . RECOVERY 08:00 . . 60 . 97/ 55 . . RECOVERY 09:00 . . 63 . 95/ 53 . . RECOVERY 10:00 . . 65 . 95/ 53 . . RECOVERY 11:00 . . 62 . 95/ 53 . . RECOVERY 12:00 . . 62 . 99/ 55 . . RECOVERY 13:00 . . 65 . 99/ 55 . . RECOVERY 14:00 . . 67 . 99/ 55 . . RECOVERY 15:00 . . 67 . 99/ 55 . . RECOVERY 16:00 . . 63 . 99/ 55 . . RECOVERY 17:00 . . 64 . 108/ 60 . . RECOVERY 18:00 . . 63 . 103/ 52 . . RECOVERY 19:00 . . 65 . 101/ 55 . . RECOVERY 19:06 . . 65 . 101/ 55 . . Electronically signed by : Karsten Johnson MD 07/04/2022 11:03:42
--- NOTE | 2022-07-03 10:00 | US_ITS ---
FINAL REPORT CLINICAL HISTORY: E78.2 - Mixed hyperlipidemia FINDINGS: The right kidney measures 12.1 cm in length. It is normal in echogenicity. There is no hydronephrosis. The left kidney measures 11.1 cm in length. It is normal in echogenicity. There is no hydronephrosis. The spleen is unremarkable. IMPRESSION: Normal renal ultrasound. Reviewed, Interpreted and Dictated by Joseph Gonzalez III, MD Transcribed by Chrissie Guido Authenticated and [facility]
== END ==
LOC: RAD 07:08
PROVIDERS: PCP Physician Assistant; Visit Provider Nurse Practitioner
DX: E11.9 Type 2 diabetes mellitus without complications (principal); E66.9 Obesity, unspecified; E78.2 Mixed hyperlipidemia; G47.33 Obstructive sleep apnea (adult) (pediatric); I10 Essential (primary) hypertension; I25.118 Atherosclerotic heart disease of native coronary artery with other forms of angina pectoris; J44.9 Chronic obstructive pulmonary disease, unspecified; R07.89 Other chest pain; Z95.0 Presence of cardiac pacemaker; Z95.5 Presence of coronary angioplasty implant and graft; I73.9 Peripheral vascular disease, unspecified; Z68.31 Body mass index [BMI] 31.0-31.9, adult; Z79.84 Long term (current) use of oral hypoglycemic drugs
CPT/HCPCS: 76770; 78452; 93017; 93923; 93976; A9502; J2785

== ENCOUNTER → 2022-07-10 10:59 | Outpatient (CLI) | payer MEDICARE, SELFPAY ==
[2022-07-10 14:49] LABS: Basophils # 0.1 K/mm3 (0-0.2); Eosinophils # 0.2 K/mm3 (0.0-0.4); Eosinophils % 2.7 % (0.1-12.0); Hematocrit 48.7 % (42.0-52.0); Hemoglobin 16.3 g/dL (14.1-18.0); Lymphocytes # 2.3 K/mm3 (0.7-4.5); Lymphocytes % 39.8 % (10-50); Mean Corpuscular HGB Conc 33.4 g/dL (31.8-35.4); Mean Corpuscular Hemoglobin 31.2 pg (27.0-31.2); Mean Corpuscular Volume 93.5 fl (80-94); Mean Platelet Volume 8.5 fl (7.4-10.4); Monocytes # 0.3 K/mm3 (0.1-1.0); Monocytes % 5.9 % (1.7-9.3); Neutrophils # 2.9 K/mm3 (1.8-7.8); Neutrophils % 50.6 % (37.0-80.0); Platelet Count 230 K/mm3 (142-424); Red Blood Count 5.21 M/mm3 (4.60-6.20); Red Cell Distribution Width 14.1 % (11.5-17.5); White Blood Count 5.8 K/mm3 (4.8-10.8)
[2022-07-10 14:57] LABS: Alanine Aminotransferase 24 U/L (12-78); Albumin Level 4.2 g/dl (3.5-5.0); Albumin/Globulin Ratio 1.4 (1.1-1.8); Alkaline Phosphatase 104 U/L (38-126); Anion Gap 15.5 mEq/L (5-15); Aspartate Amino Transferase 29 U/L (17-59); Bilirubin,Total 0.7 mg/dl (0.2-1.3); Blood Urea Nitrogen 23 mg/dl (9-20); Calcium 9.1 mg/dl (8.4-10.2); Carbon Dioxide 21 mmol/L (22.0-30.0); Chloride 104 mmol/L (98-107); Chol/HDL Ratio 6.8 (1-3.5); Cholesterol 251 mg/dl (140-200); Estimated Glomerular Filt Rate 84 ml/min (>60); GFR (African American) 102 ML/MIN (>60); Globulin 2.9 g/dL (1.3-3.2); Glucose 248 mg/dl (74-100); HDL Cholesterol 37 mg/dl (40-60); Potassium 4.5 mmoL/L (3.5-5.1); Sodium 136 mmol/L (136-145); Total Protein,Serum 7.1 g/dl (6.3-8.2)
[2022-07-10 15:00] LABS: Triglycerides 469 mg/dl (30-150)
[2022-07-10 15:09] LABS: Direct LDL Cholesterol 110.27 mg/dL (100-129)
[2022-07-10 15:14] LABS: Hemoglobin A1C 8.5 % (4.0-6.0)
[2022-07-10 15:30] LABS: Thyroid Stimulating Hormone 0.62 uIU/mL (0.465-4.68)
[2022-07-11 16:53] LABS: Vitamin B12 472 pg/mL (239-931)
[2022-07-11 17:31] LABS: Ferritin 123 ng/ml (17.9-464)
== END ==
PROVIDERS: PCP Physician Assistant; Visit Provider Physician Assistant
DX: E11.9 Type 2 diabetes mellitus without complications (principal); I25.118 Atherosclerotic heart disease of native coronary artery with other forms of angina pectoris; E53.8 Deficiency of other specified B group vitamins; K29.70 Gastritis, unspecified, without bleeding; E78.2 Mixed hyperlipidemia; M10.9 Gout, unspecified; Z79.84 Long term (current) use of oral hypoglycemic drugs
CPT/HCPCS: 80053; 80061; 82607; 82728; 83036; 84443; 85025

== ENCOUNTER → 2022-07-16 10:44 | Outpatient (CLI) | payer MEDICARE, SELFPAY ==
--- NOTE | 2022-07-16 10:47 | XR_ITS ---
FINAL REPORT CLINICAL HISTORY: cp COMPARISON: 05/01/2022 FINDINGS: PA and lateral views of the chest were obtained. The cardiac and mediastinal silhouettes are within normal limits. There is no change in the left pacemaker. The lungs are clear. There is no pleural effusion or pneumothorax. No acute osseous abnormality is identified. IMPRESSION: No radiographic evidence of acute cardiac or pulmonary disease. Reviewed, Interpreted and Dictated by Susan Dias MD Transcribed by Chrissie Guido Authenticated and . [facility]
== END ==
LOC: RAD 10:46
PROVIDERS: PCP Physician Assistant; Visit Provider Nurse Practitioner Family
DX: R06.00 Dyspnea, unspecified (principal); R07.89 Other chest pain
CPT/HCPCS: 71046

== ENCOUNTER 2022-07-17 08:43 | Day surgery (SDC) | payer MEDICARE, SELFPAY ==
[2022-07-17] VITALS (12 sets, daily range): BP systolic 79–144; BP diastolic 46–86; PULSE 60–69; RESP 14–18; TEMP 37; O2SAT 92–97; BMI 32.1
--- NOTE | 2022-07-17 | IR_ITS ---
APPROVED REPORT Patient Location: Outpatient Territory Sales Representative: KATHY Fontana RT (R) PROCEDURES Selective coronary angiogram INDICATION Preoperative evaluation, Known coronary artery disease Informed consent was obtained prior to the procedure. COMPLICATIONS None Estimated Blood Loss: Less than 10 mls TECHNIQUE One percent lidocaine used to anesthetize the right anterior aspect of the wrist. The right radial artery was accessed via the Seldinger technique. A 6 Uzbek sheath was placed in the right radial artery. 150 mg magnesium sulfate, 800 mcg of nitroglycerin, 1mg Lidocaine and 5000 U Heparin were given through the arterial sheath. The papa catheter and a 6 Uzbek JL 3 guide catheter were also used to perform selective coronary angiogram. At the end of the procedure the sheath was removed good hemostasis was achieved using Traclet band, patient was transferred to the postop holding area in stable condition. ANGIOGRAPHIC RESULTS The left main artery Normal The left anterior descending artery has proximal 10 to 20% stenosis with a stent in the mid to distal portion which is widely patent with minimal in-stent restenosis. Proximal to the stent there is a 30% stenotic at the transition point while distally there is a 30% transitional stenosis. A large first diagonal artery has an ostial 50% stenosis followed by widely patent stent The circumflex artery Is a large dominant vessel and has proximal 10% luminal irregularities with a mid vessel 30% stenosis The right coronary artery Vestigial normal The LIND ventriculogram reveals Not performed The left ventricular end-diastolic pressure Not measured IMPRESSION Coronary disease as described above PLAN 1. Patient is alone acceptable risk to proceed with herniorrhaphy 2. Continue medical management for coronary artery disease with specific attention maximizing antianginal medications and reducing risk factors 3. LDL less than 55 to be achieved with high intensity statin Electronically signed by : Zaire Cox MD 07/17/2022 13:16:00
== END 2022-07-17 15:51 | disposition home or self-care (01) ==
LOC: CATHLAB 08:44
PROVIDERS: PCP Physician Assistant; Visit Provider Internal Medicine
DX: I25.118 Atherosclerotic heart disease of native coronary artery with other forms of angina pectoris (principal); I10 Essential (primary) hypertension; E11.9 Type 2 diabetes mellitus without complications; Z95.0 Presence of cardiac pacemaker; Z79.84 Long term (current) use of oral hypoglycemic drugs; Z79.899 Other long term (current) drug therapy; Z79.01 Long term (current) use of anticoagulants; Z95.5 Presence of coronary angioplasty implant and graft
CPT/HCPCS: 93454; 99152; 99153; C1725; C1760; C1769; J1644; Q9967

== ENCOUNTER 2022-08-09 17:54 | Emergency (ER) | payer MEDICARE, SELFPAY ==
[2022-08-09 18:00] VITALS: BP 161/86; PULSE 86; RESP 20; TEMP 36.4; O2SAT 97; BMI 31.6
--- NOTE | 2022-08-09 18:26 | EXP.UTC ---
Discharge Plan Disposition Patient Disposition: Home, Self-Care Condition: Good Prescriptions Prescriptions: New azithromycin [Zithromax] 250 mg tablet 250 mg PO UD DOSE PK Qty: 6 0RF Rx Instructions: Take two (2) tablets today, then one (1) tablet days #2 thru #5 prednisone [prednisone] 20 mg tablet 20 mg PO BID 4 Days Qty: 8 0RF guaifenesin [Mucinex] 600 mg tablet extended release 12hr 600 - 1,200 mg PO BIDP PRN (Reason: Congestion) Qty: 30 0RF No Action valsartan 160 mg tablet 160 mg PO DAILY Qty: 30 2RF pregabalin [Lyrica] 75 mg capsule 75 mg PO TID Qty: 90 0RF pramipexole [Mirapex] 0.25 mg tablet 0.25 mg PO BID Qty: 60 2RF aspirin [Adult Low Dose Aspirin] 81 mg tablet,delayed release (DR/EC) 81 mg PO DAILY nitroglycerin 0.3 mg tablet, sublingual 0.3 mg SUBLINGUAL Q5M PRN (Reason: chest pain) Qty: 25 0RF Rx Instructions: do not exceed 3 doses per episode amlodipine 10 mg tablet 10 mg PO DAILY Qty: 90 0RF Rx Instructions: TAKE ONE TABLET BY MOUTH EVERY DAY FOR blood pressure atorvastatin 40 mg tablet 40 mg PO DAILY Qty: 90 0RF clopidogrel 75 mg tablet 75 mg PO DAILY Qty: 90 1RF glipizide 10 mg tablet extended release 24hr See Rx Instructions .ROUTE .COMPLEX Qty: 90 1RF Dose Instruction: TAKE ONE TABLET BY MOUTH EVERY DAY FOR diabetes Rx Instructions: TAKE ONE TABLET BY MOUTH EVERY DAY FOR diabetes hydralazine 100 mg tablet 100 mg PO DAILY Qty: 90 0RF isosorbide mononitrate 120 mg tablet extended release 24 hr 120 mg PO DAILY Qty: 90 0RF metformin 1,000 mg tablet 1,000 mg PO BID Qty: 180 3RF Hold Instructions: Resume on 07/20/22. carvedilol 25 mg tablet 50 mg PO BID Qty: 360 3RF cyclobenzaprine 10 mg tablet 10 mg PO TID PRN (Reason: muscle spasm) Qty: 30 0RF hydrocodone-acetaminophen 7.5-325 mg tablet 1 tab PO TID PRN (Reason: pain) Qty: 90 0RF furosemide 20 MG tablet 20 mg PO DAILY amitriptyline 25 mg tablet 25 mg PO HS Referrals Follow up/Referrals: Susanna Kohli PA [Primary Care Provider] - See instructions Activity Restrictions/Add. Instructions Additional Instructions/Restrictions: Drink plenty of fluids. Take tylenol or ibuprofen for pain or fever. Take the medications as directed. Follow up with your regular doctor. GO TO THE ER FOR ANY WORSENING SYMPTOMS Clinical Impressions Clinical Impression: Pharyngitis, Sinusitis Instructions Patient Instructions: DI for Pharyngitis/Tonsillopharyngitis -- Adult, DI for Sinusitis Discharge ED Provider: Sina Bruno [facility] [place] HPI General Stated complaint: sore throat,cough,congestion Mode of Arrival: Ambulatory Source of Information: Patient Limitations: No Limitations Time Seen by Provider: 08/09/22 18:26 Description of Symptoms (Recalled from Triage Doc. by RN): sore throat, cough, nose stopped up HEENT Symptoms (Recalled from RN notes): Yes Resp Symptoms (Recalled from RN notes): No Skin Symptoms (Recalled from RN notes): No MS Symptoms (Recalled from RN notes): No Functional Status (Recalled from RN notes): n/a History of Present Illness Provider Complaint: He states that for the past 2 days he has had worsening sinus and chest congestion. He has a sore throat also. Related Data Home Medications Medication Instructions Recorded Confirmed aspirin 81 mg tablet,delayed 81 mg PO DAILY heart health 12/05/20 07/31/22 release (Adult Low Dose Aspirin) furosemide 20 mg tablet 20 mg PO DAILY Fluid 07/08/21 07/31/22 amitriptyline 25 mg tablet 25 mg PO HS nerve pain 12/17/21 07/31/22 Previous Rx's Medication Instructions Recorded nitroglycerin 0.3 mg sublingual 0.3 mg sublingual Q5M PRN chest 08/06/21 tablet pain #25 tabs amlodipine 10 mg tablet 10 mg PO DAILY Hypertension #90 03/26/22 tabs atorvastatin 40 mg tablet 40 mg PO DAILY Cholesterol #90 tabs 03/26/22 clopid
[2022-08-09 18:37] LABS: UTC Strep Screen (Rapid) Negative (Negative)
[2022-08-09 18:43] VITALS: BP 161/86; PULSE 86; RESP 20; TEMP 36.4; O2SAT 97
== END 2022-08-09 18:43 | disposition home or self-care (01) ==
PROVIDERS: Emergency Provider Nurse Practitioner Family; PCP Physician Assistant
DX: J02.9 Acute pharyngitis, unspecified (principal); J01.90 Acute sinusitis, unspecified; E11.9 Type 2 diabetes mellitus without complications; J44.9 Chronic obstructive pulmonary disease, unspecified; I10 Essential (primary) hypertension; E78.5 Hyperlipidemia, unspecified; Z95.0 Presence of cardiac pacemaker; Z79.84 Long term (current) use of oral hypoglycemic drugs
CPT/HCPCS: 87880; 99212; 99214; G0463

== ENCOUNTER → 2022-08-12 13:03 | Outpatient (CLI) | payer MEDICARE, SELFPAY ==
--- NOTE | 2022-08-12 13:14 | ECG_ITS ---
APPROVED REPORT Exam: Resting ECG HR:64 bpm ECG Measurements Heart Rate 64 AXES [place] 200 P 64 QRSd 122 QRS 88 QT 426 T 23 QTc 435 Conclusion SINUS RHYTHM MODERATE INTRAVENTRICULAR CONDUCTION DELAY [110+ ms QRS DURATION] BORDERLINE ECG UNCONFIRMED REPORT Electronically signed by : Bradley Chung MD 08/12/2022 19:36:11
[2022-08-12 13:17] LABS: Microscopic, Urine URINE MICROSCOPIC (MICROSCOPIC)
--- NOTE | 2022-08-12 13:30 | XR_ITS ---
FINAL REPORT CLINICAL HISTORY: Preoperative respiratory clearance COMPARISON: 07/16/2022 FINDINGS: Two views of the chest were obtained. A left subclavian pacemaker is noted. The heart size and pulmonary vascularity are within normal limits. The mediastinum is normal. No acute pulmonary abnormality is identified. There is no pneumothorax. Mild degenerative changes are seen in the thoracic spine IMPRESSION: No active cardiopulmonary disease. . Reviewed, Interpreted and Dictated by Joseph Gonzalez III, MD Transcribed by Gema Dugan Authenticated and [facility] [place]
--- NOTE | 2022-08-12 13:30 | CT_ITS ---
FINAL REPORT TECHNIQUE: Axial imaging of the lumbar spine was obtained without contrast. Sagittal and coronal reformatted images were also obtained and reviewed. This study was performed with techniques to keep radiation doses as low as reasonably achievable (ALARA). Individualized dose reduction techniques using automated exposure control or adjustment of mA and/or kV according to the patient's size were employed. CLINICAL HISTORY: low back pain FINDINGS: There are postoperative changes from fusion of L4 through S1. There is no fracture. The vertebral alignment is normal. Mild to moderate degenerative changes are seen.There is no evidence of significant central canal stenosis. T12-L1: There is an annular disc bulge with facet arthropathy and vertebral osteophytes. No significant central canal stenosis or neural foraminal narrowing. L1-L2: An annular disc bulge with facet arthropathy is present. No significant central canal stenosis or neural foraminal narrowing. L2-L3: There is an annular disc bulge with facet arthropathy and vertebral osteophytes. Mild right neural foraminal narrowing. Mild central canal stenosis with an AP diameter of the thecal sac of 8 mm. L3-L4: There is an annular disc bulge with facet arthropathy and vertebral osteophytes. Mild bilateral neural foraminal narrowing. Moderate central canal stenosis with an AP diameter of the thecal sac of 6 mm. L4-L5: Fusion. Mild bilateral neural foraminal narrowing. L5-S1: Fusion. Mild left neural foraminal narrowing. There is mild spurring of the sacroiliac joints bilaterally. IMPRESSION: Multilevel degenerative change without areas of central canal stenosis and neural foraminal narrowing. Postoperative changes from fusion of L4 through S1. Reviewed, Interpreted and Dictated by Joseph Gonzalez III, MD Transcribed by Gema Dugan Authenticated and [facility]
[2022-08-12 13:45] LABS: Basophils # 0.1 K/mm3 (0-0.2); Basophils % 0.5 % (0.1-2.0); Eosinophils % 0.3 % (0.1-12.0); Hemoglobin 15.6 g/dL (14.1-18.0); Lymphocytes # 2.1 K/mm3 (0.7-4.5); Lymphocytes % 22.4 % (10-50); Mean Corpuscular HGB Conc 33.1 g/dL (31.8-35.4); Mean Corpuscular Hemoglobin 31.7 pg (27.0-31.2); Mean Corpuscular Volume 95.6 fl (80-94); Mean Platelet Volume 7.9 fl (7.4-10.4); Monocytes # 0.2 K/mm3 (0.1-1.0); Monocytes % 2.4 % (1.7-9.3); Neutrophils # 6.8 K/mm3 (1.8-7.8); Neutrophils % 74.2 % (37.0-80.0); Platelet Count 231 K/mm3 (142-424); Red Blood Count 4.91 M/mm3 (4.60-6.20); Red Cell Distribution Width 13.8 % (11.5-17.5); White Blood Count 9.2 K/mm3 (4.8-10.8)
[2022-08-12 14:02] LABS: Chloride 103 mmol/L (98-107)
[2022-08-12 14:03] LABS: Potassium 4.1 mmoL/L (3.5-5.1); Sodium 137 mmol/L (136-145)
[2022-08-12 14:05] LABS: Blood Urea Nitrogen 27 mg/dl (9-20); Estimated Glomerular Filt Rate 67 ml/min (>60); GFR (African American) 81 ML/MIN (>60)
[2022-08-12 14:06] LABS: Anion Gap 16.1 mEq/L (5-15); Calcium 9.1 mg/dl (8.4-10.2); Carbon Dioxide 22 mmol/L (22.0-30.0); Glucose 330 mg/dl (74-100)
[2022-08-12 15:22] LABS: Appearance,Urine CLEAR (Clear); Bilirubin,Urine Negative (Negative); Blood, Urine Negative (Negative); Color,Urine YELLOW (Yellow); Glucose,Urine (UA) 2+ (Negative); Ketones,Urine Negative (Negative); Leukocyte Esterase,Urine Negative (Negative); Nitrate,Urine Negative (Negative); Protein,Urine TRACE (Negative); Urobilinogen,Urine 0.2 EU/dl (0.2)
[2022-08-12 15:52] LABS: Bacteria,Urine Trace /lpf; Squamous Epithelial Cell,Urine Occasional #/hpf (0-5); WBC,Urine Occasional #/hpf (0-3)
== END ==
PROVIDERS: PCP Physician Assistant; Referring Provider Surgery; Visit Provider Nurse Practitioner Family
DX: K40.90 Unilateral inguinal hernia, without obstruction or gangrene, not specified as recurrent (principal); M10.9 Gout, unspecified; M54.50 Low back pain, unspecified
CPT/HCPCS: 36415; 71046; 72131; 80048; 81001; 85025; 93005

== ENCOUNTER 2022-08-25 18:08 | Emergency (ER) | payer MEDICARE, SELFPAY ==
[2022-08-25] VITALS (9 sets, daily range): BP systolic 89–135; BP diastolic 50–92; PULSE 65–78; RESP 14–22; TEMP 37–37.2; O2SAT 92–97; BMI 33.7; BMI 32.8
--- NOTE | 2022-08-25 19:39 | EXP.UTC ---
Discharge Plan Disposition Patient Disposition: Still a Patient Condition: Fair Prescriptions Prescriptions: No Action valsartan 160 mg tablet 160 mg PO DAILY Qty: 30 2RF pregabalin [Lyrica] 75 mg capsule 75 mg PO TID Qty: 90 0RF pramipexole [Mirapex] 0.25 mg tablet 0.25 mg PO BID Qty: 60 2RF aspirin [Adult Low Dose Aspirin] 81 mg tablet,delayed release (DR/EC) 81 mg PO DAILY nitroglycerin 0.3 mg tablet, sublingual 0.3 mg SUBLINGUAL Q5M PRN (Reason: chest pain) Qty: 25 0RF Rx Instructions: do not exceed 3 doses per episode amlodipine 10 mg tablet 10 mg PO DAILY Qty: 90 0RF Rx Instructions: TAKE ONE TABLET BY MOUTH EVERY DAY FOR blood pressure atorvastatin 40 mg tablet 40 mg PO DAILY Qty: 90 0RF clopidogrel 75 mg tablet 75 mg PO DAILY Qty: 90 1RF glipizide 10 mg tablet extended release 24hr See Rx Instructions .ROUTE .COMPLEX Qty: 90 1RF Dose Instruction: TAKE ONE TABLET BY MOUTH EVERY DAY FOR diabetes Rx Instructions: TAKE ONE TABLET BY MOUTH EVERY DAY FOR diabetes hydralazine 100 mg tablet 100 mg PO DAILY Qty: 90 0RF isosorbide mononitrate 120 mg tablet extended release 24 hr 120 mg PO DAILY Qty: 90 0RF metformin 1,000 mg tablet 1,000 mg PO BID Qty: 180 3RF Hold Instructions: Resume on 07/20/22. carvedilol 25 mg tablet 50 mg PO BID Qty: 360 3RF cyclobenzaprine 10 mg tablet 10 mg PO TID PRN (Reason: muscle spasm) Qty: 30 0RF hydrocodone-acetaminophen 7.5-325 mg tablet 1 tab PO TID PRN (Reason: pain) Qty: 90 0RF furosemide 20 MG tablet 20 mg PO DAILY amitriptyline 25 mg tablet 25 mg PO HS azithromycin [Zithromax] 250 mg tablet 250 mg PO UD DOSE PK Qty: 6 0RF Rx Instructions: Take two (2) tablets today, then one (1) tablet days #2 thru #5 prednisone [prednisone] 20 mg tablet 20 mg PO BID 4 Days Qty: 8 0RF guaifenesin [Mucinex] 600 mg tablet extended release 12hr 600 - 1,200 mg PO BIDP PRN (Reason: Congestion) Qty: 30 0RF Referrals Follow up/Referrals: Susanna Kohli PA [Primary Care Provider] - See instructions [place] [facility] [facility] [place] General Stated complaint: fever,Body aches,GILL Mode of Arrival: Ambulatory Source of Information: Patient Limitations: No Limitations Time Seen by Provider: 08/25/22 19:39 Description of Symptoms (Recalled from Triage Doc. by RN): PATIENT C/O HEADACHE, BODY ACHES, FEVER, AND CHEST PAIN THAT STARTED LAST NIGHT. HE REPORTS CHEST PAIN BEGAN ON RIGHT SIDE LAST AND HAS STARTED HURTING ON HIS LEFT SIDE WELL TODAY. REPORTS HAVING A PACEMAKER HEENT Symptoms (Recalled from RN notes): Yes Resp Symptoms (Recalled from RN notes): No Skin Symptoms (Recalled from RN notes): No MS Symptoms (Recalled from RN notes): No Functional Status (Recalled from RN notes): WNL History of Present Illness Provider Complaint: Patient states that last night he felt hot and flush States that they checked his temp and it was 99.0 States that he started having pain in the right side of his chest and thought it may have been lung pain but now pain is more in the center of his chest and on the left side of chest States that he feels tired, weak and achy like and not had much energy today States that this evening he was still having the pain in his chest area and he came in Denies worsening of pain with cough or deep breath Related Data Home Medications Medication Instructions Recorded Confirmed aspirin 81 mg tablet,delayed 81 mg PO DAILY heart health 12/05/20 07/31/22 release (Adult Low Dose Aspirin) furosemide 20 mg tablet 20 mg PO DAILY Fluid 07/08/21 07/31/22 amitriptyline 25 mg tablet 25 mg PO HS nerve pain 12/17/21 07/31/22 Previous Rx's Medication Instructions Recorded nitroglycerin 0.3 mg sublingual 0.3 mg sublingual Q5M PRN chest 08/06/21 tablet pain #25 tabs amlodipine 10 mg tablet 10 mg PO DAILY Hypertension #90
--- NOTE | 2022-08-25 19:47 | ECG_ITS ---
APPROVED REPORT Exam: Resting ECG HR:78 bpm ECG Measurements Heart Rate 78 AXES PA 179 P 54 QRSd 110 QRS 62 QT 400 T 42 QTc 434 Conclusion SINUS RHYTHM NORMAL ECG UNCONFIRMED REPORT Electronically signed by : Bradley Chung MD 08/26/2022 22:05:30
--- NOTE | 2022-08-25 19:59 | PC.NURSE ---
PATIENT SENT TO ER PER Gildardo STANFORD APRN FOR FURTHER EVALUATION.
--- NOTE | 2022-08-25 20:04 | XR_ITS ---
PROCEDURE INFORMATION: Exam: XR Chest Exam date and time: 08/25/2022 8:27 PM Age: 67 years old Clinical indication: Sternal or substernal pain; Additional info: Cp TECHNIQUE: Imaging protocol: Radiologic exam of the chest. Views: 2 views. COMPARISON: CR XR CHEST 2V 08/12/2022 1:32 PM AND 05/01/2022 AND 12/26/2021 FINDINGS: Lungs: Unremarkable. No consolidation. Pleural spaces: Unremarkable. No pleural effusion. No pneumothorax. Heart/Mediastinum: Unremarkable. No cardiomegaly. Bones/joints: Unremarkable. IMPRESSION: Stable chest x-ray with no acute disease.
[2022-08-25 20:13] LABS: Basophils % 0.4 % (0.1-2.0); Eosinophils # 0.1 K/mm3 (0.0-0.4); Eosinophils % 0.8 % (0.1-12.0); Hematocrit 47.9 % (42.0-52.0); Hemoglobin 15.9 g/dL (14.1-18.0); Lymphocytes # 0.9 K/mm3 (0.7-4.5); Lymphocytes % 12.8 % (10-50); Mean Corpuscular HGB Conc 33.1 g/dL (31.8-35.4); Mean Corpuscular Hemoglobin 31.6 pg (27.0-31.2); Mean Corpuscular Volume 95.3 fl (80-94); Mean Platelet Volume 7.7 fl (7.4-10.4); Monocytes # 0.3 K/mm3 (0.1-1.0); Monocytes % 4.7 % (1.7-9.3); Neutrophils # 5.5 K/mm3 (1.8-7.8); Neutrophils % 81.4 % (37.0-80.0); Platelet Count 190 K/mm3 (142-424); Red Blood Count 5.03 M/mm3 (4.60-6.20); Red Cell Distribution Width 13.6 % (11.5-17.5); White Blood Count 6.8 K/mm3 (4.8-10.8)
[2022-08-25 20:20] LABS: Chloride 94 mmol/L (98-107); Potassium 3.7 mmoL/L (3.5-5.1); Sodium 132 mmol/L (136-145)
[2022-08-25 20:23] LABS: Alanine Aminotransferase 29 U/L (12-78); Albumin Level 3.9 g/dl (3.5-5.0); Albumin/Globulin Ratio 1.1 (1.1-1.8); Alkaline Phosphatase 100 U/L (38-126); Anion Gap 18.7 mEq/L (5-15); Aspartate Amino Transferase 34 U/L (17-59); Bilirubin,Total 0.6 mg/dl (0.2-1.3); Blood Urea Nitrogen 22 mg/dl (9-20); Carbon Dioxide 23 mmol/L (22.0-30.0); Creatinine Clearance Estimated 100 mL/min (50-200); Estimated Glomerular Filt Rate 67 ml/min (>60); GFR (African American) 81 ML/MIN (>60); Globulin 3.4 g/dL (1.3-3.2); Total Protein,Serum 7.3 g/dl (6.3-8.2)
[2022-08-25 20:24] LABS: Calcium 8.4 mg/dl (8.4-10.2); Glucose 201 mg/dl (74-100)
[2022-08-25 20:31] LABS: Coronavirus 19, PCR Not Detected (NotDetected)
[2022-08-25 20:32] LABS: Influenza A, PCR Not Detected (NotDetected); Influenza B, PCR Not Detected (NotDetected)
[2022-08-25 20:36] LABS: Troponin I < 0.01 ng/ml (0.00-0.034)
[2022-08-25 23:45] LABS: Troponin I < 0.01 ng/ml (0.00-0.034)
[2022-08-26] VITALS: BP 105/52; PULSE 73; RESP 18; O2SAT 93
[2022-08-26 00:07] VITALS: BP 107/61; PULSE 74; PULSE 78; RESP 16; TEMP 37; O2SAT 94
--- NOTE | 2022-08-26 00:08 | HMH.EDCP ---
Discharge Plan Disposition Patient Disposition: Home, Self-Care Condition: Good Prescriptions Prescriptions: No Action valsartan 160 mg tablet 160 mg PO DAILY Qty: 30 2RF pregabalin [Lyrica] 75 mg capsule 75 mg PO TID Qty: 90 0RF pramipexole [Mirapex] 0.25 mg tablet 0.25 mg PO BID Qty: 60 2RF aspirin [Adult Low Dose Aspirin] 81 mg tablet,delayed release (DR/EC) 81 mg PO DAILY nitroglycerin 0.3 mg tablet, sublingual 0.3 mg SUBLINGUAL Q5M PRN (Reason: chest pain) Qty: 25 0RF Rx Instructions: do not exceed 3 doses per episode amlodipine 10 mg tablet 10 mg PO DAILY Qty: 90 0RF Rx Instructions: TAKE ONE TABLET BY MOUTH EVERY DAY FOR blood pressure atorvastatin 40 mg tablet 40 mg PO DAILY Qty: 90 0RF clopidogrel 75 mg tablet 75 mg PO DAILY Qty: 90 1RF glipizide 10 mg tablet extended release 24hr See Rx Instructions .ROUTE .COMPLEX Qty: 90 1RF Dose Instruction: TAKE ONE TABLET BY MOUTH EVERY DAY FOR diabetes Rx Instructions: TAKE ONE TABLET BY MOUTH EVERY DAY FOR diabetes hydralazine 100 mg tablet 100 mg PO DAILY Qty: 90 0RF isosorbide mononitrate 120 mg tablet extended release 24 hr 120 mg PO DAILY Qty: 90 0RF metformin 1,000 mg tablet 1,000 mg PO BID Qty: 180 3RF Hold Instructions: Resume on 07/20/22. carvedilol 25 mg tablet 50 mg PO BID Qty: 360 3RF cyclobenzaprine 10 mg tablet 10 mg PO TID PRN (Reason: muscle spasm) Qty: 30 0RF hydrocodone-acetaminophen 7.5-325 mg tablet 1 tab PO TID PRN (Reason: pain) Qty: 90 0RF furosemide 20 MG tablet 20 mg PO DAILY amitriptyline 25 mg tablet 25 mg PO HS azithromycin [Zithromax] 250 mg tablet 250 mg PO UD DOSE PK Qty: 6 0RF Rx Instructions: Take two (2) tablets today, then one (1) tablet days #2 thru #5 prednisone [prednisone] 20 mg tablet 20 mg PO BID 4 Days Qty: 8 0RF guaifenesin [Mucinex] 600 mg tablet extended release 12hr 600 - 1,200 mg PO BIDP PRN (Reason: Congestion) Qty: 30 0RF Referrals Follow up/Referrals: Susanna Kohli PA [Primary Care Provider] - See instructions Zaire Cox MD [Staff Physician] - 08/27/22 Clinical Impressions Clinical Impression: Atypical chest pain Instructions Patient Instructions: DI for Atypical Chest Pain Discharge ED Provider: Marita Phillips Chest Pain HPI General Chief Complaint: Chest Pain Stated Complaint: fever,Body aches,GILL Time Seen by Provider: 08/25/22 19:39 Mode of Arrival: Wheelchair Source of Information: Patient Limitations: No Limitations Description of Symptoms (Recalled from ER Triage Doc. by RN): pt c/o fever, weakness, body aches,Gill, chest achness History of Present Illness HPI narrative: Patient is a 67-year-old male who came in with chest pressure. Patient's complaint substernal chest pressure patient stated makes short of breath. Patient stated does not cause any nausea vomiting. He has no heartburn belching. He has known history of coronary disease and multiple stents by Dr. Cox so he was concerned so he brought himself into the ER. Patient had a recent cardiac cath in June 2022 which showed very small blockages which did not require any stenting. complaint: chest pain Duration: intermittent Activity at onset: during rest Pain location: substernal Severity: mild Severity scale (1-10): 4 Quality: tightness and dull Relieving factors: nothing Exacerbating factors: nothing Associated symptoms: dyspnea Risk Factors for CAD: Hypertension, Hypercholesterolemia, Diabetes and Smoking Treatments prior to or on arrival for Cardiac Chest Pain: aspirin Related Data Prior Cardiac Testing/Procedures: Cardiac Angiogram and CTA Chest/CTA Coronary Angiography Home Medications Medication Instructions Recorded Confirmed aspirin 81 mg tablet,delayed 81 mg PO DAILY [facility] 12/05/20 07/31/22 release (Adult Low Dose Aspirin) furosemide
== END 2022-08-26 00:12 | disposition home or self-care (01) ==
LOC: UTC 19:44 → ER 19:59
PROVIDERS: Emergency Provider Emergency Medicine; PCP Physician Assistant
DX: R07.89 Other chest pain (principal); F17.210 Nicotine dependence, cigarettes, uncomplicated
CPT/HCPCS: 36415; 71046; 80053; 84484; 85025; 93005; 99285; C9803; U0003; U0005

== ENCOUNTER → 2022-09-05 08:00 | Outpatient (CLI) | payer MEDICARE, SELFPAY | PROVIDERS: PCP Nurse Practitioner Family; Visit Provider Nurse Practitioner Family | DX: R06.02 Shortness of breath (principal); R06.09 Other forms of dyspnea | CPT/HCPCS: 94060; 94726; 94729 ==

== ENCOUNTER → 2022-09-25 13:42 | Outpatient (POV) | payer MEDICARE, SELFPAY ==
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
[2022-09-25 14:39] VITALS: BP 155/81; PULSE 72; RESP 18; O2SAT 95; BMI 32.5
== END ==
PROVIDERS: PCP Physician Assistant; Visit Provider Nurse Practitioner Family
DX: M51.16 Intervertebral disc disorders with radiculopathy, lumbar region (principal); M47.816 Spondylosis without myelopathy or radiculopathy, lumbar region; Z98.1 Arthrodesis status; G89.4 Chronic pain syndrome
CPT/HCPCS: 99202; G0463

== ENCOUNTER 2022-10-08 18:22 | Emergency (ER) | payer MEDICARE, SELFPAY ==
[2022-10-08 18:23] VITALS: BP 159/87; PULSE 75; RESP 18; TEMP 36.6; O2SAT 99; BMI 32.8
--- NOTE | 2022-10-08 18:31 | EXP.UTC ---
Discharge Plan Disposition Patient Disposition: Still a Patient Condition: Fair Chief Complaint: Abdominal Pain Prescriptions Prescriptions: No Action aspirin [Adult Low Dose Aspirin] 81 mg tablet,delayed release (DR/EC) 81 mg PO DAILY nitroglycerin 0.3 mg tablet, sublingual 0.3 mg SUBLINGUAL Q5M PRN (Reason: chest pain) Qty: 25 0RF Rx Instructions: do not exceed 3 doses per episode amlodipine 10 mg tablet 10 mg PO DAILY Qty: 90 0RF Rx Instructions: TAKE ONE TABLET BY MOUTH EVERY DAY FOR blood pressure atorvastatin 40 mg tablet 40 mg PO DAILY Qty: 90 0RF clopidogrel 75 mg tablet 75 mg PO DAILY Qty: 90 1RF hydralazine 100 mg tablet 100 mg PO DAILY Qty: 90 0RF isosorbide mononitrate 120 mg tablet extended release 24 hr 120 mg PO DAILY Qty: 90 0RF metformin 1,000 mg tablet 1,000 mg PO BID Qty: 180 3RF Hold Instructions: Resume on 07/20/22. carvedilol 25 mg tablet 50 mg PO BID Qty: 360 3RF albuterol sulfate 90 mcg/actuation HFA aerosol inhaler 1 inh inhalation QID PRN (Reason: shortness of breath or wheezing) Qty: 8.5 12RF fluticasone propionate [Flonase Allergy Relief] 50 mcg/actuation spray,suspension 1 spray intranasal DAILY 90 Days Qty: 16 3RF Rx Instructions: administer into each nostril cyclobenzaprine 10 mg tablet 10 mg PO TID PRN (Reason: muscle spasm) Qty: 30 0RF hydrocodone-acetaminophen 7.5-325 mg tablet 1 tab PO TID PRN (Reason: pain) Qty: 90 0RF furosemide 20 MG tablet 20 mg PO DAILY amitriptyline 25 mg tablet 25 mg PO HS glipizide 10 mg tablet extended release 24hr See Rx Instructions .ROUTE .COMPLEX Rx Instructions: TAKE ONE TABLET BY MOUTH EVERY DAY FOR diabetes prednisone 20 mg tablet 20 mg PO BID Rx Instructions: administer with food or milk (DME) Blood Glucose Test Strip See Rx Instructions .ROUTE .MEDSUPPLY Rx Instructions: As directed (DME) blood-glucose meter [Blood Glucose Monitoring] Kit See Rx Instructions .ROUTE .MEDSUPPLY Rx Instructions: Twice Daily pramipexole [Mirapex] 0.25 mg tablet 0.25 mg PO BID valsartan 160 mg tablet 160 mg PO DAILY pregabalin [Lyrica] 100 mg capsule 100 mg PO TID ranolazine 500 mg tablet extended release 12 hr 500 mg PO BID (DME) lancets 30 gauge [facility] Rx Instructions .ROUTE .MEDSUPPLY Rx Instructions: Twice Daily Referrals Follow up/Referrals: Susanna Kohli PA [Primary Care Provider] - See instructions Clinical Impressions Clinical Impression: Right flank pain Discharge ED Provider: Sina Bruno [facility] HPI General Stated complaint: poss kidney stone Time Seen by Provider: 10/08/22 18:31 History of Present Illness Provider Complaint: He c/o right flank pain for the past 3 days. He has a history of kidney stones. Related Data Home Medications Medication Instructions Recorded Confirmed aspirin 81 mg tablet,delayed 81 mg PO DAILY [facility] 12/05/20 09/26/22 release (Adult Low Dose Aspirin) furosemide 20 mg tablet 20 mg PO DAILY Fluid 07/08/21 09/26/22 amitriptyline 25 mg tablet 25 mg PO HS nerve pain 12/17/21 09/26/22 blood sugar diagnostic (Blood 09/25/22 09/26/22 Glucose Test strips) blood-glucose meter (Blood Glucose 09/25/22 09/26/22 Monitoring kit) glipizide 10 mg tablet, extended See Rx Instructions .Route 09/25/22 09/26/22 release 24 hr .COMPLEX Diabetes lancets 30 gauge 09/25/22 09/26/22 pramipexole 0.25 mg tablet 0.25 mg PO BID MIGRAINES 09/25/22 09/26/22 (Mirapex) prednisone 20 mg tablet 20 mg PO BID . 09/25/22 09/26/22 pregabalin 100 mg capsule (Lyrica) 100 mg PO TID Pain 09/25/22 09/26/22 ranolazine 500 mg tablet,extended 500 mg PO BID Chest pain 09/25/22 09/26/22 release,12 hr valsartan 160 mg tablet 160 mg PO DAILY BLOOD PRESSURE 09/25/22 09/26/22 Previous Rx's Medication Instructions Re
[2022-10-08 18:42] LABS: Apearance,Urine Clear (Clear); Bilirubin,Urine Negative (Negative); Blood, Urine 1+ (Negative); Color,Urine Yellow (Yellow); Glucose,Urine (UA) 1000 (Negative); Ketones,Urine Negative (Negative); PH,Urine 5.5 (5.0-8.5); Protein,Urine 3+ (Negative); Specific Gravity, Urine 1.025 (1.005-1.030); UTC Leukocyte Esterase,Urine Negative (Negative); UTC Nitrate,Urine Negative (Negative); Urobilinogen,Urine 0.2 EU/dl (0.2)
[2022-10-08 18:56] VITALS: BP 147/79; PULSE 76; RESP 18; TEMP 36.7; O2SAT 98; BMI 32.8
[2022-10-08 19:00] VITALS: BP 138/86; PULSE 77; O2SAT 95
--- NOTE | 2022-10-08 19:05 | CT_ITS ---
PROCEDURE INFORMATION: Exam: CT Abdomen And Pelvis Without Contrast Exam date and time: 10/08/2022 7:30 PM Age: 67 years old Clinical indication: Abdominal pain; Patient HX: Right flank pain for 3 days, prior kidney stones. ; Additional info: Stone protocol TECHNIQUE: Imaging protocol: Computed tomography of the abdomen and pelvis without contrast. Radiation optimization: All CT scans at this facility use at least one of these dose optimization techniques: automated exposure control; mA and/or kV adjustment per patient size (includes targeted exams where dose is matched to clinical indication); or iterative reconstruction. REPORTING DATA: Count of CT and Cardiac NM exams in prior 12 months: This patient has received 2 known CTs and 0 known cardiac nuclear medicine studies in the 12 months prior to the current study. COMPARISON: CT PELVIS WO CON 08/20/2021 1:35 PM FINDINGS: Liver: Normal. No mass. Gallbladder and bile ducts: Normal. No calcified stones. No ductal dilation. Pancreas: Normal. No ductal dilation. Spleen: Normal. No splenomegaly. Adrenal glands: Normal. No mass. Kidneys and ureters: Normal. No hydronephrosis. Stomach and bowel: Unremarkable. No obstruction. No mucosal thickening. Appendix: No evidence of appendicitis. Intraperitoneal space: Unremarkable. No free air. No significant fluid collection. Vasculature: Moderate diffuse atherosclerotic calcification of the aorta. No evidence of aortic aneurysm. Lymph nodes: Unremarkable. No enlarged lymph nodes. Urinary bladder: Unremarkable as visualized. Reproductive: Unremarkable as visualized. Bones/joints: Orthopedic hardware produces fusion of the L4, L5 and S1 levels. Degenerative changes noted throughout the lower spine. No acute fracture. Soft tissues: Unremarkable. IMPRESSION: No acute abnormality. Chronic osseous changes in the lumbosacral spine as described
--- NOTE | 2022-10-08 19:09 | HMH.EDGENADL ---
Discharge Plan Disposition Patient Disposition: Still a Patient Condition: Fair Prescriptions Prescriptions: New prednisone 50 mg tablet 50 mg PO DAILY 5 Days Qty: 5 0RF No Action aspirin [Adult Low Dose Aspirin] 81 mg tablet,delayed release (DR/EC) 81 mg PO DAILY nitroglycerin 0.3 mg tablet, sublingual 0.3 mg SUBLINGUAL Q5M PRN (Reason: chest pain) Qty: 25 0RF Rx Instructions: do not exceed 3 doses per episode amlodipine 10 mg tablet 10 mg PO DAILY Qty: 90 0RF Rx Instructions: TAKE ONE TABLET BY MOUTH EVERY DAY FOR blood pressure atorvastatin 40 mg tablet 40 mg PO DAILY Qty: 90 0RF clopidogrel 75 mg tablet 75 mg PO DAILY Qty: 90 1RF hydralazine 100 mg tablet 100 mg PO DAILY Qty: 90 0RF isosorbide mononitrate 120 mg tablet extended release 24 hr 120 mg PO DAILY Qty: 90 0RF metformin 1,000 mg tablet 1,000 mg PO BID Qty: 180 3RF Hold Instructions: Resume on 07/20/22. carvedilol 25 mg tablet 50 mg PO BID Qty: 360 3RF albuterol sulfate 90 mcg/actuation HFA aerosol inhaler 1 inh inhalation QID PRN (Reason: shortness of breath or wheezing) Qty: 8.5 12RF fluticasone propionate [Flonase Allergy Relief] 50 mcg/actuation spray,suspension 1 spray intranasal DAILY 90 Days Qty: 16 3RF Rx Instructions: administer into each nostril cyclobenzaprine 10 mg tablet 10 mg PO TID PRN (Reason: muscle spasm) Qty: 30 0RF hydrocodone-acetaminophen 7.5-325 mg tablet 1 tab PO TID PRN (Reason: pain) Qty: 90 0RF furosemide 20 MG tablet 20 mg PO DAILY amitriptyline 25 mg tablet 25 mg PO HS glipizide 10 mg tablet extended release 24hr See Rx Instructions .ROUTE .COMPLEX Rx Instructions: TAKE ONE TABLET BY MOUTH EVERY DAY FOR diabetes prednisone 20 mg tablet 20 mg PO BID Rx Instructions: administer with food or milk (DME) Blood Glucose Test Strip See Rx Instructions .ROUTE .MEDSUPPLY Rx Instructions: As directed (DME) blood-glucose meter [Blood Glucose Monitoring] Kit See Rx Instructions .ROUTE .MEDSUPPLY Rx Instructions: Twice Daily pramipexole [Mirapex] 0.25 mg tablet 0.25 mg PO BID valsartan 160 mg tablet 160 mg PO DAILY pregabalin [Lyrica] 100 mg capsule 100 mg PO TID ranolazine 500 mg tablet extended release 12 hr 500 mg PO BID (DME) lancets 30 gauge misc See Rx Instructions .ROUTE .MEDSUPPLY Rx Instructions: Twice Daily Referrals Follow up/Referrals: Susanna Kohli PA [Primary Care Provider] - See instructions Clinical Impressions Clinical Impression: Low back pain, Sacroiliitis Instructions Patient Instructions: DI for Acute Abdominal Pain Discharge ED Provider: Sina Bruno Adult HPI General Chief complaint: Abdominal Pain Stated complaint: poss kidney stone Time Seen by Provider: 10/08/22 18:31 Mode of Arrival: Ambulatory Source of Information: Patient Limitations: No Limitations Description of Symptoms (Recalled from ER Triage Doc. by RN): 67 yo M transferred from [facility] for further evaluation. pt reports right flank pain ongoing for 3 days. pt does have hx of kidney stones. History of Present Illness HPI narrative: This is a 67-year-old white male who presents to the emergency room with right lower back pain for the past 3 days. Patient denies any abdominal pain nausea vomiting diarrhea hematuria dysuria pyuria patient describes the pain as sharp worse with movement not palliated patient was seen in urgent care who was sent here for further evaluation Related Data Home Medications Medication Instructions Recorded Confirmed aspirin 81 mg tablet,delayed 81 mg PO DAILY heart health 12/05/20 09/26/22 release (Adult Low Dose Aspirin) furosemide 20 mg tablet 20 mg PO DAILY Fluid 07/08/21 09/26/22 amitriptyline 25 mg tablet 25 mg PO HS nerve pain 12/17/21 09/26/22 blood sugar diagnostic (Blood
[2022-10-08 19:12] LABS: Chloride 100 mmol/L (98-107); Potassium 4.4 mmoL/L (3.5-5.1); Sodium 136 mmol/L (136-145)
[2022-10-08 19:14] LABS: Blood Urea Nitrogen 26 mg/dl (9-20); Creatinine Clearance Estimated 78 mL/min (50-200); Estimated Glomerular Filt Rate 50 ml/min (>60); GFR (African American) 61 ML/MIN (>60)
[2022-10-08 19:15] LABS: Alanine Aminotransferase 27 U/L (12-78); Albumin Level 3.8 g/dl (3.5-5.0); Albumin/Globulin Ratio 1.1 (1.1-1.8); Alkaline Phosphatase 95 U/L (38-126); Anion Gap 11.4 mEq/L (5-15); Aspartate Amino Transferase 32 U/L (17-59); Bilirubin,Total 0.4 mg/dl (0.2-1.3); Carbon Dioxide 29 mmol/L (22.0-30.0); Globulin 3.5 g/dL (1.3-3.2); Total Protein,Serum 7.3 g/dl (6.3-8.2)
[2022-10-08 19:16] LABS: Calcium 9.4 mg/dl (8.4-10.2); Glucose 142 mg/dl (74-100)
[2022-10-08 19:18] LABS: Basophils % 0.7 % (0.1-2.0); Eosinophils # 0.2 K/mm3 (0.0-0.4); Eosinophils % 2.4 % (0.1-12.0); Hematocrit 43.3 % (42.0-52.0); Hemoglobin 14.5 g/dL (14.1-18.0); Lymphocytes % 31.8 % (10-50); Mean Corpuscular HGB Conc 33.4 g/dL (31.8-35.4); Mean Corpuscular Hemoglobin 30.3 pg (27.0-31.2); Mean Corpuscular Volume 90.6 fl (80-94); Mean Platelet Volume 7.5 fl (7.4-10.4); Monocytes # 0.4 K/mm3 (0.1-1.0); Monocytes % 6.1 % (1.7-9.3); Neutrophils # 3.8 K/mm3 (1.8-7.8); Platelet Count 209 K/mm3 (142-424); Red Blood Count 4.79 M/mm3 (4.60-6.20); Red Cell Distribution Width 13.8 % (11.5-17.5); White Blood Count 6.4 K/mm3 (4.8-10.8)
--- NOTE | 2022-10-08 19:26 | PC.NURSE ---
pt going to CT
[2022-10-08 20:00] VITALS: BP 132/83; PULSE 76; O2SAT 95
[2022-10-08 20:45] VITALS: BP 148/90; PULSE 69; RESP 20; TEMP 37
== END 2022-10-08 21:00 | disposition home or self-care (01) ==
LOC: UTC 18:26 → ER 18:43
PROVIDERS: Emergency Medicine; Emergency Provider Nurse Practitioner Family; PCP Physician Assistant
DX: M46.1 Sacroiliitis, not elsewhere classified (principal); M54.50 Low back pain, unspecified; J44.9 Chronic obstructive pulmonary disease, unspecified; I25.10 Atherosclerotic heart disease of native coronary artery without angina pectoris; I11.9 Hypertensive heart disease without heart failure; E11.40 Type 2 diabetes mellitus with diabetic neuropathy, unspecified; E78.5 Hyperlipidemia, unspecified; Z95.0 Presence of cardiac pacemaker; Z87.891 Personal history of nicotine dependence; Z79.84 Long term (current) use of oral hypoglycemic drugs
CPT/HCPCS: 74176; 80053; 81003; 85025; 87086; 96361; 96374; 96375; 99284; J2405

== ENCOUNTER → 2022-10-13 23:06 | Outpatient (CLI) | payer MEDICARE, SELFPAY | PROVIDERS: PCP Student in an Organized Health Care Education/Training Program; Visit Provider Student in an Organized Health Care Education/Training Program | DX: J02.9 Acute pharyngitis, unspecified (principal) ==

== ENCOUNTER 2022-10-19 13:50 | Emergency (ER) | payer MEDICARE, SELFPAY ==
[2022-10-19 13:51] VITALS: BP 161/89; PULSE 77; RESP 18; TEMP 36.6; O2SAT 97; BMI 32.5
--- NOTE | 2022-10-19 14:28 | EXP.UTC ---
Discharge Plan Disposition Patient Disposition: Home, Self-Care Condition: Good Prescriptions Prescriptions: New prednisone 10 mg tablet 10 mg PO DIRECTED 9 Days Qty: 21 0RF Rx Instructions: Take 4 tablets daily for 3 days, then take 2 tablets daily for 3 days, then take 1 tablet daily for 3 days, then stop. azithromycin [Zithromax] 250 mg tablet 250 mg PO UD DOSE PK Qty: 6 0RF Rx Instructions: Take two (2) tablets today, then one (1) tablet days #2 thru #5 benzonatate [benzonatate] 100 mg capsule 100 mg PO TIDP PRN (Reason: Cough) Qty: 30 0RF No Action amoxicillin-pot clavulanate 875-125 mg tablet 1 tab PO BID 10 Days Qty: 20 0RF aspirin [Adult Low Dose Aspirin] 81 mg tablet,delayed release (DR/EC) 81 mg PO DAILY nitroglycerin 0.3 mg tablet, sublingual 0.3 mg SUBLINGUAL Q5M PRN (Reason: chest pain) Qty: 25 0RF Rx Instructions: do not exceed 3 doses per episode atorvastatin 40 mg tablet 40 mg PO DAILY Qty: 90 0RF clopidogrel 75 mg tablet 75 mg PO DAILY Qty: 90 1RF metformin 1,000 mg tablet 1,000 mg PO BID Qty: 180 3RF Hold Instructions: Resume on 07/20/22. carvedilol 25 mg tablet 50 mg PO BID Qty: 360 3RF albuterol sulfate 90 mcg/actuation HFA aerosol inhaler 1 inh inhalation QID PRN (Reason: shortness of breath or wheezing) Qty: 8.5 12RF fluticasone propionate [Flonase Allergy Relief] 50 mcg/actuation spray,suspension 1 spray intranasal DAILY 90 Days Qty: 16 3RF Rx Instructions: administer into each nostril cyclobenzaprine 10 mg tablet 10 mg PO TID PRN (Reason: muscle spasm) Qty: 30 0RF hydrocodone-acetaminophen 7.5-325 mg tablet 1 tab PO TID PRN (Reason: pain) Qty: 90 0RF valsartan 160 mg tablet 160 mg PO DAILY Qty: 90 3RF amlodipine 10 mg tablet See Rx Instructions .ROUTE .COMPLEX Qty: 90 0RF Dose Instruction: TAKE ONE TABLET BY MOUTH EVERY DAY FOR BLOOD PRESSURE Rx Instructions: TAKE ONE TABLET BY MOUTH EVERY DAY FOR BLOOD PRESSURE isosorbide mononitrate 120 mg tablet extended release 24 hr See Rx Instructions .ROUTE .COMPLEX Qty: 90 0RF Dose Instruction: TAKE ONE TABLET BY MOUTH EVERY DAY FOR ANGINA Rx Instructions: TAKE ONE TABLET BY MOUTH EVERY DAY FOR ANGINA hydralazine 100 mg tablet See Rx Instructions .ROUTE .COMPLEX Qty: 90 0RF Dose Instruction: TAKE ONE TABLET BY MOUTH EVERY DAY FOR BLOOD PRESSURE Rx Instructions: TAKE ONE TABLET BY MOUTH EVERY DAY FOR BLOOD PRESSURE furosemide 20 MG tablet 20 mg PO DAILY amitriptyline 25 mg tablet 25 mg PO HS glipizide 10 mg tablet extended release 24hr See Rx Instructions .ROUTE .COMPLEX Rx Instructions: TAKE ONE TABLET BY MOUTH EVERY DAY FOR diabetes (DME) Blood Glucose Test Strip See Rx Instructions .ROUTE .MEDSUPPLY Rx Instructions: As directed (DME) blood-glucose meter [Blood Glucose Monitoring] Kit See Rx Instructions .ROUTE .MEDSUPPLY Rx Instructions: Twice Daily pramipexole [Mirapex] 0.25 mg tablet 0.25 mg PO BID pregabalin [Lyrica] 100 mg capsule 100 mg PO TID ranolazine 500 mg tablet extended release 12 hr 500 mg PO BID (DME) lancets 30 gauge misc See Rx Instructions .ROUTE .MEDSUPPLY Rx Instructions: Twice Daily Referrals Follow up/Referrals: Susanna Kohli PA [Primary Care Provider] - See instructions Activity Restrictions/Add. Instructions Additional Instructions/Restrictions: Drink plenty of fluids. Take tylenol for pain or fever. Stop the amoxicillin that you are already on. Start the medications as directed. Follow up with your regular doctor. GO TO THE ER FOR ANY WORSENING SYMPTOMS Clinical Impressions Clinical Impression: Sinusitis Instructions Patient Instructions: Sinusitis, Sinus Headache Discharge ED Provider: Sina Bruno [facility]
[2022-10-19 14:38] VITALS: BP 161/89; PULSE 77; RESP 18; TEMP 36.6; O2SAT 97
== END 2022-10-19 14:39 | disposition home or self-care (01) ==
PROVIDERS: Emergency Provider Nurse Practitioner Family; PCP Physician Assistant
DX: J01.90 Acute sinusitis, unspecified (principal); J44.9 Chronic obstructive pulmonary disease, unspecified; E11.40 Type 2 diabetes mellitus with diabetic neuropathy, unspecified; I11.9 Hypertensive heart disease without heart failure; E78.5 Hyperlipidemia, unspecified; F32.A Depression, unspecified; I25.10 Atherosclerotic heart disease of native coronary artery without angina pectoris; Z95.0 Presence of cardiac pacemaker; Z87.891 Personal history of nicotine dependence; Z79.84 Long term (current) use of oral hypoglycemic drugs
CPT/HCPCS: 99212; 99214; G0463

== ENCOUNTER → 2022-11-06 13:48 | Outpatient (CLI) | payer MEDICARE, SELFPAY ==
--- NOTE | 2022-11-06 13:53 | XR_ITS ---
FINAL REPORT CLINICAL HISTORY: right foot pain COMPARISON: None FINDINGS: AP, oblique and lateral views of the right foot were obtained. There is no prior exam for comparison. There is no acute fracture or dislocation. 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 Soft tissues are normal. IMPRESSION: No acute osseous abnormality of the right foot. Reviewed, Interpreted and Dictated by Susan Dias MD Transcribed by Windy Liang Authenticated and [facility]
--- NOTE | 2022-11-06 13:53 | XR_ITS ---
FINAL REPORT CLINICAL HISTORY: Left Foot Pain COMPARISON: 01/09/2022 FINDINGS: AP, oblique and lateral views of the left foot were obtained. There is no acute fracture or dislocation. The joint spaces are preserved. Soft tissues are normal. IMPRESSION: No acute osseous abnormality of the left foot. No change from prior. Reviewed, Interpreted and Dictated by Susan Dias MD Transcribed by Windy Liang Authenticated and . [facility]
== END ==
PROVIDERS: PCP Physician Assistant; Visit Provider Podiatrist
DX: M79.672 Pain in left foot (principal); M79.671 Pain in right foot
CPT/HCPCS: 73630

== ENCOUNTER → 2022-12-17 23:27 | Outpatient (CLI) | payer MEDICARE, SELFPAY ==
[2022-12-17 20:44] LABS: Anion Gap 17.9 mEq/L (5-15); Blood Urea Nitrogen 15 mg/dl (9-20); Calcium 9.7 mg/dl (8.4-10.2); Carbon Dioxide 24 mmol/L (22.0-30.0); Chloride 103 mmol/L (98-107); Estimated Glomerular Filt Rate 74 ml/min (>60); GFR (African American) 90 ML/MIN (>60); Glucose 183 mg/dl (74-100); Potassium 3.9 mmoL/L (3.5-5.1); Sodium 141 mmol/L (136-145)
== END ==
PROVIDERS: PCP Physician Assistant; Visit Provider Physician Assistant
DX: I25.10 Atherosclerotic heart disease of native coronary artery without angina pectoris (principal)
CPT/HCPCS: 80048

== ENCOUNTER → 2022-12-31 15:20 | Outpatient (CLI) | payer MEDICARE, SELFPAY ==
--- NOTE | 2022-12-31 15:20 | CT_ITS ---
FINAL REPORT CLINICAL HISTORY: lung cancer screening PREVIOUS SMOKER, QUIT 1 YEAR AGO, SMOKED 1/2 PPD X30-40 YEARS PRIOR TO QUITING COMPARISON: None FINDINGS: CT CHEST LOW DOSE SCREENING HISTORY: Screening exam for lung cancer. Former smoker, 20 pack year smoking history DOSE: CTDIvol: 2.9 mGy, DLP: 102.38 mGy*cm COMPARISON: None . TECHNIQUE: Axial CT without IV contrast administration using low dose protocol FINDINGS: No acute lung disease is present . No pulmonary lesions are seen suspicious for neoplasm. Severe coronary artery calcifications are present. A pacemaker is noted entering through the left subclavian vein. There is a calcified granuloma in the left lower lobe. No pleural or pericardial effusion is seen . No adenopathy or mass lesion is present . IMPRESSION: Severe coronary artery calcifications are responsible for the S designation in this patient. No focal mass or nodule is seen on this exam. LUNG RADS CATEGORY 1S RECOMMENDATION: 12 month LDCT follow up Reviewed, Interpreted and Dictated by Joseph Gonzalez III, MD Transcribed by Anna Everett Authenticated and [facility]
== END ==
PROVIDERS: PCP Physician Assistant; Visit Provider Internal Medicine Pulmonary Disease
DX: F17.210 Nicotine dependence, cigarettes, uncomplicated (principal); Z12.2 Encounter for screening for malignant neoplasm of respiratory organs
CPT/HCPCS: 71271

== ENCOUNTER → 2023-01-22 14:29 | Outpatient (CLI) | payer MEDICARE, SELFPAY ==
[2023-01-22 20:57] LABS: Uric Acid 5.2 mg/dl (3.5-8.5)
== END ==
PROVIDERS: PCP Student in an Organized Health Care Education/Training Program; Visit Provider Student in an Organized Health Care Education/Training Program
DX: M79.672 Pain in left foot (principal)
CPT/HCPCS: 84550

== ENCOUNTER → 2023-02-23 08:39 | Outpatient (CLI) | payer MEDICARE, SELFPAY ==
--- NOTE | 2023-02-23 08:40 | CT_ITS ---
FINAL REPORT TECHNIQUE: Thin section axial images were obtained through the lumbar spine without contrast. Sagittal and coronal reconstruction images were obtained from the axial data. Exam was performed using dose reduction techniques. CLINICAL HISTORY: low back pain, BLE radiculopathy COMPARISON: 08/12/2022 FINDINGS: Again seen are postoperative changes from posterior fusion L4-S1. There is no acute fracture. Vertebral body height is preserved. Paraspinal soft tissues are within normal limits. There is no paraspinal mass or fluid collection. L1-2: Mild disc osteophyte complex without central stenosis or foraminal narrowing. L2-3: Broad-based disc osteophyte complex with mild central stenosis. Mild right but no left neuroforaminal narrowing. L3-4: Broad-based disc osteophyte complex. Mild to moderate central stenosis. Mild bilateral neuroforaminal narrowing. L4-5: Fused. Posterior osteophytes cause mild central stenosis. No right but mild left neuroforaminal narrowing. L5-S1: Fused. No central stenosis. Probable mild bilateral neuroforaminal narrowing. IMPRESSION: No acute abnormality. Postoperative and degenerative changes as above. Reviewed, Interpreted and Dictated by Susan Dias MD Transcribed by Windy Liang Authenticated and [facility]
== END ==
LOC: RAD 08:40
PROVIDERS: PCP Physician Assistant; Visit Provider Physician Assistant
DX: M54.50 Low back pain, unspecified (principal)
CPT/HCPCS: 72131

== ENCOUNTER 2023-03-28 12:25 | Emergency (ER) | payer MEDICARE, SELFPAY ==
[2023-03-28 12:35] VITALS: BP 124/64; PULSE 69; RESP 22; TEMP 36.8; O2SAT 95; BMI 34.2
--- NOTE | 2023-03-28 12:48 | EXP.UTC ---
Discharge Plan Disposition Patient Disposition: Home, Self-Care Condition: Good Prescriptions Prescriptions: New diclofenac sodium 3 % gel 1 applic topical BID Qty: 100 0RF No Action doxycycline hyclate 100 mg capsule 100 mg PO BID 7 Days Qty: 14 0RF aspirin [Adult Low Dose Aspirin] 81 mg tablet,delayed release (DR/EC) 81 mg PO DAILY nitroglycerin 0.3 mg tablet, sublingual 0.3 mg SUBLINGUAL Q5M PRN (Reason: chest pain) Qty: 25 0RF Rx Instructions: do not exceed 3 doses per episode metformin 1,000 mg tablet 1,000 mg PO BID Qty: 180 3RF Hold Instructions: Resume on 07/20/22. amlodipine 10 mg tablet See Rx Instructions .ROUTE .COMPLEX Qty: 90 0RF Dose Instruction: TAKE ONE TABLET BY MOUTH EVERY DAY FOR BLOOD PRESSURE Rx Instructions: TAKE ONE TABLET BY MOUTH EVERY DAY FOR BLOOD PRESSURE atorvastatin 40 mg tablet 40 mg PO DAILY Qty: 90 0RF clopidogrel 75 mg tablet 75 mg PO DAILY Qty: 90 3RF hydralazine 100 mg tablet See Rx Instructions .ROUTE .COMPLEX Qty: 90 0RF Dose Instruction: TAKE ONE TABLET BY MOUTH EVERY DAY FOR BLOOD PRESSURE Rx Instructions: TAKE ONE TABLET BY MOUTH EVERY DAY FOR BLOOD PRESSURE isosorbide mononitrate 120 mg tablet extended release 24 hr See Rx Instructions .ROUTE .COMPLEX Qty: 90 0RF Dose Instruction: TAKE ONE TABLET BY MOUTH EVERY DAY FOR ANGINA Rx Instructions: TAKE ONE TABLET BY MOUTH EVERY DAY FOR ANGINA valsartan 160 mg tablet 160 mg PO DAILY Qty: 90 3RF glipizide 10 mg tablet extended release 24hr See Rx Instructions .ROUTE .COMPLEX Qty: 90 1RF Dose Instruction: TAKE ONE TABLET BY MOUTH EVERY DAY FOR diabetes Rx Instructions: TAKE ONE TABLET BY MOUTH EVERY DAY FOR diabetes pregabalin [Lyrica] 150 mg capsule 150 mg PO TID Qty: 90 0RF hydrocodone-acetaminophen 10-325 mg tablet 1 tab PO TID Qty: 90 0RF (DME) Blood Glucose Test Strip See Rx Instructions .ROUTE .MEDSUPPLY Rx Instructions: As directed (DME) blood-glucose meter [Blood Glucose Monitoring] Kit See Rx Instructions .ROUTE .MEDSUPPLY Rx Instructions: Twice Daily (DME) lancets 30 gauge misc See Rx Instructions .ROUTE .MEDSUPPLY Rx Instructions: Twice Daily Referrals Follow up/Referrals: Susanna Kohli PA [Primary Care Provider] - See instructions Clinical Impressions Clinical Impression: Bursitis of hip, right Qualifiers: Hip bursitis location: unspecified Qualified Code(s): M70.71 - Other bursitis of hip, right hip Pain in right knee Qualifiers: Chronicity: acute Qualified Code(s): M25.561 - Pain in right knee Instructions Patient Instructions: DI for Chronic Pain -- Adult, DI for Hip Bursitis Discharge ED Provider: Amara Garcia [facility] [place] General Stated complaint: bilateral leg pain, right leg swelling Time Seen by Provider: 03/28/23 12:47 History of Present Illness Provider Complaint: Pt relates that he started back to work about a week ago and now is having right hip and knee pain. The knee hurts all over and the hip hurts on he outer side. He takes Lortab daily for pain. Related Data Home Medications Medication Instructions Recorded Confirmed aspirin 81 mg tablet,delayed 81 mg PO DAILY heart health 12/05/20 02/25/23 release (Adult Low Dose Aspirin) blood sugar diagnostic (Blood 09/25/22 02/25/23 Glucose Test strips) blood-glucose meter (Blood Glucose 09/25/22 02/25/23 Monitoring kit) lancets 30 gauge 09/25/22 02/25/23 Previous Rx's Medication Instructions Recorded nitroglycerin 0.3 mg sublingual 0.3 mg sublingual Q5M PRN chest 08/06/21 tablet pain #25 tabs metformin 1,000 mg tablet 1,000 mg PO BID Diabetes #180 tabs 03/26/22 valsartan 160 mg tablet 160 mg PO DAILY BLOOD PRESSURE #90 10/09/22 tabs glipizide 10 mg tablet, extended See Rx Instructions .Route 12/05/22 release 24 hr .COMPLEX
[2023-03-28 13:10] VITALS: BP 124/64; PULSE 69; RESP 22; TEMP 36.8; O2SAT 95
== END 2023-03-28 13:12 | disposition home or self-care (01) ==
PROVIDERS: Emergency Provider Nurse Practitioner Family; PCP Physician Assistant
DX: M25.561 Pain in right knee (principal); M25.551 Pain in right hip; M70.71 Other bursitis of hip, right hip
CPT/HCPCS: 99212; 99214; G0463

== ENCOUNTER 2023-05-13 21:13 | Outpatient (CLI) | payer MEDICARE, SELFPAY ==
[2023-05-13 19:04] LABS: Basophils # 0.1 K/mm3 (0-0.2); Basophils % 0.9 % (0.1-2.0); Eosinophils # 0.1 K/mm3 (0.0-0.4); Eosinophils % 1.7 % (0.1-12.0); Hematocrit 45.7 % (42.0-52.0); Hemoglobin 15.6 g/dL (14.1-18.0); Lymphocytes # 2.2 K/mm3 (0.7-4.5); Lymphocytes % 31.7 % (10-50); Mean Corpuscular HGB Conc 34.2 g/dL (31.8-35.4); Mean Corpuscular Volume 93.7 fl (80-94); Mean Platelet Volume 9.5 fl (7.4-10.4); Monocytes # 0.5 K/mm3 (0.1-1.0); Monocytes % 6.8 % (1.7-9.3); Neutrophils # 4.1 K/mm3 (1.8-7.8); Neutrophils % 58.9 % (37.0-80.0); Platelet Count 209 K/mm3 (142-424); Red Blood Count 4.87 M/mm3 (4.60-6.20); Red Cell Distribution Width 13.9 % (11.5-17.5)
[2023-05-13 20:28] LABS: Chloride 99 mmol/L (98-107)
[2023-05-13 20:29] LABS: Potassium 3.6 mmoL/L (3.5-5.1); Sodium 136 mmol/L (136-145)
[2023-05-13 20:31] LABS: Alanine Aminotransferase 34 U/L (12-78); Albumin Level 4.3 g/dl (3.5-5.0); Albumin/Globulin Ratio 1.4 (1.1-1.8); Alkaline Phosphatase 134 U/L (38-126); Anion Gap 16.6 mEq/L (5-15); Aspartate Amino Transferase 35 U/L (17-59); Bilirubin,Total 0.8 mg/dl (0.2-1.3); Blood Urea Nitrogen 16 mg/dl (9-20); Carbon Dioxide 24 mmol/L (22.0-30.0); Estimated Glomerular Filt Rate 74 ml/min (>60); GFR (African American) 90 ML/MIN (>60); Total Protein,Serum 7.3 g/dl (6.3-8.2)
[2023-05-13 20:32] LABS: Calcium 9.5 mg/dl (8.4-10.2); Cholesterol 288 mg/dl (140-200); Glucose 298 mg/dl (74-100); HDL Cholesterol 41 mg/dl (40-60); Triglycerides 385 mg/dl (30-150); VLDL Cholesterol 77 mg/dL (0-40)
[2023-05-13 20:43] LABS: Direct LDL Cholesterol 120.62 mg/dL (100-129)
[2023-05-13 21:10] LABS: 25-OH Vitamin D, Total 17.7 ng/mL (30-100)
[2023-05-13 21:16] LABS: Hemoglobin A1C 11.5 % (4.0-6.0)
[2023-05-13 21:26] LABS: Prostate Specific Ag Screen 1.6 ng/ml (0.0-4.0); Thyroid Stimulating Hormone 0.49 uIU/mL (0.465-4.68)
== END 2023-05-13 23:59 ==
LOC: LAB.DROPOF 21:13
PROVIDERS: PCP Physician Assistant; Visit Provider Physician Assistant
DX: E55.9 Vitamin D deficiency, unspecified; R53.83 Other fatigue; E11.69 Type 2 diabetes mellitus with other specified complication; E78.5 Hyperlipidemia, unspecified; Z12.5 Encounter for screening for malignant neoplasm of prostate; Z79.84 Long term (current) use of oral hypoglycemic drugs; Z79.899 Other long term (current) drug therapy
CPT/HCPCS: 80053; 80061; 82306; 83036; 84443; 85025; G0103

== ENCOUNTER 2023-06-11 06:37 | Outpatient (CLI) | payer MEDICARE, SELFPAY ==
--- NOTE | 2023-06-11 06:49 | NM_ITS ---
APPROVED REPORT Exam: Nuclear Stress Test Indication: cHEST PAIN..FATIGUE Patient Location: Outpatient Stress Tech: Carmen Cullen [place] Tech:KATHY Velasquez RT(R)(N) Ht: 6 ft 0 in Wt: 258 lbs HR: 64 bpm BP: 145/79 mmHg BSA: 2.37 m2 Rhythm: NSR TID: 1.22 History: cHEST PAIN..FATIGUE Procedure: Patient received 0.4 mg of intravenous Lexiscan, resting heart rate 64 bpm, resting blood pressure 145/79 mmHg, with Lexiscan maximum heart rate achieved was 91 bpm which is 85 % of the maximum predicted heart rate and blood pressure was 153/88 mmHg. With Lexiscan, patient denied any complaint of chest pain. Cardiac Stress and Resting SPECT Images: Cardiac Stress and Resting SPECT images were obtained using technetium 99m Myoview 32.8 mCi stress and 10.57 mCi at rest. Resting and stress imaging and supine positions demonstrate a medium sized, moderate fixed perfusion defect in the basal to mid inferior LV wall. This is no longer visualized with prone stress imaging. Findings may be suggestive of soft tissue attenuation. There is increased transient ischemic dilatation ratio (TID 1.22), suggestive of possible multivessel disease or balanced ischemia. Gated imaging demonstrates normal global and regional LV systolic function. LVEF is calculated at 54%. Conclusion: Soft tissue attenuation is present. No focal fixed or reversible perfusion defects. Increased transient ischemic dilatation ratio (TID 1.22), suggestive of possible multivessel disease or balanced ischemia. Gated imaging demonstrates normal global and regional LV systolic function. LVEF is calculated at 54%. Electronically signed by : Virginia Glez MD 06/14/2023 02:13:39
--- NOTE | 2023-06-11 07:23 | CA_ITS ---
APPROVED REPORT EXAM: Comprehensive 2D, Doppler, and color-flow Echocardiogram Apparel Cutter: Anna Linn CRT Ht: 6 ft 0 in Wt: 245lbs BSA: 2.32 BP: 137/88 mmHg Indications: Chest Pain, Shortness of Breath, CAD, Hyperlipidemia, Hypertension/HDD, 4 stents, pacemaker 2D Dimensions LA Volume 19.90 mL LA Volume Index 8.40 mL/m2 (M/F) 16-34 M-Mode Dimensions RVDd 2.96 cm (0.9-2.6) LA Diam 3.05 cm (1.9-4.0) LVDd 4.80 cm (3.5-5.7) LVDs 3.57 cm (3.5-5.7) IVSd 1.84 cm (0.6-1.1) PWd 0.85 cm (0.6-1.1) EF (Teich) 50.40% FS 25.60% EDV (Teich) 107.50 mL TAPSE 2.31 (<1.7) ESV (Teich) 53.30 mL LV Diastology E Decel Time 223 (160-240 msec) E/A Ratio 0.59 MED A' 9.40 cm/s LAT A' 8.60 cm/s Aortic Valve AO Peak GR. 6.20 mmHg Mitral Valve MV A Velocity 130.0 (40-130 cm/s) E/A Ratio 0.59 Pulmonary Valve PV Peak Velocity 88.0 (50-150 cm/s) Tricuspid Valve TR P. Velocity 242.00 cm/s RAP Estimate 10.00 mmHg RVSP 33.40 mmHg Left Ventricle The left ventricle is normal size. The left ventricular systolic function is normal. The left ventricular ejection fraction is within the normal range. There is normal left ventricular wall thickness. There is normal LV segmental wall motion. The left ventricular diastolic function is normal. LVEF is 55%. Right Ventricle The right ventricle is normal size. The right ventricular systolic function is normal. There is a device lead in the right ventricle. Atria The left atrium size is normal. The right atrium size is normal. There is no Doppler evidence of interatrial shunt. Aortic Valve The aortic valve is mildly thickened. There is no aortic valvular stenosis. Trace aortic regurgitation. Mitral Valve Mild mitral annular calcification. The mitral valve leaflets are mildly thickened. No evidence of mitral valve stenosis. Trace mitral regurgitation. Tricuspid Valve The tricuspid valve leaflets are thin and pliable. Trace tricuspid regurgitation. RVSP is 20-25 mmHg. Pulmonic Valve The pulmonary valve is normal in structure. Trace pulmonic regurgitation. Great Vessels The aortic root is normal in size. The ascending aorta is normal in size. IVC is normal in size and collapses >50% with inspiration. Pericardium There is no pericardial effusion. Conclusion Normal biventricular systolic function. No significant valvular stenosis or regurgitation. Electronically signed by : Virginia Glez MD 06/14/2023 01:16:00
--- NOTE | 2023-06-11 07:23 | US_ITS ---
FINAL REPORT CLINICAL HISTORY: Claudication, DM, HTN, HLD, Pacer, CAD FINDINGS: BILATERAL ANKLE BRACHIAL INDICES Pressure indices are as follows are: RIGHT LOWER EXTREMITY Ankle brachial pressure index: 1.13 Toe brachial pressure index: 1.09 COMMENTS: Normal LEFT LOWER EXTREMITY Ankle brachial pressure index: 1.18 Toe brachial pressure index: 1.03 COMMENTS: Normal IMPRESSION: No evidence of significant obstructive peripheral vascular disease of the lower extremities. Reviewed, Interpreted and Dictated by Chang Medrano MD Transcribed by Gema Dugan Authenticated and [facility]
--- NOTE | 2023-06-11 09:25 | CA_ITS ---
APPROVED REPORT Exam: Pharmacologic Technologist: Carmen Madsen, Ht: 6 ft 0 in Wt: 245 lbs BSA: 2.32 m2 HR: 61 bpm BP: 145/79 mmHg Rhythm: NSR Medical History Medications: Amlodipine,,,,, Hydralazine,,,,, Aspirin,,,,, Metformin,,,,, Gabapentin,,,,, Atorvastatin,,,,, Carvedilol,,,,, Farxiga,,,,, CloPIdogrel,,,,, Valsartan,,,,, Prednisone,,,,, ViCODIN,,,,, Stress Test Details Test: LEXISCAN Reason for pharmacologic stress test: physical limitation. HR Resting HR: 64 bpm Max Heart Rate (APMHR): 151 bpm Max HR Achieved: 91 bpm Target HR (85% APMHR): 128 bpm % of APMHR: 60 Recovery HR: 77 bpm BP Resting BP: 145.0/79.0 mmHg Max BP: 153.0/88.0 mmHg Recovery BP: 153.0/88.0 mmHg ECG Resting ECG: NSR, incomplete RBBB Stress ECG: No significant ST changes Arrhythmia: None Clinical Exercise duration: 04:00 min Highest Stage Achieved: Exercise capacity: 1.0 METs Stress ECG Conclusion Symptoms: Mild SOA, head discomfort. No CP. Arrhythmias/Ectopy: None ST-T Changes: No significant ST changes. Conclusion: Unremarkable Lexiscan stress. Myoview images reported separately. Test Summary REST . . . . . . . Resting REST 02:58 . . 64 . 145/ 79 . . Stage 1 01:00 . . 80 . . . . Stage 2 01:00 . . 85 . 149/ 81 . . Stage 3 01:00 . . 78 . 147/ 84 . . Stage 4 01:00 . . 72 . 151/ 83 . Stop exercise at 04:00 RECOVERY 01:00 . . 81 . . . . RECOVERY 02:00 . . 74 . 152/ 91 . . RECOVERY 03:00 . . 73 . 153/ 88 . . RECOVERY 03:31 . . 73 . 153/ 88 . . Electronically signed by : Virginia Glez MD 06/14/2023 02:10:58
[2023-06-11] MEDS: REGADENOSON 0.4MG/5ML SYRINGE 0.400000000000000022 MG IV (09:59)
[2023-06-11] MEDS: SODIUM CHLORIDE 0.9% 10ML SYR (RAD ONLY) 10 ML IV ×2 (09:59)
[2023-06-11] MEDS: ISOTOPE MYOVIEW (PER STUDY) 1 DOSE IV (09:59)
== END 2023-06-11 23:59 ==
LOC: RAD 06:37
PROVIDERS: PCP Physician Assistant; Visit Provider Nurse Practitioner
DX: E78.5 Hyperlipidemia, unspecified (principal); G45.9 Transient cerebral ischemic attack, unspecified; I10 Essential (primary) hypertension; I25.10 Atherosclerotic heart disease of native coronary artery without angina pectoris; I73.9 Peripheral vascular disease, unspecified; J44.9 Chronic obstructive pulmonary disease, unspecified; R07.89 Other chest pain
CPT/HCPCS: 78452; 93017; 93018; 93306; 93923; A9502; J2785

== ENCOUNTER 2023-07-06 11:27 | Outpatient (CLI) | payer MEDICARE, SELFPAY ==
[2023-07-06 14:19] LABS: Vitamin B12 751 pg/mL (239-931)
[2023-07-06 14:23] LABS: Folate 9.84 ng/mL
[2023-07-06 15:13] LABS: Iron 88 ug/dL (49-181)
[2023-07-06 15:25] LABS: Total Iron Binding Capacity 309 ug/dL (261-462)
[2023-07-06 15:50] LABS: Ferritin 182 ng/ml (17.9-464)
[2023-07-07 14:16] LABS: Albumin 3.6 g/dL (2.9-4.4); Alpha-1-Globulin 0.3 g/dL (0.0-0.4); Gamma Globulin 1.1 g/dL (0.4-1.8); Protein, Total 7.1 g/dL (6.0-8.5)
[2023-07-08 08:07] LABS: PDF SCANNED IMAGE
== END 2023-07-06 23:59 ==
LOC: LAB 11:28
PROVIDERS: PCP Physician Assistant; Visit Provider Nurse Practitioner Family
DX: E83.10 Disorder of iron metabolism, unspecified (principal); G62.89 Other specified polyneuropathies; Z79.899 Other long term (current) drug therapy
CPT/HCPCS: 36415; 82607; 82728; 82746; 83540; 83550; 84155; 84165; 86334

== ENCOUNTER 2023-07-13 15:05 | Emergency (ER) | payer MEDICARE, SELFPAY ==
[2023-07-13 15:15] VITALS: BP 128/79; PULSE 90; RESP 19; TEMP 36.6; O2SAT 97; BMI 34.5
--- NOTE | 2023-07-13 15:22 | EXP.UTC ---
Discharge Plan Disposition Patient Disposition: Home, Self-Care Condition: Good Prescriptions Prescriptions: New methocarbamol 500 mg tablet 500 mg PO BID PRN (Reason: muscle spasm) Qty: 6 0RF No Action atorvastatin 80 mg tablet 80 mg PO DAILY Patient Comments: TAKE ONE TABLET BY MOUTH EVERY DAY AT BEDTIME carvedilol 25 mg tablet 25 mg PO DAILY Patient Comments: TAKE TWO TABLETS BY MOUTH TWICE DAILY gabapentin 600 mg tablet 600 mg PO Q8H Patient Comments: TAKE ONE TABLET BY MOUTH EVERY 8 HOURS MAY CAUSE DROWSINESS glipizide 10 mg tablet extended release 24hr 10 mg PO DAILY clopidogrel 75 mg tablet 75 mg PO DAILY Patient Comments: TAKE ONE TABLET BY MOUTH EVERY DAY FOR blood thinner isosorbide mononitrate 120 mg tablet extended release 24 hr 120 mg PO DAILY Patient Comments: TAKE ONE TABLET BY MOUTH EVERY DAY FOR CHEST pain amlodipine 10 mg tablet 10 mg PO DAILY Patient Comments: TAKE ONE TABLET BY MOUTH EVERY DAY FOR blood pressure hydralazine 100 mg tablet 100 mg PO DAILY Patient Comments: TAKE ONE TABLET BY MOUTH EVERY DAY FOR blood pressure metformin 1,000 mg tablet 1,000 mg PO DAILY Patient Comments: TAKE ONE TABLET BY MOUTH TWICE DAILY FOR diabetes valsartan 160 mg tablet 160 mg PO DAILY Patient Comments: TAKE ONE TABLET BY MOUTH EVERY DAY FOR blood pressure rosuvastatin 20 mg tablet 20 mg PO DAILY Patient Comments: TAKE ONE TABLET BY MOUTH EVERY DAY dapagliflozin propanediol [Farxiga] 10 mg tablet 10 mg PO DAILY Patient Comments: TAKE ONE TABLET BY MOUTH EVERY DAY hydrocodone-acetaminophen 10-325 mg tablet 1 tab PO Q8H Patient Comments: TAKE ONE TABLET BY MOUTH EVERY 8 HOURS MAY CAUSE DROWSINESS Referrals Follow up/Referrals: Susanna Kohli PA [Primary Care Provider] - See instructions Activity Restrictions/Add. Instructions Additional Instructions/Restrictions: You have prescribed pain medication take it as prescribed *Ice 20 minutes every 2 hours for the first 48 hours after the initial injury followed by moist heat every 20 minutes 3-4 times a day to affected area *Muscle relaxer every 12 hours as needed for muscle spasms but remember, it WILL cause drowsiness You cannot take it and drive, operate machinery or care for small children. *Keep this area active, no movement leads to more stiffness, However take it easy and avoid heavy lifting pushing or pulling *Follow up with you family doctor if no improvement for further treatment Keep appointment in the morning for your Heart Cath Over the counter Biofreeze rubbed into the area may help with pain and stiffness Clinical Impressions Clinical Impression: Muscle spasm Instructions Patient Instructions: DI for Muscle Spasm, Methocarbamol Discharge ED Provider: Latonya Mancini [facility] General Stated complaint: Stiff neck Mode of Arrival: Ambulatory Source of Information: Patient and Significant Other Limitations: No Limitations Time Seen by Provider: 07/13/23 15:22 Description of Symptoms (Recalled from Triage Doc. by RN): PATIENT C/O STIFFNESS TO NECK THAT STARTED YESTERDAY MORNING AND TODAY IS RADIATING TO LEFT SHOULDER AND ARM. NO KNOWN INJURY HEENT Symptoms (Recalled from RN notes): No Resp Symptoms (Recalled from RN notes): No Skin Symptoms (Recalled from RN notes): No MS Symptoms (Recalled from RN notes): Yes Functional Status (Recalled from RN notes): WNL History of Present Illness Provider Complaint: Patient states that he thinks he may have slept wrong when he woke up yesterday he was having spasms in his left side of neck and shoulder area and felt tight and stiff, States that he isnt able to hardly turn his head without pain and feels like it spasms up and hurts down the side of his neck into his shoulder area Pain worse with turning his head or when someone touches it States at times it will shoot down arm and make his fingers tingle States as long as he holds his head straight it doesnt hurt that bad pain is worse with movement States he is scheduled for heart cath tomorrow but denies CP Related Data Home Medications Medication Instructions Recorded Confirmed amlodipine 10 mg tablet 10 mg PO DAILY 07/13/23 07/13/23 atorvastatin 80 mg tablet 80 mg PO DAILY 07/13/23 07/13/23 carvedilol 25 mg tablet 25 mg PO DAILY 07/13/23 07/13/23 clopidogrel 75 mg tablet 75 mg PO DAILY 07/13/23 07/13/23 dapagliflozin propanediol 10 mg 10 mg PO DAILY 07/13/23 07/13/23 tablet (Farxiga) gabapentin 600 mg tablet 600 mg PO Q8H 07/13/23 07/13/23 glipizide 10 mg tablet, extended 10 mg PO DAILY 07/13/23 07/13/23 release 24 hr hydralazine 100 mg tablet 100 mg PO DAILY 07/13/23 07/13/23 hydrocodone 10 mg-acetaminophen 1 tab PO Q8H 07/13/23 07/13/23 325 mg tablet isosorbide mononitrate 120 mg 120 mg PO DAILY 07/13/23 07/13/23 tablet,extended release 24 hr metformin 1,000 mg tablet 1,000 mg PO DAILY 07/13/23 07/13/23 rosuvastatin 20 mg tablet 20 mg PO DAILY 07/13/23 07/13/23 valsartan 160 mg tablet 160 mg PO DAILY 07/13/23 07/13/23 Previous Rx's Medication Instructions Recorded methocarbamol 500 mg tablet 500 mg PO BID PRN muscle spasm #6 07/13/23 tabs Allergies Allergy/AdvReac Type Severity Reaction Status Date / Time desvenlafaxine [From [facility]IST[facility]] Allergy Mild Verified 06/25/23 13:40 Worker's Comp Is this a Worker's Comp case?: No [facility] Disclaimer: The information contained in this section may have been updated after the patient was seen, as this information can be updated by other users. Medical History Left otitis media Low back pain Encounter for screening for malignant neoplasm of lung Allergic rhinitis Stopped smoking with greater than 30 pack year history Dyspnea on exertion Shortness of breath Typical angina Cervical pain (neck) Low back pain Pacemaker Diabetes mellitus, type 2 COPD (chronic obstructive pulmonary disease) Hyperlipidemia Hypertension Chest pain Atypical chest pain RLS (restless legs syndrome) Insomnia Left shoulder pain Diabetic neuropathy, painful Chronic pain Depression Vasovagal episode Gastritis CAD (coronary artery disease), [place] coronary artery Gout Diabetes Hypertension Hyperlipidemia Gout attack Surgical History History of appendectomy H/O heart artery stent Family History Other COPD (chronic obstructive pulmonary disease) Diabetes Heart disease Hypertension Social History Smoking Status: Current every day smoker tobacco type: cigarettes packs per day: 0 and smokeless tobacco years smoked: 40 smoking status stop date: 09/2021 second hand exposure: Yes alcohol intake: never substance use type: denies use current occupational status: retired Travel in the last 8 weeks: None household members: significant other housing: house marital status: current occupation: off on workers comp. 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 current occupational exposures/hazards: No caffeine: Yes ROS Obtained: Yes All systems reviewed & no additional complaints except as documented and Yes Systems reviewed as appropriate & no additional complaints except as documented Constitutional Constitutional: Reports system reviewed and no additional complaints, except as documented and Reports as per HPI ENT Ears, Nose, Mouth, and Throat: Reports system reviewed and no additional complaints, except as documented and Reports as per HPI Cardiovascular Cardiovascular: Reports system reviewed and no additional complaints, except as documented, Reports as per HPI, Denies chest pain, Denies dyspnea, Denies edema and Denies lightheadedness Respiratory Respiratory: Reports system reviewed and no additional complaints, except as documented, Reports as per HPI and Denies dyspnea Gastrointestinal Gastrointestingal: Reports system reviewed and no additional complaints, except as documented and as per HPI Musculoskeletal Musculoskeletal: Reports system reviewed and no additional complaints, except as documented, Reports as per HPI, Reports back pain (see other) and Reports other Comments: Pain/spasm in left side of neck/shoulder area that feels like it spasms up when he tries to turn his head or move certain ways and at times will shoot into shoulder and arm and make his fingers tingle Physical Exam General General appearance: alert and in no apparent distress Chest Chest inspection: Present normal inspection and symmetric chest wall rise Respiratory Respiratory exam: Present normal lung sounds bilaterally; Absent respiratory distress or wheezes Cardiovascular Cardiovascular exam: Present regular rate, normal rhythm and normal heart sounds Back Exam Back exam: Present tenderness and muscle spasm Back 1 view image: 1. reports pain/tenderness with palpation and feeling of tightness and spasms when he tried to turn his head, denies known injury Reports at time pain will make his fingers tingle Denies CP Neurological Exam Neurological exam: Present alert, oriented X3 and normal gait Medical Decision Making Raghav Inquiry Pt receiving controlled substance: No Raghav was queried for this patient: No Vital Signs: 07/13/23 15:15 Temperature 97.9 F Temperature Source Oral Pulse Rate [Left Brachial] 90 Respiratory Rate 19 Blood Pressure [Left Arm] 128/79 Blood Pressure Mean [Left Arm] 95 Blood Pressure Source [Left Arm] Automatic Cuff Blood Pressure Position [Left Arm] Sitting 02 Sat by Pulse Oximetry 97 Oxygen Delivery Method Room Air Medical Decision Narrative: Discussed with patient due to recent Cardiac issues and scheduled for heart cath tomorrow discussed transfer to the ED for furhter evaluation to R/O Cardiac and he declined States pain is worse with movement and with palpation Medication discussed with pharmacy and Cardiology prior to prescribing Will prescribe Methocarbamol 500mg BID and have patient use over the counter Biofreeze and follow up with PCP if no improvement
[2023-07-13 15:53] VITALS: BP 142/89; PULSE 89; RESP 19; TEMP 36.8
== END 2023-07-13 15:53 | disposition home or self-care (01) ==
PROVIDERS: Emergency Provider Nurse Practitioner; PCP Physician Assistant
DX: M54.2 Cervicalgia (principal); M25.512 Pain in left shoulder; M62.838 Other muscle spasm; E11.40 Type 2 diabetes mellitus with diabetic neuropathy, unspecified; J44.9 Chronic obstructive pulmonary disease, unspecified; I11.9 Hypertensive heart disease without heart failure; I25.119 Atherosclerotic heart disease of native coronary artery with unspecified angina pectoris; E78.5 Hyperlipidemia, unspecified; Z87.891 Personal history of nicotine dependence; Z79.84 Long term (current) use of oral hypoglycemic drugs
CPT/HCPCS: 99212; 99214; G0463

== ENCOUNTER 2023-07-14 08:56 | Day surgery (SDC) | payer MEDICARE, SELFPAY ==
[2023-07-14] VITALS (13 sets, daily range): BP systolic 136–188; BP diastolic 71–113; PULSE 65–88; RESP 16–19; TEMP 36.8; O2SAT 93–97; BMI 32.5
--- NOTE | 2023-07-14 07:15 | IR_ITS ---
APPROVED REPORT Patient Location: Outpatient PROCEDURES Selective coronary angiogram INDICATION Abnormal Myoview, Known coronary artery disease, Angina pectoris, Informed consent was obtained prior to the procedure. COMPLICATIONS None Estimated Blood Loss: Less than 10 mls TECHNIQUE One percent lidocaine used to anesthetize the right anterior aspect of the wrist. The right radial artery was accessed via the Seldinger technique. A 6 Tristanian sheath was placed in the right radial artery. 2.5 mg of Verapamil, 800 mcg of nitroglycerin, 1mg Lidocaine and 5000 U Heparin were given through the arterial sheath. The papa catheter was also used to perform selective coronary angiogram. At the end of the procedure the sheath was removed good hemostasis was achieved using Traclet band, patient was transferred to the postop holding area in stable condition. ANGIOGRAPHIC RESULTS The left main artery Normal The left anterior descending artery Has proximal 10% stenoses followed by a mid vessel stent which is widely patent. There is then a mid vessel gap with no stents which have 10% luminal irregularities followed by additional mid vessel stents which are widely patent free of in-stent restenosis with excellent proximal distal transitioning. The LAD is large and wraps the apex The circumflex artery Is a large dominant vessel with mild 10 to 20% luminal irregularities The right coronary artery Vestigial normal The LIND ventriculogram reveals Not performed The left ventricular end-diastolic pressure Not measured IMPRESSION Patent coronary arteries as described above with widely patent stents PLAN 1. Continue medical management Electronically signed by : Zaire Cox MD 07/14/2023 10:29:31
[2023-07-14 09:27] LABS: Basophils # 0.1 K/mm3 (0-0.2); Basophils % 1.1 % (0.1-2.0); Eosinophils # 0.2 K/mm3 (0.0-0.4); Eosinophils % 2.3 % (0.1-12.0); Hematocrit 49.6 % (42.0-52.0); Hemoglobin 16.5 g/dL (14.1-18.0); Lymphocytes # 2.4 K/mm3 (0.7-4.5); Lymphocytes % 29.2 % (10-50); Mean Corpuscular HGB Conc 33.3 g/dL (31.8-35.4); Mean Corpuscular Hemoglobin 31.7 pg (27.0-31.2); Mean Corpuscular Volume 95.3 fl (80-94); Mean Platelet Volume 7.5 fl (7.4-10.4); Monocytes # 0.5 K/mm3 (0.1-1.0); Monocytes % 5.9 % (1.7-9.3); Neutrophils # 5.1 K/mm3 (1.8-7.8); Neutrophils % 61.6 % (37.0-80.0); Platelet Count 224 K/mm3 (142-424); Red Blood Count 5.21 M/mm3 (4.60-6.20); Red Cell Distribution Width 13.6 % (11.5-17.5); White Blood Count 8.2 K/mm3 (4.8-10.8)
[2023-07-14 09:33] LABS: Chloride 104 mmol/L (98-107); Potassium 3.8 mmoL/L (3.5-5.1); Sodium 140 mmol/L (136-145)
[2023-07-14 09:36] LABS: Anion Gap 13.8 mEq/L (5-15); Blood Urea Nitrogen 19 mg/dl (9-20); Calcium 9.7 mg/dl (8.4-10.2); Carbon Dioxide 26 mmol/L (22.0-30.0); Creatinine Clearance Estimated 107 mL/min (50-200); Estimated Glomerular Filt Rate 74 ml/min (>60); GFR (African American) 90 ML/MIN (>60); Glucose 213 mg/dl (74-100)
[2023-07-14] MEDS: VERAPAMIL 2.5MG/ML 2ML VIAL 2.5 MG IV (10:17)
[2023-07-14] MEDS: HEPARIN 1,000 UNITS/500ML NS (CATH LAB) 3000 UNIT IV (10:17)
[2023-07-14] MEDS: 0.9 % SODIUM CHLORIDE 500 ML 25 ML IV (10:17)
[2023-07-14] MEDS: HEPARIN 1,000 UNITS/ML 10ML VIAL (CATH LAB) 10000 UNIT IV (10:17)
[2023-07-14] MEDS: LIDOCAINE 1% 10ML MDV 20 ML IJ (10:17)
[2023-07-14] MEDS: NITROGLYCERIN 800MCG/8ML SYR (CATH LAB) 800 MCG IA (10:17)
[2023-07-14] MEDS: diphenhydrAMINE 50MG/ML VIAL 50 MG IV (10:17)
[2023-07-14] MEDS: FENTANYL 100MCG/2ML VIAL 50 MCG IV (10:26)
[2023-07-14] MEDS: MIDAZOLAM HCL 1MG/1ML 5ML VIAL 1 MG IV (10:26)
[2023-07-14] MEDS: IOPAMIDOL-370 (76%);100ML BOTTLE 50 ML IV (11:31)
== END 2023-07-14 13:58 | disposition home or self-care (01) ==
PROVIDERS: PCP Physician Assistant; Visit Provider Internal Medicine
DX: J44.9 Chronic obstructive pulmonary disease, unspecified (principal); Z95.5 Presence of coronary angioplasty implant and graft; I95.89 Other hypotension; I25.118 Atherosclerotic heart disease of native coronary artery with other forms of angina pectoris; G45.9 Transient cerebral ischemic attack, unspecified; Z95.0 Presence of cardiac pacemaker; G47.33 Obstructive sleep apnea (adult) (pediatric); R06.00 Dyspnea, unspecified; I10 Essential (primary) hypertension; E78.2 Mixed hyperlipidemia; R94.39 Abnormal result of other cardiovascular function study; Z79.899 Other long term (current) drug therapy; E11.9 Type 2 diabetes mellitus without complications; Z79.84 Long term (current) use of oral hypoglycemic drugs; F17.210 Nicotine dependence, cigarettes, uncomplicated
CPT/HCPCS: 80048; 85025; 93454; 99152; C1725; C1760; C1769; J1644; Q9967

== ENCOUNTER 2023-07-16 11:28 | Outpatient (CLI) | payer MEDICARE, SELFPAY ==
--- NOTE | 2023-07-16 11:32 | XR_ITS ---
FINAL REPORT CLINICAL HISTORY: neck stiffness c/o pain x5 days FINDINGS: CERVICAL SPINE Five views demonstrate no acute fracture. There is mild disc space narrowing at C5-6. The facets are properly aligned. There is no malalignment. IMPRESSION: No acute process. Reviewed, Interpreted and Dictated by Chang Medrano MD Transcribed by Chrissie Guido Authenticated and [facility]
[2023-07-16 18:49] LABS: Creatinine,Urine Random 74 mg/dL (Not Estab.)
[2023-07-16 19:37] LABS: Microalbumin/Creatinine Ratio 1333.9
== END 2023-07-16 23:59 ==
LOC: RAD 11:29
PROVIDERS: PCP Physician Assistant; Visit Provider Physician Assistant
DX: M43.6 Torticollis (principal); E11.9 Type 2 diabetes mellitus without complications; M54.2 Cervicalgia; Z79.899 Other long term (current) drug therapy
CPT/HCPCS: 72050; 82043; 82570

== ENCOUNTER 2023-08-18 13:11 | Outpatient (CLI) | payer MEDICARE, SELFPAY ==
[2023-08-18 14:49] LABS: Uric Acid 5.1 mg/dl (3.5-8.5)
== END 2023-08-18 23:59 | disposition home or self-care (01) ==
LOC: LAB 13:12
PROVIDERS: PCP Physician Assistant; Visit Provider Nurse Practitioner
DX: R60.9 Edema, unspecified (principal)
CPT/HCPCS: 36415; 84550

== ENCOUNTER 2023-08-26 08:59 | Outpatient (POV) | payer MEDICARE, SELFPAY | END 2023-08-26 23:59 | disposition home or self-care (01) | LOC: SC 08:59 | PROVIDERS: Visit Provider Specialist/Technologist | DX: Z00.00 Encounter for general adult medical examination without abnormal findings (principal) ==

== ENCOUNTER 2023-10-06 17:27 | Emergency (ER) | payer MEDICARE, SELFPAY ==
[2023-10-06 17:37] VITALS: BMI 35.9
--- NOTE | 2023-10-06 17:38 | XR_ITS ---
PROCEDURE INFORMATION: Exam: XR Left Foot Exam date and time: 10/06/2023 5:38 PM Age: 68 years old Clinical indication: Pain; Heel; Left; Additional info: Heel pain, no known injury TECHNIQUE: Imaging protocol: Radiologic exam of the left foot. Views: 3 or more views. COMPARISON: CR XR FOOT WT BEARING LT 3V 11/06/2022 1:59 PM FINDINGS: Bones/joints: Small marginal osteophytes and degenerative changes involving the 1st MTP joint. No evidence of acute osseous abnormality. Soft tissues: Intermediate sized enthesophytes involving the Achilles tendon insertion, and plantar fascia origin on the calcaneus. IMPRESSION: 1. Small marginal osteophytes and degenerative changes involving the 1st MTP joint. 2. No evidence of acute osseous abnormality. 3. Intermediate sized enthesophytes involving the Achilles tendon insertion, and plantar fascia origin on the calcaneus.
[2023-10-06 18:05] VITALS: BP 180/100; PULSE 70; RESP 20; TEMP 36.4; O2SAT 94; BMI 32.9
--- NOTE | 2023-10-06 18:17 | ED_ITS ---
Discharge Plan Disposition Patient Disposition: Home, Self-Care Condition: Good Prescriptions Prescriptions: No Action gabapentin 600 mg tablet 600 mg PO DAILY Patient Comments: TAKE ONE TABLET BY MOUTH EVERY 8 HOURS MAY CAUSE DROWSINESS glipizide 10 mg tablet extended release 24hr 10 mg PO DAILY Patient Comments: TAKE ONE TABLET BY MOUTH EVERY DAY FOR diabetes isosorbide mononitrate 30 mg tablet extended release 24 hr 30 mg PO DAILY Patient Comments: TAKE ONE TABLET BY MOUTH EVERY DAY along with 120mg hydrocodone-acetaminophen 10-325 mg tablet 1 tab PO DAILY Patient Comments: TAKE ONE TABLET BY MOUTH EVERY 8 HOURS MAY CAUSE DROWSINESS azelastine 137 mcg (0.1 %) aerosol,spray 1 spray INTRANASAL BID Patient Comments: instill 1 SPRAY IN EACH NOSTRIL TWICE DAILY ranolazine 500 mg tablet extended release 12 hr 500 mg PO DAILY Patient Comments: TAKE ONE TABLET BY MOUTH TWICE DAILY levocetirizine 5 mg tablet 5 mg PO DAILY Patient Comments: TAKE ONE TABLET BY MOUTH EVERY DAY dapagliflozin propanediol [Farxiga] 10 mg tablet 10 mg PO DAILY Patient Comments: TAKE ONE TABLET BY MOUTH EVERY DAY Referrals Follow up/Referrals: Susanna Kohli PA [Primary Care Provider] - See instructions Activity Restrictions/Add. Instructions Additional Instructions/Restrictions: Achilles tendon Enthesopathy is treated with stretching, night splits, ice therapy, NSAIDS, and rest. You will need to follow up with Dr. Turk. Clinical Impressions Clinical Impression: Enthesopathy of ankle, Achilles tendon pain Instructions Patient Instructions: DI for Ankle Pain Discharge ED Provider: Amara Garcia [facility] General Stated complaint: LT Heel pain Time Seen by Provider: 10/06/23 18:17 History of Present Illness Provider Complaint: Pt reports that he has had pain in feet for some time but the last 3 days he has had left heel pain that has made it very painful for him to walk. Related Data Home Medications Medication Instructions Recorded Confirmed azelastine 137 mcg (0.1 %) nasal 1 spray intranasal BID 10/06/23 10/06/23 spray aerosol dapagliflozin propanediol 10 mg 10 mg PO DAILY 10/06/23 10/06/23 tablet (Farxiga) gabapentin 600 mg tablet 600 mg PO DAILY 10/06/23 10/06/23 glipizide 10 mg tablet, extended 10 mg PO DAILY 10/06/23 10/06/23 release 24 hr hydrocodone 10 mg-acetaminophen 1 tab PO DAILY 10/06/23 10/06/23 325 mg tablet isosorbide mononitrate 30 mg 30 mg PO DAILY 10/06/23 10/06/23 tablet,extended release 24 hr levocetirizine 5 mg tablet 5 mg PO DAILY 10/06/23 10/06/23 ranolazine 500 mg tablet,extended 500 mg PO DAILY 10/06/23 10/06/23 release,12 hr Allergies Allergy/AdvReac Type Severity Reaction Status Date / Time desvenlafaxine [From [facility]] Allergy Mild Verified 09/03/23 14:16 [facility] Disclaimer: The information contained in this section may have been updated after the patient was seen, as this information can be updated by other users. Medical History Nasal sinus congestion SNHL (sensorineural hearing loss) mild to moderate SNHL bilateral Tinnitus aurium Left otitis media Low back pain Encounter for screening for malignant neoplasm of lung Allergic rhinitis Stopped smoking with greater than 30 pack year history Dyspnea on exertion Shortness of breath Typical angina Cervical pain (neck) Low back pain Pacemaker Diabetes mellitus, type 2 COPD (chronic obstructive pulmonary disease) Hyperlipidemia Hypertension Chest pain Atypical chest pain RLS (restless legs syndrome) Insomnia Left shoulder pain Diabetic neuropathy, painful Chronic pain Depression Vasovagal episode Gastritis CAD (coronary artery disease), [place] coronary artery Gout 08/18/23- L [place] MTP pain and tenderness to palpation, possible gout flare, obtain uric acid level, start Indomethacin 50mg PO bid and Colchicine 0.6mg PO bid for acute flares Diabetes Hypertension Hyperlipidemia Gout attack Surgical History History of appendectomy H/O heart artery stent Family History Other COPD (chronic obstructive pulmonary disease) Diabetes Heart disease Hypertension Social History Smoking Status: Current every day smoker tobacco type: cigarettes packs per day: 0 and smokeless tobacco years smoked: 40 smoking status stop date: 09/2021 second hand exposure: Yes alcohol intake: never substance use type: denies use current occupational status: retired Travel in the last 8 weeks: None household members: significant other housing: house marital status: current occupation: off on workers comp. 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 current occupational exposures/hazards: No caffeine: Yes ROS Obtained: Yes All systems reviewed & no additional complaints except as documented Constitutional Constitutional: Reports system reviewed and no additional complaints, except as documented Eyes Eyes: Reports system reviewed and no additional complaints, except as documented ENT Ears, Nose, Mouth, and Throat: Reports system reviewed and no additional complaints, except as documented Cardiovascular Cardiovascular: Reports system reviewed and no additional complaints, except as documented Respiratory Respiratory: Reports system reviewed and no additional complaints, except as documented Gastrointestinal Gastrointestingal: Reports system reviewed and no additional complaints, except as documented Genitourinary Male Genitourinary: Reports system reviewed and no additional complaints, except as documented Musculoskeletal Musculoskeletal: Reports system reviewed and no additional complaints, except as documented and Reports abnormal gait Comments: heel pain Integumentary/Breasts Skin/Breast: Reports system reviewed and no additional complaints, except as documented Neurologic Neurologic: Reports system reviewed and no additional complaints, except as documented and Reports abnormal gait Endocrine Endocrine: Reports system reviewed and no additional complaints, except as documented Hematologic/Lymphatic Henatologic/Lymphatic: Reports system reviewed and no additional complaints, except as documented Allergic/Immunologic Allergic/Immunologic: Reports system reviewed and no additional complaints, except as documented Physical Exam General General appearance: alert and in no apparent distress Head Head exam: atraumatic and normocephalic Eye Eye exam: Present normal appearance ENT ENT exam: Present normal exam and normal oropharynx Neck Neck exam: Present normal inspection Chest Chest inspection: Present normal inspection and symmetric chest wall rise Respiratory Respiratory exam: Present normal lung sounds bilaterally Cardiovascular Cardiovascular exam: Present regular rate and normal rhythm Abdominal Exam Abdominal exam: Present soft and normal bowel sounds Expanded Lower Extremity Exam Left: Hip/Pelvis exam: Present normal inspection Upper leg exam: Present normal inspection Knee exam: Present normal inspection Lower leg exam: Present normal inspection Ankle exam: Present tenderness and other (pain with palpitation over ankle and sole of foot.) Foot/toe exam: Present tenderness Neurovascular/Tendon exam: Present normal capillary refill Gait: observed and limited by pain Back Exam Back exam: Present normal inspection Neurological Exam Neurological exam: Present alert and oriented X3 Psychiatric Psychiatric exam: Present normal affect and normal mood Skin Skin exam: Present warm, dry and intact Lymphatic Lymphatic Findings: no adenopathy Medical Decision Making Raghav Inquiry Pt receiving controlled substance: No Raghav was queried for this patient: No Orders (Tests/Meds): ORDERS Category Date Time Status Foot XR left minimum 3 views [XR foot LT min 3V] Stat Exams 10/06/23 17:38 Taken
[2023-10-06 18:51] VITALS: BP 188/107; PULSE 70; RESP 20; TEMP 36.4; O2SAT 94
== END 2023-10-06 19:06 | disposition home or self-care (01) ==
PROVIDERS: Emergency Provider Nurse Practitioner Family; PCP Physician Assistant
DX: M77.52 Other enthesopathy of left foot and ankle (principal); M76.62 Achilles tendinitis, left leg; M79.672 Pain in left foot; F17.210 Nicotine dependence, cigarettes, uncomplicated
CPT/HCPCS: 73630; 99212; 99213; G0463

== ENCOUNTER 2023-11-26 09:56 | Outpatient (CLI) | payer MEDICARE, SELFPAY ==
[2023-12-03 05:00] LABS: D001-IgE D pteronyssinus <0.10 kU/L (Class 0); D002-IgE D farinae <0.10 kU/L (Class 0); E001-IgE Cat Dander <0.10 kU/L (Class 0); E005-IgE Dog Dander <0.10 kU/L (Class 0); E072-IgE Mouse Urine <0.10 kU/L (Class 0); G002-IgE Bermuda Grass <0.10 kU/L (Class 0); G006-IgE Timothy Grass <0.10 kU/L (Class 0); I006-IgE Cockroach, German <0.10 kU/L (Class 0); Immunoglobulin E, Total 26 IU/mL (6-495); M001-IgE Penicillium chrysogen <0.10 kU/L (Class 0); M002-IgE Cladosporium herbarum <0.10 kU/L (Class 0); M003-IgE Aspergillus fumigatus <0.10 kU/L (Class 0); M006-IgE Alternaria alternata <0.10 kU/L (Class 0); T001-IgE Maple/Box Elder <0.10 kU/L (Class 0); T003-IgE Common Silver Birch <0.10 kU/L (Class 0); T006-IgE Cedar, Mountain <0.10 kU/L (Class 0); T007-IgE Oak, White <0.10 kU/L (Class 0); T008-IgE Elm, American <0.10 kU/L (Class 0); T010-IgE Walnut <0.10 kU/L (Class 0); T011-IgE Maple Leaf Sycamore <0.10 kU/L (Class 0); T014-IgE Cottonwood <0.10 kU/L (Class 0); T015-IgE Ash, White <0.10 kU/L (Class 0); T022-IgE Pecan, Hickory <0.10 kU/L (Class 0); T070-IgE White Mulberry <0.10 kU/L (Class 0); W001-IgE Ragweed, Short <0.10 kU/L (Class 0); W011-IgE Thistle, Russian <0.10 kU/L (Class 0); W014-IgE Pigweed, Common <0.10 kU/L (Class 0); W018-IgE Sheep Sorrel <0.10 kU/L (Class 0)
== END 2023-11-26 23:59 | disposition home or self-care (01) ==
LOC: LAB 09:57
PROVIDERS: PCP Physician Assistant; Visit Provider Nurse Practitioner
DX: J30.9 Allergic rhinitis, unspecified (principal); Z87.891 Personal history of nicotine dependence
CPT/HCPCS: 36415; 82785; 86003

== ENCOUNTER 2023-12-29 14:51 | Outpatient (CLI) | payer MEDICARE, SELFPAY ==
[2023-12-29 14:26] LABS: Basophils # 0.1 K/mm3 (0-0.2); Basophils % 0.9 % (0.1-2.0); Eosinophils # 0.2 K/mm3 (0.0-0.4); Eosinophils % 2.8 % (0.1-12.0); Hematocrit 50.6 % (42.0-52.0); Hemoglobin 16.3 g/dL (14.1-18.0); Lymphocytes % 32.7 % (10-50); Mean Corpuscular HGB Conc 32.3 g/dL (31.8-35.4); Mean Corpuscular Hemoglobin 31.8 pg (27.0-31.2); Mean Corpuscular Volume 98.5 fl (80-94); Mean Platelet Volume 8.2 fl (7.4-10.4); Monocytes # 0.5 K/mm3 (0.1-1.0); Monocytes % 7.6 % (1.7-9.3); Neutrophils # 3.4 K/mm3 (1.8-7.8); Platelet Count 209 K/mm3 (142-424); Red Blood Count 5.14 M/mm3 (4.60-6.20); Red Cell Distribution Width 14.4 % (11.5-17.5); White Blood Count 6.1 K/mm3 (4.8-10.8)
[2023-12-29 14:47] LABS: Alanine Aminotransferase 26 U/L (12-78); Albumin Level 4.1 g/dl (3.5-5.0); Albumin/Globulin Ratio 1.4 (1.1-1.8); Alkaline Phosphatase 64 U/L (38-126); Anion Gap 15.3 mEq/L (5-15); Aspartate Amino Transferase 30 U/L (17-59); Bilirubin,Total 0.6 mg/dl (0.2-1.3); Blood Urea Nitrogen 17 mg/dl (9-20); Calcium 9.4 mg/dl (8.4-10.2); Carbon Dioxide 23 mmol/L (22.0-30.0); Chloride 106 mmol/L (98-107); Chol/HDL Ratio 2.6 (1-3.5); Cholesterol 118 mg/dl (140-200); Estimated Glomerular Filt Rate 66 ml/min (>60); GFR (African American) 80 ML/MIN (>60); Globulin 2.9 g/dL (1.3-3.2); Glucose 169 mg/dl (74-100); HDL Cholesterol 46 mg/dl (40-60); Potassium 4.3 mmoL/L (3.5-5.1); Sodium 140 mmol/L (136-145); Triglycerides 233 mg/dl (30-150); VLDL Cholesterol 47 mg/dL (0-40)
[2023-12-29 14:57] LABS: Direct LDL Cholesterol 34.52 mg/dL (100-129)
[2023-12-29 15:07] LABS: 25-OH Vitamin D, Total 26.8 ng/mL (30-100)
[2023-12-29 15:17] LABS: Thyroid Stimulating Hormone 1.82 uIU/mL (0.465-4.68)
[2023-12-29 15:29] LABS: Hemoglobin A1C 7.6 % (4.0-6.0)
== END 2023-12-29 23:59 | disposition home or self-care (01) ==
LOC: LAB.DROPOF 14:51
PROVIDERS: PCP Physician Assistant; Visit Provider Physician Assistant
DX: E55.9 Vitamin D deficiency, unspecified (principal); I10 Essential (primary) hypertension; E78.2 Mixed hyperlipidemia; E11.9 Type 2 diabetes mellitus without complications; E78.5 Hyperlipidemia, unspecified; R53.83 Other fatigue
CPT/HCPCS: 80053; 80061; 82306; 83036; 84443; 85025

== ENCOUNTER 2024-01-04 13:23 | Emergency (ER) | payer MEDICARE, SELFPAY ==
[2024-01-04 13:25] VITALS: BP 165/105; PULSE 62; RESP 18; TEMP 36.6; O2SAT 97; BMI 32.3
--- NOTE | 2024-01-04 13:30 | ECG_ITS ---
APPROVED REPORT Exam: Resting ECG HR:63 bpm ECG Measurements Heart Rate 63 AXES MI 215 P 58 QRSd 115 QRS 29 QT 419 T 45 QTc 426 Conclusion SINUS RHYTHM WITH FIRST DEGREE AV BLOCK INCOMPLETE RIGHT BUNDLE BRANCH BLOCK [90+ ms QRS DURATION, TERMINAL R IN V1/V2, 40+ ms S IN I/aVL/V4/V5/V6] ABNORMAL ECG Electronically signed by : ROSA MAN, 01/04/2024 16:33:12
--- NOTE | 2024-01-04 14:15 | ED_ITS ---
<Statement entered by Davina Hensley DO - 01/04/24 15:49> I was consulted by the [facility], and we discussed the complexity of the problems being addressed. I approved the treatment and management plan for this patient's care in the emergency department, thus performing a substantive portion of the medical decision making. Davina Hensley DO Discharge Plan Disposition Patient Disposition: Home, Self-Care Prescriptions Prescriptions: No Action carvedilol 25 mg tablet 50 mg PO BID clopidogrel 75 mg tablet 75 mg PO DAILY chlorthalidone 25 mg tablet 25 mg PO DAILY Qty: 30 2RF isosorbide mononitrate 30 mg tablet extended release 24 hr PO Patient Comments: TAKE ONE TABLET BY MOUTH EVERY DAY along with 120mg docusate sodium 250 mg capsule PO Patient Comments: TAKE ONE CAPSULE BY MOUTH EVERY DAY meclizine 25 mg tablet 25 mg PO TID PRN (Reason: dizziness) Qty: 30 0RF losartan 25 mg tablet 25 mg PO DAILY 90 Days Qty: 90 0RF amlodipine 10 mg tablet 10 mg PO Patient Comments: TAKE ONE TABLET BY MOUTH EVERY DAY FOR blood pressure metformin 1,000 mg tablet 1,000 mg PO BID Qty: 180 3RF colchicine 0.6 mg tablet 0.6 mg PO BID PRN (Reason: gout) Qty: 180 0RF rosuvastatin 20 mg tablet 20 mg PO QHS Qty: 90 3RF tizanidine [Zanaflex] 4 mg tablet 4 mg PO Q8H PRN (Reason: muscle spasticity) Qty: 30 0RF isosorbide mononitrate 120 mg tablet extended release 24 hr See Rx Instructions .ROUTE .COMPLEX Qty: 90 3RF Dose Instruction: TAKE ONE TABLET BY MOUTH EVERY DAY FOR CHEST pain Rx Instructions: TAKE ONE TABLET BY MOUTH EVERY DAY FOR CHEST pain levocetirizine 5 mg tablet See Rx Instructions .ROUTE .COMPLEX Qty: 90 2RF Dose Instruction: TAKE ONE TABLET BY MOUTH EVERY DAY Rx Instructions: TAKE ONE TABLET BY MOUTH EVERY DAY glipizide 10 mg tablet extended release 24hr See Rx Instructions .ROUTE .COMPLEX Qty: 90 1RF Dose Instruction: TAKE ONE TABLET BY MOUTH EVERY DAY FOR diabetes Rx Instructions: TAKE ONE TABLET BY MOUTH EVERY DAY FOR diabetes gabapentin 600 mg tablet 600 mg PO DAILY Patient Comments: TAKE ONE TABLET BY MOUTH EVERY 8 HOURS MAY CAUSE DROWSINESS hydrocodone-acetaminophen 10-325 mg tablet 1 tab PO DAILY Patient Comments: TAKE ONE TABLET BY MOUTH EVERY 8 HOURS MAY CAUSE DROWSINESS azelastine 137 mcg (0.1 %) aerosol,spray 1 spray INTRANASAL BID Patient Comments: instill 1 SPRAY IN EACH NOSTRIL TWICE DAILY ranolazine 500 mg tablet extended release 12 hr 500 mg PO DAILY Patient Comments: TAKE ONE TABLET BY MOUTH TWICE DAILY dapagliflozin propanediol [Farxiga] 10 mg tablet 10 mg PO DAILY Patient Comments: TAKE ONE TABLET BY MOUTH EVERY DAY Referrals Follow up/Referrals: Susanna Kohli PA [Primary Care Provider] - See instructions David Bonilla MD [Physician] - See instructions (Intermittent dizziness) Narciso Rodriguez MD [Staff Physician] - See instructions (Proteinuria and hematuria) Clinical Impressions Clinical Impression: Dizziness, Hypomagnesemia Hematuria Qualifiers: Hematuria type: unspecified type Qualified Code(s): R31.9 - Hematuria, unspecified Instructions Patient Instructions: DI for Hematuria, Dizziness, Nonvertigo, DI for Hypomagnesemia Print Language Print Language: [place] Discharge ED Provider: Davina Hensley General Adult HPI <ALEXIS Escalera - Last Filed: 01/04/24 16:17> General Chief complaint: Dizziness Stated complaint: dizziness, sweating, pain in Right arm Time Seen by Provider: 01/04/24 14:15 Mode of Arrival: Ambulatory Source of Information: Patient Limitations: No Limitations Description of Symptoms (Recalled from ER Triage Doc. by RN): c/o sweating with weakness and dizziness for 2 weeks. History of Present Illness HPI narrative: Patient presents for evaluation of dizziness. Patient tells me that he has had intermittent dizziness along with feeling hot over the last month. There is no provoking or positional component. It can happen at any time and has done so. His last episode however was yesterday. He is currently asymptomatic now. He reports no evidence of spinning no altered level of consciousness no altered sensation. He denies any recent upper respiratory tract infection. He denies headache nausea vomiting diarrhea. Related Data Home Medications ?Medication ?Instructions ?Recorded ?Confirmed azelastine 137 mcg (0.1 %) nasal 1 spray intranasal BID 10/06/23 12/29/23 spray dapagliflozin propanediol 10 mg 10 mg PO DAILY 10/06/23 12/29/23 tablet (Farxiga) gabapentin 600 mg tablet 600 mg PO DAILY 10/06/23 12/29/23 hydrocodone 10 mg-acetaminophen 1 tab PO DAILY 10/06/23 12/29/23 325 mg tablet ranolazine 500 mg tablet,extended 500 mg PO DAILY 10/06/23 12/29/23 release,12 hr amlodipine 10 mg tablet 10 mg PO 10/13/23 12/29/23 carvedilol 25 mg tablet 50 mg PO BID 12/03/23 12/29/23 clopidogrel 75 mg tablet 75 mg PO DAILY 12/03/23 12/29/23 docusate sodium 250 mg capsule mg PO 12/29/23 12/29/23 isosorbide mononitrate 30 mg mg PO 12/29/23 12/29/23 tablet,extended release 24 hr Previous Rx's ?Medication ?Instructions ?Recorded colchicine 0.6 mg tablet 0.6 mg PO BID PRN gout #180 tabs 10/13/23 metformin 1,000 mg tablet 1,000 mg PO BID #180 tabs 10/13/23 rosuvastatin 20 mg tablet 20 mg PO QHS #90 tabs 10/13/23 tizanidine 4 mg tablet (Zanaflex) 4 mg PO Q8H PRN muscle spasticity 10/13/23 #30 tabs chlorthalidone 25 mg tablet 25 mg PO DAILY #30 tabs 12/03/23 isosorbide mononitrate 120 mg See Rx Instructions .Route 12/23/23 tablet,extended release 24 hr .COMPLEX #90 tabs glipizide 10 mg tablet, extended See Rx Instructions .Route 12/24/23 release 24 hr .COMPLEX #90 tabs levocetirizine 5 mg tablet See Rx Instructions .Route 12/24/23 .COMPLEX #90 tabs losartan 25 mg tablet 25 mg PO DAILY 90 days #90 tabs 12/29/23 meclizine 25 mg tablet 25 mg PO TID PRN dizziness #30 tabs 12/29/23 Allergies Allergy/AdvReac Type Severity Reaction Status Date / Time desvenlafaxine [From PRISTIQ] Allergy Mild Verified 12/29/23 09:58 [facility] <ALEXIS Escalera - Last Filed: 01/04/24 16:17> [facility] Disclaimer: The information contained in this section may have been updated after the patient was seen, as this information can be updated by other users. Medical History Snoring Allergic rhinitis Nasal sinus congestion SNHL (sensorineural hearing loss) mild to moderate SNHL bilateral Tinnitus aurium Left otitis media Low back pain Encounter for screening for malignant neoplasm of lung Allergic rhinitis Stopped smoking with greater than 30 pack year history Dyspnea on exertion Shortness of breath Typical angina Cervical pain (neck) Low back pain Pacemaker Diabetes mellitus, type 2 COPD (chronic obstructive pulmonary disease) Hyperlipidemia Hypertension Chest pain Atypical chest pain RLS (restless legs syndrome) Insomnia Left shoulder pain Diabetic neuropathy, painful Chronic pain Depression Vasovagal episode Gastritis CAD (coronary artery disease), beaver coronary artery Gout 08/18/23- L Hall[place] MTP pain and tenderness to palpation, possible gout flare, obtain uric acid level, start Indomethacin 50mg PO bid and Colchicine 0.6mg PO bid for acute flares Diabetes Hypertension Hyperlipidemia Gout attack Surgical History History of appendectomy H/O heart artery stent Family History Other COPD (chronic obstructive pulmonary disease) Diabetes Heart disease Hypertension Social History Smoking Status: Former smoker tobacco type: cigarettes packs per day: 0 and smokeless tobacco years smoked: 40 smoking status stop date: 09/2021 second hand exposure: Yes alcohol intake: never substance use type: denies use current occupational status: retired Travel in the last 8 weeks: None household members: significant other housing: house marital status: current occupation: off on workers comp. 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 current occupational exposures/hazards: No caffeine: Yes <ALEXIS Escalera - Last Filed: 01/04/24 16:17> ROS Obtained: Yes Systems reviewed as appropriate & no additional complaints except as documented Physical Exam <ALEXIS Escalera - Last Filed: 01/04/24 16:17> General General appearance: alert and in no apparent distress Eye Eye exam: Present normal appearance, PERRL and EOMI ENT ENT exam: Present normal exam, normal oropharynx and mucous membranes moist Neck Neck exam: Present normal inspection, full ROM and trachea midline; Absent tenderness Respiratory Respiratory exam: Present normal lung sounds bilaterally Cardiovascular Cardiovascular exam: Present regular rate Extremities Exam Extremities exam: Present normal inspection and full ROM; Absent tenderness Neurological Exam Neurological exam: Present alert, oriented X3, CN II-XII intact and normal gait; Absent motor sensory deficit Medical Decision Making <ALEXIS Escalera - Last Filed: 01/04/24 16:17> Medical Records Medical records reviewed: Yes I reviewed the patient's medical records. Raghav Inquiry Pt receiving controlled substance: No Vital Signs: 01/04/24 13:25 01/04/24 15:03 Temperature 97.9 F Temperature Source Oral Pulse Rate 67 Pulse Rate [Left Radial] 62 Respiratory Rate 18 13 Blood Pressure [Right Arm] 165/105 H Blood Pressure Mean [Right Arm] 125 Blood Pressure Source [Right Arm] Automatic Cuff Blood Pressure Position [Right Arm] Sitting 02 Sat by Pulse Oximetry 97 96 Oxygen Delivery Method Room Air Lab Data Lab results reviewed: Yes I reviewed the patient's lab results. Lab Results 01/04/24 13:43: WBC 5.5, RBC 5.36, Hgb 16.7, Hct 51.3, MCV 95.6 H, MCH 31.2, MCHC 32.6, RDW 14.3, Plt Count 199, MPV 8.2, Neut % (Auto) 42.4, Lymph % (Auto) 44.8, [place] % (Auto) 7.8, Eos % (Auto) 3.8, Baso % (Auto) 1.2, Neut # (Auto) 2.3, Lymph # (Auto) 2.5, [place] # (Auto) 0.4, Eos # (Auto) 0.2, Baso # (Auto) 0.1, PT 10.4, INR 0.92, Sodium 141, Potassium 3.9, Chloride 106, Carbon Dioxide 27, Anion Gap 11.9, BUN 24 H, Creatinine 1.30 H, Estimated Creat Clear 82, Estimated GFR 55 L, Est GFR ( Amer) 66, Glucose 143 H, Hemoglobin A1c 7.5 H, Calcium 9.6, Magnesium 1.5 L, Total Bilirubin 0.9, AST 46, ALT 34, Alkaline Phosphatase 74, Total Protein 7.6, Albumin 4.6, Globulin 3.0, Albumin/Globulin Ratio 1.5, TSH 1.08, Free T4 Index 2.6 L, Thyroxine (T4) 7.6, T3 Uptake 34 01/04/24 15:10: Urine Color Yellow, Urine Appearance Clear, Urine pH 6.0, Ur Specific [place] >= 1.030, Urine Protein 2+ A, Urine Glucose (UA) 3+, Urine Ketones Negative, Urine Blood 1+ A, Urine Nitrate Negative, Urine Bilirubin Negative, Urine Urobilinogen 0.2, Ur Leukocyte Esterase Negative, Urine RBC 3-5, Urine WBC Occasional, Ur Squamous Epith Cells Occasional, Urine Bacteria 1+ 01/04/24 13:43 01/04/24 13:43 Orders (Tests/Meds): ED MEDICATIONS Generic Name Dose Route Start Last Admin Trade Name Freq PRN Reason Stop Dose Admin Magnesium Sulfate 2 gm in 50 mls @ 50 mls/hr 01/04/24 15:29 01/04/24 15:45 Magnesium Sulfate 2gm/50ml Premix IV 01/04/24 16:28 50 mls/hr ONCE ONE Administration Sodium Chloride 10 ml 01/04/24 15:19 01/04/24 15:20 Sodium Chloride 0.9% 10ml Syr (Rad Only) IV 02/03/24 15:18 10 ml NEEDED PRN Administration Maintain IV Site Discontinued Medications Generic Name Dose Route Start Last Admin Trade Name Freq PRN Reason Stop Dose Admin Iopamidol 175 ml 01/04/24 15:19 01/04/24 15:20 Iopamidol-370 (76%);100ml Bottle IV 01/04/24 15:20 175 ml ONCE ONE Administration Sodium Chloride 100 ml 01/04/24 15:19 01/04/24 15:20 0.9 % Sodium Chloride 50 Ml Vial IV 01/04/24 15:20 100 ml ONCE ONE Administration ORDERS Category Date Time Status CT Venogram head Stat Cat Scan 01/04/24 14:[address] angio head Stat Cat Scan 01/04/24 14:[address] angio neck Stat Cat Scan 01/04/24 14:[address] head/brain wo con Stat Cat Scan 01/04/24 14:30 Completed CBC w/Auto Diff [Complete Blood Count Auto Diff] Stat Lab 01/04/24 13:43 Completed CMP [Comprehensive Metabolic Panel] Stat Lab 01/04/24 13:43 Completed Hemoglobin A1C Stat Lab 01/04/24 13:43 Completed INR [Prothrombin Time INR] Stat Lab 01/04/24 13:43 Completed Magnesium Stat Lab 01/04/24 13:43 Completed Thyroid Panel Stat Lab 01/04/24 13:43 Completed UA [Urinalysis and Microscopic] Stat Lab 01/04/24 15:10 Completed Medical Decision Narrative: In summary patient is a 68-year-old male who presents to the emergency department for evaluation of dizziness and hot flashes. Patient is hypertensive on arrival at 165/105 with a pulse of 62 respiratory rate of 18 satting at 97% on room air upon arrival, afebrile. Physical exam is remarkable for boggy nasal mucosa however normal posterior pharynx without evidence of erythema, normal bilateral tympanic membranes, Angelique Coma Score of 15, cranial nerves II through XII are intact grossly to exam, patient has no focal neurologic deficits or symptoms at the time of my exam. Differential diagnosis includes space- occupying lesion of the brain, stroke, alterations in electrolytes, tubular disorder etc. Initial workup will be conducted with hematologic labs, CT of the head without contrast CTA of the head and neck CT venogram. Initial interventions were considered however patient is asymptomatic currently thus deferred for now. Initial workup reviewed by me shows that he has chronic kidney disease and he is creatinine it is close to his baseline at 1.3, his magnesium is low which will be repleted IV, and the remainder of his hematologic labs are nonactionable, urinalysis shows 2+ protein and 1+ blood. My informal to rotation of his imaging shows no acute processes bleeds or masses prior to radiology read which was confirmed by radiology. Upon repeat evaluation remains asymptomatic. Given this patient is appropriate for discharge with follow-up with his PCP for recurrent symptoms, referral to ear nose and throat for further evaluation of peripheral cause of dizziness, referral to urology for proteinuria and hematuria. <Davina Hensley, DO - Last Filed: 01/04/24 14:42> Vital Signs: 01/04/24 13:25 01/04/24 15:03 Temperature 97.9 F Temperature Source Oral Pulse Rate 67 Pulse Rate [Left Radial] 62 Respiratory Rate 18 13 Blood Pressure [Right Arm] 165/105 H Blood Pressure Mean [Right Arm] 125 Blood Pressure Source [Right Arm] Automatic Cuff Blood Pressure Position [Right Arm] Sitting 02 Sat by Pulse Oximetry 97 96 Oxygen Delivery Method Room Air Lab Data Lab Results 01/04/24 13:43: WBC 5.5, RBC 5.36, Hgb 16.7, Hct 51.3, MCV 95.6 H, MCH 31.2, MCHC 32.6, RDW 14.3, Plt Count 199, MPV 8.2, Neut % (Auto) 42.4, Lymph % (Auto) 44.8, [place] % (Auto) 7.8, Eos % (Auto) 3.8, Baso % (Auto) 1.2, Neut # (Auto) 2.3, Lymph # (Auto) 2.5, [place] # (Auto) 0.4, Eos # (Auto) 0.2, Baso # (Auto) 0.1, PT 10.4, INR 0.92, Sodium 141, Potassium 3.9, Chloride 106, Carbon Dioxide 27, Anion Gap 11.9, BUN 24 H, Creatinine 1.30 H, Estimated Creat Clear 82, Estimated GFR 55 L, Est GFR ( Amer) 66, Glucose 143 H, Hemoglobin A1c 7.5 H, Calcium 9.6, Magnesium 1.5 L, Total Bilirubin 0.9, AST 46, ALT 34, Alkaline Phosphatase 74, Total Protein 7.6, Albumin 4.6, Globulin 3.0, Albumin/Globulin Ratio 1.5, TSH 1.08, Free T4 Index 2.6 L, Thyroxine (T4) 7.6, T3 Uptake 34 01/04/24 15:10: Urine Color Yellow, Urine Appearance Clear, Urine pH 6.0, Ur Specific [place] >= 1.030, Urine Protein 2+ A, Urine Glucose (UA) 3+, Urine Ketones Negative, Urine Blood 1+ A, Urine Nitrate Negative, Urine Bilirubin Negative, Urine Urobilinogen 0.2, Ur Leukocyte Esterase Negative, Urine RBC 3-5, Urine WBC Occasional, Ur Squamous Epith Cells Occasional, Urine Bacteria 1+ Orders (Tests/Meds): ED MEDICATIONS Generic Name Dose Route Start Last Admin Trade Name Freq PRN Reason Stop Dose Admin Magnesium Sulfate 2 gm in 50 mls @ 50 mls/hr 01/04/24 15:29 01/04/24 15:45 Magnesium Sulfate 2gm/50ml Premix IV 01/04/24 16:28 50 mls/hr ONCE ONE Administration Sodium Chloride 10 ml 01/04/24 15:19 01/04/24 15:20 Sodium Chloride 0.9% 10ml Syr (Rad Only) IV 02/03/24 15:18 10 ml NEEDED PRN Administration Maintain IV Site Discontinued Medications Generic Name Dose Route Start Last Admin Trade Name Cleve PRN Reason Stop Dose Admin Iopamidol 175 ml 01/04/24 15:19 01/04/24 15:20 Iopamidol-370 (76%);100ml Bottle IV 01/04/24 15:20 175 ml ONCE ONE Administration Sodium Chloride 100 ml 01/04/24 15:19 01/04/24 15:20 0.9 % Sodium Chloride 50 Ml Vial IV 01/04/24 15:20 100 ml ONCE ONE Administration ORDERS Category Date Time Status CT Venogram head Stat Cat Scan 01/04/24 14:[address] angio head Stat Cat Scan 01/04/24 14:[address] angio neck Stat Cat Scan 01/04/24 14:[address] head/brain wo con Stat Cat Scan 01/04/24 14:30 Completed CBC w/Auto Diff [Complete Blood Count Auto Diff] Stat Lab 01/04/24 13:43 Completed CMP [Comprehensive Metabolic Panel] Stat Lab 01/04/24 13:43 Completed Hemoglobin A1C Stat Lab 01/04/24 13:43 Completed INR [Prothrombin Time INR] Stat Lab 01/04/24 13:43 Completed Magnesium Stat Lab 01/04/24 13:43 Completed Thyroid Panel Stat Lab 01/04/24 13:43 Completed UA [Urinalysis and Microscopic] Stat Lab 01/04/24 15:10 Completed ECG Data Tracing #1: I reviewed this ECG and interpreted as documented below: Normal sinus rhythm with retrograde AV block with a ventricular rate of 63 bpm. MO interval is [address] changes concerning for ischemia. Incomplete right bundle branch block noted. ECG initial impression date: 01/04/24 ECG initial impression time: 13:31 Critical Care <ALEXIS Escalera - Last Filed: 01/04/24 16:17> Critical Care Time Critical Care Time: No
--- NOTE | 2024-01-04 14:30 | CT_ITS ---
FINAL REPORT TECHNIQUE: Thin section axial images were obtained from skull base to vertex without contrast. Coronal reconstruction images were obtained from the axial data. This study was performed with techniques to keep radiation doses as low as reasonably achievable, (ALARA). Individualized dose reduction techniques using automated exposure control or adjustment of mA and/or kV according to the patient's size were employed. CLINICAL HISTORY: Dizziness COMPARISON: 12/17/2021 FINDINGS: There is no mass effect or midline shift. There is no hydrocephalus. There is no intracranial hemorrhage. The posterior fossa is without acute abnormality. The basilar cisterns are preserved. The soft tissues are without acute abnormality. No acute osseous abnormality is identified. IMPRESSION: No acute intracranial abnormality. Reviewed, Interpreted and Dictated by Susan Dias MD Transcribed by Windy Liang Authenticated and [facility]
--- NOTE | 2024-01-04 14:32 | CT_ITS ---
FINAL REPORT TECHNIQUE: Thin section axial images were obtained through the brain and dural venous sinuses after contrast administration. Coronal and sagittal reformatted images were obtained. This study was performed with techniques to keep radiation doses as low as reasonably achievable, (ALARA). Individualized dose reduction techniques using automated exposure control or adjustment of mA and/or kV according to the patient's size were employed. CLINICAL HISTORY: Dizziness, sinus congestion COMPARISON: None FINDINGS: The dural venous sinuses are patent without filling defect. The superior sagittal sinuses and transverse sinuses are patent. No abnormality identified. No abnormal contrast enhancement is seen. IMPRESSION: No evidence of dural venous thrombus on this exam. Reviewed, Interpreted and Dictated by Susan Dias MD Transcribed by Windy Liang Authenticated and . [facility]
[2024-01-04 14:50] LABS: Basophils # 0.1 K/mm3 (0-0.2); Basophils % 1.2 % (0.1-2.0); Eosinophils # 0.2 K/mm3 (0.0-0.4); Eosinophils % 3.8 % (0.1-12.0); Hematocrit 51.3 % (42.0-52.0); Hemoglobin 16.7 g/dL (14.1-18.0); Lymphocytes # 2.5 K/mm3 (0.7-4.5); Lymphocytes % 44.8 % (10-50); Mean Corpuscular HGB Conc 32.6 g/dL (31.8-35.4); Mean Corpuscular Hemoglobin 31.2 pg (27.0-31.2); Mean Corpuscular Volume 95.6 fl (80-94); Mean Platelet Volume 8.2 fl (7.4-10.4); Monocytes # 0.4 K/mm3 (0.1-1.0); Monocytes % 7.8 % (1.7-9.3); Neutrophils # 2.3 K/mm3 (1.8-7.8); Neutrophils % 42.4 % (37.0-80.0); Platelet Count 199 K/mm3 (142-424); Red Blood Count 5.36 M/mm3 (4.60-6.20); Red Cell Distribution Width 14.3 % (11.5-17.5); White Blood Count 5.5 K/mm3 (4.8-10.8)
[2024-01-04 14:55] LABS: INR 0.92 (0.9-1.1); Prothrombin Time 10.4 seconds (10.1-12.5)
[2024-01-04 14:57] LABS: Chloride 106 mmol/L (98-107)
[2024-01-04 14:58] LABS: Albumin Level 4.6 g/dl (3.5-5.0); Potassium 3.9 mmoL/L (3.5-5.1); Sodium 141 mmol/L (136-145)
--- NOTE | 2024-01-04 14:58 | CT_ITS ---
FINAL REPORT TECHNIQUE: Thin section axial CT with IV contrast supplemented with multiplanar reconstruction under CT angiogram protocol. 3-D reconstructions were performed. This study was performed with techniques to keep radiation doses as low as reasonably achievable (ALARA). Individualized dose reduction techniques using automated exposure control or adjustment of mA and/or kV according to the patient''s size were employed. CLINICAL HISTORY: Dizziness COMPARISON: None FINDINGS: The distal vertebral, basilar and distal internal carotid arteries have an unremarkable appearance. No aneurysm is seen. Major intracranial vessels are patent without significant stenosis. IMPRESSION: No evidence of occlusion or significant stenosis. Reviewed, Interpreted and Dictated by Susan Dias MD Transcribed by Windy Liang Authenticated and [facility]
--- NOTE | 2024-01-04 14:58 | CT_ITS ---
FINAL REPORT TECHNIQUE: Thin section axial images were obtained through the neck after contrast administration per CT angiogram protocol. Multiplanar reconstruction images were obtained from the axial data. Exam was performed using dose reduction technique. CLINICAL HISTORY: Dizziness COMPARISON: None FINDINGS: CTA NECK: Aortic arch: There is a normal three-vessel configuration to the aortic arch. There is no significant stenosis of the great vessels at their origins. Right carotid artery: The right common carotid artery is patent without stenosis. The cervical portions of the right internal carotid artery are patent without stenosis. Left carotid artery: The left common carotid artery is patent without stenosis. The cervical portions of the left internal carotid artery are patent without stenosis. Vertebral arteries: The vertebral arteries are patent. Other soft tissues: Without acute abnormality. IMPRESSION: No evidence of occlusion or significant stenosis. Reviewed, Interpreted and Dictated by Susan Dias MD Transcribed by Windy Liang Authenticated and [facility]
[2024-01-04 15:00] LABS: Blood Urea Nitrogen 24 mg/dl (9-20); Creatinine Clearance Estimated 82 mL/min (50-200); Estimated Glomerular Filt Rate 55 ml/min (>60); GFR (African American) 66 ML/MIN (>60)
[2024-01-04 15:01] LABS: Alanine Aminotransferase 34 U/L (12-78); Albumin/Globulin Ratio 1.5 (1.1-1.8); Alkaline Phosphatase 74 U/L (38-126); Anion Gap 11.9 mEq/L (5-15); Aspartate Amino Transferase 46 U/L (17-59); Bilirubin,Total 0.9 mg/dl (0.2-1.3); Calcium 9.6 mg/dl (8.4-10.2); Carbon Dioxide 27 mmol/L (22.0-30.0); Glucose 143 mg/dl (74-100); Magnesium 1.5 mg/dl (1.6-2.3); Total Protein,Serum 7.6 g/dl (6.3-8.2)
[2024-01-04 15:03] VITALS: PULSE 67; RESP 13; O2SAT 96
[2024-01-04 15:15] LABS: Microscopic, Urine URINE MICROSCOPIC (MICROSCOPIC)
[2024-01-04 15:18] LABS: Triiodothryronine (T3) Uptake 34 % (23.5-40.5)
[2024-01-04 15:19] LABS: Appearance,Urine CLEAR (Clear); Bilirubin,Urine Negative (Negative); Blood, Urine 1+ (Negative); Color,Urine YELLOW (Yellow); Glucose,Urine (UA) 3+ (Negative); Ketones,Urine Negative (Negative); Leukocyte Esterase,Urine Negative (Negative); Nitrate,Urine Negative (Negative); Protein,Urine 2+ (Negative); Specific Gravity, Urine >= 1.030 (1.005-1.030); Urobilinogen,Urine 0.2 EU/dl (0.2)
[2024-01-04 15:19] LABS: Free Thyroxine Index 2.6 ug/dL (5.93-13.13); T4 (Thyroxine) 7.6 ug/dl (5.53-11.0)
[2024-01-04] MEDS: 0.9 % SODIUM CHLORIDE 50 ML VIAL 100 ML IV (15:20)
[2024-01-04] MEDS: SODIUM CHLORIDE 0.9% 10ML SYR (RAD ONLY) 10 ML IV (15:20)
[2024-01-04] MEDS: IOPAMIDOL-370 (76%);100ML BOTTLE 175 ML IV (15:20)
[2024-01-04 15:30] VITALS: BP 191/92; PULSE 68; RESP 20; O2SAT 95
[2024-01-04 15:32] LABS: Thyroid Stimulating Hormone 1.08 uIU/mL (0.465-4.68)
[2024-01-04 15:33] LABS: Bacteria,Urine 1+ /lpf; Squamous Epithelial Cell,Urine Occasional #/hpf (0-5); WBC,Urine Occasional #/hpf (0-3)
[2024-01-04 15:42] LABS: Hemoglobin A1C 7.5 % (4.0-6.0)
[2024-01-04] MEDS: MAGNESIUM SULFATE IN WATER 2 GM/50 ML PIGGYBACK IV (15:45)
[2024-01-04 16:00] VITALS: BP 175/100; PULSE 64; RESP 13; O2SAT 96
[2024-01-04 16:45] VITALS: BP 190/109; PULSE 77; RESP 16; TEMP 36.7; O2SAT 99
== END 2024-01-04 16:45 | disposition home or self-care (01) ==
PROVIDERS: Physician Assistant; Emergency Provider Emergency Medicine; PCP Physician Assistant
DX: E83.42 Hypomagnesemia (principal); R42 Dizziness and giddiness; R31.9 Hematuria, unspecified; I44.39 Other atrioventricular block; J44.9 Chronic obstructive pulmonary disease, unspecified; E11.40 Type 2 diabetes mellitus with diabetic neuropathy, unspecified; I10 Essential (primary) hypertension; E78.5 Hyperlipidemia, unspecified; Z86.79 Personal history of other diseases of the circulatory system; Z87.891 Personal history of nicotine dependence; Z79.84 Long term (current) use of oral hypoglycemic drugs
CPT/HCPCS: 70450; 70496; 70498; 80053; 81001; 83036; 83735; 84436; 84443; 84479; 85025; 85610; 93005; 96365; 99285; J3475; Q9967

== ENCOUNTER 2024-01-11 15:00 | Outpatient (CLI) | payer MEDICARE, SELFPAY ==
[2024-01-11 17:54] LABS: C-Reactive Protein 1.9 mg/L (0-4)
[2024-01-11 18:22] LABS: Magnesium 1.5 mg/dl (1.6-2.3)
[2024-01-11 23:48] LABS: Vitamin B12 433 pg/mL (239-931)
== END 2024-01-11 23:59 | disposition home or self-care (01) ==
LOC: LAB.DROPOF 01-12 09:31
PROVIDERS: PCP Nurse Practitioner Family; Visit Provider Nurse Practitioner Family
DX: E83.42 Hypomagnesemia (principal); R42 Dizziness and giddiness; R53.83 Other fatigue
CPT/HCPCS: 82607; 83735; 86140

== ENCOUNTER 2024-01-18 14:23 | Outpatient (CLI) | payer MEDICARE, SELFPAY ==
[2024-01-18 15:03] LABS: Blood Urea Nitrogen 21 mg/dl (9-20); Estimated Glomerular Filt Rate 60 ml/min (>60); GFR (African American) 73 ML/MIN (>60)
[2024-01-20 08:22] LABS: PSA, Free 0.55 ng/mL; Prostate Specific Ag 1.3 ng/mL (0.0-4.0)
== END 2024-01-18 23:59 | disposition home or self-care (01) ==
LOC: LAB 14:24
PROVIDERS: PCP Physician Assistant; Visit Provider Urology
DX: R31.9 Hematuria, unspecified (principal); N52.9 Male erectile dysfunction, unspecified; N40.1 Benign prostatic hyperplasia with lower urinary tract symptoms
CPT/HCPCS: 82565; 84153; 84154; 84520

== ENCOUNTER 2024-02-02 07:35 | Outpatient (CLI) | payer MEDICARE, SELFPAY ==
--- NOTE | 2024-02-02 07:40 | CT_ITS ---
FINAL REPORT TECHNIQUE: Axial CT images of the abdomen and pelvis were obtained before and after the administration of IV contrast. Oral contrast was administered.This study was performed with techniques to keep radiation doses as low as reasonably achievable (ALARA). Individualized dose reduction techniques using automated exposure control or adjustment of mA and/or kV according to the patient''s size were employed. CLINICAL HISTORY: hematuria COMPARISON: Prior CT 10/08/2022 FINDINGS: Abdomen: There is a mild patchy airspace opacity in the right lung base, which may represent pneumonia. The heart is normal in size. There is fatty infiltration of the liver, as well as a distended gallbladder. . The spleen is unremarkable. No adrenal masses present. The pancreas has an unremarkable appearance. The kidneys enhance normally. The aorta is normal in caliber. There is no free fluid or adenopathy. No mass or abnormal fluid collection is seen. Precontrast images demonstrate no evidence of nephrolithiasis. Pelvis: The appendix contains a small appendicolith, without evidence of acute periappendiceal inflammatory change. There is streak artifact present secondary to posterior L4-5 and L5-S1 fusions. The bladder is incompletely distended. No inflammatory process is seen. There is no evidence of mass or adenopathy. There is no evidence of bowel obstruction. IMPRESSION: Patchy airspace opacity in the right lung base, that may represent pneumonia. Fatty infiltration of the liver. No evidence of renal stones or hydronephrosis. No evidence of acute intra-abdominal process. Reviewed, Interpreted and Dictated by Chang Medrano MD Transcribed by Anna Everett Authenticated and [facility]
[2024-02-02] MEDS: SODIUM CHLORIDE 0.9% 10ML SYR (RAD ONLY) 10 ML IV (08:19)
[2024-02-02] MEDS: BARIUM SULFATE(READI-CAT2);450ML BOTTLE 450 ML PO (08:19)
[2024-02-02] MEDS: IOPAMIDOL-370 (76%);100ML BOTTLE 75 ML IV (08:19)
== END 2024-02-02 23:59 | disposition home or self-care (01) ==
LOC: RAD 07:37
PROVIDERS: PCP Nurse Practitioner Family; Visit Provider Urology
DX: N52.9 Male erectile dysfunction, unspecified (principal); R31.9 Hematuria, unspecified
CPT/HCPCS: 74178; Q9967

== ENCOUNTER 2024-02-02 09:24 | Outpatient (CLI) | payer MEDICARE, SELFPAY ==
[2024-02-02 17:21] LABS: Albumin Level 4.5 g/dl (3.5-5.0); Chloride 102 mmol/L (98-107); Potassium 3.9 mmoL/L (3.5-5.1); Sodium 140 mmol/L (136-145)
[2024-02-02 17:23] LABS: Blood Urea Nitrogen 21 mg/dl (9-20); Estimated Glomerular Filt Rate 55 ml/min (>60); GFR (African American) 66 ML/MIN (>60)
[2024-02-02 17:24] LABS: Alanine Aminotransferase 28 U/L (12-78); Albumin/Globulin Ratio 1.7 (1.1-1.8); Alkaline Phosphatase 60 U/L (38-126); Anion Gap 17.9 mEq/L (5-15); Aspartate Amino Transferase 32 U/L (17-59); Bilirubin,Total 0.5 mg/dl (0.2-1.3); Calcium 9.6 mg/dl (8.4-10.2); Carbon Dioxide 24 mmol/L (22.0-30.0); Globulin 2.6 g/dL (1.3-3.2); Glucose 169 mg/dl (74-100); Magnesium 1.6 mg/dl (1.6-2.3); Total Protein,Serum 7.1 g/dl (6.3-8.2)
== END 2024-02-02 23:59 | disposition home or self-care (01) ==
LOC: LAB.DROPOF 02-03 09:25
PROVIDERS: PCP Nurse Practitioner Family; Visit Provider Nurse Practitioner Family
DX: E83.42 Hypomagnesemia (principal); R42 Dizziness and giddiness; R31.9 Hematuria, unspecified; N52.9 Male erectile dysfunction, unspecified
CPT/HCPCS: 36415; 74178; 80053; 83735; Q9967

== ENCOUNTER 2024-02-15 08:56 | Outpatient (CLI) | payer MEDICARE, SELFPAY ==
--- NOTE | 2024-02-15 09:09 | XR_ITS ---
PROCEDURE INFORMATION: Exam: XR Chest Exam date and time: 02/15/2024 9:10 AM Age: 68 years old Clinical indication: Cough; Additional info: Right sided pneumonia TECHNIQUE: Imaging protocol: Radiologic exam of the chest. Views: 2 views. COMPARISON: CT LUNG SCREENING 12/31/2022 3:28 PM FINDINGS: Tubes, catheters and devices: Transvenous pacemaker leads in the heart Lungs: Unremarkable. No consolidation. Pleural spaces: Unremarkable. No pleural effusion. No pneumothorax. Heart/Mediastinum: Unremarkable. No cardiomegaly. Bones/joints: Unremarkable. IMPRESSION: No acute process
[2024-02-15 10:02] LABS: Basophils % 0.8 % (0.1-2.0); Eosinophils # 0.1 K/mm3 (0.0-0.4); Eosinophils % 2.7 % (0.1-12.0); Hematocrit 50.1 % (42.0-52.0); Hemoglobin 17.3 g/dL (14.1-18.0); Lymphocytes # 1.9 K/mm3 (0.7-4.5); Lymphocytes % 37.4 % (10-50); Mean Corpuscular HGB Conc 34.5 g/dL (31.8-35.4); Mean Corpuscular Hemoglobin 32.2 pg (27.0-31.2); Mean Corpuscular Volume 93.3 fl (80-94); Mean Platelet Volume 7.8 fl (7.4-10.4); Monocytes # 0.4 K/mm3 (0.1-1.0); Monocytes % 7.6 % (1.7-9.3); Neutrophils # 2.6 K/mm3 (1.8-7.8); Neutrophils % 51.5 % (37.0-80.0); Platelet Count 177 K/mm3 (142-424); Red Blood Count 5.37 M/mm3 (4.60-6.20); Red Cell Distribution Width 14.1 % (11.5-17.5)
[2024-02-15 10:53] LABS: Alanine Aminotransferase 32 U/L (12-78); Albumin Level 4.7 g/dl (3.5-5.0); Albumin/Globulin Ratio 1.7 (1.1-1.8); Alkaline Phosphatase 71 U/L (38-126); Anion Gap 20.7 mEq/L (5-15); Aspartate Amino Transferase 34 U/L (17-59); Bilirubin,Total 0.9 mg/dl (0.2-1.3); Blood Urea Nitrogen 27 mg/dl (9-20); Calcium 10.2 mg/dl (8.4-10.2); Carbon Dioxide 25 mmol/L (22.0-30.0); Chloride 99 mmol/L (98-107); Estimated Glomerular Filt Rate 50 ml/min (>60); GFR (African American) 61 ML/MIN (>60); Globulin 2.8 g/dL (1.3-3.2); Glucose 164 mg/dl (74-100); Magnesium 1.6 mg/dl (1.6-2.3); Potassium 3.7 mmoL/L (3.5-5.1); Sodium 141 mmol/L (136-145); Total Protein,Serum 7.5 g/dl (6.3-8.2)
[2024-02-15 11:07] LABS: Troponin I < 0.01 ng/ml (0.00-0.034)
[2024-02-15 11:41] LABS: Vitamin B12 361 pg/mL (239-931)
== END 2024-02-15 23:59 | disposition home or self-care (01) ==
LOC: LAB 08:57
PROVIDERS: PCP Nurse Practitioner Family; Visit Provider Nurse Practitioner Family
DX: R06.09 Other forms of dyspnea (principal); R42 Dizziness and giddiness; R93.89 Abnormal findings on diagnostic imaging of other specified body structures; N40.1 Benign prostatic hyperplasia with lower urinary tract symptoms; R55 Syncope and collapse; I25.118 Atherosclerotic heart disease of native coronary artery with other forms of angina pectoris; Z95.0 Presence of cardiac pacemaker; J44.9 Chronic obstructive pulmonary disease, unspecified; I10 Essential (primary) hypertension; R31.9 Hematuria, unspecified; N52.9 Male erectile dysfunction, unspecified
CPT/HCPCS: 36415; 71046; 80053; 82607; 83735; 84484; 85025

== ENCOUNTER 2024-02-22 11:09 | Emergency (ER) | payer MEDICARE, SELFPAY ==
[2024-02-22 11:20] VITALS: BP 141/89; PULSE 70; RESP 18; TEMP 36.6; O2SAT 98; BMI 37.3
--- NOTE | 2024-02-22 11:24 | XR_ITS ---
PROCEDURE INFORMATION: Exam: XR Left Foot Exam date and time: 02/22/2024 11:39 AM Age: 68 years old Clinical indication: Pain; Foot; Left; Additional info: Pain, no accident TECHNIQUE: Imaging protocol: Radiologic exam of the left foot. Views: 3 or more views. COMPARISON: CR XR FOOT LT MIN 3V 10/06/2023 5:38 PM FINDINGS: Bones/joints: No visible fracture or dislocation. Calcaneal spur and Achilles tendon enthesophytes noted. Soft tissues: Normal. IMPRESSION: No visible fracture or dislocation.
--- NOTE | 2024-02-22 11:33 | EXP.UTC ---
Discharge Plan Disposition Patient Disposition: Home, Self-Care Prescriptions Prescriptions: No Action carvedilol 25 mg tablet 25 mg PO BID Patient Comments: TAKE TWO TABLETS BY MOUTH TWICE DAILY FOR HIGH BLOOD PRESSURE gabapentin 600 mg tablet 600 mg PO Q8H Patient Comments: TAKE ONE TABLET BY MOUTH EVERY 8 HOURS MAY CAUSE DROWSINESS glipizide 10 mg tablet extended release 24hr 10 mg PO DAILY Patient Comments: TAKE ONE TABLET BY MOUTH EVERY DAY FOR diabetes isosorbide mononitrate 30 mg tablet extended release 24 hr 30 mg PO DAILY Patient Comments: TAKE ONE TABLET BY MOUTH EVERY DAY along with 120mg clopidogrel 75 mg tablet 75 mg PO DAILY Patient Comments: TAKE ONE TABLET BY MOUTH EVERY DAY FOR blood thinner chlorthalidone 25 mg tablet 25 mg PO DAILY Patient Comments: TAKE ONE TABLET BY MOUTH DAILY hydrocodone-acetaminophen 10-325 mg tablet 1 tab PO Q8H Patient Comments: TAKE ONE TABLET BY MOUTH EVERY 8 HOURS MAY CAUSE DROWSINESS isosorbide mononitrate 120 mg tablet extended release 24 hr 120 mg PO DAILY Patient Comments: TAKE ONE TABLET BY MOUTH EVERY DAY FOR CHEST pain tamsulosin 0.4 mg capsule 0.4 mg PO DAILY metformin 1,000 mg tablet 1,000 mg PO BID Patient Comments: TAKE ONE TABLET BY MOUTH TWICE DAILY valsartan 320 mg tablet 320 mg PO DAILY Patient Comments: TAKE ONE TABLET BY MOUTH DAILY losartan 25 mg tablet 25 mg PO DAILY Patient Comments: TAKE ONE TABLET BY MOUTH EVERY DAY rosuvastatin 20 mg tablet 20 mg PO HS Patient Comments: TAKE ONE TABLET BY MOUTH EVERY DAY AT BEDTIME ranolazine 500 mg tablet extended release 12 hr 500 mg PO DAILY Patient Comments: TAKE ONE TABLET BY MOUTH TWICE DAILY levocetirizine 5 mg tablet 5 mg PO DAILY Patient Comments: TAKE ONE TABLET BY MOUTH EVERY DAY dapagliflozin propanediol [Farxiga] 10 mg tablet 10 mg PO DAILY Patient Comments: TAKE ONE TABLET BY MOUTH EVERY DAY Linzess 72 mcg capsule 72 mcg PO DAILY Patient Comments: TAKE ONE CAPSULE BY MOUTH DAILY Referrals Follow up/Referrals: Stacy Lorenz APRN [Primary Care Provider] - See instructions Jen Whiteside APRN [Nurse Practitioner] - See instructions Daphnie Turk DPM [Staff Physician] - See instructions Activity Restrictions/Add. Instructions Additional Instructions/Restrictions: Follow up with Dr García office if pain continues Follow up with [facility] if needed Over the counter Motrin and/or Tylenol for pain Return if needed Clinical Impressions Clinical Impression: Foot pain Instructions Patient Instructions: DI for Chronic Pain -- Adult, Ibuprofen, Acetaminophen (Alternative Therapy), DI for Foot Pain Print Language Print Language: [place] Citizen Discharge ED Provider: Latonya Mancini [facility] [place] General Stated complaint: Pain in L foot, no accident Mode of Arrival: Ambulatory Source of Information: Patient Limitations: No Limitations Time Seen by Provider: 02/22/24 11:34 Description of Symptoms (Recalled from Triage Doc. by RN): PATIENT C/O LEFT FOOT PAIN X 3 DAYS, NO KNOWN INJURY HEENT Symptoms (Recalled from RN notes): No Resp Symptoms (Recalled from RN notes): No Skin Symptoms (Recalled from RN notes): No MS Symptoms (Recalled from RN notes): Yes Functional Status (Recalled from RN notes): WNL History of Present Illness Provider Complaint: Patient states that he has been having pain in the bottom of his left foot that goes into his heel area and around the side of his foot, Denies any known injury States that he has been wearing a compression sock and it has helped some with the discomfort Denies known injury Related Data Home Medications ?Medication ?Instructions ?Recorded ?Confirmed carvedilol 25 mg tablet 25 mg PO BID 02/22/24 02/22/24 chlorthalidone 25 mg tablet 25 mg PO DAILY 02/22/24 02/22/24 clopidogrel 75 mg tablet 75 mg PO DAILY 02/22/24 02/22/24 dapagliflozin propanediol 10 mg 10 mg PO DAILY 02/22/24 02/22/24 tablet (Farxiga) gabapentin 600 mg tablet 600 mg PO Q8H 02/22/24 02/22/24 glipizide 10 mg tablet, extended 10 mg PO DAILY 02/22/24 02/22/24 release 24 hr hydrocodone 10 mg-acetaminophen 1 tab PO Q8H 02/22/24 02/22/24 325 mg tablet isosorbide mononitrate 120 mg 120 mg PO DAILY 02/22/24 02/22/24 tablet,extended release 24 hr isosorbide mononitrate 30 mg 30 mg PO DAILY 02/22/24 02/22/24 tablet,extended release 24 hr levocetirizine 5 mg tablet 5 mg PO DAILY 02/22/24 02/22/24 linaclotide 72 mcg capsule 72 mcg PO DAILY 02/22/24 02/22/24 (Linzess) losartan 25 mg tablet 25 mg PO DAILY 02/22/24 02/22/24 metformin 1,000 mg tablet 1,000 mg PO BID 02/22/24 02/22/24 ranolazine 500 mg tablet,extended 500 mg PO DAILY 02/22/24 02/22/24 release,12 hr rosuvastatin 20 mg tablet 20 mg PO HS 02/22/24 02/22/24 tamsulosin 0.4 mg capsule 0.4 mg PO DAILY 02/22/24 02/22/24 valsartan 320 mg tablet 320 mg PO DAILY 02/22/24 02/22/24 Allergies Allergy/AdvReac Type Severity Reaction Status Date / Time desvenlafaxine [From [employer]] Allergy Mild Verified 02/15/24 13:32 Worker's Comp Is this a Worker's Comp case?: No [facility] Disclaimer: The information contained in this section may have been updated after the patient was seen, as this information can be updated by other users. Medical History Tinnitus, bilateral Ear itching History of cardiac pacemaker Snoring Allergic rhinitis Nasal sinus congestion SNHL (sensorineural hearing loss) mild to moderate SNHL bilateral Tinnitus aurium Left otitis media Low back pain Encounter for screening for malignant neoplasm of lung Allergic rhinitis Stopped smoking with greater than 30 pack year history Dyspnea on exertion Shortness of breath Typical angina Cervical pain (neck) Low back pain Pacemaker Diabetes mellitus, type 2 COPD (chronic obstructive pulmonary disease) Hyperlipidemia Hypertension Chest pain Atypical chest pain RLS (restless legs syndrome) Insomnia Left shoulder pain Diabetic neuropathy, painful Chronic pain Depression Vasovagal episode Gastritis CAD (coronary artery disease), [place] coronary artery Gout 08/18/23- L Hallux MTP pain and tenderness to palpation, possible gout flare, obtain uric acid level, start Indomethacin 50mg PO bid and Colchicine 0.6mg PO bid for acute flares Diabetes Hypertension Hyperlipidemia Gout attack Surgical History History of back surgery History of appendectomy H/O heart artery stent Family History Other COPD (chronic obstructive pulmonary disease) Diabetes Heart disease Hypertension Social History Smoking Status: Former smoker tobacco type: cigarettes packs per day: 0 and smokeless tobacco years smoked: 40 smoking status stop date: 09/2021 second hand exposure: Yes alcohol intake: never substance use type: denies use current occupational status: retired Travel in the last 8 weeks: None household members: significant other housing: house marital status: current occupation: off on workers comp. 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 current occupational exposures/hazards: No caffeine: Yes ROS Obtained: Yes All systems reviewed & no additional complaints except as documented and Yes Systems reviewed as appropriate & no additional complaints except as documented Constitutional Constitutional: Reports system reviewed and no additional complaints, except as documented and Reports as per HPI ENT Ears, Nose, Mouth, and Throat: Reports system reviewed and no additional complaints, except as documented and Reports as per HPI Cardiovascular Cardiovascular: Reports system reviewed and no additional complaints, except as documented and Reports as per HPI Respiratory Respiratory: Reports system reviewed and no additional complaints, except as documented and Reports as per HPI Gastrointestinal Gastrointestingal: Reports system reviewed and no additional complaints, except as documented and as per HPI Musculoskeletal Musculoskeletal: Reports system reviewed and no additional complaints, except as documented, Reports as per HPI and Reports other (left foot pain) Physical Exam General General appearance: alert and in no apparent distress ENT ENT exam: Present mucous membranes moist Respiratory Respiratory exam: Present normal lung sounds bilaterally; Absent respiratory distress or wheezes Cardiovascular Cardiovascular exam: Present regular rate, normal rhythm and normal heart sounds Expanded Lower Extremity Exam Left: Ankle image: 1. reports pain on bottom of foot and heel area Denies known injury, no redness or swelling, has hx of gout but states doesnt feel like that Foot/toe exam: Present tenderness; Absent swelling, abrasion, ecchymosis, deformity or erythema Neurological Exam Neurological exam: Present alert, oriented X3 and normal gait Medical Decision Making Medical Records Screening: Per USPSTF and CDC recommendations, given the prevalence of disease in our region, it is our hospital?s policy to screen for HIV and viral Hepatitis for all patients aged 18 and over and those with ongoing risk factors. Raghav Inquiry Pt receiving controlled substance: No Raghav was queried for this patient: No Vital Signs: 02/22/24 11:20 Temperature 97.8 F Temperature Source Oral Pulse Rate [Left Brachial] 70 Respiratory Rate 18 Blood Pressure [Left Arm] 141/89 H Blood Pressure Mean [Left Arm] 106 Blood Pressure Source [Left Arm] Automatic Cuff Blood Pressure Position [Left Arm] Sitting 02 Sat by Pulse Oximetry 98 Oxygen Delivery Method Room Air Orders (Tests/Meds): ORDERS Category Date Time Status XR foot LT min 3V Stat Exams 02/22/24 11:24 Ordered Radiology Data #1: Image(s): Foot/Toes Image Reviewed: Yes I have reviewed radiologist's interpretation FINDINGS: Bones/joints: No visible fracture or dislocation. Calcaneal spur and Achilles tendon enthesophytes noted. Soft tissues: Normal. IMPRESSION: No visible fracture or dislocation.
[2024-02-22 12:38] VITALS: BP 141/89; PULSE 70; RESP 18; TEMP 36.6; O2SAT 98
== END 2024-02-22 12:39 | disposition home or self-care (01) ==
PROVIDERS: Emergency Provider Nurse Practitioner; PCP Nurse Practitioner Family
DX: M79.672 Pain in left foot (principal)
CPT/HCPCS: 73630; 99213; G0381

== ENCOUNTER 2024-03-04 12:43 | Emergency (ER) | payer MEDICARE, SELFPAY ==
[2024-03-04 14:05] VITALS: BP 144/84; PULSE 71; RESP 18; TEMP 37; O2SAT 98; BMI 31.4
--- NOTE | 2024-03-04 14:15 | ED_ITS ---
Discharge Plan Disposition Patient Disposition: Home, Self-Care Condition: Good Prescriptions Prescriptions: New benzonatate 100 mg capsule 100 mg PO TIDP PRN (Reason: Cough) Qty: 30 0RF amoxicillin-pot clavulanate 875-125 mg Tablet 1 tab PO Q12H Qty: 20 0RF methylprednisolone 4 mg Tablets,Dose Pack 4 mg PO DIRECTED 6 Days Qty: 21 0RF Rx Instructions: Take 1 pack as directed for 6 days No Action carvedilol 25 mg tablet 25 mg PO BID Patient Comments: TAKE TWO TABLETS BY MOUTH TWICE DAILY FOR HIGH BLOOD PRESSURE gabapentin 600 mg tablet 600 mg PO Q8H Patient Comments: TAKE ONE TABLET BY MOUTH EVERY 8 HOURS MAY CAUSE DROWSINESS glipizide 10 mg tablet extended release 24hr 10 mg PO DAILY Patient Comments: TAKE ONE TABLET BY MOUTH EVERY DAY FOR diabetes isosorbide mononitrate 30 mg tablet extended release 24 hr 30 mg PO DAILY Patient Comments: TAKE ONE TABLET BY MOUTH EVERY DAY along with 120mg clopidogrel 75 mg tablet 75 mg PO DAILY Patient Comments: TAKE ONE TABLET BY MOUTH EVERY DAY FOR blood thinner chlorthalidone 25 mg tablet 25 mg PO DAILY Patient Comments: TAKE ONE TABLET BY MOUTH DAILY hydrocodone-acetaminophen 10-325 mg tablet 1 tab PO Q8H Patient Comments: TAKE ONE TABLET BY MOUTH EVERY 8 HOURS MAY CAUSE DROWSINESS isosorbide mononitrate 120 mg tablet extended release 24 hr 120 mg PO DAILY Patient Comments: TAKE ONE TABLET BY MOUTH EVERY DAY FOR CHEST pain tamsulosin 0.4 mg capsule 0.4 mg PO DAILY metformin 1,000 mg tablet 1,000 mg PO BID Patient Comments: TAKE ONE TABLET BY MOUTH TWICE DAILY valsartan 320 mg tablet 320 mg PO DAILY Patient Comments: TAKE ONE TABLET BY MOUTH DAILY losartan 25 mg tablet 25 mg PO DAILY Patient Comments: TAKE ONE TABLET BY MOUTH EVERY DAY rosuvastatin 20 mg tablet 20 mg PO HS Patient Comments: TAKE ONE TABLET BY MOUTH EVERY DAY AT BEDTIME ranolazine 500 mg tablet extended release 12 hr 500 mg PO DAILY Patient Comments: TAKE ONE TABLET BY MOUTH TWICE DAILY levocetirizine 5 mg tablet 5 mg PO DAILY Patient Comments: TAKE ONE TABLET BY MOUTH EVERY DAY dapagliflozin propanediol [Farxiga] 10 mg tablet 10 mg PO DAILY Patient Comments: TAKE ONE TABLET BY MOUTH EVERY DAY Linzess 72 mcg capsule 72 mcg PO DAILY Patient Comments: TAKE ONE CAPSULE BY MOUTH DAILY Referrals Follow up/Referrals: Stacy Lorenz APRN [Primary Care Provider] - See instructions Activity Restrictions/Add. Instructions Additional Instructions/Restrictions: Drink plenty of fluids. Take tylenol or ibuprofen for pain or fever. Take the medications as directed. Follow up with your regular doctor. GO TO THE ER FOR ANY WORSENING SYMPTOMS Clinical Impressions Clinical Impression: Pharyngitis Instructions Patient Instructions: Sore Throat, DI for Pharyngitis/Tonsillopharyngitis -- Adult Print Language Print Language: [place] Discharge ED Provider: Sina Bruno [facility] General Stated complaint: ear pain, sore throat, stuffy nose Time Seen by Provider: 03/04/24 14:14 Related Data Home Medications ?Medication ?Instructions ?Recorded ?Confirmed carvedilol 25 mg tablet 25 mg PO BID 02/22/24 02/22/24 chlorthalidone 25 mg tablet 25 mg PO DAILY 02/22/24 02/22/24 clopidogrel 75 mg tablet 75 mg PO DAILY 02/22/24 02/22/24 dapagliflozin propanediol 10 mg 10 mg PO DAILY 02/22/24 02/22/24 tablet (Farxiga) gabapentin 600 mg tablet 600 mg PO Q8H 02/22/24 02/22/24 glipizide 10 mg tablet, extended 10 mg PO DAILY 02/22/24 02/22/24 release 24 hr hydrocodone 10 mg-acetaminophen 1 tab PO Q8H 02/22/24 02/22/24 325 mg tablet isosorbide mononitrate 120 mg 120 mg PO DAILY 02/22/24 02/22/24 tablet,extended release 24 hr isosorbide mononitrate 30 mg 30 mg PO DAILY 02/22/24 02/22/24 tablet,extended release 24 hr levocetirizine 5 mg tablet 5 mg PO DAILY 02/22/24 02/22/24 linaclotide 72 mcg capsule 72 mcg PO DAILY 02/22/24 02/22/24 (Linzess) losartan 25 mg tablet 25 mg PO DAILY 02/22/24 02/22/24 metformin 1,000 mg tablet 1,000 mg PO BID 02/22/24 02/22/24 ranolazine 500 mg tablet,extended 500 mg PO DAILY 02/22/24 02/22/24 release,12 hr rosuvastatin 20 mg tablet 20 mg PO HS 02/22/24 02/22/24 tamsulosin 0.4 mg capsule 0.4 mg PO DAILY 02/22/24 02/22/24 valsartan 320 mg tablet 320 mg PO DAILY 02/22/24 02/22/24 Previous Rx's ?Medication ?Instructions ?Recorded amoxicillin 875 mg-potassium 1 tab PO Q12H #20 tabs 03/04/24 clavulanate 125 mg tablet benzonatate 100 mg capsule 100 mg PO TIDP PRN Cough #30 caps 03/04/24 methylprednisolone 4 mg tablets in 4 mg PO DIRECTED 6 days #21 tabs 03/04/24 a dose pack Allergies Allergy/AdvReac Type Severity Reaction Status Date / Time desvenlafaxine (From [employer]) Allergy Mild Verified 02/15/24 13:32 [facility] Disclaimer: The information contained in this section may have been updated after the patient was seen, as this information can be updated by other users. Medical History Tinnitus, bilateral Ear itching History of cardiac pacemaker Snoring Allergic rhinitis Nasal sinus congestion SNHL (sensorineural hearing loss) mild to moderate SNHL bilateral Tinnitus aurium Left otitis media Low back pain Encounter for screening for malignant neoplasm of lung Allergic rhinitis Stopped smoking with greater than 30 pack year history Dyspnea on exertion Shortness of breath Typical angina Cervical pain (neck) Low back pain Pacemaker Diabetes mellitus, type 2 COPD (chronic obstructive pulmonary disease) Hyperlipidemia Hypertension Chest pain Atypical chest pain RLS (restless legs syndrome) Insomnia Left shoulder pain Diabetic neuropathy, painful Chronic pain Depression Vasovagal episode Gastritis CAD (coronary artery disease), [place] coronary artery Gout 08/18/23- L [place] MTP pain and tenderness to palpation, possible gout flare, obtain uric acid level, start Indomethacin 50mg PO bid and Colchicine 0.6mg PO bid for acute flares Diabetes Hypertension Hyperlipidemia Gout attack Surgical History History of back surgery History of appendectomy H/O heart artery stent Family History Other COPD (chronic obstructive pulmonary disease) Diabetes Heart disease Hypertension Social History (Reviewed 02/15/24 @ 13:32 by GALINDO Bryant Smoking Status: Former smoker tobacco type: cigarettes packs per day: 0 and smokeless tobacco years smoked: 40 smoking status stop date: 09/2021 second hand exposure: Yes alcohol intake: never substance use type: denies use current occupational status: retired Travel in the last 8 weeks: None household members: significant other housing: house marital status: current occupation: off on workers comp. 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 current occupational exposures/hazards: No caffeine: Yes ROS Obtained: Yes All systems reviewed & no additional complaints except as documented Constitutional Constitutional: Denies chills, Reports fever(s) and Reports poor appetite Eyes Eyes: Denies eye discharge ENT Ears, Nose, Mouth, and Throat: Denies ear discharge, Reports otalgia, Denies hearing loss, Denies sinus pain and Reports sore throat Cardiovascular Cardiovascular: Denies chest pain and Denies dyspnea Respiratory Respiratory: Denies chest congestion, Reports cough and Denies dyspnea Gastrointestinal Gastrointestingal: Denies abdominal pain, diarrhea, nausea or vomiting Musculoskeletal Musculoskeletal: Denies arthralgias Integumentary/Breasts Skin/Breast: Denies rash Physical Exam General General appearance: alert and in no apparent distress Head Head exam: atraumatic, normocephalic and normal inspection Eye Eye exam: Present normal appearance; Absent PERRL or EOMI ENT ENT exam: Present mucous membranes moist and normal external ear exam Expanded ENT Exam TM/Canal exam: Bilateral TM: erythema, bulging and effusion Nose exam: Absent sinus tenderness Nasal speculum exam: Bilateral: normal Mouth exam: Present normal external inspection and other; Absent drooling Teeth exam: Present normal inspection Throat exam: Present tonsillar erythema and tonsillomegaly Neck Neck exam: Present normal inspection, full ROM and trachea midline; Absent tenderness, meningismus or lymphadenopathy Chest Chest inspection: Present normal inspection and symmetric chest wall rise; Absent tenderness Respiratory Respiratory exam: Present normal lung sounds bilaterally; Absent respiratory distress, wheezes or stridor Cardiovascular Cardiovascular exam: Present regular rate, normal rhythm and normal heart sounds; Absent tachycardia or irregular rhythm Abdominal Exam Abdominal exam: Present soft and normal bowel sounds; Absent distention, tenderness, guarding, rebound or rigidity Extremities Exam Extremities exam: Present normal inspection and normal capillary refill; Absent tenderness, joint swelling or calf tenderness Back Exam Back exam: Present normal inspection and full ROM; Absent tenderness, CVA tenderness (R) or CVA tenderness (L) Neurological Exam Neurological exam: Present alert, oriented X3, CN II-XII intact, normal gait and reflexes normal; Absent motor sensory deficit Psychiatric Psychiatric exam: Present normal affect and normal mood Skin Skin exam: Present warm, dry, intact and normal color Lymphatic Lymphatic Findings: no adenopathy Medical Decision Making Medical Records Medical records reviewed: No I reviewed the patient's medical records. Screening: Per USPSTF and CDC recommendations, given the prevalence of disease in our region, it is our hospital?s policy to screen for HIV and viral Hepatitis for all patients aged 18 and over and those with ongoing risk factors. Raghav Inquiry Pt receiving controlled substance: No Lab Data Lab results reviewed: Yes I reviewed the patient's lab results.
[2024-03-04 14:34] VITALS: BP 144/84; PULSE 71; RESP 18; TEMP 37; O2SAT 98
== END 2024-03-04 14:37 | disposition home or self-care (01) ==
PROVIDERS: Emergency Provider Nurse Practitioner Family; PCP Nurse Practitioner Family
DX: J02.9 Acute pharyngitis, unspecified (principal)
CPT/HCPCS: 99212; G0381

== ENCOUNTER 2024-03-28 18:22 | Emergency (ER) | payer SELFPAY ==
[2024-03-28 18:34] VITALS: BP 191/95; PULSE 71; RESP 20; TEMP 36.7; O2SAT 98; BMI 30.9
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
[2024-03-28 18:59] VITALS: BP 231/126; PULSE 71; RESP 20; TEMP 36.7; O2SAT 97; BMI 30.9
[2024-03-28 19:14] VITALS: BP 183/105; PULSE 69; RESP 20; O2SAT 96
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
[2024-03-28] MEDS: OXYCODONE 5MG IMMEDIATE RELEASE TABLET 5 MG PO (19:31)
[2024-03-28 19:56] VITALS: BP 176/105; PULSE 66; RESP 18; TEMP -17.7; TEMP 0; O2SAT 95
== END 2024-03-28 20:03 | disposition home or self-care (01) ==
LOC: UTC 18:26 → ER 18:54
PROVIDERS: Emergency Provider Emergency Medicine; PCP Nurse Practitioner Family
DX: S39.012A Strain of muscle, fascia and tendon of lower back, initial encounter (principal); V89.2XXA Person injured in unspecified motor-vehicle accident, traffic, initial encounter; Y93.89 Activity, other specified; Y92.488 Other paved roadways as the place of occurrence of the external cause
CPT/HCPCS: 72131; 99284

== ENCOUNTER 2024-05-04 07:06 | Outpatient (CLI) | payer MEDICARE, SELFPAY ==
--- NOTE | 2024-05-04 07:11 | CT_ITS ---
FINAL REPORT TECHNIQUE: Thin section noncontrast axial CT with sagittal reconstructions. This study was performed with techniques to keep radiation doses as low as reasonably achievable, (ALARA). Individualized dose reduction techniques using automated exposure control or adjustment of mA and/or kV according to the patient''s size were employed. CLINICAL HISTORY: LUMBAR SPONDYLOSIS COMPARISON: 03/28/2024 FINDINGS: CT LUMBAR SPINE There are postoperative changes from fusion of L4-S1. The hardware is stable. There is further bony fusion of L5 and S1 vertebrae. There is no bony fusion of the L4-5 disc space. No fracture is present. Alignment is normal. T12-L1: Mild annular disc bulge without canal stenosis. L1-L2: No significant disc disease is present. There is no canal stenosis. L2-L3: Spondylosis with moderate annular disc bulge. Moderate central canal stenosis and mild neuroforaminal narrowing. L3-L4: Moderate annular disc bulge. Mild central canal stenosis and mild neuroforaminal narrowing. L4-L5: Annular disc bulge with bony hypertrophic changes. Moderate central canal stenosis and neuroforaminal narrowing, stable. L5-S1: Postoperative changes with moderate central canal stenosis. Mild bilateral neuroforaminal narrowing. IMPRESSION: Stable postoperative changes and multilevel canal stenosis with neuroforaminal narrowing. Reviewed, Interpreted and Dictated by Trinity Powell MD Transcribed by Chrissie Guido Authenticated and [facility]
--- NOTE | 2024-05-04 07:27 | CT_ITS ---
FINAL REPORT TECHNIQUE: CT imaging of the left foot was performed using axial noncontrast images, with sagittal and coronal reconstructions. This study was performed with techniques to keep radiation doses as low as reasonably achievable (ALARA). Individualized dose reduction techniques using automated exposure control or adjustment of mA and/or kV according to the patient's size were employed. CLINICAL HISTORY: evaluate foot pain for arthritis vs tendonitis COMPARISON: None FINDINGS: CT LEFT FOOT: CT examination of the left foot demonstrates no evidence of fracture. There is evidence of old avulsion fractures adjacent to the tip of the medial malleolus. No acute bony abnormality is identified, and no periosteal reaction to suggest healing fractures is visualized. No significant degenerative changes are present. There are moderate calcaneal spurs. Calcification is noted in the proximal plantar fascia, that may represent chronic fasciitis or a chronic tear. Mild hammertoe deformity is noted in the 2nd through 5th digits. IMPRESSION: No acute fracture or significant degenerative arthritis identified. There is calcification in the proximal plantar fascia, chronic fasciitis or chronic tear. Evidence of old avulsion fractures adjacent to the tip of the medial malleolus. Reviewed, Interpreted and Dictated by Trinity Powell MD Transcribed by Anna Everett Authenticated and [facility]
--- NOTE | 2024-05-04 07:27 | CT_ITS ---
FINAL REPORT TECHNIQUE: CT examination of the right ankle was performed without intravenous contrast. Multiplanar coronal and sagittal reconstructions were performed. This study was performed with techniques to keep radiation doses as low as reasonably achievable (ALARA). Individualized dose reduction techniques using automated exposure control or adjustment of mA and/or kV according to the patient's size were employed. CLINICAL HISTORY: evaluate foot pain for arthritis vs tendonitis COMPARISON: None FINDINGS: CT RIGHT FOOT: CT images of the right foot demonstrate no evidence of fracture. There is mild degenerative change of the ankle mortise and subtalar joints. There is also mild degenerative change of the talonavicular joint. Moderate calcaneal spurring is identified. There are hammertoe deformities of the 2nd through 5th digits. There is no evidence of periosteal reaction or bone destruction. The tendons are not evaluated with this imaging modality. IMPRESSION: Mild degenerative change of the hindfoot and ankle without evidence of acute or healing fracture. Degenerative change as described. Reviewed, Interpreted and Dictated by Trinity Powell MD Transcribed by Anna Everett Authenticated and [facility]
[2024-05-04 07:49] LABS: Alanine Aminotransferase 36 U/L (12-78); Albumin Level 4.7 g/dl (3.5-5.0); Albumin/Globulin Ratio 1.8 (1.1-1.8); Alkaline Phosphatase 62 U/L (38-126); Anion Gap 13.5 mEq/L (5-15); Aspartate Amino Transferase 41 U/L (17-59); Bilirubin,Total 0.5 mg/dl (0.2-1.3); Blood Urea Nitrogen 18 mg/dl (9-20); Calcium 9.9 mg/dl (8.4-10.2); Carbon Dioxide 28 mmol/L (22.0-30.0); Chloride 101 mmol/L (98-107); Estimated Glomerular Filt Rate 50 ml/min (>60); GFR (African American) 61 ML/MIN (>60); Globulin 2.6 g/dL (1.3-3.2); Glucose 213 mg/dl (74-100); Potassium 3.5 mmoL/L (3.5-5.1); Sodium 139 mmol/L (136-145); Total Protein,Serum 7.3 g/dl (6.3-8.2)
[2024-05-04] MEDS: IOPAMIDOL-370 (76%);100ML BOTTLE 100 ML IV (08:52)
[2024-05-04] MEDS: SODIUM CHLORIDE 0.9% 10ML SYR (RAD ONLY) 10 ML IV (08:52)
== END 2024-05-04 23:59 | disposition home or self-care (01) ==
LOC: RAD 07:07
PROVIDERS: Nurse Practitioner; PCP Nurse Practitioner Family; Visit Provider Anesthesiology
DX: M47.816 Spondylosis without myelopathy or radiculopathy, lumbar region (principal); M79.671 Pain in right foot; M79.672 Pain in left foot; M19.072 Primary osteoarthritis, left ankle and foot; E11.9 Type 2 diabetes mellitus without complications; I10 Essential (primary) hypertension; E78.2 Mixed hyperlipidemia
CPT/HCPCS: 36415; 72131; 73701; 80053; Q9967

== ENCOUNTER 2024-06-16 18:23 | Emergency (ER) | payer MEDICARE, SELFPAY ==
[2024-06-16 18:26] VITALS: BP 150/76; PULSE 60; RESP 18; TEMP 36.8; O2SAT 97; BMI 31.1
--- NOTE | 2024-06-16 18:30 | ECG_ITS ---
APPROVED REPORT Exam: Resting ECG HR:60 bpm ECG Measurements Heart Rate 60 AXES RI 167 P 264 QRSd 110 QRS 74 QT 432 T 41 QTc 432 Conclusion A paced rhythm Incomplete right bundle branch block Electronically signed by : MADELYN VÁZQUEZ, 06/16/2024 20:30:51
--- NOTE | 2024-06-16 18:32 | PC.NURSE ---
BS IS 312 @0127.
[2024-06-16 18:35] VITALS: BP 131/80; PULSE 61; RESP 16; O2SAT 96
--- NOTE | 2024-06-16 18:49 | PC.NURSE ---
ROUNDED ON THE PT. THE PT VOICES THAT HE DOES NOT NEED ANYTHING AT THIS TIME. CALL LIGHT IS WITHIN REACH OF THE PT. FAMILY MEMBERS ARE PRESENT AT THE BEDSIDE.
--- NOTE | 2024-06-16 18:56 | XR_ITS ---
PROCEDURE INFORMATION: Exam: XR Chest Exam date and time: 06/16/2024 7:03 PM Age: 69 years old Clinical indication: Other: Syncope TECHNIQUE: Imaging protocol: Radiologic exam of the chest. Views: 1 view. COMPARISON: CR XR CHEST 2V 02/15/2024 9:10 AM FINDINGS: Tubes, catheters and devices: Cardiac pacemaker in place. Lungs: Unremarkable. No consolidation. Pleural spaces: Unremarkable. No pleural effusion. No pneumothorax. Heart/Mediastinum: Unremarkable. No cardiomegaly. Bones/joints: Mild degenerative changes of the spine and shoulders. Old left clavicle fracture noted. IMPRESSION: No acute disease
[2024-06-16 19:10] LABS: Alanine Aminotransferase 30 U/L (12-78); Albumin Level 4.5 g/dl (3.5-5.0); Albumin/Globulin Ratio 1.8 (1.1-1.8); Alkaline Phosphatase 52 U/L (38-126); Anion Gap 9.2 mEq/L (5-15); Aspartate Amino Transferase 39 U/L (17-59); Basophils % 0.6 % (0.1-2.0); Bilirubin,Total 0.8 mg/dl (0.2-1.3); Blood Urea Nitrogen 19 mg/dl (9-20); Calcium 9.3 mg/dl (8.4-10.2); Carbon Dioxide 29 mmol/L (22.0-30.0); Chloride 103 mmol/L (98-107); Creatinine Clearance Estimated 78 mL/min (50-200); Eosinophils # 0.1 K/mm3 (0.0-0.4); Eosinophils % 1.7 % (0.1-12.0); Estimated Glomerular Filt Rate 55 ml/min (>60); GFR (African American) 66 ML/MIN (>60); Globulin 2.5 g/dL (1.3-3.2); Glucose 278 mg/dl (74-100); Hematocrit 44.1 % (42.0-52.0); Hemoglobin 14.8 g/dL (14.1-18.0); Lymphocytes # 1.5 K/mm3 (0.7-4.5); Lymphocytes % 29.5 % (10-50); Magnesium 1.8 mg/dl (1.6-2.3); Mean Corpuscular HGB Conc 33.6 g/dL (31.8-35.4); Mean Corpuscular Hemoglobin 32.1 pg (27.0-31.2); Mean Corpuscular Volume 95.7 fl (80-94); Mean Platelet Volume 9.8 fl (7.4-10.4); Monocytes # 0.5 K/mm3 (0.1-1.0); Monocytes % 9.1 % (1.7-9.3); Neutrophils # 3.1 K/mm3 (1.8-7.8); Neutrophils % 58.9 % (37.0-80.0); Platelet Count 186 K/mm3 (142-424); Potassium 4.2 mmoL/L (3.5-5.1); Red Blood Count 4.61 M/mm3 (4.60-6.20); Red Cell Distribution Width 12.6 % (11.5-17.5); Sodium 137 mmol/L (136-145); White Blood Count 5.2 K/mm3 (4.8-10.8)
[2024-06-16 19:18] LABS: Activated Partial Thrombo Time 23.2 seconds (22.8-30.6); INR 0.97 (0.9-1.1); Prothrombin Time 10.9 seconds (10.1-12.5)
[2024-06-16 19:22] LABS: NT Pro Brain Natriuretic Pep. 208 pg/mL (0-125)
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
[2024-06-16 19:24] LABS: Troponin I < 0.01 ng/ml (0.00-0.034)
--- NOTE | 2024-06-16 19:27 | ED_ITS ---
Discharge Plan Disposition Patient Disposition: Home, Self-Care Chief Complaint: Syncope Prescriptions Prescriptions: No Action colchicine 0.6 mg capsule 0.6 mg PO BID 30 Days Qty: 60 2RF Rx Instructions: Not to exceed 1.2 mg/day; after gout flare wait 12 hours to continue prophylaxis diclofenac sodium 1 % gel 4 g topical QID PRN (Reason: pain ) Qty: 100 2RF Rx Instructions: apply to single knee, ankle, foot; for foot includes sole/toes/top of foot chlorthalidone 25 mg tablet 25 mg PO DAILY Qty: 30 5RF ranolazine 500 mg tablet extended release 12 hr 500 mg PO BID Qty: 60 5RF isosorbide mononitrate 120 mg tablet extended release 24 hr 120 mg PO DAILY Qty: 30 5RF dapagliflozin propanediol [Farxiga] 10 mg tablet 10 mg PO DAILY 90 Days Qty: 90 1RF carvedilol 25 mg tablet 25 mg PO BID Patient Comments: TAKE TWO TABLETS BY MOUTH TWICE DAILY FOR HIGH BLOOD PRESSURE gabapentin 600 mg tablet 600 mg PO Q8H Patient Comments: TAKE ONE TABLET BY MOUTH EVERY 8 HOURS MAY CAUSE DROWSINESS glipizide 10 mg tablet extended release 24hr 10 mg PO DAILY Patient Comments: TAKE ONE TABLET BY MOUTH EVERY DAY FOR diabetes clopidogrel 75 mg tablet 75 mg PO DAILY Patient Comments: TAKE ONE TABLET BY MOUTH EVERY DAY FOR blood thinner hydrocodone-acetaminophen 10-325 mg tablet 1 tab PO Q8H Patient Comments: TAKE ONE TABLET BY MOUTH EVERY 8 HOURS MAY CAUSE DROWSINESS tamsulosin 0.4 mg capsule 0.4 mg PO DAILY metformin 1,000 mg tablet 1,000 mg PO BID Patient Comments: TAKE ONE TABLET BY MOUTH TWICE DAILY valsartan 320 mg tablet 320 mg PO DAILY Patient Comments: TAKE ONE TABLET BY MOUTH DAILY rosuvastatin 20 mg tablet 20 mg PO HS Patient Comments: TAKE ONE TABLET BY MOUTH EVERY DAY AT BEDTIME levocetirizine 5 mg tablet 5 mg PO DAILY Patient Comments: TAKE ONE TABLET BY MOUTH EVERY DAY Linzess 72 mcg capsule 72 mcg PO DAILY Patient Comments: TAKE ONE CAPSULE BY MOUTH DAILY losartan 25 mg tablet 50 mg PO DAILY Patient Comments: TAKE ONE TABLET BY MOUTH EVERY DAY Referrals Follow up/Referrals: Stacy Lorenz APRN [Primary Care Provider] - See instructions Activity Restrictions/Add. Instructions Additional Instructions/Restrictions: Call your family doctor to establish care for this visit to the emergency department and schedule follow-up within 48 hours to ensure improvement. If you have any worsening of your condition or any other concerning signs or symptoms, return to the emergency department or your primary care doctor for further evaluation. Clinical Impressions Clinical Impression: Orthostatic syncope Instructions Patient Instructions: DI for Syncope in Adults (Fainting), DI for Syncope in Children (Fainting) Print Language Print Language: Barbadian Discharge ED Provider: Trevon Lechuga General Adult HPI General Chief complaint: Syncope Stated complaint: AO 06-16 ,passed out and hurt head and back Time Seen by Provider: 06/16/24 18:40 Mode of Arrival: Ambulatory Source of Information: Patient Limitations: No Limitations Description of Symptoms (Recalled from ER Triage Doc. by RN): Pt presents for evaluation after having syncopal event. Pt states he got up to put a dish in the sink, and he all of a sudden became dizzy. Pt states he woke up in the floor. Pt states he fell onto a wood floor. +LOC, on Plavix. Pt states he has had recent blood pressure medication changes. History of Present Illness HPI narrative: Please note that above description of symptoms, in this electronic medical record under categorization of recalled from ER triage doctor by RN are reflective of an initial nursing assessment, however, is not reflective of my full history and physical exam that was personally taken and clarified. Consequentially, this preceding description of symptoms, which may include the patient's categorized chief complaint in the EMR, do not reflect my personal clinical impression, and the ultimate description of history of present illness and patient stated complaints should be deferred to this section of the note. Unless stated otherwise or congruent with this section of the note, additional signs, symptoms, or incongruence should be interpreted as inaccurate with my clinical impression. Related Data Home Medications ?Medication ?Instructions ?Recorded ?Confirmed carvedilol 25 mg tablet 25 mg PO BID 02/22/24 06/15/24 clopidogrel 75 mg tablet 75 mg PO DAILY 02/22/24 06/15/24 gabapentin 600 mg tablet 600 mg PO Q8H 02/22/24 06/15/24 glipizide 10 mg tablet, extended 10 mg PO DAILY 02/22/24 06/15/24 release 24 hr hydrocodone 10 mg-acetaminophen 1 tab PO Q8H 02/22/24 06/15/24 325 mg tablet levocetirizine 5 mg tablet 5 mg PO DAILY 02/22/24 06/15/24 linaclotide 72 mcg capsule 72 mcg PO DAILY 02/22/24 06/15/24 (Linzess) metformin 1,000 mg tablet 1,000 mg PO BID 02/22/24 06/15/24 rosuvastatin 20 mg tablet 20 mg PO HS 02/22/24 06/15/24 tamsulosin 0.4 mg capsule 0.4 mg PO DAILY 02/22/24 06/15/24 valsartan 320 mg tablet 320 mg PO DAILY 02/22/24 06/15/24 losartan 25 mg tablet 50 mg PO DAILY 06/15/24 06/15/24 Previous Rx's ?Medication ?Instructions ?Recorded diclofenac sodium 1 % topical gel 4 g topical QID PRN pain #100 03/15/24 grams dapagliflozin propanediol 10 mg 10 mg PO DAILY 90 days #90 tabs 03/29/24 tablet (Farxiga) colchicine 0.6 mg capsule 0.6 mg PO BID gout 30 days #60 caps 04/18/24 chlorthalidone 25 mg tablet 25 mg PO DAILY #30 tabs 06/15/24 isosorbide mononitrate 120 mg 120 mg PO DAILY #30 tabs 06/15/24 tablet,extended release 24 hr ranolazine 500 mg tablet,extended 500 mg PO BID #60 tabs 06/15/24 release,12 hr Allergies Allergy/AdvReac Type Severity Reaction Status Date / Time desvenlafaxine (From PRISTIQ) Allergy Mild Verified 06/15/24 10:01 [facility] Disclaimer: The information contained in this section may have been updated after the patient was seen, as this information can be updated by other users. Medical History Tinnitus, bilateral Ear itching History of cardiac pacemaker Snoring Allergic rhinitis Nasal sinus congestion SNHL (sensorineural hearing loss) mild to moderate SNHL bilateral Tinnitus aurium Left otitis media Low back pain Encounter for screening for malignant neoplasm of lung Allergic rhinitis Stopped smoking with greater than 30 pack year history Dyspnea on exertion Shortness of breath Typical angina Cervical pain (neck) Low back pain Pacemaker Diabetes mellitus, type 2 COPD (chronic obstructive pulmonary disease) Hyperlipidemia Hypertension Chest pain Atypical chest pain RLS (restless legs syndrome) Insomnia Left shoulder pain Diabetic neuropathy, painful Chronic pain Depression Vasovagal episode Gastritis CAD (coronary artery disease), andreafski coronary artery Gout Diabetes Hypertension Hyperlipidemia Gout attack Surgical History History of back surgery History of appendectomy H/O heart artery stent Family History Other COPD (chronic obstructive pulmonary disease) Diabetes Heart disease Hypertension Social History Smoking Status: Never smoker years smoked: 40 smoking status stop date: 09/2021 second hand exposure: Yes alcohol intake: never substance use type: denies use current occupational status: retired Travel in the last 8 weeks: None household members: significant other housing: house marital status: current occupation: off on workers comp. 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 current occupational exposures/hazards: No caffeine: Yes Have you lived/traveled outside [place] in past 30 days?: No Contact w/someone who lives/traveled outside [place] past 30 days?: No Exposure to someone with infectious disease in past 14 days?: No Do you have a fever (greater than 100.4 F or 38 C)?: No Have you tested positive for COVID-19: No Exposed to someone with COVID-19 in past 14 days?: No Do you have a sore throat?: No Do you have a cough?: No Do you have any weakness?: Yes Do you have any diarrhea?: No Are you experiencing any unusual bleeding?: No Do you have any muscle aches/pain?: No Do you have any abdominal pain?: No Are you experiencing loss of taste or smell?: No Other Medical History Have you received the Flu Vaccine for this season: No Have you received the Pneumonia Vaccine: No ROS Obtained: Yes All systems reviewed & no additional complaints except as documented Physical Exam General General appearance: alert Head Head exam: atraumatic and normocephalic Eye Eye exam: Present normal appearance, PERRL and EOMI Neck Neck exam: Present normal inspection, full ROM and trachea midline Respiratory Respiratory exam: Absent respiratory distress, wheezes, stridor, accessory muscle use or prolonged expiratory phase Cardiovascular Cardiovascular exam: Present other (Pulses equal symmetric in upper and lower extremities) Abdominal Exam Abdominal exam: Present soft; Absent distention, tenderness or pulsatile mass Extremities Exam Extremities exam: Absent edema Neurological Exam Neurological exam: Present alert, oriented X3 and CN II-XII intact; Absent motor sensory deficit Skin Skin exam: Present warm and dry; Absent diaphoresis or erythema Medical Decision Making Medical Records Medical records reviewed: Yes I reviewed the patient's medical records. Screening: Per USPSTF and CDC recommendations, given the prevalence of disease in our region, it is our hospital?s policy to screen for HIV and viral Hepatitis for all patients aged 18 and over and those with ongoing risk factors. Raghav Inquiry Pt receiving controlled substance: No Raghav was queried for this patient: No Vital Signs: 06/16/24 18:26 06/16/24 18:35 Temperature 98.2 F Temperature Source Oral Pulse Rate 61 Pulse Rate [Right] 60 Respiratory Rate 18 16 Blood Pressure 131/80 Blood Pressure [Right Arm] 150/76 H Blood Pressure Mean [Right Arm] 100 Blood Pressure Source [Right Arm] Automatic Cuff Blood Pressure Position [Right Arm] Sitting 02 Sat by Pulse Oximetry 97 96 Oxygen Delivery Method Room Air Room Air Lab Data Lab Results 06/16/24 18:46: WBC 5.2, RBC 4.61, Hgb 14.8, Hct 44.1, MCV 95.7 H, MCH 32.1 H, MCHC 33.6, RDW 12.6, Plt Count 186, MPV 9.8, Neut % (Auto) 58.9, Lymph % (Auto) 29.5, [place] % (Auto) 9.1, Eos % (Auto) 1.7, Baso % (Auto) 0.6, Neut # (Auto) 3.1, Lymph # (Auto) 1.5, [place] # (Auto) 0.5, Eos # (Auto) 0.1, Baso # (Auto) 0.0, PT 10.9, INR 0.97, APTT 23.2, Sodium 137, Potassium 4.2, Chloride 103, Carbon Dioxide 29, Anion Gap 9.2, BUN 19, Creatinine 1.30 H, Estimated Creat Clear 78, Estimated GFR 55 L, Est GFR ( Amer) 66, Glucose 278 H, Calcium 9.3, Magnesium 1.8, Total Bilirubin 0.8, AST 39, ALT 30, Alkaline Phosphatase 52, Troponin I < 0.01, NT-Pro-B Natriuret Pep 208 H, Total Protein 7.0, Albumin 4.5, Globulin 2.5, Albumin/Globulin Ratio 1.8 06/16/24 18:46 06/16/24 18:46 Orders (Tests/Meds): ORDERS Category Date Time Status CT cervical spine wo con Stat Cat Scan 06/16/24 19:[address] head/brain wo con Stat Cat Scan 06/16/24 19:23 Completed XR chest portable Stat Exams 06/16/24 18:56 Completed Complete Blood Count Auto Diff Stat Lab 06/16/24 18:46 Completed Comprehensive Metabolic Panel Stat Lab 06/16/24 18:46 Completed Magnesium Stat Lab 06/16/24 18:46 Completed NT Pro Brain Natriuretic Pep. Stat Lab 06/16/24 18:46 Completed PT INR [Prothrombin Time INR] Stat Lab 06/16/24 18:46 Completed PTT [Activated Partial Thrombo Time] Stat Lab 06/16/24 18:46 Completed Troponin I Q3H Lab 06/16/24 22:00 Ordered Troponin I Q3H Lab 06/17/24 01:00 Ordered Troponin I Stat Lab 06/16/24 18:46 Completed Medical Decision Narrative: This is a 69-year-old male presenting with syncopal episode. Patient states that he was at home just prior to arrival, stood up and walked a couple of feet to the kitchen. Started feeling dizzy, turned around, and then fell on the floor. states that she saw patient fall, he was only unconscious for a couple of seconds, immediately got up, syncopal postictal period or changes in mental status. Was able to get up immediately and had no complaints. Came in for further evaluation given the cardiac history is on aspirin and Plavix. Patient currently has no complaints other than tenderness of his occiput and muscles of his neck. No neurologic deficits, chest pain, shortness of breath, no further dizziness. Does state that he was recently increased on his ranolazine and that was just a couple of days prior to this. History was obtained via conversation with patient and family. On arrival, patient hemodynamically stable, alert, oriented x4, appropriate, GCS 15, moving all extremities spontaneously, pupils equal and reactive to light. Full physical exam performed and significant for very clinically well-appearing male no acute distress. No trauma by the head or neck. Cardiopulmonary exam within normal notes. No lower extremity edema.. Differential includes orthostatic versus vasovagal syncope, arrhythmia, metabolic abnormality, CHF, ACS, [place], intracranial hemorrhage, cervical spine injury, among others. Patient placed on continuous cardiac monitoring and continuous pulse ox with initial blood pressure 150/76, heart rate 60, saturation 7% on room air. Independent interpretation of EKG shows atrially paced rhythm with incomplete right bundle branch block morphology. Ventricular rate 160, AL 167, QRS 110, QTc 432. Normal axis. No acute ischemic change. On independent interpretation of imaging, no acute intracranial hemorrhage or cervical spine injury. On independent interpretation of workup, nonactionable CBC or chemistry, BNP only mildly elevated 2 8, troponin negative. Coags normal. On reevaluation, patient still resting at baseline, no acute complaints. Given history, physical exam, workup, I feel this is most consistent with orthostatic syncope after position change. Because patient at baseline without signs or symptoms of clinical decompensation, deemed appropriate for discharge. Results were relayed to patient who voiced understanding and were agreeable to outpatient management and follow up. I discussed my clinical impression with patient and answered all questions. At this time, the evidence for any other entities in the differential is insufficient to warrant any further testing or ED observation. This was explained as well. Advisory was given that persistent or worsening symptoms require further evaluation. I confirmed the understanding of this discussion. Food Editor disclaimer Much of this encounter note is an electronic supervising law enforcement analyst spoken language to printed text. Electronic supervising law enforcement analyst of the spoken language may permit errors. Although I have reviewed the note, some errors may still exist. Critical Care Critical Care Time Critical Care Time: No
[2024-06-16 20:21] VITALS: BP 121/68; PULSE 69; RESP 16; TEMP 36.6; O2SAT 96
--- NOTE | 2024-06-16 20:22 | PC.NURSE ---
IV removed. Catheter tip intact. Bleeding controlled.
[2024-06-18 06:52] LABS: POC Glucose,Bedside 312 (70-110)
== END 2024-06-16 20:23 | disposition home or self-care (01) ==
PROVIDERS: Emergency Provider Emergency Medicine; PCP Nurse Practitioner Family
DX: I95.1 Orthostatic hypotension (principal); R42 Dizziness and giddiness; M54.2 Cervicalgia
CPT/HCPCS: 70450; 71045; 72125; 80053; 82962; 83735; 83880; 84484; 85025; 85610; 85730; 93005; 99284

== ENCOUNTER 2024-07-04 10:10 | Outpatient (CLI) | payer MEDICARE, SELFPAY ==
[2024-07-04 10:38] LABS: Basophils # 0.1 K/mm3 (0-0.2); Eosinophils # 0.2 K/mm3 (0.0-0.4); Eosinophils % 3.1 % (0.1-12.0); Hematocrit 48.1 % (42.0-52.0); Hemoglobin 16.6 g/dL (14.1-18.0); Lymphocytes % 34.4 % (10-50); Mean Corpuscular HGB Conc 34.5 g/dL (31.8-35.4); Mean Corpuscular Hemoglobin 32.4 pg (27.0-31.2); Mean Corpuscular Volume 93.9 fl (80-94); Mean Platelet Volume 9.6 fl (7.4-10.4); Monocytes # 0.5 K/mm3 (0.1-1.0); Monocytes % 7.9 % (1.7-9.3); Neutrophils # 3.1 K/mm3 (1.8-7.8); Neutrophils % 53.6 % (37.0-80.0); Platelet Count 204 K/mm3 (142-424); Red Blood Count 5.12 M/mm3 (4.60-6.20); Red Cell Distribution Width 11.9 % (11.5-17.5); White Blood Count 5.8 K/mm3 (4.8-10.8)
[2024-07-04 10:59] LABS: Chloride 101 mmol/L (98-107)
[2024-07-04 11:00] LABS: Albumin Level 4.9 g/dl (3.5-5.0); Sodium 138 mmol/L (136-145)
[2024-07-04 11:02] LABS: Blood Urea Nitrogen 24 mg/dl (9-20); Estimated Glomerular Filt Rate 55 ml/min (>60); GFR (African American) 66 ML/MIN (>60)
[2024-07-04 11:03] LABS: Alanine Aminotransferase 26 U/L (12-78); Alkaline Phosphatase 68 U/L (38-126); Aspartate Amino Transferase 33 U/L (17-59); Bilirubin,Indirect 0.6 mg/dL (0.0-0.9); Bilirubin,Total 0.6 mg/dl (0.2-1.3); Bilirubin,Unconjugated 0.5 mg/dL (0.0-1.1); Calcium 10.2 mg/dl (8.4-10.2); Carbon Dioxide 30 mmol/L (22.0-30.0); Chol/HDL Ratio 3.1 (1-3.5); Cholesterol 129 mg/dl (140-200); Glucose 212 mg/dl (74-100); HDL Cholesterol 41 mg/dl (40-60); Total Protein,Serum 7.3 g/dl (6.3-8.2); Triglycerides 334 mg/dl (30-150); VLDL Cholesterol 67 mg/dL (0-40)
[2024-07-04 11:14] LABS: Direct LDL Cholesterol 40.27 mg/dL (100-129)
[2024-07-04 11:19] LABS: Free T4 (Free Thyroxine) 0.77 ng/dl (0.78-2.19)
[2024-07-04 11:34] LABS: Thyroid Stimulating Hormone 2.04 uIU/mL (0.465-4.68)
== END 2024-07-04 23:59 | disposition home or self-care (01) ==
LOC: LAB 10:11
PROVIDERS: PCP Nurse Practitioner Family; Visit Provider Nurse Practitioner
DX: E83.42 Hypomagnesemia (principal); R42 Dizziness and giddiness; Z68.33 Body mass index [BMI] 33.0-33.9, adult; E11.65 Type 2 diabetes mellitus with hyperglycemia; I95.89 Other hypotension; E86.1 Hypovolemia; I25.118 Atherosclerotic heart disease of native coronary artery with other forms of angina pectoris; Z86.79 Personal history of other diseases of the circulatory system; I10 Essential (primary) hypertension
CPT/HCPCS: 36415; 80048; 80061; 80076; 84439; 84443; 85025

== ENCOUNTER 2024-07-12 09:28 | Outpatient (CLI) | payer MEDICARE, SELFPAY ==
--- NOTE | 2024-07-12 09:30 | CT_ITS ---
FINAL REPORT TECHNIQUE: Thin section axial images were obtained of the left ankle before and after the administration of IV contrast. Coronal and sagittal reconstructions were obtained and reviewed. This study was performed with techniques to keep radiation doses as low as reasonably achievable, (ALARA). Individualized dose reduction techniques using automated exposure control or adjustment of mA and/or kV according to the patient's size were employed. CLINICAL HISTORY: ankle pain , patient states previous fx, neuropathy COMPARISON: 05/04/2024 FINDINGS: No acute osseous abnormality identified. Again seen are well-corticated calcifications distal to the medial malleolus which are unchanged. There is mild degenerative joint disease. Calcifications in the region of the plantar fascia are unchanged. There is no new osseous abnormality identified. The Achilles tendon is intact. Remaining tendons have an unremarkable CT appearance. There is no significant joint effusion. No enhancing mass or fluid collection identified. IMPRESSION: No acute osseous abnormality. Stable chronic osseous findings. No acute soft tissue abnormality. Reviewed, Interpreted and Dictated by Susan Dias MD Transcribed by Windy Liang Authenticated and . [facility]
[2024-07-12] MEDS: SODIUM CHLORIDE 0.9% 10ML SYR (RAD ONLY) 10 ML IV (09:47)
[2024-07-12] MEDS: IOPAMIDOL-370 (76%);100ML BOTTLE 75 ML IV (09:47)
== END 2024-07-12 23:59 | disposition home or self-care (01) ==
LOC: RAD 09:29
PROVIDERS: PCP Nurse Practitioner Family; Visit Provider Nurse Practitioner
DX: M25.572 Pain in left ankle and joints of left foot (principal); M76.62 Achilles tendinitis, left leg
CPT/HCPCS: 73702; Q9967

== ENCOUNTER 2024-08-02 08:03 | Outpatient (CLI) | payer MEDICARE, SELFPAY ==
[2024-08-03 13:17] LABS: Cortisol,AM 18.3 ug/dL (6.2-19.4)
== END 2024-08-02 23:59 | disposition home or self-care (01) ==
LOC: LAB 08:04
PROVIDERS: PCP Nurse Practitioner Family; Visit Provider Nurse Practitioner Family
DX: R42 Dizziness and giddiness (principal)
CPT/HCPCS: 36415; 82533

== ENCOUNTER 2024-09-21 14:06 | Outpatient (CLI) | payer MEDICARE, SELFPAY ==
--- NOTE | 2024-09-21 14:30 | CA_ITS ---
APPROVED REPORT EXAM: Comprehensive 2D, Doppler, and color-flow Echocardiogram Bore Miner Operator: Alexandra Pearl RVT Ht: 6 ft 0 in Wt: 237lbs BSA: 2.29 BP: 164/93 mmHg Indications: DYSPENA,FATIGUE,CORNARY ARTERY DISEASE 2D Dimensions LA Volume 19.50 mL LA Volume Index 8.52 mL/m2 (M/F) 16-34 M-Mode Dimensions RVDd 3.54 cm (0.9-2.6) LA Diam 3.33 cm (1.9-4.0) LVDd 4.02 cm (3.5-5.7) LVDs 2.78 cm (3.5-5.7) IVSd 0.89 cm (0.6-1.1) PWd 0.84 cm (0.6-1.1) EF (Teich) 59.00% FS 30.80% EDV (Teich) 70.80 mL TAPSE 2.00 (<1.7) ESV (Teich) 29.00 mL LV Diastology E Decel Time 270 (160-240 msec) E/A Ratio 0.6 Aortic Valve ÁNGEL Index 1.59 cm2/m2 AoV Peak Parrish. 88.0 (50-130 cm/s) AO Peak GR. 3.10 mmHg AO Mean GR. 2.20 (<5 mmHg) AO VTI 16.2 (18-25 cm) ÁNGEL (VTI) 3.73 (2.5-4.5 cm2) Mitral Valve MV E Max Parrish. 56.0 (40-130 cm/s) MV A Velocity 87.0 (40-130 cm/s) E/A Ratio 0.64 MV PHT 79.0 ms Pulmonary Valve PV Peak Velocity 73.0 (50-150 cm/s) Tricuspid Valve TR P. Velocity 223.00 cm/s RAP Estimate 10.00 mmHg RVSP 29.90 mmHg Left Ventricle The left ventricle is normal size. The left ventricular systolic function is normal. The left ventricular ejection fraction is within the normal range. There is increased LV wall thickness. There is normal LV segmental wall motion. Transmitral Doppler flow pattern suggests impaired LV relaxation. LVEF is 55%. Right Ventricle Right ventricle is mildly to moderately dilated. The right ventricular systolic function is normal. Atria The left atrium size is normal. The right atrium size is normal. There is no Doppler evidence of interatrial shunt. Aortic valve is mildly thickened. Aortic Valve There is no aortic valvular stenosis. No aortic regurgitation is present. Mitral Valve The mitral valve is normal in structure. No evidence of mitral valve stenosis. Trace mitral regurgitation. Tricuspid Valve Tricuspid valve is grossly normal in structure and function. Trace tricuspid regurgitation. There is insufficient TR jet to estimate RVSP. Pulmonic Valve The pulmonary valve is normal in structure. Trace pulmonic regurgitation. Great Vessels The aortic root is normal in size. The ascending aorta is mildly dilated, measuring 4.1 cm in diameter. IVC is normal in size and collapses >50% with inspiration. Pericardium There is no pericardial effusion. Other Information Study Quality: Fair Conclusion Normal biventricular systolic function. Mild to moderate RV dilation. No significant valvular stenosis or regurgitation. The ascending aorta is mildly dilated, measuring 4.1 cm in diameter. Correlation with new or recent CTA chest is suggested. Electronically signed by : Virginia Glez MD 09/29/2024 12:41:44
== END 2024-09-21 23:59 | disposition home or self-care (01) ==
LOC: RT 14:06
PROVIDERS: PCP Nurse Practitioner Family; Visit Provider Nurse Practitioner
DX: I11.9 Hypertensive heart disease without heart failure (principal); I77.810 Thoracic aortic ectasia; I25.10 Atherosclerotic heart disease of native coronary artery without angina pectoris; Z86.79 Personal history of other diseases of the circulatory system; Z95.0 Presence of cardiac pacemaker
CPT/HCPCS: 93306

== ENCOUNTER 2024-10-13 13:54 | Outpatient (CLI) | payer MEDICARE, SELFPAY ==
[2024-10-13 14:38] LABS: Blood Urea Nitrogen 22 mg/dl (9-20); Estimated Glomerular Filt Rate 55 ml/min (>60); GFR (African American) 66 ML/MIN (>60)
--- NOTE | 2024-10-13 15:00 | CT_ITS ---
FINAL REPORT TECHNIQUE: Thin section axial CT with contrast with multiplanar reconstruction This study was performed with techniques to keep radiation doses as low as reasonably achievable, (ALARA). Individualized dose reduction techniques using automated exposure control or adjustment of mA and/or kV according to the patient''s size were employed. CLINICAL HISTORY: aortic dilation COMPARISON: CT low-dose 12/31/2022 FINDINGS: Pulmonary vessels enhance in normal fashion without evidence of embolism. The thoracic aorta shows no evidence of aneurysm. Aortic sinus measures 38 mm which is at the upper limits of normal. Mid ascending aorta measures 29 mm. Proximal aortic arch measures 30 mm. The descending thoracic aorta measures 28 mm. There is no evidence of dissection. Aortic arch branch vessels are widely patent. There is minimal dependent atelectasis in the lungs without suspicious lesion or acute lung disease. There is no significant pleural effusion. There is no significant pericardial effusion. No mediastinal or hilar adenopathy is present. IMPRESSION: Aortic arch and descending thoracic aorta at the upper limits of normal without aneurysm or dissection. Reviewed, Interpreted and Dictated by Trinity Powell MD Transcribed by Windy Liang Authenticated and [facility]
[2024-10-13] MEDS: SODIUM CHLORIDE 0.9% 10ML SYR (RAD ONLY) 10 ML IV (15:10)
[2024-10-13] MEDS: IOPAMIDOL-370 (76%);100ML BOTTLE 100 ML IV (15:10)
[2024-10-13] MEDS: 0.9 % SODIUM CHLORIDE 50 ML VIAL IV (15:10)
== END 2024-10-13 23:59 | disposition home or self-care (01) ==
LOC: RAD 13:55
PROVIDERS: PCP Nurse Practitioner Family; Visit Provider Nurse Practitioner
DX: I77.810 Thoracic aortic ectasia (principal)
CPT/HCPCS: 71275; 82565; 84520; Q9967

== ENCOUNTER 2025-01-02 10:29 | Outpatient (CLI) | payer MEDICARE, SELFPAY ==
--- OUTSIDE RECORDS SUMMARY | 2025-01-02 10:34 | XMS_ITS | Clinical Summary ---
[facility] Address [address] [place] [address] Care Team Providers Care Custom Shop Worker Name Role Phone Stacy Lorenz APRN Primary Care Provider [phone] Allergies Active Allergy Reactions Criticality Noted Date Comments Other Seizure 09/08/2022 Shots in back for test caused seizures pt does not remember exactly what test or what was injected Desvenlafaxine Other (See Comments) Low 09/27/2018 Tachycardia Medications cyclobenzaprine (FLEXERIL) 10 MG tablet TAKE ONE TABLET BY MOUTH THREE TIMES DAILY NEEDED FOR MUSCLE SPASMS MAY CAUSE DROWSINESS 3 Active gabapentin (NEURONTIN) 800 MG tablet TAKE ONE TABLET BY MOUTH THREE TIMES DAILY FOR PAIN MAY CAUSE DROWSINESS 3 Active pramipexole (MIRAPEX) 0.25 MG tablet Take 1 tablet by mouth Every 12 (Twelve) Hours. 3 Active pregabalin (LYRICA) 75 MG capsule TAKE ONE CAPSULE BY MOUTH THREE TIMES DAILY MAY CAUSE DROWSINESS 3 Active valsartan (DIOVAN) 160 MG tablet Take 1 tablet by mouth Daily. 3 Active HYDROcodone-shadi taminophen (NORCO) 5-325 MG per tablet Take 1 tablet by mouth Every 8 (Eight) Hours As Needed. Active amLODIPine (NORVASC) 10 MG tablet Take 1 tablet by mouth Daily. Active atorvastatin (LIPITOR) 40 MG tablet Take 1 tablet by mouth Daily. Active clopidogrel (PLAVIX) 75 MG tablet Take 1 tablet by mouth Daily. Active glipizide (GLUCOTROL) 10 MG tablet Take 1 tablet by mouth 2 (Two) Times a Day Before Meals. Active isosorbide dinitrate (ISORDIL) 10 MG tablet Take 120 mg by mouth 3 (Three) Times a Day. Active metFORMIN (GLUCOPHAGE) 1000 MG tablet Take 1 tablet by mouth 2 (Two) Times a Day With Meals. Active carvedilol (COREG) 25 MG tablet Take 1 tablet by mouth 2 (Two) Times a Day With Meals. Active Cholecalciferol 25 MCG (1000 UT) tablet Take 1 tablet by mouth Daily. Active Ertugliflozin L-PyroglutamicA c (Steglatro) 5 MG tablet Take by mouth Every Morning. Active Active Problems Problem Noted Date Diagnosed Date Chronic bilateral low back pain without sciatica 09/08/2022 Gout Social History Tobacco Use Types Packs/Day Years Used Date Smoking Tobacco: Never Assessed Smokeless Tobacco: Current Snuff Alcohol Use Standard Drinks/Week Comments Yes 0 (1 standard drink = 0.6 oz pur e alcohol) Abuse Screen Answer Date Recorded Unsafe at Home or Work/School Not on file Feels Threatened by Someone? Not on file 02/2023 Does Anyone Keep You from Co ntacting Others or Doint Things Outside the Home? Not on file 01/28/2023 Physical Sign of Abuse Present Not on file 1 Housing Stability Answer Date Recorded Current Living Arrangements Not on file 01/18 Potentially Unsafe Housing Conditions Not on benjamin e 01/28/2023 Family and Community Support Answer Baldemar e Recorded Help with Day-to-Day Activities Not on file 01/28/2023 Lonely or Isolated Not on file 01/28/2023 Employment Answer Date Recorded Do you want help finding or keeping work or a elzbieta b? Not on file 01/28/2023 Disabilities Answer Date Recorded Concentrating, Remembering, or Making Decisions Difficulty Not on file 01/28/2023 Doing Errands Independently Difficulty Not on fi le 01/28/2023 Education Answer Date Recorded Help with school or training? Not on file Preferred Language Not on file 01/28/2023 Sex and Gender Information Value Date Recorded Sex Assigned at Not on file Legal Sex Male 12:15 PM EDT Gender Identity Not on file Sexual Orientation Not on file Last Filed Vital Signs Vital Sign Reading Time Taken Comments Blood Pressure 138/86 09/08/2022 12:23 PM EDT Pulse - - Temperature 36.4 C (97.5 F) 09/08/2022 12:23 PM EDT Respiratory Rate - - Oxygen Saturation - - Inhaled Oxygen Concentration - - Weight 109 kg (240 lb) 09/08/2022 12:23 PM EDT Height 182.9 cm (6') 09/08/2022 12:23 PM EDT Body Mass Index 32.55 09/08/2022 12:23 PM EDT Plan of Treatment Health Maintenance Due Date Last Done Comments DIABETIC EYE EXAM 1965 DIABETIC FOOT EXAM 1964 URINE MICROALBUMIN-CREATININE RATIO (uACR) 1964 Pneumococcal Vaccine 50+ (1 of 2 - PCV) 1973 COLOGUARD 1999 COLON CANCER SCREENING 5 YEAR SIGMOIDOSCOPY 1999 COLONOSCOPY 1999 [address] CANCER SCREENING 1999 CT COLONOGRAPHY 1999 FECAL OCCULT BLOOD TEST 1999 FIT Testing (1 year) 1999 ZOSTER VACCINE (1 of 2) 2004 TDAP/TD VACCINES (2 - Tdap) 06/22/2006 06/22/1996 ANNUAL WELLNESS VISIT 09/27/2018 HEMOGLOBIN A1C 09/27/2018 HEPATITIS C SCREENING 09/27/2018 COVID-19 Vaccine (2 - 2024- season) 2024 INFLUENZA VACCINE 01/18/2025 AAA SCREEN ONCE Completed 06/23/2018 [facility] AD[facility]AGE [employer] Care Teams Custom Shop Worker Relationship Specialty Start Date End Date Stacy Lorenz APRN [address] [place] [address] [address] [phone] [place] [id number] PCP - General Internal Medicine 06/10/24
--- NOTE | 2025-01-02 10:35 | XR_ITS ---
FINAL REPORT TECHNIQUE: Right shoulder 3 views CLINICAL HISTORY: Right upper arm and shoulder pain for approximately 1 month COMPARISON: None FINDINGS: RIGHT SHOULDER: 3 views show no evidence of acute displaced fracture or dislocation of the visualized bony architecture. Mild degenerative change is present. IMPRESSION: Mild degenerative change without acute bony abnormality. Reviewed, Interpreted and Dictated by Trinity Powell MD Transcribed by Anna Everett Authenticated and [facility]
--- NOTE | 2025-01-02 10:35 | XR_ITS ---
FINAL REPORT CLINICAL HISTORY: right knee pain for approximately 1 year COMPARISON: None FINDINGS: RIGHT KNEE 3 views of the right knee were obtained. Mild tricompartment degenerative changes are present, with mild lateral subluxation of the patella. There is no acute fracture or dislocation. Soft tissues are unremarkable. IMPRESSION: Mild tricompartment degenerative change, with mild lateral subluxation of the patella. Reviewed, Interpreted and Dictated by Trinity Powell MD Transcribed by Anna Everett Authenticated and [facility]
--- NOTE | 2025-01-02 10:35 | XR_ITS ---
FINAL REPORT CLINICAL HISTORY: Right upper arm pain for approximately 1 month COMPARISON: None FINDINGS: RIGHT HUMERUS: Two views show no evidence of an acute, displaced fracture or dislocation of the visualized bony architecture. The joint spaces appear normal. IMPRESSION: Unremarkable exam. Reviewed, Interpreted and Dictated by Trinity Powell MD Transcribed by Anna Everett Authenticated and . [facility]
--- NOTE | 2025-01-02 10:35 | XR_ITS ---
FINAL REPORT CLINICAL HISTORY: left knee pain for approximately 1 year COMPARISON: None FINDINGS: LEFT KNEE 3 views of the left knee were obtained. Mild tricompartment degenerative change is present. There is no acute fracture or dislocation. There is mild lateral subluxation of the patella. Soft tissues are unremarkable. IMPRESSION: Mild multilevel degenerative change is present, with mild lateral subluxation of the patella. Reviewed, Interpreted and Dictated by Trinity Powell MD Transcribed by Anna Everett Authenticated and [facility]
[2025-01-02 11:21] LABS: Hematocrit 47.6 % (42.0-52.0); Hemoglobin 16.6 g/dL (14.1-18.0); Immature Granulocytes % 0.3 %; Mean Corpuscular HGB Conc 34.9 g/dL (31.8-35.4); Mean Corpuscular Hemoglobin 31.7 pg (27.0-31.2); Mean Corpuscular Volume 91.0 fl (80-94); Nucleated Red Blood Cells % 0 %; Platelet Count 161 K/mm3 (142-424); Red Blood Count 5.23 M/mm3 (4.60-6.20); Red Cell Distribution Width-SD 40.1 fL; White Blood Count 5.7 K/mm3 (4.8-10.8)
[2025-01-02 11:52] LABS: Cholesterol 150 mg/dl (140-200); HDL Cholesterol 41 mg/dl (40-60); Magnesium 1.5 mg/dl (1.6-2.3)
[2025-01-02 11:59] LABS: Triglycerides 436 mg/dl (30-150)
[2025-01-02 12:01] LABS: Hemoglobin A1C 11.2 % (4.0-6.0)
[2025-01-02 12:08] LABS: 25-OH Vitamin D, Total 24.2 ng/mL (30-100)
== END 2025-01-02 23:59 | disposition home or self-care (01) ==
LOC: RAD 10:31
PROVIDERS: PCP Nurse Practitioner Family; Visit Provider Physician Assistant
DX: M19.011 Primary osteoarthritis, right shoulder (principal); S83.012A Lateral subluxation of left patella, initial encounter; S83.011A Lateral subluxation of right patella, initial encounter; M17.0 Bilateral primary osteoarthritis of knee; M79.621 Pain in right upper arm; R79.89 Other specified abnormal findings of blood chemistry; Z12.5 Encounter for screening for malignant neoplasm of prostate; E11.9 Type 2 diabetes mellitus without complications; I10 Essential (primary) hypertension; E83.42 Hypomagnesemia; E78.5 Hyperlipidemia, unspecified
CPT/HCPCS: 36415; 73030; 73060; 73562; 80061; 82043; 82306; 82570; 83036; 83735; 85025; G0103

== ENCOUNTER 2025-03-30 10:15 | Outpatient (CLI) | payer MEDICARE, SELFPAY ==
--- NOTE | 2025-03-30 10:45 | ECG_ITS ---
APPROVED REPORT Exam: Resting ECG HR:59 bpm ECG Measurements Heart Rate 59 AXES VT 254 P 51 QRSd 117 QRS 85 QT 446 T 60 QTc 446 Conclusion ELECTRONIC ATRIAL PACEMAKER ELECTRONIC VENTRICULAR PACEMAKER ABNORMAL RHYTHM ECG UNCONFIRMED REPORT Electronically signed by : Bradley Chung MD 03/31/2025 08:06:11
[2025-03-30 10:47] LABS: Hematocrit 47.3 % (42.0-52.0); Hemoglobin 15.9 g/dL (14.1-18.0); Immature Granulocytes % 0.1 %; Mean Corpuscular HGB Conc 33.6 g/dL (31.8-35.4); Mean Corpuscular Hemoglobin 30.9 pg (27.0-31.2); Mean Corpuscular Volume 91.8 fl (80-94); Nucleated Red Blood Cells % 0 %; Platelet Count 184 K/mm3 (142-424); Red Blood Count 5.15 M/mm3 (4.60-6.20); Red Cell Distribution Width-SD 42.5 fL; White Blood Count 7.0 K/mm3 (4.8-10.8)
[2025-03-30 11:06] LABS: Albumin Level 4.5 g/dl (3.5-5.0); Chloride 99 mmol/L (98-107); Potassium 3.8 mmoL/L (3.5-5.1); Sodium 140 mmol/L (136-145)
[2025-03-30 11:08] LABS: Bilirubin,Unconjugated 0.6 mg/dL (0.0-1.1); Blood Urea Nitrogen 23 mg/dl (9-20); Creatinine,Serum 1.20 mg/dl (0.66-1.25); Estimated Glomerular Filt Rate 60 ml/min (>60); GFR (African American) 72 ML/MIN (>60)
[2025-03-30 11:09] LABS: Alanine Aminotransferase 22 U/L (12-78); Alkaline Phosphatase 72 U/L (38-126); Anion Gap 16.8 mEq/L (5-15); Aspartate Amino Transferase 29 U/L (17-59); Bilirubin,Direct 0.0 mg/dl (0.0-0.4); Bilirubin,Indirect 0.6 mg/dL (0.0-0.9); Bilirubin,Total 0.6 mg/dl (0.2-1.3); Calcium 9.7 mg/dl (8.4-10.2); Carbon Dioxide 28 mmol/L (22.0-30.0); Cholesterol 117 mg/dl (140-200); Glucose 259 mg/dl (74-100); HDL Cholesterol 36 mg/dl (40-60); Magnesium 1.9 mg/dl (1.6-2.3); Total Protein,Serum 7.5 g/dl (6.3-8.2); Triglycerides 339 mg/dl (30-150)
[2025-03-30 11:26] LABS: Free T4 (Free Thyroxine) 0.91 ng/dl (0.78-2.19)
[2025-03-30 11:40] LABS: Thyroid Stimulating Hormone 1.17 uIU/mL (0.465-4.68)
== END 2025-03-30 23:59 | disposition home or self-care (01) ==
LOC: LAB 10:16
PROVIDERS: PCP Nurse Practitioner Family; Visit Provider Nurse Practitioner
DX: I25.118 Atherosclerotic heart disease of native coronary artery with other forms of angina pectoris (principal); E78.2 Mixed hyperlipidemia; I10 Essential (primary) hypertension; R94.31 Abnormal electrocardiogram [ECG] [EKG]; Z95.0 Presence of cardiac pacemaker
CPT/HCPCS: 36415; 80048; 80061; 80076; 83735; 84439; 84443; 85025; 93005

== ENCOUNTER 2025-03-30 10:37 | Emergency (ER) | payer MEDICARE, SELFPAY ==
[2025-03-30 10:44] VITALS: BP 131/68; PULSE 60; O2SAT 98
[2025-03-30 10:50] VITALS: BP 131/68; PULSE 60; RESP 19; TEMP 36.7; O2SAT 97; BMI 31.1
--- NOTE | 2025-03-30 10:59 | ED_ITS ---
Discharge Plan Disposition Patient Disposition: Home, Self-Care Condition: Fair Prescriptions Prescriptions: No Action colchicine 0.6 mg capsule 0.6 mg PO BID 30 Days Qty: 60 2RF Rx Instructions: Not to exceed 1.2 mg/day; after gout flare wait 12 hours to continue prophylaxis chlorthalidone 25 mg tablet 12.5 mg PO DAILY Qty: 90 3RF meloxicam 7.5 mg tablet 7.5 mg PO DAILY Qty: 30 2RF semaglutide 7 mg tablet 7 mg PO DAILY 30 Days Qty: 30 2RF carvedilol 25 mg tablet 25 mg PO BID Qty: 180 3RF clopidogrel 75 mg tablet 75 mg PO DAILY Qty: 90 3RF isosorbide mononitrate 120 mg tablet extended release 24 hr 120 mg PO DAILY Qty: 90 3RF rosuvastatin 20 mg tablet 20 mg PO HS Qty: 90 3RF (DME) Diabetic Shoes (DME) Misc See Rx Instructions .Route Qty: 1 0RF Rx Instructions: [facility] Please dispense one (1) pair of Diabetic shoes with inserts diclofenac sodium 1 % gel 4 g topical QID PRN (Reason: pain ) Qty: 100 2RF Rx Instructions: apply to single knee, ankle, foot; for foot includes sole/toes/top of foot glipizide 10 mg tablet extended release 24hr 10 mg PO DAILY Qty: 90 3RF dapagliflozin propanediol [Farxiga] 10 mg tablet See Rx Instructions .ROUTE .COMPLEX Qty: 90 1RF Dose Instruction: TAKE ONE TABLET BY MOUTH EVERY DAY Rx Instructions: TAKE ONE TABLET BY MOUTH EVERY DAY metformin 1,000 mg tablet See Rx Instructions .ROUTE .COMPLEX Qty: 180 3RF Dose Instruction: TAKE ONE TABLET BY MOUTH TWICE DAILY Rx Instructions: TAKE ONE TABLET BY MOUTH TWICE DAILY Linzess 72 mcg capsule See Rx Instructions .ROUTE .COMPLEX Qty: 90 2RF Dose Instruction: TAKE ONE CAPSULE BY MOUTH DAILY Rx Instructions: TAKE ONE CAPSULE BY MOUTH DAILY fluticasone propionate [Flonase Allergy Relief] 50 mcg/actuation spray,suspension 2 spray intranasal DAILY Qty: 16 2RF Rx Instructions: administer into each nostril cholecalciferol (vitamin D3) 50 mcg (2,000 unit) capsule 50 mcg PO DAILY Qty: 90 1RF magnesium glycinate 100 mg magnesium capsule 400 mg PO .daily 90 Days Qty: 360 1RF losartan 25 mg tablet 50 mg PO DAILY Qty: 90 3RF gabapentin 600 mg tablet 600 mg PO Q8H Patient Comments: TAKE ONE TABLET BY MOUTH EVERY 8 HOURS MAY CAUSE DROWSINESS hydrocodone-acetaminophen 10-325 mg tablet 1 tab PO Q8H Patient Comments: TAKE ONE TABLET BY MOUTH EVERY 8 HOURS MAY CAUSE DROWSINESS tamsulosin 0.4 mg capsule 0.4 mg PO DAILY levocetirizine 5 mg tablet 5 mg PO DAILY Patient Comments: TAKE ONE TABLET BY MOUTH EVERY DAY Referrals Follow up/Referrals: Stacy Lorenz APRN [Primary Care Provider, Medical] - See instructions Activity Restrictions/Add. Instructions Additional Instructions/Restrictions: Drink plenty of fluids. Stand slowly before walking. If you develop any new or worsening symptoms, or if you become concerned for your help for any reason, return to the emergency department for evaluation. Clinical Impressions Clinical Impression: Syncope, vasovagal Instructions Patient Instructions: DI for Syncope in Adults (Fainting), DI for Syncope in Children (Fainting) Print Language Print Language: Kinyarwanda Discharge ED Provider: Wali Arnett General Adult HPI General Chief complaint: Syncope Stated complaint: syncope Time Seen by Provider: 03/30/25 10:53 Mode of Arrival: Wheelchair Source of Information: Patient Description of Symptoms (Recalled from ER Triage Doc. by RN): pt was in outpatient lab getting blood drawn. pt was seen by cardiology today and sent for routine lab. while there pt had vagal episode and passed out. pt reports dizziness and lightheadedness prior to event. pt does have a pacemaker.pt reports similar episode approx 1-2 weeks ago while he was at his pcp office. History of Present Illness HPI narrative: Jeevan Mejia is a 69y male with a history of coronary artery disease, hypertension, hyperlipidemia, gout, pacemaker who presents to the emergency department after nearly passing out. Patient was upstairs getting labs drawn per his clerical receptionist when he felt sweaty and felt like he was going to pass out. He states that he feels back to his normal now. He states that this is happening in the past when he has had blood draws. He denies any chest pain or shortness of breath. Related Data Home Medications ?Medication ?Instructions ?Recorded ?Confirmed gabapentin 600 mg tablet 600 mg PO Q8H 02/22/2403/30 hydrocodone 10 mg-acetaminophen 1 tab PO Q8H 02/22/24 03/30/25 325 mg tablet levocetirizine 5 mg tablet 5 mg PO DAILY 02/22/2403/20 tamsulosin 0.4 mg capsule 0.4 mg PO DAILY 02/22/2403/14 Previous Rx's ?Medication ?Instructions ?Recorded colchicine 0.6 mg capsule 0.6 mg PO BID gout 30 days # 60 caps 04/18/24 glipizide 10 mg tablet, extended 10 mg PO DAILY #90 ta bs 07/20/24 release 24 hr carvedilol 25 mg tablet 25 mg PO BID #180 tabs 09/08 clopidogrel 75 mg tablet 75 mg PO DAILY #90 tabs 08/19 06/14 isosorbide mononitrate 120 mg 120 mg PO DAILY #90 tabs 09/08/24 tablet,extended release 24 hr rosuvastatin 20 mg tablet 20 mg PO HS #90 tabs 5 Diabetic Shoes (DME) #1 ea 09/27/24 diclofenac sodium 1 % topical gel 4 g topical QID PRN pain #100 09/27/24 grams dapagliflozin propanediol 10 mg See Rx Instructions .R oute 09/29/24 tablet (Farxiga) .COMPLEX #90 tabs linaclotide 72 mcg capsule See Rx Instructions .Route 11/25/24 (Linzess) .COMPLEX #90 caps metformin 1,000 mg tablet See Rx Instructions .Route 0 11/25/24 .COMPLEX #180 tabs fluticasone propionate 50 2 spray intranasal DAILY #16 grams 12/16/24 mcg/actuation nasal spray,suspension (Flonase Allergy Relief) cholecalciferol (vitamin D3) 50 50 mcg PO DAILY #90 ca ps 01/02/25 mcg (2,000 unit) capsule magnesium glycinate 400 mg (4 x 100 mg magnesium ) PO 01/02/25 .daily 90 days #360 caps meloxicam 7.5 mg tablet 7.5 mg PO DAILY #30 tabs semaglutide 7 mg tablet 7 mg PO DAILY 30 days #30 ta bs 03/06/25 losartan 25 mg tablet 50 mg (2 x 25 mg) PO DAILY # 90 tabs 03/09/25 chlorthalidone 25 mg tablet 12.5 mg (1/2 x 25 mg) PO D AILY #90 03/30/25 tabs Allergies Allergy/AdvReac Type Severity Reaction Status Date / Time desvenlafaxine (From [facility]) Allergy Mild Rash Verified 03/30/25 10:01 [facility] Disclaimer: The information contained in this section may have been updated after the patient was seen, as this information can be updated by other users. Medical History Right ankle pain Arthritis of both feet Mild ascending aorta dilation Tinnitus, bilateral Ear itching History of cardiac pacemaker Snoring Allergic rhinitis Nasal sinus congestion SNHL (sensorineural hearing loss) mild to moderate SNHL bilateral Tinnitus aurium Left otitis media Low back pain Encounter for screening for malignant neoplasm of lung Allergic rhinitis Stopped smoking with greater than 30 pack year history Dyspnea on exertion Shortness of breath Typical angina Cervical pain (neck) Low back pain Pacemaker Diabetes mellitus, type 2 COPD (chronic obstructive pulmonary disease) Hyperlipidemia Hypertension Chest pain Atypical chest pain RLS (restless legs syndrome) Insomnia Left shoulder pain Diabetic neuropathy, painful Chronic pain Depression Vasovagal episode Gastritis CAD (coronary artery disease), [place] coronary artery Gout Diabetes Hypertension Hyperlipidemia Gout attack Surgical History History of back surgery History of appendectomy H/O heart artery stent Family History Other COPD (chronic obstructive pulmonary disease) Diabetes Heart disease Hypertension Social History Smoking Status: Former smoker tobacco type: cigarettes packs per day: 0 and smokeless tobacco years smoked: 40 smoking status stop date: 09/2021 second hand exposure: Yes alcohol intake: never substance use type: denies use current occupational status: retired Travel in the last 8 weeks?: None household members: significant other housing: house marital status: current occupation: off on workers comp. 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 current occupational exposures/hazards: No caffeine: Yes Have you lived/traveled outside [place] in past 30 days?: No Contact w/someone who lives/traveled outside US past 30 days?: No Exposure to someone with infectious disease in past 14 days?: No Do you have a fever (greater than 100.4 F or 38 C)?: No Have you tested positive for COVID-19?: No Exposed to someone with COVID-19 in past 14 days?: No Do you have a sore throat?: No Do you have a cough?: No Do you have any weakness?: No Do you have any diarrhea?: No Are you experiencing any unusual bleeding?: No Do you have any muscle aches/pain?: No Do you have any abdominal pain?: No Are you experiencing loss of taste or smell?: No Other Medical History Have you received the Flu Vaccine for this season: No Have you received the Pneumonia Vaccine: No ROS Obtained: Yes Systems reviewed as appropriate & no additional complaints except as documented Physical Exam General General appearance: alert and in no apparent distress Head Head exam: atraumatic Eye Eye exam: Present normal appearance ENT ENT exam: Present normal external ear exam Neck Neck exam: Present full ROM Chest Chest inspection: Present symmetric chest wall rise Respiratory Respiratory exam: Present normal lung sounds bilaterally; Absent respiratory distress, wheezes or stridor Cardiovascular Cardiovascular exam: Present regular rate and normal rhythm Abdominal Exam Abdominal exam: Present soft; Absent distention, tenderness, guarding, rebound or rigidity exam: Present deferred Extremities Exam Extremities exam: Present normal inspection Back Exam Back exam: Present normal inspection Neurological Exam Neurological exam: Present alert and oriented X3; Absent motor sensory deficit Psychiatric Psychiatric exam: Present normal affect Skin Skin exam: Present warm and dry Medical Decision Making Medical Records Screening: Per USPSTF and CDC recommendations, given the prevalence of disease in our region, it is our hospital?s policy to screen for HIV and viral Hepatitis for all patients aged 18 and over and those with ongoing risk factors. Raghav Inquiry Pt receiving controlled substance: No Vital Signs: 03/30/25 10:44 03/30/25 10:50 03/30/25 11:00 Temperature 98.1 F Temperature Source Oral Pulse Rate 60 60 Pulse Rate [Left Radial] 60 Respiratory Rate 19 8 L Blood Pressure 131/68 117/67 Blood Pressure [Right Arm] 131/68 Blood Pressure Mean [Right Arm] 89 02 Sat by Pulse Oximetry 98 97 90 L Oxygen Delivery Method Room Air 03/30/25 11:30 03/30/25 12:00 03/30/25 12:24 Temperature 98.1 F Temperature Source Pulse Rate 62 60 60 Pulse Rate [Left Radial] Respiratory Rate 13 11 L 13 Blood Pressure 122/74 132/82 132/82 Blood Pressure [Right Arm] Blood Pressure Mean [Right Arm] 02 Sat by Pulse Oximetry 95 96 Oxygen Delivery Method Room Air Room Air Room Air Orders (Tests/Meds): ORDERS Category Date Time Status HIV Combo Routine Lab 03/30/25 10:58 Ordered Hepatitis C Ab Qual. W/ RFX Routine Lab 03/30/25 10:58 Ordered ECG Data Tracing #1: I reviewed this ECG and interpreted as documented below: AV paced rhythm. No ST elevation or depression. Ventricular rate of 59 bpm. QTc of 446. Medical Decision Narrative: Jeevan Mejia is a 69y male with a history of coronary artery disease, hypertension, hyperlipidemia, gout, pacemaker who presents to the emergency department after nearly passing out. Patient was upstairs getting labs drawn per his clerical receptionist when he felt sweaty and felt like he was going to pass out. He states that he feels back to his normal now. He states that this is happening in the past when he has had blood draws. He denies any chest pain or shortness of breath. On arrival, patient is hemodynamically stable, in no acute distress, breathing comfortably and maintaining appropriate oxygen saturation. He is alert and oriented x 3. No focal neurological deficits. He has no complaints at this time and feels that he is back to his baseline. Differential diagnosis includes, but is not limited to: Vasovagal syncope, cardiac arrhythmia, electrolyte derangement, among others. The most morbid conditions were considered and workup was based on these. Patient had lab work drawn just prior to arrival that included CBC, CMP, magnesium level, triglycerides and cholesterol panel, thyroid studies. Will obtain EKG. EKG shows an AV paced rhythm without ischemic changes. See interpretation above. Appropriate labs were drawn prior to arrival and CBC is unremarkable with no leukocytosis, no anemia, no KARIN with creatinine of 1.2. No electrolyte derangements. Glucose is elevated to 159. Thyroid studies within normal limits. On reassessment, patient is eager to get home. I do feel that this episode is best explained by vasovagal episode given it occurred while he was getting blood drawn and this has happened before when getting blood drawn. Will discharge the patient at this time but return precautions were given. All questions were answered. He demonstrated understanding and was in agreement with this plan. He was then discharged from the emergency department in stable condition. Critical Care Critical Care Time Critical Care Time: No
[2025-03-30 11:00] VITALS: BP 117/67; PULSE 60; RESP 8; O2SAT 90
[2025-03-30 11:30] VITALS: BP 122/74; PULSE 62; RESP 13; O2SAT 95
[2025-03-30 12:00] VITALS: BP 132/82; PULSE 60; RESP 11; O2SAT 96
[2025-03-30 12:24] VITALS: BP 132/82; PULSE 60; RESP 13; TEMP 36.7; O2SAT 96
== END 2025-03-30 12:24 | disposition home or self-care (01) ==
PROVIDERS: Emergency Provider Student in an Organized Health Care Education/Training Program; PCP Nurse Practitioner Family
DX: R55 Syncope and collapse (principal); I10 Essential (primary) hypertension; E78.5 Hyperlipidemia, unspecified; Z86.79 Personal history of other diseases of the circulatory system; Z95.5 Presence of coronary angioplasty implant and graft
CPT/HCPCS: 99283; 99285